=== PATIENT | male | born 1940 | race Hispanic/Latino ===

== ENCOUNTER 2016-07-16 12:44 | Inpatient (IN) | payer MEDICARE, OTHER ==
[2016-07-16] MEDS ORDERED: HYDROmorphone 1 mg/ml ISec IVP STA ×3 (13:11→15:21)
[2016-07-16] MEDS ORDERED: Levalbuterol 1.25 MG/3 ML Inhal Soln UD IH STA (13:13)
[2016-07-16] MEDS ORDERED: Ipratropium 0.02% Inhal Soln (0.5 mg/2.5 ml) UD IH STA (13:14)
--- NOTE | 2016-07-16 13:42 | ED PDOC ---
Arrival/HPI - General Chief Complaint: Trauma Time Seen by Provider: 07/16/16 13:03 Historian: Patient - History of Present Illness Narrative History of Present Illness (Text): 07/16/16 13:46 A 75 year old male presents to the emergency department complaining of left leg and knee pain after a fall a couple hours ago. Patient notes he got up after and was able to walk. Patient denies loss of consciousness and reports he did not hit head. He notes chronic shortness of breath because of his smoking. Patient denies any drug or alcohol use. Patient denies nausea, vomiting or any other complaints at this time. Time/Duration: 4-6 hours Symptom Onset: Sudden Symptom Course: Unchanged Activities at Onset: Rest Context: Walking Past Medical History - Provider Review Nursing Documentation Reviewed: Yes - Past History Past History: No Previous - Infectious Disease Hx of Infectious Diseases: None - Tetanus Immunization Tetanus Immunization: Up to Date - Cardiac Hx Angina: Yes Hx Hypertension: Yes - Pulmonary Hx Emphysema: Yes - Hematological/Oncological Hx Blood Disorders: No - Musculoskeletal/Rheumatological Hx Falls: Yes - Psychiatric Hx Substance Use: Yes - Past Surgical History Past Surgical History: No Previous - Anesthesia Hx Anesthesia: No Hx Anesthesia Reactions: No Hx Malignant Hyperthermia: No - Suicidal Assessment Feels Threatened In Home Enviroment: No Family/Social History - Physician Review Nursing Documentation Reviewed: Yes Family/Social History: No Known Family HX Smoking Status: Current Some Days Smoker Hx Alcohol Use: Yes Hx Substance Use: Yes Hx Substance Use Treatment: Yes Allergies/Home Meds Allergies/Adverse Reactions: Allergies No Known Allergies Allergy (Verified 04/09/15 13:48) Home Medications: Home Meds Medication Instructions Recorded Confirmed Oxycodone Hydrochloride [Oxycontin] 30 mg PO PRN PRN 01/29/15 04/16/15 Review of Systems - Physician Review All systems were reviewed & negative as marked: Yes - Review of Systems Constitutional: absent: Fevers Eyes: absent: Vision Changes Respiratory: SOB Cardiovascular: absent: Chest Pain Gastrointestinal: absent: Abdominal Pain, Nausea, Vomiting Genitourinary Male: absent: Dysuria Musculoskeletal: Other (left knee pain) Neurological: absent: Headache, Dizziness Physical Exam Vital Signs Reviewed: Yes Vital Signs Temp Pulse Resp BP Pulse Ox 07/16/16 13:13 97.9 F 76 22 121/73 96 Temperature: Afebrile Blood Pressure: Normal Pulse: Regular Respiratory Rate: Normal Appearance: Positive for: Non-Toxic, Uncomfortable Pain Distress: Moderate Mental Status: Positive for: Alert and Oriented X 3 - Systems Exam Head: Present: Atraumatic, Normocephalic Pupils: Present: PERRL Conjunctiva: Present: Normal Mouth: Present: Moist Mucous Membranes Pharnyx: Present: Normal. No: ERYTHEMA, EXUDATE Neck: Present: Normal Range of Motion Respiratory/Chest: Present: Wheezes (mild scattered bilateral) Cardiovascular: Present: Regular Rate and Rhythm, Normal S1, S2. No: Murmurs Abdomen: Present: Normal Bowel Sounds. No: Tenderness, Distention, Peritoneal Signs Back: Present: Normal Inspection Upper Extremity: Present: Normal Inspection. No: Cyanosis, Edema Lower Extremity: Present: Tenderness (L leg), Swelling (L leg severe, and ecchymosis), Deformity (proximal deformity of L knee, patient unable to move it at all) Neurological: Present: GCS=15, CN II-XII Intact, Speech Normal Skin: Present: Warm, Dry, Normal Color. No: Rashes Psychiatric: Present: Alert, Oriented x 3, Normal Insight, Normal Concentration Medical Decision Making ED Course and Treatment: 07/16/16 13:42 Impression: A 75 year old male with L leg pain after a fall. Differential Diagnosis included but are not limited to: fx vs hemarthrosis Plan: -- EKG -- CT brain -- chest xray -- Radiology Femur Left, L knee with patella, Pelvis, Tibia Fibula -- labs -- Urinalysis -- Atrovent, Dilaudid, Xopenex -- Reassess and disposition Prior Visits: Notes and results from previous visits were reviewed. Patient last reported to the emergency department on 04/16/15 for evaluation of head and neck pain after a fall. Progress Notes: Knee Xray: Creator : Frankie Lara MD 07/16/2016 14:00 IMPRESSION: Patellar fracture. 07/16/16 14:[address] Tobin. 07/16/16 15:23 Patient with noted history with L knee injury with patella fx on xray. Patient uncooperative and cursing out staff multiple times. Has a history of drug use, requiring multiple doses of iv dilaudid and ativan. Patient will be admitted to Dr. Vargas's service and Dr. Tobin is here in the ED for consult. 07/16/16 15:27 Dr. Badillo thinks the patient is a poor surgical candidate and may cast him. However the patient is unable to ambulate and will need hospitalization. - Lab Interpretations Lab Results: 07/16/16 13:20 07/16/16 13:20 Lab Results 07/16/16 13:20: Alcohol, Quantitative < 10 07/16/16 13:20: Sodium 138, Potassium 3.8, Chloride 102, Carbon Dioxide 28, Anion Gap 12, BUN 16, Creatinine 0.8, Est GFR ( Amer) > 60, Est GFR (Non- Af Amer) > 60, Random Glucose 121 H, Calcium 8.3 L, Total Bilirubin 1.4 H, AST 48, ALT 43, Alkaline Phosphatase 104, Lactate Dehydrogenase 585, Total Creatine Kinase 68, Troponin I < 0.01, NT-Pro-B Natriuret Pep 935 H, Total Protein 7.7, Albumin 3.3, Globulin 4.4, Albumin/Globulin Ratio 0.8 L, Lipase 23 07/16/16 13:20: PT 11.6, INR 1.07, APTT 29.6 07/16/16 13:20: WBC 9.6, RBC 3.89, Hgb 12.1 L, Hct 36.0 L, MCV 92.5, MCH 31.1, MCHC 33.6, RDW 14.2, Plt Count 188, MPV 9.6, Gran % 89.3 H, Lymph % (Auto) 7.0 L , [place] % (Auto) 3.6, Eos % (Auto) 0.0 L, Baso % (Auto) 0.1, Gran # 8.53 H, Lymph # 0.7 L, [place] # 0.3, Eos # 0.0, Baso # 0.01 I have reviewed the lab results: Yes - RAD Interpretation Radiology Orders: 07/16/16 13:09 PELVIS ONE VIEW [RAD] Stat 07/16/16 13:10 Femur Left [FEMUR MIN 2 VIEWS LT] [RAD] Stat 07/16/16 13:12 KNEE LEFT 2 VIEWS (AP & LAT) [RAD] Stat 07/16/16 13:13 Brain [HEAD W/O CONTRAST] [CT] Stat CHEST TWO VIEWS (PA/LAT) [RAD] Stat TIBIA FIBULA LEFT [RAD] Stat - EKG Interpretation Interpreted by ED Physician: Yes Type: 12 lead EKG - Medication Orders Current Medication Orders: Hydromorphone HCl (Dilaudid) 1 mg IVP STAT STA Stop: 07/16/16 15:22 Lorazepam (Ativan) 2 mg IVP ONCE ONE PRN Reason: Protocol Stop: 07/16/16 15:23 Discontinued Medications Hydromorphone HCl (Dilaudid) 1 mg IVP STAT STA Stop: 07/16/16 13:12 Last Admin: 07/16/16 13:25 Dose: 1 mg Hydromorphone HCl (Dilaudid) 1 mg IVP STAT STA Stop: 07/16/16 13:54 Last Admin: 07/16/16 14:15 Dose: 1 mg Ipratropium [place] (Atrovent) 0.5 mg IH STAT STA Stop: 07/16/16 13:15 Last Admin: 07/16/16 14:34 Dose: Not Given Non-Admin Reason: Patient Refused Levalbuterol HCl (Xopenex) 1.25 mg IH STAT STA Stop: 07/16/16 13:14 Last Admin: 07/16/16 14:34 Dose: Not Given Non-Admin Reason: Patient Refused Lorazepam (Ativan) 1 mg IVP ONCE STA PRN Reason: Protocol Stop: 07/16/16 13:53 Last Admin: 07/16/16 14:15 Dose: 1 mg - Scribe Statement The provider has reviewed the documentation as recorded by the Erika Sosa Provider Scribe Attestation: All medical record entries made by the Erika were at my direction and personally dictated by me. I have reviewed the chart and agree that the record accurately reflects my personal performance of the history, physical exam, medical decision making, and the department course for this patient. I have also personally directed, reviewed, and agree with the discharge instructions and disposition. Disposition/Present on Arrival - Present on Arrival Any Indicators Present on Arrival: No History of DVT/PE: No History of Uncontrolled Diabetes: No Urinary Catheter: No History of Decub. Ulcer: No History Surgical Site Infection Following: None - Disposition Have Diagnosis and Disposition been Completed?: Yes Diagnosis: Left patella fracture Disposition: HOSPITALIZED Disposition Time: 14:50 Patient Plan: Admission Condition: FAIR
[2016-07-16 13:47] LABS: ADD MANUAL DIFF? NO
[2016-07-16 13:58] LABS: BASO # 0.01 K/mm3 (0.0-2.0); BASO % 0.1 % (0.0-3.0); GRAN # 8.53 (1.4-6.5); GRAN % 89.3 % (50.0-68.0); LYMPH # 0.7 (1.2-3.4); MEAN CELL VOLUME 92.5 fL (80.0-105.0); MEAN CORPUSCULAR HEMOGLOBIN 31.1 pg (25.0-35.0); MEAN CORPUSCULAR HGB CONC 33.6 g/dl (31.0-37.0); MEAN PLATELET VOLUME 9.6 fl (7.0-11.0); MONO # 0.3 (0.1-0.6); MONO % 3.6 % (1.0-6.0); PLATELET COUNT 188 10^3/uL (120.0-450.0); RED CELL DISTRIBUTION WIDTH 14.2 % (11.5-14.5); WHITE BLOOD COUNT 9.6 10^3/ul (4.5-11.0)
--- NOTE | 2016-07-16 14:01 | RAD ---
PROCEDURE: Left Knee Radiographs. HISTORY: Pain. COMPARISON: None. FINDINGS: BONES: Without fracture. JOINTS: Tricompartment osteoarthritis. JOINT EFFUSION: Joint effusion. OTHER FINDINGS: Anterior soft tissue swelling. Vascular calcifications. IMPRESSION: Patellar fracture.
[2016-07-16 14:05] LABS: INR 1.07 (0.93-1.08); PARTIAL THROMBOPLASTIN TIME 29.6 Seconds (23.7-30.8)
[2016-07-16 14:11] LABS: ALB/GLOB RATIO 0.8 (1.1-1.8); ALKALINE PHOSPHATASE 104 U/L (38-133); ALT/SGPT 43 U/L (7-56); AST/SGOT 48 U/L (15-59); BILIRUBIN,TOTAL 1.4 mg/dL (0.2-1.3); BLOOD UREA NITROGEN 16 mg/dL (7-21); CALCIUM 8.3 mg/dL (8.4-10.5); CARBON DIOXIDE 28 mmol/L (21-33); CHLORIDE 102 mmol/L (98-107); GFR AFRICAN-AMERICAN > 60; GLUCOSE,RANDOM 121 mg/dL (70-110); LIPASE 23 U/L (23-300); POTASSIUM 3.8 mmol/L (3.6-5.0); SODIUM 138 mmol/L (132-148); TOTAL PROTEIN 7.7 g/dL (5.8-8.3)
[2016-07-16 14:22] LABS: TROPONIN I < 0.01 ng/mL
[2016-07-16] MEDS ORDERED: MethylPREDNISolone Depo 40 mg/ml Inj IM ONE (16:23)
[2016-07-16] MEDS ORDERED: Bupivacaine 0.5% Inj(30mL) IJ ONE (16:23)
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
--- NOTE | 2016-07-16 18:36 | CT ---
PROCEDURE: CT HEAD WITHOUT CONTRAST. HISTORY: fall COMPARISON: Head CT from 04/09/2015 TECHNIQUE: Axial computed tomography images were obtained through the head/brain without intravenous contrast. Radiation dose: Total exam DLP = 822.62 mGy-cm. This CT exam was performed using one or more of the following dose reduction techniques: Automated exposure control, adjustment of the mA and/or kV according to patient size, and/or use of iterative reconstruction technique. Somewhat limited study due to artifact from patient motion. FINDINGS: HEMORRHAGE: No intracranial hemorrhage. BRAIN: No mass effect or edema. No CT evidence of acute territorial infarct. Patchy and confluent hypodensities throughout the bilateral cerebral hemispheric white matter are most likely from chronic small vessel ischemic changes. VENTRICLES: Unremarkable. No hydrocephalus. CALVARIUM: Unremarkable. PARANASAL SINUSES: Unremarkable as visualized. No significant inflammatory changes. MASTOID AIR CELLS: Unremarkable as visualized. No inflammatory changes. OTHER FINDINGS: Deviated nasal septum. Anterior scalp soft tissue nodule previously identified in the CT from 04/09/2015 has grown significantly larger in size and now measures 2 x 1.1 centimeter. It previously measured approximately 0.9 x 0.7 centimeter. IMPRESSION: No CT evidence of acute intracranial hemorrhage or acute territorial infarct. Acute infarction may be CT occult within first 24 hours. If a focal deficit persists, consider followup CT or MRI for further evaluation. Interval growth of the anterior scalp soft tissue nodule now measuring 2 x 1.[address] Olivia at approximately 6:40 p.m. on 07/16/2016.
[2016-07-16 19:48] VITALS: BMI 25.6
[2016-07-16] MEDS: HYDROmorphone 1 mg/ml ISec IVP PRN (21:37)
[2016-07-16] MEDS ORDERED: HYDROmorphone 0.5 mg/0.5 ml ISec IVP STA (23:51)
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
[2016-07-17] MEDS: HYDROmorphone 1 mg/ml ISec IVP PRN ×2 (05:45→12:37)
--- NOTE | 2016-07-17 08:51 | PN ---
DATE: 07/17/2016 A 75-year-old belligerent male in room 563, bed 1, was treated last night in the ER for mildly displa stacia fracture patella with what appears to be an intact retinaculum, medially and laterally. The frac ture has some bony contact on the joint surface and is anteriorly by about a 1/2 an inch or 3/8 of an inch, but what stopped him from going to surgery was 2 things. He had a tremendous swelli ng and ecchymosis of that left knee. I helped decrease some of the swelling by taking approximately 50 mL of blood out to decrease the pressure on the knee and put him in a long leg cast as he is not a surgical candidate, not only because he is uncooperative, he would not comply with the strict regime of therapy and postop care and he is very belligerent as I said, but now what I should do is keep hi m in a cast. With this, he could go to a subacute rehab and I would follow him at that facility and check in on him every week and get periodic x-rays as this fracture has a good chance of healing with out surgical intervention as like I said, he does not or will not comply with the protocol of postop care and the risk of surgery outweighs its benefits right now. We will try to get him to a subacute rehab, then I could follow him periodically. Marin Tobin DO cc: [id number] TT: 07/17/2016 08:51:28 Confirmation # [id number] Dictation # [id number]
--- NOTE | 2016-07-17 09:36 | RAD ---
PROCEDURE: Radiographs of the left tibia and fibula. HISTORY: L knee injury COMPARISON: None available. TECHNIQUE: Frontal and lateral views obtained. FINDINGS: BONES: No fracture or destructive lesion. JOINT SPACES: Unremarkable. OTHER FINDINGS: Plaster cast in place IMPRESSION: Unremarkable radiographs of the left tibia and fibula.
--- NOTE | 2016-07-17 10:06 | RAD ---
PROCEDURE: CHEST RADIOGRAPH, 1 VIEW HISTORY: L knee injury; sob COMPARISON: 07/30/2014 FINDINGS: LUNGS: Interstitial infiltrates are seen bilaterally. Findings could represent CHF or pneumonia PLEURA: No pneumothorax or pleural fluid seen. CARDIOVASCULAR: Normal. OSSEOUS STRUCTURES: No significant abnormalities. VISUALIZED UPPER ABDOMEN: Normal. OTHER FINDINGS: None. IMPRESSION: Interstitial infiltrates bilaterally. CHF versus pneumonia
--- NOTE | 2016-07-17 10:15 | RAD ---
PROCEDURE: Radiographs of the pelvis. HISTORY: fall; L leg injury COMPARISON: None. FINDINGS: BONES: Pelvic Bones: Unremarkable. Hips: Grossly unremarkable. JOINTS: Sacroiliac Joints: Unremarkable. Pubic Symphysis: Unremarkable. OTHER FINDINGS: None. IMPRESSION: Unremarkable radiographs of the pelvis.
--- NOTE | 2016-07-17 10:15 | RAD ---
PROCEDURE: Left Femur Radiographs. HISTORY: left leg/knee injury COMPARISON: None. TECHNIQUE: AP and Lateral Radiographs of the left femur. FINDINGS: FEMUR: There is a transverse minimally displaced fracture through patella. The femur is intact SOFT TISSUES: Normal. OTHER FINDINGS: None. IMPRESSION: There is a transverse minimally displaced fracture through patella. The femur is intact
--- NOTE | 2016-07-17 10:59 | RAD ---
PROCEDURE: Left Knee Radiographs. HISTORY: Pain. COMPARISON: None. FINDINGS: BONES: There is a displaced transverse fracture through the patella. JOINTS: Normal. No osteoarthritis. JOINT EFFUSION: None. OTHER FINDINGS: Plaster cast in place IMPRESSION: There is a displaced transverse fracture through the patella.
[2016-07-17] MEDS: Enoxaparin 30 mg Syringe SC SCH (12:36)
--- NOTE | 2016-07-18 02:06 | CON ---
DATE: 07/17/2016 IDENTIFYING INFORMATION: The patient is a 75-year-old white male who initially presented to the [facility] Room complaining of left leg and knee pain after he fell. The patient reportedly stated that he had gotten up and was able to walk. He denied loss of consciou sness and reported that he did not hit his head. He was noted to be short of breath. He denied any drug or alcohol use. No neurologic signs were reported in the Emergency Room and all systems were reported as having been negative. He was reported to be alert and oriented to 3 spheres. Subsequently, in the Emergency Room, he became uncooperative and started cursing at staff. There, it was discerned that he did have a history of drug use and required multiple doses of Dilaudi d and Ativan. LABORATORY DATA: A tibia/fibula x-ray was unremarkable. A CT scan of his head without contrast showed no intracranial hemorrhage. An x-ray of the femur showed a transverse, minimally displaced fracture through the patella with the femur being intact. A pelvic x-ray was unremarkable. A knee x-ray showed a displaced transverse fracture through the patella. I have discussed the patient's situation with nursing. The patient has been yelling out and has been restless. The patient has been put on Ativan 1 mg IV push q. 6 hours p.r.n., as well as Dilaudid 1 mg IV q. 4 hours p.r.n. A CBC and differential shows lowered hemoglobin 12.1, hematocrit 36.0. A toxicology screen is negati ve for alcohol. Biochemical profile shows slightly elevated random glucose 121, lowered calcium 8.3, total bilirubin elevated at 1.4. ASSESSMENT: I had previously interacted with this patient in 08/2014. At that time, he was the focus of concern because of intermittent agitation and attempts to climb out of his bed. He had tested positive for cocaine and opiates at that time. He had denied any prior psychiatric history at that time, but admitted that he had a lifelong history of substance abuse, "everything." His attempts at financially supporting his drug habit had led him to be incarcerated on a number of occasions, but he could not tell me for how long nor where he was so housed. At that time, he complained of intractable neuropathic pain in his left lower extremity and was noted to have an unsteady gait. At that time, he informed me that [place] was [place] and that he was living in [facility]. He stated that his parents are , as are his 3 younger siblings (2 sisters and 1 brother). He denied a familial psychiatric or substance abuse history and denied such in himself while, at the same time, talking about his substance usage. He indicated that he had dropped out of school in sixth grade and had trouble learning and did not li ke school. He denied he was in special education or ever retained. 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 DIAGNOSIS: At that time, the diagnosis was rule out dementia, not otherwise specified and polysubsta nce abuse. I do not see any other psychiatric contacts in his chart. PLAN: I have reviewed his case with nursing. The patient reportedly lives at the [facility] has no identi fiable family. He is presently disoriented, noncommunicative and intermittently agitated. It is unclear to me if this is the patient's baseline state; something I doubt given the level of int eraction he demonstrated in the Emergency Room earlier at time of his admission. I will start the pa mary alice on low dose Risperdal while, at the same time, maintaining him on the Ativan p.r.n. that he is getting. Thank you, as always, for this consultation. Juan Brady MD, PhD cc: [id number] TT: 07/18/2016 02:06:07 Confirmation # [id number] Dictation # [id number]
--- NOTE | 2016-07-18 08:23 | PN ---
DATE: 07/18/2016 ROOM: 568, bed 1. The patient is ready to go to subacute rehabilitation. No surgery is planned. I will treat him cons ervatively. He has too much risk of doing surgery because of many comorbidities such as a smoker, al coholic, not compliant, which is probably the main reason, but he will do well with 6 weeks of a cast and we will reevaluate him after the cast is off, so he can go to subacute rehab any time. I would like to know which one he is going to go to so I could follow him and hopefully licensed clinical social worker could c all me. Marin Tobin DO cc: [id number] TT: 07/18/2016 08:23:10 Confirmation # [id number] Dictation # [id number] en
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
[2016-07-18] MEDS: Enoxaparin 30 mg Syringe SC SCH (09:59)
--- NOTE | 2016-07-19 02:04 | PN ---
DATE: 07/18/2016 IDENTIFYING INFORMATION: The patient is a 75-year-old white male, who has been agitated. The patient appears to be more engageable than yesterday, but is quite agitated and belligerent accor ding to nursing. He has a fracture of the left patella. Orthopedics has determined that the patient is not a good candidate for surgical repair of the fractu red patellar; therefore, the leg was casted. He also has a history of chronic obstructive pulmonary disease, hypertension, and opioid dependence i n the past. I will increase the patient's Risperdal dosage. Juan Brady MD, PhD cc: [phone] TT: 07/19/2016 01:19:57 Confirmation # [id number] Dictation # [id number] vn
[2016-07-19] MEDS: Enoxaparin 30 mg Syringe SC SCH (10:32)
[2016-07-19] MEDS: HYDROmorphone 1 mg/ml ISec IVP PRN (16:19)
[2016-07-19 16:40] VITALS: RESP 20
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
--- NOTE | 2016-07-19 17:47 | CP.PCM.PN ---
Subjective - Date & Time of Evaluation Date of Evaluation: 07/19/16 Time of Evaluation: 04:15 - Subjective Subjective: Patient seen after Tanya Hernandes was called . According to patient's RN Tanya Hernandes was called when patient was noted to be combative, was spitting at his caretakers and was trying to climb out of bed. He is also c/o pain in his L leg.On a scale of 1 to 10 it is a 10. Patient is being treated for a fractured L Patella. PMH:HTN,COPD,ETOH and Heroin abuse Objective - Vital Signs/Intake and Output Vital Signs (last 24 hours): Temp Pulse Resp BP Pulse Ox 97.1 F L 88 22 145/86 97 07/19/16 08:00 07/19/16 08:00 07/19/16 08:00 07/19/16 08:00 07/19/16 08:00 Intake and Output: 07/19/16 07/19/16 06:59 18:59 Intake Total 660 300 Balance 660 300 - Medications Medications: Current Medications Enoxaparin Sodium (Lovenox) 30 mg SC DAILY SANDRA PRN Reason: Protocol Last Admin: 07/19/16 10:32 Dose: 30 mg Hydromorphone HCl (Dilaudid) 1 mg IVP Q4H PRN PRN Reason: Pain, moderate (4-7) Last Admin: 07/19/16 16:19 Dose: 1 mg Lorazepam (Ativan) 1 mg IVP Q6H PRN; Protocol PRN Reason: Agitation Last Admin: 07/19/16 15:09 Dose: 1 mg Risperidone (Risperdal Tab) 0.5 mg PO DAILY COUNTS INCLUDE 234 BEDS AT THE [facility] Last Admin: 07/19/16 11:39 Dose: 0.5 mg - Labs Labs: PT 11.6 Seconds (9.9-11.8) 07/16/16 13:20 INR 1.07 (0.93-1.08) 07/16/16 13:20 APTT 29.6 Seconds (23.7-30.8) 07/16/16 13:20 - Constitutional Appears: No Acute Distress, Combative, Agitated, Confused (at times.) - Head Exam Head Exam: ATRAUMATIC, NORMAL INSPECTION, NORMOCEPHALIC - Eye Exam Eye Exam: PERRL - ENT Exam ENT Exam: Mucous Membranes Moist - Neck Exam Neck Exam: Normal Inspection - Respiratory Exam Respiratory Exam: Clear to Ausculation Bilateral - Cardiovascular Exam Cardiovascular Exam: REGULAR RHYTHM - GI/Abdominal Exam GI & Abdominal Exam: Soft, Normal Bowel Sounds - Extremities Exam Additional comments: L leg is in a cast.Moves toes well. Good capillary refill noted. - Neurological Exam Neurological Exam: Alert, Awake Additional comments: Confused at times. - Psychiatric Exam Psychiatric exam: Agitated - Skin Skin Exam: Dry, Warm Assessment and Plan - Assessment and Plan (Free Text) Assessment: Agitation Pain L leg Plan: Patient given his dose of Dilaudid stat. Bilateral soft wrist restraints ordered.
--- NOTE | 2016-07-19 23:09 | PCM.PYCHPN ---
Psychiatric Progress Note - Psychiatric Progress Note Patient seen today, length of contact: 25 Patient Chief Complaint: agitation and confusion Problems Identified/Issues Discussed: fx patella Medical Problems: as above DSM 5 Symptoms Update: remains combative. has 1:1 sitter. confused Medication Change: Yes (increased risperdal) Medical Record Reviewed: Yes Consults ordered or reviewed: reviewed Mental Status Examination - Cognitive Function Memory: Other Attention: Poor Concentration: Poor Fund of Knowledge: Poor Decription of patient's judgement and insights: impaired - Mood Mood: Other - Affect Affect: Blunted - Speech Speech: Slurred, Loud - Formal Thought Process Formal Thought Process: Flight of ideas, Other - Suicidal Ideation Suicidal Ideation: No - Homicidal Ideation Homicidal Ideation: No Goal/Treatment Plan - Goal/Treatment Plan Progress Toward Problem(s) and Goals/Treatment Plan: remains confused and combative
[2016-07-20] MEDS: Oxycodone/Acetaminophen 5/325 mg Tab PO PRN (20:33)
--- NOTE | 2016-07-20 21:41 | PCM.PYCHPN ---
Psychiatric Progress Note - Psychiatric Progress Note Patient seen today, length of contact: 25 Patient Chief Complaint: agitation and confusion Problems Identified/Issues Discussed: fx patella Medical Problems: as above DSM 5 Symptoms Update: Remains rambunctious On one hand had been somewhat more focused and coherent but subsequently upon my reaching the nursing station again became combative I have increased his respiratory now to 0.5 a.m. and at bedtime and 0.2 5 in the PM Medication Change: Yes (increased risperdal) Medical Record Reviewed: Yes Consults ordered or reviewed: reviewed Mental Status Examination - Cognitive Function Memory: Impaired, Other Attention: Poor Concentration: Poor Fund of Knowledge: Poor Decription of patient's judgement and insights: impaired - Mood Mood: Other - Affect Affect: Other - Speech Speech: Slurred, Loud, Stammering - Formal Thought Process Formal Thought Process: Flight of ideas, Other - Suicidal Ideation Suicidal Ideation: No - Homicidal Ideation Homicidal Ideation: No Goal/Treatment Plan - Goal/Treatment Plan Progress Toward Problem(s) and Goals/Treatment Plan: remains confused and combative
--- NOTE | 2016-07-20 22:00 | CP.PCM.PN ---
Subjective - Date & Time of Evaluation Date of Evaluation: 07/20/16 Time of Evaluation: 21:58 - Subjective Subjective: Patient was seen at bedside because he was agitated. He wants to go home. He received po ativan earlier. Has no iv access. Geodon 10 mg IM orderd. Objective - Vital Signs/Intake and Output Vital Signs (last 24 hours): Temp Pulse Resp BP Pulse Ox 98.4 F 91 H 20 148/81 99 07/19/16 16:00 07/19/16 16:00 07/19/16 16:00 07/19/16 16:00 07/19/16 16:00 - Medications Medications: Current Medications Enoxaparin Sodium (Lovenox) 30 mg SC DAILY SANDRA PRN Reason: Protocol Last Admin: 07/19/16 10:32 Dose: 30 mg Lorazepam (Ativan) 1 mg PO Q6 PRN; Protocol PRN Reason: Agitation Last Admin: 07/20/16 20:33 Dose: 1 mg Nicotine (Nicoderm Cq) 1 patch TD DAILY SANDRA Oxycodone HCl (Oxycontin Extended Release Tab) 10 mg PO Q12 SANDRA Stop: 07/23/16 22:01 Oxycodone/Acetaminophen (Percocet 5/325 Mg Tab) 1 tab PO Q6H PRN PRN Reason: Pain, severe (8-10) Stop: 07/23/16 20:18 Last Admin: 07/20/16 20:33 Dose: 1 tab Risperidone (Risperdal Tab) 0.5 mg PO DAILY SANDRA PRN Reason: Protocol Risperidone (Risperdal Tab) 0.5 mg PO HS SANDRA PRN Reason: Protocol Last Admin: 07/19/16 22:03 Dose: 0.5 mg Risperidone (Risperdal Tab) 0.25 mg PO 1400 SANDRA PRN Reason: Protocol - Labs Labs: PT 11.6 Seconds (9.9-11.8) 07/16/16 13:20 INR 1.07 (0.93-1.08) 07/16/16 13:20 APTT 29.6 Seconds (23.7-30.8) 07/16/16 13:20 - Constitutional Appears: Well, No Acute Distress - Head Exam Head Exam: ATRAUMATIC, NORMAL INSPECTION, NORMOCEPHALIC - Eye Exam Eye Exam: Normal appearance - ENT Exam ENT Exam: Normal External Ear Exam - Neck Exam Neck Exam: Normal Inspection - Respiratory Exam Respiratory Exam: NORMAL BREATHING PATTERN - Cardiovascular Exam Cardiovascular Exam: absent: JVD - GI/Abdominal Exam GI & Abdominal Exam: absent: Distended - Rectal Exam Rectal Exam: Deferred - Extremities Exam Additional comments: Left leg long splint + - Back Exam Back Exam: NORMAL INSPECTION - Neurological Exam Neurological Exam: Alert, Oriented x3 - Psychiatric Exam Psychiatric exam: Normal Affect, Normal Mood - Skin Skin Exam: Normal Color Assessment and Plan - Assessment and Plan (Free Text) Assessment: Agitation. Left leg pain. Left patella fracture. COPD. HTN. Chronic back pain. Smoker. Alcohol user. Heroine user. Plan: Geodon 10 mg IM ordered. Continue present management.
--- NOTE | 2016-07-21 08:17 | PN ---
DATE: 07/20/2016 The patient is in room 563, bed 1 this morning as the computer system at the hospital is down. He is improving clinically. Mental status has improved. He is more awake, alert and cooperative, craving his nicotine for his chronic tobacco use. We will add a Nicoderm patch. Psychiatry followup by Dr. Brady is appreciated. Case management and social worker psychiatric are working on discharge placement for a fractured patella with no further surgery indicated as of this point as best I know. The patient will be seen by Dr. Jaskaran Vargas for the next few days as I will be away. Bryan Vargas MD cc: [id number] TT: 07/21/2016 07:59:39 Confirmation # [id number] Dictation # [id number] en MTDD
[2016-07-21] MEDS: Enoxaparin 30 mg Syringe SC SCH (09:15)
[2016-07-21] MEDS: oxyCODONE 10 mg ER Tab (oxyCONTIN) PO SCH ×2 (09:16→21:11)
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
--- NOTE | 2016-07-21 13:58 | PCM.PYCHPN ---
Psychiatric Progress Note - Psychiatric Progress Note Patient seen today, length of contact: 25 Patient Chief Complaint: agitation and confusion Problems Identified/Issues Discussed: fx patella Medical Problems: as above DSM 5 Symptoms Update: He is intermittently combative Did respond well to Geodon IM when necessary last night. As such we will DC standing order of respiratory withdrawal and put on a standing order of Geodon ( 60 mg twice a day with meals ( Ativan as a when necessary we'll still be available. Medication Change: Yes (Have DC'd respiratory: Replaced with Geodon because patient seems more resp) Medical Record Reviewed: Yes Consults ordered or reviewed: reviewed Mental Status Examination - Cognitive Function Memory: Impaired, Other Attention: Poor Concentration: Poor Fund of Knowledge: Poor Decription of patient's judgement and insights: impaired - Mood Mood: Other - Affect Affect: Other - Speech Speech: Slurred, Loud, Stammering - Formal Thought Process Formal Thought Process: Flight of ideas, Other - Suicidal Ideation Suicidal Ideation: No - Homicidal Ideation Homicidal Ideation: No Goal/Treatment Plan - Goal/Treatment Plan Progress Toward Problem(s) and Goals/Treatment Plan: remains confused and combative
[2016-07-21] MEDS: Oxycodone/Acetaminophen 5/325 mg Tab PO PRN (14:52)
[2016-07-21] MEDS ORDERED: Oxycodone/Acetaminophen 5/325 mg Tab PO STA (16:28)
[2016-07-21] MEDS ORDERED: Oxycodone/Acetaminophen 10/325 mg Tab PO PRN (16:29)
[2016-07-21] MEDS: Oxycodone/Acetaminophen 10/325 mg Tab PO PRN (23:04)
[2016-07-22] MEDS: Enoxaparin 30 mg Syringe SC SCH (09:50)
[2016-07-22] MEDS: oxyCODONE 10 mg ER Tab (oxyCONTIN) PO SCH ×2 (09:54→21:28)
--- NOTE | 2016-07-22 11:33 | PN ---
DATE: 07/22/2016 The patient is a 75-year-old male who was admitted to the [facility] 6 days ago after falling and fracturing his left patella. He is known to have a past medical history positive for chronic back pain, hypertension, COPD, positive for hepatitis C, chronic opioid use for his pain. He smokes cigarettes, drinks alcohol, is known to use illicit drugs at times. Through his hospital stay, the patient had been belligerent, rowdy, throwing things in his room. However, over the past few days, he has slowly come around to being more lucid, more conversational. When I saw the patient today, he was extremely polite and well mannered. He was happy to see me. The patient was evaluate d by Dr. Marin Tobin, the orthopedist, and placed in a long cast from the thigh to the ankle for his fracture. Because of the patient's age and comorbidities, it was felt he was not a good cand idate for surgical repair of the patella. I spoke with Dr. Tobin earlier today. He said, fro m his orthopedic point of view, he is about ready for transfer to a subacute rehab facility versus di scharge to home. I spoke with the patient. He would like to go home; however, realized how difficul t it would be for him to manage in his apartment at the local [facility] and will think about possible suba cute rehab overnight and we will discuss this further again in the morning. I told the patient he wo uld need to be compliant and polite to the nursing staff in order to be admitted to the subacute reha b facility and the patient understands, so we will reevaluate in the morning and discussed discharge planning. Marin Vargas MD cc: [phone] TT: 07/22/2016 11:32:22 Confirmation # [id number] Dictation # [id number] tn
[2016-07-22] MEDS: Oxycodone/Acetaminophen 10/325 mg Tab PO PRN (13:33)
[2016-07-23] MEDS: Oxycodone/Acetaminophen 10/325 mg Tab PO PRN ×4 (00:12→21:24)
[2016-07-23] MEDS: Enoxaparin 30 mg Syringe SC SCH (09:08)
[2016-07-23] MEDS: oxyCODONE 10 mg ER Tab (oxyCONTIN) PO SCH ×3 (09:09→21:15)
[2016-07-23 10:21] VITALS: O2SAT 94
[2016-07-23 16:19] VITALS: BP 110/70; PULSE 80; TEMP 98.3
--- NOTE | 2016-07-23 18:39 | DS ---
The patient is 7 days post fracture of his left patella that is compatible with conservative care and a long leg cast. He can go home today. We are going to get him a walker. He is still ambulating with therapy, weightbearing to tolerance. He lives in the [facility] in [place] and he is a , so he is going to have access to a walker and I will visit him at the [facility] and plan to take the cast off in 2-3 weeks and give him a brace at that time. The instructions will be ambulate with full weight bearing with a walker and then progress to a cane, but no strenuous bending or stairs for at least 6-8 weeks. FINAL DIAGNOSIS: Left patella fracture with hemarthrosis that was evacuated on admission and the fracture is compatible with conservative therapy as the extensor retinaculum is still intact peripherally. Marin Tobin DO cc: [id number] TT: 07/23/2016 18:38:00 bradly [id number]
[2016-07-24] MEDS: Oxycodone/Acetaminophen 10/325 mg Tab PO PRN (04:25)
[2016-07-24] MEDS: oxyCODONE 10 mg ER Tab (oxyCONTIN) PO SCH ×2 (08:34→13:45)
--- NOTE | 2016-07-24 13:46 | PCM.PYCHPN ---
Psychiatric Progress Note - Psychiatric Progress Note Patient seen today, length of contact: 25 Patient Chief Complaint: agitation and confusion Problems Identified/Issues Discussed: fx patella Medical Problems: as above DSM 5 Symptoms Update: Patient presently sedate. The case reviewed with nursing who informs patient has been more communicative and less agitated since having been switched from Risperdal to Geodon. Medication Change: No Medical Record Reviewed: Yes Consults ordered or reviewed: reviewed Mental Status Examination - Cognitive Function Memory: Impaired, Other Attention: Poor Concentration: Poor Fund of Knowledge: Poor Decription of patient's judgement and insights: impaired Social work notes reviewed. The patient was at a higher cognitive status when interviewed with social work then presently - Mood Mood: Other - Affect Affect: Other - Speech Speech: Slurred, Stammering - Formal Thought Process Formal Thought Process: Other - Suicidal Ideation Suicidal Ideation: No - Homicidal Ideation Homicidal Ideation: No Goal/Treatment Plan - Goal/Treatment Plan Progress Toward Problem(s) and Goals/Treatment Plan: remains confused and combative On July 23 patient noted to be significantly improved. Social work recommendations reviewed and will defer to this placement. Patient is not homicidal suicidal or psychotic
== END 2016-07-24 18:00 | DRG 563 ==
LOC: ED 12:44 → ERH 14:47 → 5RNO 17:41
PROVIDERS: ADMIT Internal Medicine; ATTEND Internal Medicine
DX: S82.002A Unspecified fracture of left patella, initial encounter for closed fracture (principal); F11.20 Opioid dependence, uncomplicated; J44.9 Chronic obstructive pulmonary disease, unspecified; S83.8X2A Sprain of other specified parts of left knee, initial encounter; I10 Essential (primary) hypertension; F17.210 Nicotine dependence, cigarettes, uncomplicated; R41.0 Disorientation, unspecified; R45.1 Restlessness and agitation; M54.9 Dorsalgia, unspecified; G89.29 Other chronic pain; B19.20 Unspecified viral hepatitis C without hepatic coma; W01.0XXA Fall on same level from slipping, tripping and stumbling without subsequent striking against object, initial encounter; V78.4XXA Person boarding or alighting from bus injured in noncollision transport accident, initial encounter; Y92.414 Local residential or business street as the place of occurrence of the external cause; Z78.1 Physical restraint status

== ENCOUNTER 2016-07-25 20:37 | Inpatient (IN) | payer MEDICARE, MEDICAID ==
[2016-07-25 20:57] VITALS: BMI 20.7
--- NOTE | 2016-07-25 21:24 | ED PDOC ---
Arrival/HPI - General Chief Complaint: Psychiatric Evaluation Time Seen by Provider: 07/25/16 20:51 Historian: Patient - History of Present Illness Narrative History of Present Illness (Text): 07/25/16 21:21 Michael Jackson is a 75 year old male, whose past medical history includes hypertension, angia, emphysema, and substance abuse, presents to emergency department from assisted for evaluation of increased agitative behavior. At the emergency department, patient denies any somatic or psychological complaints. Symptom Onset: Gradual Severity Level: Mild Activities at Onset: Light Past Medical History - Provider Review Nursing Documentation Reviewed: Yes - Past History Past History: No Previous - Infectious Disease Hx of Infectious Diseases: None - Tetanus Immunization Tetanus Immunization: Up to Date - Cardiac Hx Angina: Yes Hx Hypertension: Yes - Pulmonary Hx Emphysema: Yes - Hematological/Oncological Hx Blood Disorders: No - Musculoskeletal/Rheumatological Hx Falls: Yes - Psychiatric Hx Substance Use: Yes (substance abuse treatment) - Past Surgical History Past Surgical History: No Previous - Anesthesia Hx Anesthesia: No Hx Anesthesia Reactions: No Hx Malignant Hyperthermia: No - Suicidal Assessment Feels Threatened In Home Enviroment: No Family/Social History - Physician Review Nursing Documentation Reviewed: Yes Family/Social History: No Known Family HX Smoking Status: Current Some Days Smoker Hx Alcohol Use: Yes Hx Substance Use: Yes (substance abuse treatment) Hx Substance Use Treatment: Yes Allergies/Home Meds Allergies/Adverse Reactions: Allergies No Known Allergies Allergy (Verified 04/09/15 13:48) Home Medications: Home Meds Medication Instructions Recorded Confirmed ALPRAZolam [Xanax] 1 mg PO TID 07/26/16 07/26/16 Nicotine 14 mg/24 hr [Nicotine 14 mg TD DAILY 07/26/16 07/26/16 Transdermal System] Oxycodone HCl [Oxycodone HCl] 10 mg PO Q8H 07/26/16 07/26/16 Ziprasidone [Geodon] 60 mg PO BID 07/26/16 07/26/16 Review of Systems - Physician Review All systems were reviewed & negative as marked: Yes - Review of Systems Constitutional: Normal. absent: Fatigue, Fevers Respiratory: Normal. absent: SOB, Cough, Sputum Cardiovascular: Normal. absent: Chest Pain, Palpitations Gastrointestinal: Normal. absent: Abdominal Pain, Diarrhea, Nausea, Vomiting Genitourinary Male: Normal. absent: Dysuria, Frequency Musculoskeletal: Normal Neurological: Normal. absent: Headache, Dizziness Psychiatric: Other (agitative behavior. ) Physical Exam Vital Signs Reviewed: Yes Vital Signs Temp Pulse Resp BP Pulse Ox 07/26/16 08:13 98.4 F 84 18 132/84 96 07/26/16 01:04 96 H 18 143/75 97 07/25/16 20:56 98.2 F 88 18 184/95 H 99 Temperature: Afebrile Blood Pressure: Hypertensive Pulse: Regular Respiratory Rate: Normal Appearance: Positive for: Well-Appearing, Non-Toxic, Comfortable Pain Distress: None Mental Status: Positive for: Alert and Oriented X 3 - Systems Exam Head: Present: Atraumatic, Normocephalic Pupils: Present: PERRL Conjunctiva: Present: Normal Respiratory/Chest: Present: Clear to Auscultation, Good Air Exchange. No: Respiratory Distress, Accessory Muscle Use Cardiovascular: Present: Regular Rate and Rhythm, Normal S1, S2. No: Murmurs Abdomen: Present: Normal Bowel Sounds. No: Tenderness, Distention, Peritoneal Signs, Rebound, Guarding Upper Extremity: Present: Normal Inspection. No: Cyanosis, Edema Lower Extremity: Present: Other (left leg cast for patella fracture ). No: Edema Neurological: Present: GCS=15, CN II-XII Intact, Speech Normal, Motor Func Grossly Intact, Normal Sensory Function Skin: Present: Warm, Dry, Normal Color. No: Rashes Psychiatric: Present: Alert, Oriented x 3, Agitated Medical Decision Making ED Course and Treatment: 07/25/16 21:23 Impression: A 75 year old male who was sent to emergency department from assisted for evaluation of agitative behavior. Plan: -- EKG --- Labs -- drug screen -- Alcohol level -- Chest X-ray -- Urinalysis -- Reassess and disposition Progress Notes: 07/25/16 21:24 Patient was verbally abusive in the emergency department. 1mg Ativan given. 07/26/16 00:24 Patient still agitated. Will placed patient on restraints. 07/26/16 00:24 EKG interpreted by me: NSR @ 89 bpm. Normal [place]. Normal interval. - Lab Interpretations Lab Results: 07/25/16 22:00 07/25/16 22:00 Lab Results 07/26/16 08:20: Urine Opiates Screen Negative, Urine Methadone Screen Negative, Ur Barbiturates Screen Negative, Ur Phencyclidine Scrn Negative, Ur Amphetamines Screen Negative, U Benzodiazepines Scrn Positive H, U Oth Cocaine Metabols Negative, U Cannabinoids Screen Negative 07/26/16 05:20: Urine Color Yellow, Urine Appearance Clear, Urine pH 8.0, Ur Specific [place] 1.015, Urine Protein Trace H, Urine Glucose (UA) Negative, Urine Ketones Negative, Urine Blood Trace-intact H, Urine Nitrate Negative, Urine Bilirubin Negative, Urine Urobilinogen 1.0 H, Ur Leukocyte Esterase Negative, Urine RBC 0 - 2, Urine WBC Negative, Ur Epithelial Cells 0 - 2, Amorphous Sediment Small, Urine Bacteria Small 07/25/16 22:00: Alcohol, Quantitative < 10 07/25/16 22:00: Salicylates < 1 L, Acetaminophen < 10.0 L 07/25/16 22:00: Sodium 135, Potassium 4.1, Chloride 101, Carbon Dioxide 27, Anion Gap 11, BUN 24 H, Creatinine 0.7, Est GFR ( Amer) > 60, Est GFR ( Non-Af Amer) > 60, Random Glucose 108, Calcium 8.4, Total Bilirubin 0.8, AST 45 , ALT 38, Alkaline Phosphatase 115, Total Protein 7.3, Albumin 3.3, Globulin 4.0 , Albumin/Globulin Ratio 0.8 L 07/25/16 22:00: WBC 10.8, RBC 3.74, Hgb 11.7 L, Hct 33.9 L, MCV 90.6, MCH 31.3, MCHC 34.5, RDW 13.5, Plt Count 291, MPV 9.3, Gran % 81.3 H, Lymph % (Auto) 11.7 L, [place] % (Auto) 6.7 H, Eos % (Auto) 0.1 L, Baso % (Auto) 0.2, Gran # 8.75 H, Lymph # 1.3, [place] # 0.7 H, Eos # 0.0, Baso # 0.02 - RAD Interpretation Radiology Orders: 07/26/16 08:37 CHEST PORTABLE [RAD] Stat - Medication Orders Current Medication Orders: Alprazolam (Xanax) 0.5 mg PO TID SANDRA PRN Reason: Protocol Citalopram Hydrobromide (Celexa) 10 mg PO DAILY SANDRA Lorazepam (Ativan) 1 mg IM Q6H PRN; Protocol PRN Reason: Anxiety Last Admin: 07/26/16 14:29 Dose: 1 mg Nicotine (Nicoderm Cq) 1 patch TD DAILY SANDRA Last Admin: 07/26/16 13:27 Dose: Not Given Non-Admin Reason: Patient Refused Oxycodone HCl (Oxycodone Immediate Release Tab) 10 mg PO Q8H PRN PRN Reason: Pain, moderate (4-7) Last Admin: 07/26/16 13:27 Dose: 10 mg Risperidone (Risperdal Tab) 1 mg PO AMHS SANDRA PRN Reason: Protocol Trazodone HCl (Desyrel) 50 mg PO HS PRN PRN Reason: Insomnia Valproate Sodium (Depakene) 250 mg PO AMHS SANDRA Ziprasidone (Geodon Inj) 20 mg IM Q6H PRN; Protocol PRN Reason: Agitation Last Admin: 07/26/16 18:09 Dose: 20 mg Discontinued Medications Alprazolam (Xanax) 1 mg PO TID SANDRA PRN Reason: Protocol Last Admin: 07/26/16 18:00 Dose: 1 mg Lorazepam (Ativan) 1 mg IM ONCE ONE PRN Reason: Protocol Stop: 07/25/16 21:11 Last Admin: 07/25/16 21:16 Dose: 1 mg Lorazepam (Ativan) Confirm Administered Dose 2 mg .ROUTE .STK-MED ONE Stop: 07/25/16 21:14 Last Admin: 07/25/16 21:16 Dose: Ziprasidone (Geodon Inj) Confirm Administered Dose 20 mg IM .STK-MED ONE Stop: 07/26/16 12:59 Last Admin: 07/26/16 13:04 Dose: 20 mg - Transfer of Care Patient signed out to Dr:: estela ernst - Sayraibe Statement The provider has reviewed the documentation as recorded by the Erika Li Provider Attestation: All medical record entries made by the Sayraibrubens were at my direction and personally dictated by me. I have reviewed the chart and agree that the record accurately reflects my personal performance of the history, physical exam, medical decision making, and the department course for this patient. I have also personally directed, reviewed, and agree with the discharge instructions and disposition. Disposition/Present on Arrival - Present on Arrival Any Indicators Present on Arrival: No History of DVT/PE: No History of Uncontrolled Diabetes: No Urinary Catheter: No History of Decub. Ulcer: No History Surgical Site Infection Following: None - Disposition Have Diagnosis and Disposition been Completed?: Yes Diagnosis: Dementia, Anxiety Disposition: HOSPITALIZED Disposition Time: 07:00 Patient Problems: Current Active Problems Problem Status Onset Anxiety Acute Dementia Acute Condition: STABLE
[2016-07-25 22:24] LABS: ADD MANUAL DIFF? NO
[2016-07-25 22:32] LABS: BASO # 0.02 K/mm3 (0.0-2.0); BASO % 0.2 % (0.0-3.0); EOS % 0.1 % (1.5-5.0); GRAN # 8.75 (1.4-6.5); GRAN % 81.3 % (50.0-68.0); HEMATOCRIT 33.9 % (42.0-52.0); LYMPH # 1.3 (1.2-3.4); LYMPH % 11.7 % (22.0-35.0); MEAN CELL VOLUME 90.6 fL (80.0-105.0); MEAN CORPUSCULAR HEMOGLOBIN 31.3 pg (25.0-35.0); MEAN CORPUSCULAR HGB CONC 34.5 g/dl (31.0-37.0); MEAN PLATELET VOLUME 9.3 fl (7.0-11.0); MONO # 0.7 (0.1-0.6); MONO % 6.7 % (1.0-6.0); PLATELET COUNT 291 10^3/uL (120.0-450.0); RED CELL DISTRIBUTION WIDTH 13.5 % (11.5-14.5); WHITE BLOOD COUNT 10.8 10^3/ul (4.5-11.0)
[2016-07-25 22:45] LABS: ALB/GLOB RATIO 0.8 (1.1-1.8); ALKALINE PHOSPHATASE 115 U/L (38-133); ALT/SGPT 38 U/L (7-56); AST/SGOT 45 U/L (15-59); BILIRUBIN,TOTAL 0.8 mg/dL (0.2-1.3); BLOOD UREA NITROGEN 24 mg/dL (7-21); CALCIUM 8.4 mg/dL (8.4-10.5); CARBON DIOXIDE 27 mmol/L (21-33); CHLORIDE 101 mmol/L (98-107); GFR AFRICAN-AMERICAN > 60; GLUCOSE,RANDOM 108 mg/dL (70-110); POTASSIUM 4.1 mmol/L (3.6-5.0); SODIUM 135 mmol/L (132-148); TOTAL PROTEIN 7.3 g/dL (5.8-8.3)
--- NOTE | 2016-07-26 08:52 | ED PDOC ---
Physical Exam Vital Signs Temp Pulse Resp BP Pulse Ox 07/26/16 08:13 98.4 F 84 18 132/84 96 07/26/16 01:04 96 H 18 143/75 97 07/25/16 20:56 98.2 F 88 18 184/95 H 99 Medical Decision Making ED Course and Treatment: 07/26/16 07:00 Patient signed out to me by Dr. Prater pending [facility] evaluation, reevaluation, and disposition. - Lab Interpretations Lab Results: 07/25/16 22:00 07/25/16 22:00 Lab Results 07/25/16 22:00: Alcohol, Quantitative < 10 07/25/16 22:00: Salicylates < 1 L, Acetaminophen < 10.0 L 07/25/16 22:00: Sodium 135, Potassium 4.1, Chloride 101, Carbon Dioxide 27, Anion Gap 11, BUN 24 H, Creatinine 0.7, Est GFR ( Amer) > 60, Est GFR ( Non-Af Amer) > 60, Random Glucose 108, Calcium 8.4, Total Bilirubin 0.8, AST 45 , ALT 38, Alkaline Phosphatase 115, Total Protein 7.3, Albumin 3.3, Globulin 4.0 , Albumin/Globulin Ratio 0.8 L 07/25/16 22:00: WBC 10.8, RBC 3.74, Hgb 11.7 L, Hct 33.9 L, MCV 90.6, MCH 31.3, MCHC 34.5, RDW 13.5, Plt Count 291, MPV 9.3, Gran % 81.3 H, Lymph % (Auto) 11.7 L, [place] % (Auto) 6.7 H, Eos % (Auto) 0.1 L, Baso % (Auto) 0.2, Gran # 8.75 H, Lymph # 1.3, [place] # 0.7 H, Eos # 0.0, Baso # 0.02 - RAD Interpretation Radiology Orders: 07/25/16 21:09 CHEST PORTABLE [RAD] Stat 07/26/16 08:37 CHEST PORTABLE [RAD] Stat - Medication Orders Current Medication Orders: Discontinued Medications Lorazepam (Ativan) 1 mg IM ONCE ONE PRN Reason: Protocol Stop: 07/25/16 21:11 Last Admin: 07/25/16 21:16 Dose: 1 mg Lorazepam (Ativan) Confirm Administered Dose 2 mg .ROUTE .STK-MED ONE Stop: 07/25/16 21:14 Last Admin: 07/25/16 21:16 Dose: Disposition/Present on Arrival - Present on Arrival Any Indicators Present on Arrival: No History of DVT/PE: No History of Uncontrolled Diabetes: No Urinary Catheter: No History of Decub. Ulcer: No History Surgical Site Infection Following: None - Disposition Have Diagnosis and Disposition been Completed?: Yes Diagnosis: Dementia, Anxiety Disposition: HOSPITALIZED Disposition Time: 12:00 Condition: STABLE
[2016-07-26 08:58] LABS: URINE BILIRUBIN NEGATIVE (NEGATIVE); URINE BLOOD TRACE-INTACT (NEGATIVE); URINE GLUCOSE (UA) NEGATIVE (NEGATIVE); URINE KETONE NEGATIVE (NEGATIVE); URINE LEUKOCYTE ESTERASE NEGATIVE Leu/uL (NEGATIVE); URINE PROTEIN TRACE mg/dL (<30 mg/dL)
[2016-07-26 09:02] LABS: URINE APPEARANCE CLEAR (CLEAR); URINE COLOR YELLOW (YELLOW)
--- NOTE | 2016-07-26 09:05 | RAD ---
HISTORY: PSYCH COMPARISON: 07/16/2016 FINDINGS: LUNGS: Bilateral interstitial infiltrates. Minimal patchy infiltrate in the left upper lobe PLEURA: No significant pleural effusion identified, no pneumothorax apparent. CARDIOVASCULAR: Normal. OSSEOUS STRUCTURES: No significant abnormalities. VISUALIZED UPPER ABDOMEN: Normal. OTHER FINDINGS: None. IMPRESSION: Bilateral chronic interstitial infiltrates. Patchy infiltrate in the left upper lobe
[2016-07-26 09:14] LABS: URINE AMORPHOUS SEDIMENT SMALL; URINE BACTERIA SMALL (NEG); URINE EPITHELIAL CELLS 0 - 2 /hpf (0-5); URINE RBC 0 - 2 /hpf (0-2); URINE WBC NEGATIVE /hpf (0-6)
--- NOTE | 2016-07-26 10:03 | CARD ---
APPROVED REPORT EKG Measurement Heart [id number] <Conclusion> Normal sinus rhythm Normal ECG
--- NOTE | 2016-07-26 12:06 | CON ---
DATE: 07/26/2016 HISTORY OF PRESENT ILLNESS: Shortly, the patient is a 75-year-old male with not known prev ious psychiatric history, patient denied. [facility]. The patient was sent over this time for evaluation of agitated and restless behavior. The patient was seen in the Emergency Room. The patient presented to be irritable and ang ry. The patient said that staff was ignoring him in the [facility], and he acknowledged that he wa s spitting on them, he acknowledged that he was throwing things towards them. The patient also repor galindo that he was feeling very depressed and hopeless because of the situation. The patient denied hea ring voices, denied seeing things, but impulses obviously unpredictable. The patient had recent disc harge from the medical side on 07/16/2016 status post fall and the patient had fracture of his left p atella, and he wears a cast at present moment. The patient lives in [facility]. The patient is a . The patient has history of substance abuse and history of incarcerations in the past. VITAL SIGNS: This proposal manager writer reviewed vital signs. Vital signs seem to be stable. Temperature 98.4, pu lse is 84, blood pressure 132/84, respirations 18, oxygen saturation is 96. MEDICATIONS: Reviewed. The patient got Ativan 1 mg IM which was given on 07/25/2016 at 9:16 p.m. LABORATORY DATA: Reviewed. Hemoglobin and hematocrit are 11.7 and 33.9. Coagulation reviewed. Shell taurus reviewed. AST and ALT within normal limits. Urinalysis within normal limits as well as benzo diazepines positive. MEDICATIONS: From the [facility] reviewed. The patient was on Xanax 1 mg 3 times a day. The emilee ent also was on oxycodone. The patient also was on Geodon 60 mg twice a day. This proposal manager writer had meliza costello conversation with the nursing staff in the [facility] yesterday. The patient was spitting out on the staff, was refusing to take medications, was agitated, was verbalizing thoughts of killing him self and others. snf feels uncomfortable to accept him back there at present moment under t hese circumstances. IMPRESSION: Rule out mood disorder due to general medical condition with psychomotor agitation, rule out dementia with behavioral disturbances, rule out bipolar disorder, rule out antisocial personalit y disorder. The patient has multiple medical issues. The patient is status post left patellar fract ure and wearing the left lower extremity cast. The patient was seen by Dr. Tobin on the medic al side at the beginning of the month. Please see medical team notes for more detailed information. PLAN: The patient was under the service of Dr. aVrgas. We were called for consultation. The pat rulant also would benefit from orthopedic consultation and followup. The patient will benefit from phy sical therapy evaluation. This proposal manager writer will discontinue Geodon because the patient was not taking rober t, and we will give him Risperdal 1 mg twice a day. The patient also will get p.r.n. orders. The pa mary alice made promises to this proposal manager writer that he will participate in treatment plan. The patient is willin g to be admitted to the psychiatric inpatient unit and participate in unit activities. For now, emilee ent is willing to sign in. Initially this proposal manager writer initiated [facility] evaluation pro cess but we will cancel that because patient is willing to stay in the hospital and get treatment. T he patient will be transferred to psychiatric inpatient unit for further evaluation and stabilization , and medication initiation and titration. Thank you very much for letting me participate in the care of your patient. Alta Cedeno MD cc: [id number] TT: 07/26/2016 12:05:44 Confirmation # [id number] Dictation # [id number] bradly
[2016-07-26] MEDS: oxyCODONE 10 mg Immediate Release Tab PO PRN (13:27)
[2016-07-27] MEDS: oxyCODONE 10 mg Immediate Release Tab PO PRN ×3 (03:00→20:04)
[2016-07-27 08:07] LABS: CHOLESTEROL 83 mg/dL (130-200); GLUCOSE,FASTING 111 mg/dL (65-110)
[2016-07-27 08:24] LABS: FREE T4 1.4 ng/dL (0.78-2.19)
[2016-07-27 08:38] LABS: THYROID STIMULATING HORMONE 6.18 mIU/mL (0.46-4.68)
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
--- NOTE | 2016-07-27 14:56 | PCM.PSYCH ---
Initial Psychiatric Evaluation - Initial Psychiatric Evaluation Type of Admission: Voluntary Legal Status: Capacity (patient has capacity to sign consent for treatment) Chief Complaint (in patient's own words): "what is f...k is going on..." Patient's Reaction to Hospitalization: was transferred from the [place] rehab for evaluation of agitated, psychotic behavior , spitting on staff. History of Present Illness and Precipitating Events: pt is 75yo with ?h/o mental illness, denied admissions, was transferred from the rehab facility for evaluation of agitated, restless and psychotic behavior, pt was threatening staff to harm them. Pt was seen in ED initially, pt signed consent and was transferred to the psych unit. pt was seen today next to the NH, poor hygiene, angry, pt was cursing this clinical writer, tried to grab her. pt has poor ADLs. pt was recently on the medical side, s/p fall, pt broke his knee and currently has a cast, from the medical record pt was on geodone. meds resumed, this clinical writer started risperdal, depakote yesterday, tolerated well , no side effects observed or reported. pt is poor and unreliable historian. pt denied v/a/t hallucinations, denied paranoid ideations, but obviously psychotic "everybody hates me, everybody ignoring me". pt was started on 1:1 observation for safety. 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 pt denied using drugs, but fixated on the pain killers and benzos. smokes a pack a day, counseling provided. family h/o unknown ? h/o abuse. medical h/o: pt broke his knee, wears cast now 07/25/16 22:00 07/25/16 22:00 Lab Results 07/27/16 06:00: Free T4 1.40, TSH 3rd Generation 6.18 H 07/27/16 06:00: Fasting Glucose 111 H, Triglycerides 59, Cholesterol 83 L, LDL Cholesterol Direct 36, HDL Cholesterol 33 07/26/16 08:20: Urine Opiates Screen Negative, Urine Methadone Screen Negative, Ur Barbiturates Screen Negative, Ur Phencyclidine Scrn Negative, Ur Amphetamines Screen Negative, U Benzodiazepines Scrn Positive H, U Oth Cocaine Metabols Negative, U Cannabinoids Screen Negative 07/26/16 05:20: Urine Color Yellow, Urine Appearance Clear, Urine pH 8.0, Ur Specific [place] 1.015, Urine Protein Trace H, Urine Glucose (UA) Negative, Urine Ketones Negative, Urine Blood Trace-intact H, Urine Nitrate Negative, Urine Bilirubin Negative, Urine Urobilinogen 1.0 H, Ur Leukocyte Esterase Negative, Urine RBC 0 - 2, Urine WBC Negative, Ur Epithelial Cells 0 - 2, Amorphous Sediment Small, Urine Bacteria Small 07/25/16 22:00: Alcohol, Quantitative < 10 07/25/16 22:00: Salicylates < 1 L, Acetaminophen < 10.0 L 07/25/16 22:00: Sodium 135, Potassium 4.1, Chloride 101, Carbon Dioxide 27, Anion Gap 11, BUN 24 H, Creatinine 0.7, Est GFR ( Amer) > 60, Est GFR ( Non-Af Amer) > 60, Random Glucose 108, Calcium 8.4, Total Bilirubin 0.8, AST 45 , ALT 38, Alkaline Phosphatase 115, Total Protein 7.3, Albumin 3.3, Globulin 4.0 , Albumin/Globulin Ratio 0.8 L 07/25/16 22:00: WBC 10.8, RBC 3.74, Hgb 11.7 L, Hct 33.9 L, MCV 90.6, MCH 31.3, MCHC 34.5, RDW 13.5, Plt Count 291, MPV 9.3, Gran % 81.3 H, Lymph % (Auto) 11.7 L, [place] % (Auto) 6.7 H, Eos % (Auto) 0.1 L, Baso % (Auto) 0.2, Gran # 8.75 H, Lymph # 1.3, [place] # 0.7 H, Eos # 0.0, Baso # 0.02 Vital Signs Temp Pulse Resp BP Pulse Ox 07/27/16 07:39 98.1 F 67 20 121/70 07/27/16 07:37 98.1 F 67 20 07/26/16 08:13 98.4 F 84 18 132/84 96 07/26/16 01:04 96 H 18 143/75 97 07/25/16 20:56 98.2 F 88 18 184/95 H 99 Current Medications: Active Medications Generic Name Dose Route Start Last Admin Trade Name Freq PRN Reason Stop Dose Admin Alprazolam 0.5 mg 07/27/16 08:12 07/27/16 14:11 Xanax PO Not Given TID SANDRA Protocol Citalopram Hydrobromide 10 mg 07/27/16 10:00 Celexa PO DAILY SANDRA Lorazepam 1 mg 07/26/16 14:16 07/27/16 02:47 Ativan IM 1 mg Q6H PRN Administration Anxiety Protocol Nicotine 1 patch 07/26/16 13:15 07/27/16 08:19 Nicoderm Cq TD 1 patch DAILY SANDRA Administration Oxycodone HCl 10 mg 07/26/16 13:06 07/27/16 10:59 Oxycodone Immediate Release Tab PO 10 mg Q8H PRN Administration Pain, moderate (4-7) Risperidone 1 mg 07/26/16 22:00 07/27/16 10:59 Risperdal Tab PO 1 mg AMHS SANDRA Administration Protocol Trazodone HCl 50 mg 07/26/16 13:20 07/26/16 21:05 Desyrel PO 50 mg HS PRN Administration Insomnia Valproate Sodium 250 mg 07/27/16 10:15 07/27/16 10:58 Depakene PO 250 mg DAILY SANDRA Administration Valproate Sodium 500 mg 07/27/16 22:00 Depakene PO HS SANDRA Ziprasidone 20 mg 07/26/16 13:14 07/26/16 18:09 Geodon Inj IM 20 mg Q6H PRN Administration Agitation Protocol Past Psychiatric History - Past Psychiatric History Previous Treatment History: None Prior Professional Help: see HPI Prior Psychiatric Treatment: see HPI At what hospital: see HPI Duration: see HPI Nature of Treatment: see HPI Explanation of prior treatment: see HPI History of Abuse: see HPI History of ETOH/Drug Use: see HPI History of Family Illness: see HPI Pertinent Medical Hx (Current Medical&Sleep Prob, Allergies): Allergies Allergy/AdvReac Type Severity Reaction Status Date / Time No Known Allergies Allergy Verified 07/27/16 06:36 ALPRAZolam [Xanax] 1 mg PO TID 07/26/16 Nicotine 14 mg/24 hr [Nicotine Transdermal System] 14 mg TD DAILY 07/26/16 Oxycodone HCl [Oxycodone HCl] 10 mg PO Q8H 07/26/16 Ziprasidone [Geodon] 60 mg PO BID 07/26/16 Review of Systems - Review of Systems Systems not reviewed;Unavailable: Acuity of Condition - EENT Eyes: As Per HPI Ears: As Per HPI Nose/Mouth/Throat: As Per HPI - Cardiovascular Cardiovascular: As Per HPI - Respiratory Respiratory: As Per HPI - Gastrointestinal Gastrointestinal: As Per HPI - Genitourinary Genitourinary: As Per HPI - Reproductive: Male Reproductive:Male: As Per HPI - Musculoskeletal Musculoskeletal: As Par HPI - Integumentary Integumentary: As Per HPI - Neurological Neurological: As Per HPI - Psychiatric Psychiatric: As Per HPI - Endocrine Endocrine: As Per HPI - Hematologic/Lymphatic Hematologic: As Per HPI Mental Status Examination - Personal Presentation Personal Presentation: Looks older than stated age - Affect Affect: Flat (angry) - Motor Activity Motor Activity: Violent, Psychomotor Agitation - Reliability in Providing Information Reliability in Providing Information: Poor, due to alteration in thoughts, Poor , due to altered mood, Poor, due to cognitve impairment - Speech Speech: Disorganized - Formal Thought Process Formal Thought Process: Hallucinations, Delusions, Paranoia, Loosening of associations - Hallucinations/Delusions Delusions: Persecution - Obsessions/Compulsions Obsessions: None Compulsions: None - Cognitive Functions Orientation: Person, Place Sensorium: Alert Attention/Concentration: Easily distracted Abstract Thinking: [place] Estimate of Intelligence: Below average Judgement: Intact, as evidence by: Insight regarding need for hospitalization - Risk Risk: Suicidal, Self-mutilation, Diminished functioning - Limitations Limitations: Other (multiple medical issues, agitation, psychosis) DSM 5 DX - DSM 5 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 - Recommended/Plan of Treatment Treatment Recommendations and Plan of Treatment: milieu/structure/supportive therapy ALPRAZolam as needed Nicotine 14 mg/24 hr [Nicotine Transdermal System] 14 mg TD DAILY 07/26/16 Oxycodone HCl [Oxycodone HCl] 10 mg PO Q8H 07/26/16 Ziprasidone [Geodon] only PRN risperdal 1mg bid for psychosis and mood stabilization will give depakote for mood stabilization trazodone for insomnia medical consult ortho consult will monitor closely Projected ELOS: 5days Prognosis: guarded Discharge Plan and Discharge Criteria: Pt will be not depressed or manic, will be more hopeful, will be not psychotic or anxious, will be not having thoughts of harming self or others, will be tolerating medications well, will not have major side effects, will be able to function, will not pose threat to self or others. - Smoking Cessation Smoking Cessation Initiated: Yes
[2016-07-27] MEDS ORDERED: Oxycodone/Acetaminophen 5/325 mg Tab PO STA (15:46)
[2016-07-28] MEDS: oxyCODONE 10 mg Immediate Release Tab PO PRN ×2 (02:55→15:19)
--- NOTE | 2016-07-28 14:27 | PCM.PYCHPN ---
Psychiatric Progress Note - Psychiatric Progress Note Patient seen today, length of contact: 30 minutes Patient Chief Complaint: "I'm fine" Problems Identified/Issues Discussed: Suicide/ homicide prevention, past psychiatric h/o, current psychiatric symptoms , medical problems, risk/benefits and alternatives of medications, medications compliance, coping strategies, substance abuse h/o, relapse prevention, importance of follow up with psychiatrist and therapist, discharge plan. Medical Problems: fracture of the patella, patient is not as surgical candidate that at this time as per orthopedic team. Therefore patient wears long black cast for the fractured patella. Diagnostic Results: 07/25/16 22:00 07/25/16 22:00 Lab Results 07/27/16 06:00: Free T4 1.40, TSH 3rd Generation 6.18 H 07/27/16 06:00: Fasting Glucose 111 H, Triglycerides 59, Cholesterol 83 L, LDL Cholesterol Direct 36, HDL Cholesterol 33 07/26/16 08:20: Urine Opiates Screen Negative, Urine Methadone Screen Negative, Ur Barbiturates Screen Negative, Ur Phencyclidine Scrn Negative, Ur Amphetamines Screen Negative, U Benzodiazepines Scrn Positive H, U Oth Cocaine Metabols Negative, U Cannabinoids Screen Negative 07/26/16 05:20: Urine Color Yellow, Urine Appearance Clear, Urine pH 8.0, Ur Specific [place] 1.015, Urine Protein Trace H, Urine Glucose (UA) Negative, Urine Ketones Negative, Urine Blood Trace-intact H, Urine Nitrate Negative, Urine Bilirubin Negative, Urine Urobilinogen 1.0 H, Ur Leukocyte Esterase Negative, Urine RBC 0 - 2, Urine WBC Negative, Ur Epithelial Cells 0 - 2, Amorphous Sediment Small, Urine Bacteria Small 07/25/16 22:00: Alcohol, Quantitative < 10 07/25/16 22:00: Salicylates < 1 L, Acetaminophen < 10.0 L 07/25/16 22:00: Sodium 135, Potassium 4.1, Chloride 101, Carbon Dioxide 27, Anion Gap 11, BUN 24 H, Creatinine 0.7, Est GFR ( Amer) > 60, Est GFR ( Non-Af Amer) > 60, Random Glucose 108, Calcium 8.4, Total Bilirubin 0.8, AST 45 , ALT 38, Alkaline Phosphatase 115, Total Protein 7.3, Albumin 3.3, Globulin 4.0 , Albumin/Globulin Ratio 0.8 L 07/25/16 22:00: WBC 10.8, RBC 3.74, Hgb 11.7 L, Hct 33.9 L, MCV 90.6, MCH 31.3, MCHC 34.5, RDW 13.5, Plt Count 291, MPV 9.3, Gran % 81.3 H, Lymph % (Auto) 11.7 L, [place] % (Auto) 6.7 H, Eos % (Auto) 0.1 L, Baso % (Auto) 0.2, Gran # 8.75 H, Lymph # 1.3, [place] # 0.7 H, Eos # 0.0, Baso # 0.02 Vital Signs Temp Pulse Resp BP Pulse Ox 07/27/16 07:39 98.1 F 67 20 121/70 07/27/16 07:37 98.1 F 67 20 07/26/16 08:13 98.4 F 84 18 132/84 96 07/26/16 01:04 96 H 18 143/75 97 07/25/16 20:56 98.2 F 88 18 184/95 H 99 DSM 5 Symptoms Update: pt is 75yo with ?h/o mental illness most likely antisocial personality disorder , denied psychiatric admissions, was transferred from the rehab facility for evaluation of agitated, restless and psychotic behavior, pt was threatening staff to harm them. Pt was seen in ED initially, pt signed consent and was transferred to the psych unit. for the past few days patient exceeded agitated, disrespectful, psychotic behavior, patient had tendency of throwing things, and threatening staff. Patient was seen today at the treatment team, presented to be sleepy, but was arousable. Patient was alert and oriented in self place and circumstances of his admission. Patient remembers this health science writer and she said "your psychiatrist". Patient reported his mood to be "okay" patient asked when he will be discharged back home. Patient is aware of unit rules and regulations, willing to participate in treatment plan, patient is compliant with the medications, verbally aggressive but no physical aggression. patient is on 1-1 for safety. this health science writer had phone conversation with orthopedic team, at present moment patient has not "commented that for surgery for his broken patella, conservative treatment. 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 pt denied v/a/t hallucinations, denied paranoid ideations, ut was guarded. patient has history of opioid addiction, patient reported that he was snorting, last time was about 2 months ago. Patient reported tolerated medications well, no side effects observed or reported, aims 0, no EPS. Impression: Rule out bipolar disorder Rule out antisocial personality disorder Rule out mood disorder due to general medical condition Opioids abuse Nicotine addiction Medication Change: Yes (Depakote and Risperdal increased) Medical Record Reviewed: Yes Consults ordered or reviewed: medical consultation appreciated Orthopedic consultation appreciated Mental Status Examination - Cognitive Function Orientation: Person, Place Memory: Intact Attention: Poor Concentration: Poor Association: Loose Fund of Knowledge: WNL - Mood Mood: Depressed (aand angry irritable) - Affect Affect: Flat (angry) - Speech Speech: Appropriate - Formal Thought Process Formal Thought Process: Hallucinations (ddenied today), Delusions (denied), Paranoia (denied), Loosening of associations - Suicidal Ideation Suicidal Ideation: No - Homicidal Ideation Homicidal Ideation: No Goal/Treatment Plan - Goal/Treatment Plan Need for Continued Stay: Remain at risks for inpatient hospitalization, Severe depression anxiety, Discharge may exacerbated symptoms, Severe functional impairment Progress Toward Problem(s) and Goals/Treatment Plan: milieu/structure/supportive therapy ALPRAZolam as needed Nicotine 14 mg/24 hr [Nicotine Transdermal System] 14 mg TD DAILY 07/26/16 Oxycodone HCl [Oxycodone HCl] 10 mg PO Q8H 07/26/16 Ziprasidone [Geodon] only PRN risperdal 1mg bid for psychosis and mood stabilization Depakote 500 mg twice a day for mood stabilization trazodone for insomnia medical consult ortho consult will monitor closely Estimated Date of D/C: 08/01/16 (we'll monitor closely)
--- NOTE | 2016-07-29 08:45 | PCM.PYCHPN ---
Psychiatric Progress Note - Psychiatric Progress Note Patient seen today, length of contact: 25 minutes Problems Identified/Issues Discussed: I reviewed assessment and recent notes. . Patient has been labile, disrespectful and unpredictable on the unit. Required prns for agitation very early (2 am) this morning. I met with patient at bedside and he appears calmer. Reports that he feels "alright". He is disoriented, stated he was in [place] and believed it was 2019. Doesn't know current month. Appearance is disheveled and affect is labile. Doesn't appear to be in any physical distress and he denies any new discomfort or pain. Complains of chronic foot pain. Thus far there haven't been any behavioral issues this morning. Diagnostic Results: Rule out bipolar disorder Rule out antisocial personality disorder Rule out mood disorder due to general medical condition Opioids abuse Nicotine addiction Medication Change: No (Depakote and Risperdal increased) Medical Record Reviewed: Yes Mental Status Examination - Cognitive Function Orientation: Person, Place Memory: Intact Attention: Poor Concentration: Poor Association: Loose Fund of Knowledge: WNL - Mood Mood: Depressed (aand angry irritable) - Affect Affect: Flat (angry) - Speech Speech: Appropriate - Formal Thought Process Formal Thought Process: Hallucinations (ddenied today), Delusions (denied), Paranoia (denied), Loosening of associations - Suicidal Ideation Suicidal Ideation: No - Homicidal Ideation Homicidal Ideation: No Goal/Treatment Plan - Goal/Treatment Plan Need for Continued Stay: Remain at risks for inpatient hospitalization, Severe depression anxiety, Discharge may exacerbated symptoms, Severe functional impairment Progress Toward Problem(s) and Goals/Treatment Plan: * c/w current tx and plan * No new weekend labs * Vitals reviewed and noted below: Selected Entries 07/27/16 07/27/16 07:37 07:39 Temperature 98.1 F 98.1 F Pulse Rate 67 67 Respiratory 20 20 Rate Blood Pressure 121/70 Estimated Date of D/C: 08/01/16 (we'll monitor closely)
[2016-07-29] MEDS: Levothyroxine 50 MCG TAB PO SCH (12:51)
[2016-07-29] MEDS: oxyCODONE 10 mg Immediate Release Tab PO PRN (13:09)
--- NOTE | 2016-07-29 18:32 | CON ---
DATE: 07/29/2016 HISTORY OF PRESENT ILLNESS: The patient is a 75-year-old man who fractured his left patellar, had tr ip and fall a few weeks ago. He was hospitalized, eventually transferred to a subacute rehab facilit y with a cast on his left lower extremity from his hip down to his ankle. The orthopedist at that ti me, Dr. Tobin, who felt the patient was not a surgical candidate and a long cast was the best treatment for him. In less than 24 hours, [facility] The patient was spitting, verbally abusive to the staff, throwing drin ks, food and urinals. He was therefore evaluated and admitted to the psychiatric Department of the [facility] on 07/26. Here, the patient is being treated and followed by Dr. Alta Cedeno. When seen today, he is in bed. He is on 1:1 observation. The patient is awake, alert , and oriented. He denies pain in his leg. He claims that he had been ambulating with assistance on the floor. The patient also became upset and agitated when asking me to loan him $20 so he could go out buy cigarettes and I refused. PHYSICAL EXAMINATION: Essentially unchanged. LUNGS: Clear. HEART: Regular. ABDOMEN: Soft. EXTREMITIES: His left lower extremity remains in a cast. LABORATORY STUDIES: Showed that his thyroid stimulating hormone was elevated slightly at 6.18. Ther efore, Levoxyl 50 mcg daily is ordered. This morning his vital signs are stable at 137/76, heart rate is 85 and he is afebrile. We will cont inue to follow the patient closely. Marin Vargas MD cc: [phone] TT: 07/29/2016 18:31:32 Confirmation # [id number] Dictation # [id number] siena
--- NOTE | 2016-07-30 08:31 | PCM.PYCHPN ---
Psychiatric Progress Note - Psychiatric Progress Note Patient seen today, length of contact: 25 minutes Problems Identified/Issues Discussed: I reviewed recent notes. Patient remains labile and irritable on the unit. Focused on smoking and his pain medications. He has periods of lucidity and compliance but remains unpredictable. I met with patient at bedside and he is calm. Again, he reports that he feels "alright". Denies hopelessness or SI. He remains disoriented, stated he was in a hotel and believed it was 2020 again. Doesn't know current month. Appearance is disheveled and as noted above, affect is labile. He doesn't appear to be in any physical distress and he denies any new discomfort or pain. Thus far there haven't been any behavioral issues overnight or this morning. Diagnostic Results: Rule out bipolar disorder Rule out antisocial personality disorder Rule out mood disorder due to general medical condition Opioids abuse Nicotine addiction Medication Change: Yes (Risperdal increased) Medical Record Reviewed: Yes (notes, reports, labs, vitals) Mental Status Examination - Cognitive Function Orientation: Person, Place Memory: Intact Attention: Poor Concentration: Poor Association: Loose Fund of Knowledge: WNL - Mood Mood: Depressed (aand angry irritable) - Affect Affect: Flat (angry) - Speech Speech: Appropriate - Formal Thought Process Formal Thought Process: Hallucinations (denied today), Delusions (denied), Paranoia (denied), Loosening of associations - Suicidal Ideation Suicidal Ideation: No - Homicidal Ideation Homicidal Ideation: No Goal/Treatment Plan - Goal/Treatment Plan Need for Continued Stay: Remain at risks for inpatient hospitalization, Severe depression anxiety, Discharge may exacerbated symptoms, Severe functional impairment Progress Toward Problem(s) and Goals/Treatment Plan: * c/w current tx and plan * Appreciate f/u by Dr. Vargas on 07/29/16~ordered Levoxyl 50 mcg daily * Increased Risperdal to 1 mg AM and 1.5 mg HS for disorganization and to help with impulse control * c/w depakote 500 mg po bid, check VPA level in AM * No new weekend labs * Vitals reviewed and noted below: Selected Entries 07/29/16 07/29/16 08:00 16:19 Temperature 97.3 F L Pulse Rate 85 85 Respiratory 20 Rate Blood Pressure 137/76 126/82 Estimated Date of D/C: 08/01/16 (we'll monitor closely)
[2016-07-30] MEDS: Levothyroxine 50 MCG TAB PO SCH (09:53)
[2016-07-30] MEDS: oxyCODONE 10 mg Immediate Release Tab PO PRN ×2 (09:53→18:12)
--- NOTE | 2016-07-31 08:58 | PCM.PYCHPN ---
Psychiatric Progress Note - Psychiatric Progress Note Patient seen today, length of contact: 25 minutes Patient Chief Complaint: "all right" Problems Identified/Issues Discussed: reviewed recent notes. Patient remains labile and demanding on the unit. He has more periods of lucidity and compliance but generally remains entitled and unpredictable. I met with patient at bedside and he is calm. Again, he reports that he feels "alright". Denies hopelessness or SI. He remains disoriented, aware he is in hospital and again believed it was 2020 again. I reminded him that I provided the correct year to him during my visit yesterday and patient is able to correct his response to 2017. He still doesn't know current month. This also has been reviewed with him multiple times. Today he complains that nursing will not provide snacks or tea in the middle of the night, he exclaims "I pay their salary!". Doesn't respond when this provider tries to reason and remind him about nurse priorities in a medically ill unit. Patient's appearance remains disheveled and as noted above, affect is labile. He doesn't appear to be in any physical distress and he denies any new discomfort or pain. Thus far there haven't been any behavioral issues overnight or this morning. Diagnostic Results: Rule out bipolar disorder Rule out antisocial personality disorder Rule out mood disorder due to general medical condition Opioids abuse Nicotine addiction Medication Change: Yes (Risperdal increased) Medical Record Reviewed: Yes (notes, reports, labs, vitals) Mental Status Examination - Cognitive Function Orientation: Person, Place Memory: Intact Attention: Poor Concentration: Poor Association: Loose Fund of Knowledge: WNL - Mood Mood: Depressed ( "all right") - Affect Affect: Flat (angry), Other (labile) - Speech Speech: Appropriate - Formal Thought Process Formal Thought Process: Hallucinations (denied all weekend), Delusions (denied) , Paranoia (denied), Loosening of associations - Suicidal Ideation Suicidal Ideation: No - Homicidal Ideation Homicidal Ideation: No Goal/Treatment Plan - Goal/Treatment Plan Need for Continued Stay: Remain at risks for inpatient hospitalization, Severe depression anxiety, Discharge may exacerbated symptoms, Severe functional impairment Progress Toward Problem(s) and Goals/Treatment Plan: * c/w current tx and plan * Appreciate f/u by Dr. Vargas on 07/29/16~ordered Levoxyl 50 mcg daily * Increased Risperdal to 1 mg AM and 1.5 mg HS for disorganization and to help with impulse control on 07/30/16 * c/w depakote 500 mg po bid, checking VPA level in AM * No new weekend labs * Vitals reviewed and noted below: Selected Entries 07/29/16 07/30/16 07/30/16 16:19 08:13 16:00 Temperature 97.9 F Pulse Rate 85 66 76 Respiratory 20 Rate Blood Pressure 126/82 140/77 137/85 Estimated Date of D/C: 08/01/16 (we'll monitor closely)
[2016-07-31] MEDS: Levothyroxine 50 MCG TAB PO SCH (09:36)
[2016-07-31 10:05] VITALS: O2SAT 97
[2016-07-31] MEDS: oxyCODONE 10 mg Immediate Release Tab PO PRN (17:50)
[2016-07-31] MEDS ORDERED: Magnesium Hydroxide Susp 30 ml UD PO PRN (23:55)
[2016-08-01] MEDS: Alum-Mag Hydrox-Simethicone Susp (30 mL) PO PRN (00:19)
[2016-08-01] MEDS: Levothyroxine 50 MCG TAB PO SCH (08:19)
[2016-08-01] MEDS: oxyCODONE 10 mg Immediate Release Tab PO PRN ×2 (08:46→17:58)
--- NOTE | 2016-08-01 15:21 | PCM.PYCHPN ---
Psychiatric Progress Note - Psychiatric Progress Note Patient seen today, length of contact: 30 minute Patient Chief Complaint: "can you increase dose of pain medications?" Problems Identified/Issues Discussed: Suicide/ homicide prevention, past psychiatric h/o, current psychiatric symptoms , medical problems, risk/benefits and alternatives of medications, medications compliance, coping strategies, substance abuse h/o, relapse prevention, importance of follow up with psychiatrist and therapist, discharge plan. Medical Problems: fracture of the patella, patient is not as surgical candidate that at this time as per orthopedic team. Therefore patient wears long black cast for the fractured patella. Diagnostic Results: 07/25/16 22:00 07/25/16 22:00 Lab Results 07/27/16 06:00: Free T4 1.40, TSH 3rd Generation 6.18 H 07/27/16 06:00: Fasting Glucose 111 H, Triglycerides 59, Cholesterol 83 L, LDL Cholesterol Direct 36, HDL Cholesterol 33 07/26/16 08:20: Urine Opiates Screen Negative, Urine Methadone Screen Negative, Ur Barbiturates Screen Negative, Ur Phencyclidine Scrn Negative, Ur Amphetamines Screen Negative, U Benzodiazepines Scrn Positive H, U Oth Cocaine Metabols Negative, U Cannabinoids Screen Negative 07/26/16 05:20: Urine Color Yellow, Urine Appearance Clear, Urine pH 8.0, Ur Specific [place] 1.015, Urine Protein Trace H, Urine Glucose (UA) Negative, Urine Ketones Negative, Urine Blood Trace-intact H, Urine Nitrate Negative, Urine Bilirubin Negative, Urine Urobilinogen 1.0 H, Ur Leukocyte Esterase Negative, Urine RBC 0 - 2, Urine WBC Negative, Ur Epithelial Cells 0 - 2, Amorphous Sediment Small, Urine Bacteria Small 07/25/16 22:00: Alcohol, Quantitative < 10 07/25/16 22:00: Salicylates < 1 L, Acetaminophen < 10.0 L 07/25/16 22:00: Sodium 135, Potassium 4.1, Chloride 101, Carbon Dioxide 27, Anion Gap 11, BUN 24 H, Creatinine 0.7, Est GFR ( Amer) > 60, Est GFR ( Non-Af Amer) > 60, Random Glucose 108, Calcium 8.4, Total Bilirubin 0.8, AST 45 , ALT 38, Alkaline Phosphatase 115, Total Protein 7.3, Albumin 3.3, Globulin 4.0 , Albumin/Globulin Ratio 0.8 L 07/25/16 22:00: WBC 10.8, RBC 3.74, Hgb 11.7 L, Hct 33.9 L, MCV 90.6, MCH 31.3, MCHC 34.5, RDW 13.5, Plt Count 291, MPV 9.3, Gran % 81.3 H, Lymph % (Auto) 11.7 L, [place] % (Auto) 6.7 H, Eos % (Auto) 0.1 L, Baso % (Auto) 0.2, Gran # 8.75 H, Lymph # 1.3, [place] # 0.7 H, Eos # 0.0, Baso # 0.02 Vital Signs Temp Pulse Resp BP Pulse Ox 07/27/16 07:39 98.1 F 67 20 121/70 07/27/16 07:37 98.1 F 67 20 07/26/16 08:13 98.4 F 84 18 132/84 96 07/26/16 01:04 96 H 18 143/75 97 07/25/16 20:56 98.2 F 88 18 184/95 H 99 Temp Pulse Resp BP Pulse Ox 98.1 F 66 18 101/67 97 08/01/16 08:09 08/01/16 08:09 08/01/16 08:09 08/01/16 08:09 07/31/16 10:04 DSM 5 Symptoms Update: pt is 75yo with ?h/o mental illness most likely antisocial personality disorder , denied psychiatric admissions, was transferred from the rehab facility for evaluation of agitated, restless and psychotic behavior, pt was threatening staff to harm them. Pt was seen in ED initially, pt signed consent and was transferred to the psych unit. for the past few days patient had some improvement with his presentation, pt is more polite, at times could curse at people, but overeall improving. pt reported that his mood is "better", pt reported to have fair appetite and sleep. pt denied v/a/t hallucinations, denied paranoid ideations, pt does not appear to be psychotic. patient has history of opioid addiction, patient reported that he was snorting, last time was about 2 months ago. Patient reported tolerated medications well, no side effects observed or reported, aims 0, no EPS. Impression: Rule out bipolar disorder Rule out antisocial personality disorder Rule out mood disorder due to general medical condition Opioids abuse Nicotine addiction Medication Change: Yes (Depakote increased) Medical Record Reviewed: Yes (notes, reports, labs, vitals) Consults ordered or reviewed: medical consultation appreciated Orthopedic consultation appreciated Mental Status Examination - Cognitive Function Orientation: Person, Place Memory: Intact Attention: Poor (ome improvement) Concentration: Poor (some improvement) Association: Loose (some improvement) Fund of Knowledge: WNL - Mood Mood: Depressed ( "all right") - Affect Affect: Flat (angry), Other (labile) - Speech Speech: Appropriate - Formal Thought Process Formal Thought Process: Hallucinations (denied all weekend), Delusions (denied) , Paranoia (denied), Loosening of associations - Suicidal Ideation Suicidal Ideation: No - Homicidal Ideation Homicidal Ideation: No Goal/Treatment Plan - Goal/Treatment Plan Need for Continued Stay: Remain at risks for inpatient hospitalization, Severe depression anxiety, Discharge may exacerbated symptoms, Severe functional impairment Progress Toward Problem(s) and Goals/Treatment Plan: milieu/structure/supportive therapy ALPRAZolam as needed Nicotine 14 mg/24 hr [Nicotine Transdermal System] 14 mg TD DAILY 07/26/16 Oxycodone HCl [Oxycodone HCl] 10 mg PO Q8H 07/26/16 Ziprasidone [Geodon] only PRN risperdal 1mg at the morning time in 1.5 mg at the nighttime for psychosis and mood stabilization Depakote 500 mg at the morning time and 750 mg at the nighttime for mood stabilization trazodone for insomnia medical consult ortho consult will monitor closely discharge planning, social media intern evaluation Estimated Date of D/C: 08/04/16 (we'll monitor closely)
[2016-08-02] MEDS: oxyCODONE 10 mg Immediate Release Tab PO PRN ×3 (04:09→21:30)
[2016-08-02] MEDS: Levothyroxine 50 MCG TAB PO SCH (09:47)
[2016-08-02] MEDS: Alum-Mag Hydrox-Simethicone Susp (30 mL) PO PRN (10:54)
--- NOTE | 2016-08-02 12:41 | PN ---
DATE: 08/02/2016 The patient is a 75-year-old man who fractured his patella in a trip and fall a few weeks ago. He wa s evaluated by orthopedic surgeon who felt the patient was not a candidate for surgical repair. Ther efore, he was placed in a long cast of the left lower extremity. The patient was discharged to a sub acute care facility but there the patient was abusive to the staff, spitting, hitting, throwing thing s. He was therefore brought back to the [facility] and on 07/26 was admitted to the psych iatric department 5B. He has been followed and treated by the psychiatrist Dr. Alta bah e then. When seen today in followup, the patient is resting comfortably. He offers no new complaint s. PHYSICAL EXAMINATION: HEART: Regular. LUNGS: Clear anteriorly. CURRENT MEDICATIONS: Include Ativan 1 mg q.6 hours as needed, Celexa 30 mg daily, Depakene 500 mg da bladimir plus 750 mg of Depakene at bedtime, Desyrel 50 mg at bedtime, Geodon 20 mg intramuscularly p.r.n. He is on a Nicoderm patch daily, receives oxycodone 10 mg every 8 hours as needed for pain, Risperd al 1 mg daily and 1.5 mg at bedtime, Synthroid 50 mcg daily and Xanax 0.5 mg 3 times a day. The patient seems to be doing well on this regimen. He will probably be ready for discharge in a day or two. I suggest discharge back to the subacute care facility for further rehabilitation as the pa mary alice will be requiring assistance with ambulation with a walker. He lives at the local [facility] and has many steps to climb to get to and from his apartment and as per patient, there is no access to an el evator. Marin Vargas MD cc: [id number] TT: 08/02/2016 12:39:57 Confirmation # [id number] Dictation # [id number]
--- NOTE | 2016-08-02 13:32 | RAD ---
PROCEDURE: Left knee dated 08/02/2016. AP and cross-table lateral views of the left knee performed through a fiberglass cast. HISTORY: Fracture patella. COMPARISON: New comparison made with prior study 07/17/2016. FINDINGS: BONES: The current study re- demonstrates a transverse fracture through the mid patella with mild superior and inferior distraction of the fracture fragments. Questionable chip fracture versus osteophyte and or heterotopic bone changes arising from the medial proximal margin of the medial tibial plateau. JOINTS: Spaces are poorly delineated due to overlying fiberglass cast and patient positioning. JOINT EFFUSION: None. OTHER FINDINGS: None. IMPRESSION: Surrounding fiberglass cast obscures fine soft tissue and bone detail. Re- demonstrated is a transverse fracture through the mid patella with mild superior and inferior distraction of the fracture fragments. Questionable chip fracture versus osteophyte and or heterotopic bone changes arising from the medial proximal margin of the medial tibial plateau.
--- NOTE | 2016-08-02 13:34 | RAD ---
PROCEDURE: Left tibia and fibula dated 08/02/2016 HISTORY: Patella fracture. . COMPARISON: Correlation made with concurrent radiographs of the left knee. TECHNIQUE: AP and lateral projections of the left tibia fibula performed through a fiberglass cast which obscures fine soft tissue and bone detail. FINDINGS: BONES: Previously noted transverse fracture through the mid patella and questionable chip fracture and/or osteophyte arising from the proximal medial tibial plateau appreciated on this study. The remaining visualized osseous structures of the tibia and fibular intact. JOINT SPACES: Unremarkable. OTHER FINDINGS: None. IMPRESSION: Previously noted transverse fracture through the mid patella and questionable chip fracture and/or osteophyte arising from the proximal medial tibial plateau appreciated on this study. The remaining visualized osseous structures of the tibia and fibular intact.
--- NOTE | 2016-08-02 14:34 | PCM.PYCHPN ---
Psychiatric Progress Note - Psychiatric Progress Note Patient seen today, length of contact: 30 minute Patient Chief Complaint: "I am doing better, there is some pain in my knee, but I feel better overall.." Problems Identified/Issues Discussed: Suicide/ homicide prevention, past psychiatric h/o, current psychiatric symptoms , medical problems, risk/benefits and alternatives of medications, medications compliance, coping strategies, substance abuse h/o, relapse prevention, importance of follow up with psychiatrist and therapist, discharge plan. Medical Problems: fracture of the patella, patient is not as surgical candidate that at this time as per orthopedic team. Therefore patient wears long black cast for the fractured patella. Diagnostic Results: 07/25/16 22:00 07/25/16 22:00 Lab Results 07/27/16 06:00: Free T4 1.40, TSH 3rd Generation 6.18 H 07/27/16 06:00: Fasting Glucose 111 H, Triglycerides 59, Cholesterol 83 L, LDL Cholesterol Direct 36, HDL Cholesterol 33 07/26/16 08:20: Urine Opiates Screen Negative, Urine Methadone Screen Negative, Ur Barbiturates Screen Negative, Ur Phencyclidine Scrn Negative, Ur Amphetamines Screen Negative, U Benzodiazepines Scrn Positive H, U Oth Cocaine Metabols Negative, U Cannabinoids Screen Negative 07/26/16 05:20: Urine Color Yellow, Urine Appearance Clear, Urine pH 8.0, Ur Specific [place] 1.015, Urine Protein Trace H, Urine Glucose (UA) Negative, Urine Ketones Negative, Urine Blood Trace-intact H, Urine Nitrate Negative, Urine Bilirubin Negative, Urine Urobilinogen 1.0 H, Ur Leukocyte Esterase Negative, Urine RBC 0 - 2, Urine WBC Negative, Ur Epithelial Cells 0 - 2, Amorphous Sediment Small, Urine Bacteria Small 07/25/16 22:00: Alcohol, Quantitative < 10 07/25/16 22:00: Salicylates < 1 L, Acetaminophen < 10.0 L 07/25/16 22:00: Sodium 135, Potassium 4.1, Chloride 101, Carbon Dioxide 27, Anion Gap 11, BUN 24 H, Creatinine 0.7, Est GFR ( Amer) > 60, Est GFR ( Non-Af Amer) > 60, Random Glucose 108, Calcium 8.4, Total Bilirubin 0.8, AST 45 , ALT 38, Alkaline Phosphatase 115, Total Protein 7.3, Albumin 3.3, Globulin 4.0 , Albumin/Globulin Ratio 0.8 L 07/25/16 22:00: WBC 10.8, RBC 3.74, Hgb 11.7 L, Hct 33.9 L, MCV 90.6, MCH 31.3, MCHC 34.5, RDW 13.5, Plt Count 291, MPV 9.3, Gran % 81.3 H, Lymph % (Auto) 11.7 L, [place] % (Auto) 6.7 H, Eos % (Auto) 0.1 L, Baso % (Auto) 0.2, Gran # 8.75 H, Lymph # 1.3, [place] # 0.7 H, Eos # 0.0, Baso # 0.02 Vital Signs Temp Pulse Resp BP Pulse Ox 07/27/16 07:39 98.1 F 67 20 121/70 07/27/16 07:37 98.1 F 67 20 07/26/16 08:13 98.4 F 84 18 132/84 96 07/26/16 01:04 96 H 18 143/75 97 07/25/16 20:56 98.2 F 88 18 184/95 H 99 Temp Pulse Resp BP Pulse Ox 98.1 F 66 18 101/67 97 08/01/16 08:09 08/01/16 08:09 08/01/16 08:09 08/01/16 08:09 07/31/16 10:04 Temp Pulse Resp BP Pulse Ox 97.7 F 78 18 127/78 97 08/02/16 08:00 08/02/16 08:00 08/02/16 08:00 08/02/16 08:00 07/31/16 10:04 XR of the knee08/02/16: transcerse fracture through the mid patellla with mild superior and inferior distraction of the fracture fragments. DSM 5 Symptoms Update: pt is 75yo with ?h/o mental illness most likely antisocial personality disorder , denied psychiatric admissions, was transferred from the rehab facility for evaluation of agitated, restless and psychotic behavior, pt was threatening staff to harm them. Pt was seen in ED initially, pt signed consent and was transferred to the psych unit. for the past few days patient has stable improvement with his presentation, pt is more polite, affect is brighter, less irritable, but at times pt could be disrespectful when his needs are not met immediately, for example pt threatened to urinate on the floor, but did not do so and apologized later on. pt reported that his mood is "better", pt reported to have fair appetite and sleep. pt denied v/a/t hallucinations, denied paranoid ideations, pt does not appear to be psychotic. Patient reported tolerated medications well, no side effects observed or reported, aims 0, no EPS. as per staff pt started to go to groups, participate. Impression: Rule out bipolar disorder Rule out antisocial personality disorder Rule out mood disorder due to general medical condition Opioids abuse Nicotine addiction Medication Change: No Medical Record Reviewed: Yes (notes, reports, labs, vitals) Consults ordered or reviewed: medical consultation appreciated Orthopedic consultation appreciated Mental Status Examination - Cognitive Function Orientation: Person, Place Memory: Intact Attention: Poor (ome improvement) Concentration: Poor (some improvement) Association: Loose (some improvement) Fund of Knowledge: WNL - Mood Mood: Depressed ( "all right") - Affect Affect: Flat (angry), Other (labile) - Speech Speech: Appropriate - Formal Thought Process Formal Thought Process: No Impairment - Suicidal Ideation Suicidal Ideation: No - Homicidal Ideation Homicidal Ideation: No Goal/Treatment Plan - Goal/Treatment Plan Need for Continued Stay: Remain at risks for inpatient hospitalization, Severe depression anxiety, Discharge may exacerbated symptoms, Severe functional impairment Progress Toward Problem(s) and Goals/Treatment Plan: milieu/structure/supportive therapy ALPRAZolam as needed Nicotine 14 mg/24 hr [Nicotine Transdermal System] 14 mg TD DAILY 07/26/16 Oxycodone HCl [Oxycodone HCl] 10 mg PO Q8H 07/26/16 Ziprasidone [Geodon] only PRN risperdal 1mg at the morning time in 1.5 mg at the nighttime for psychosis and mood stabilization Depakote 500 mg at the morning time and 750 mg at the nighttime for mood stabilization we'll check Depakote level tomorrow August 03 trazodone for insomnia medical consult ortho consult will monitor closely discharge planning, geriatric social worker evaluation Estimated Date of D/C: 08/04/16 (we'll monitor closely)
--- NOTE | 2016-08-02 17:45 | CON ---
DATE: 08/02/2016 HISTORY OF PRESENT ILLNESS: The patient is known to me as orthopedic consult. When he initially cam e into the hospital at [place] on 07/18/2016 with a fracture of the patella of his left knee with trem endous swelling because it happened the day before and is ecchymotic. He is not a surgical candidate because the extensive mechanism still in good position, where he could almost do a straight leg rais ing. The fracture may be an 1/8 inch . So we put him in a long leg cast for protection. We will get him up ambulating and I will change the cast in a week and probably put him in a knee immobilizer, by then it will be 3 weeks. He is very disobedient and does not follow instructions. He is hard to get along, he is not complian t to doing the right thing. He does have a tendency to become hostile and aggressive to the nursing and other medical staff. I will follow him and hopefully get him out of that cast in a week and then put him in a knee immobil izer for that left patellar fracture. Marin Tobin DO cc: [id number] TT: 08/02/2016 17:45:00 Confirmation # [id number] Dictation # [id number] jn
[2016-08-03] MEDS: Alum-Mag Hydrox-Simethicone Susp (30 mL) PO PRN ×2 (02:50→14:09)
[2016-08-03] MEDS: Levothyroxine 50 MCG TAB PO SCH (08:29)
[2016-08-03] MEDS: oxyCODONE 10 mg Immediate Release Tab PO PRN ×2 (08:30→16:26)
--- NOTE | 2016-08-03 09:21 | PN ---
DATE: 08/03/2016 In room 508, bed 1. Update report for an injury that occurred to his left patella where he fractured it on 07/16/16 when pura art was getting on a bus and landed right on his left knee. The recent x-ray that was done on 08/02/16 showed the fracture to be in good position. No change from the previous exam on his left knee when pura art injured it. He is currently in a long leg cast. He can do a weak straight leg raising. Since the injury is only 2 weeks old, we will have to keep him in a cast longer because he is unreliable and d oes not listen to therapy instructions and not compliant and he has no concern for his left knee to d o the right thing. So, he is much better since he is on this floor. The proper medications are cont rolling his obnoxious behavior and after the cast comes off in a week, we will provide him with a kne e immobilizer. That is up to him to keep it on. He will be able to walk better, but that will have to stay on for another 3-4 weeks. We will follow him closely. Hopefully, next week, we could take t he cast off without any concern for him hurting himself. Marin Tobin DO cc: [id number] TT: 08/03/2016 09:21:26 Confirmation # [id number] Dictation # [id number] nicolette
--- NOTE | 2016-08-03 15:26 | PCM.PYCHPN ---
Psychiatric Progress Note - Psychiatric Progress Note Patient seen today, length of contact: 30 minute Patient Chief Complaint: "I prayed to God, God give me a good day..." Problems Identified/Issues Discussed: Suicide/ homicide prevention, past psychiatric h/o, current psychiatric symptoms , medical problems, risk/benefits and alternatives of medications, medications compliance, coping strategies, substance abuse h/o, relapse prevention, importance of follow up with psychiatrist and therapist, discharge plan. Medical Problems: fracture of the patella, patient is not as surgical candidate that at this time as per orthopedic team. Therefore patient wears long black cast for the fractured patella. Diagnostic Results: 07/25/16 22:00 07/25/16 22:00 Lab Results 07/27/16 06:00: Free T4 1.40, TSH 3rd Generation 6.18 H 07/27/16 06:00: Fasting Glucose 111 H, Triglycerides 59, Cholesterol 83 L, LDL Cholesterol Direct 36, HDL Cholesterol 33 07/26/16 08:20: Urine Opiates Screen Negative, Urine Methadone Screen Negative, Ur Barbiturates Screen Negative, Ur Phencyclidine Scrn Negative, Ur Amphetamines Screen Negative, U Benzodiazepines Scrn Positive H, U Oth Cocaine Metabols Negative, U Cannabinoids Screen Negative 07/26/16 05:20: Urine Color Yellow, Urine Appearance Clear, Urine pH 8.0, Ur Specific [place] 1.015, Urine Protein Trace H, Urine Glucose (UA) Negative, Urine Ketones Negative, Urine Blood Trace-intact H, Urine Nitrate Negative, Urine Bilirubin Negative, Urine Urobilinogen 1.0 H, Ur Leukocyte Esterase Negative, Urine RBC 0 - 2, Urine WBC Negative, Ur Epithelial Cells 0 - 2, Amorphous Sediment Small, Urine Bacteria Small 07/25/16 22:00: Alcohol, Quantitative < 10 07/25/16 22:00: Salicylates < 1 L, Acetaminophen < 10.0 L 07/25/16 22:00: Sodium 135, Potassium 4.1, Chloride 101, Carbon Dioxide 27, Anion Gap 11, BUN 24 H, Creatinine 0.7, Est GFR ( Amer) > 60, Est GFR ( Non-Af Amer) > 60, Random Glucose 108, Calcium 8.4, Total Bilirubin 0.8, AST 45 , ALT 38, Alkaline Phosphatase 115, Total Protein 7.3, Albumin 3.3, Globulin 4.0 , Albumin/Globulin Ratio 0.8 L 07/25/16 22:00: WBC 10.8, RBC 3.74, Hgb 11.7 L, Hct 33.9 L, MCV 90.6, MCH 31.3, MCHC 34.5, RDW 13.5, Plt Count 291, MPV 9.3, Gran % 81.3 H, Lymph % (Auto) 11.7 L, [place] % (Auto) 6.7 H, Eos % (Auto) 0.1 L, Baso % (Auto) 0.2, Gran # 8.75 H, Lymph # 1.3, [place] # 0.7 H, Eos # 0.0, Baso # 0.02 Vital Signs Temp Pulse Resp BP Pulse Ox 07/27/16 07:39 98.1 F 67 20 121/70 07/27/16 07:37 98.1 F 67 20 07/26/16 08:13 98.4 F 84 18 132/84 96 07/26/16 01:04 96 H 18 143/75 97 07/25/16 20:56 98.2 F 88 18 184/95 H 99 Temp Pulse Resp BP Pulse Ox 98.1 F 66 18 101/67 97 08/01/16 08:09 08/01/16 08:09 08/01/16 08:09 08/01/16 08:09 07/31/16 10:04 Temp Pulse Resp BP Pulse Ox 97.7 F 78 18 127/78 97 08/02/16 08:00 08/02/16 08:00 08/02/16 08:00 08/02/16 08:00 07/31/16 10:04 XR of the knee08/02/16: transcerse fracture through the mid patellla with mild superior and inferior distraction of the fracture fragments. Temp Pulse Resp BP Pulse Ox 98.2 F 76 20 137/87 97 08/03/16 07:21 08/03/16 07:21 08/03/16 07:21 08/03/16 07:21 07/31/16 10:04 Laboratory Results - last 24 hr 08/03/16 07:20 Valproic Acid 66 DSM 5 Symptoms Update: pt is 75yo with ?h/o mental illness most likely antisocial personality disorder , denied psychiatric admissions, was transferred from the rehab facility for evaluation of agitated, restless and psychotic behavior, pt was threatening staff to harm them. Pt was seen in ED initially, pt signed consent and was transferred to the psych unit. for the past few days patient has stable improvement with his presentation, pt is more polite, affect is brighter, less irritable, pt obviously is improving, sleep and appetite are good, no disrespectful or aggressive behavior, affect is brighter. pt denied v/a/t hallucinations, denied paranoid ideations, pt does not appear to be psychotic. Patient reported tolerated medications well, no side effects observed or reported, aims 0, no EPS. as per staff pt started to go to groups, participate. Impression: Rule out bipolar disorder Rule out antisocial personality disorder Rule out mood disorder due to general medical condition Opioids abuse Nicotine addiction Medication Change: No Medical Record Reviewed: Yes (notes, reports, labs, vitals) Consults ordered or reviewed: medical consultation appreciated Orthopedic consultation appreciated Ortho notes reviewed, next week they will try to take off the cast, pt needs to have a knee immobilizer then. Mental Status Examination - Cognitive Function Orientation: Person, Place Memory: Intact Attention: Poor (ome improvement) Concentration: Poor (some improvement) Association: Loose (some improvement) Fund of Knowledge: WNL - Mood Mood: Depressed ( "all right") - Affect Affect: Flat (angry), Other (labile) - Speech Speech: Appropriate - Formal Thought Process Formal Thought Process: No Impairment - Suicidal Ideation Suicidal Ideation: No - Homicidal Ideation Homicidal Ideation: No Goal/Treatment Plan - Goal/Treatment Plan Need for Continued Stay: Remain at risks for inpatient hospitalization, Severe depression anxiety, Discharge may exacerbated symptoms, Severe functional impairment Progress Toward Problem(s) and Goals/Treatment Plan: milieu/structure/supportive therapy ALPRAZolam as needed Nicotine 14 mg/24 hr [Nicotine Transdermal System] 14 mg TD DAILY 07/26/16 Oxycodone HCl [Oxycodone HCl] 10 mg PO Q8H 07/26/16 Ziprasidone [Geodon] only PRN risperdal 1mg at the morning time in 1.5 mg at the nighttime for psychosis and mood stabilization Depakote 500 mg at the morning time and 750 mg at the nighttime for mood stabilization Depakote level August 03 was 66 trazodone for insomnia medical consult ortho consult and f/u appreciated will monitor closely discharge planning, bilingual social worker evaluation Estimated Date of D/C: 08/04/16 (we'll monitor closely)
[2016-08-03] MEDS: Hyoscyamine 0.125 mg SL Tab PO PRN (16:27)
[2016-08-04] MEDS: Alum-Mag Hydrox-Simethicone Susp (30 mL) PO PRN (03:27)
[2016-08-04] MEDS: Levothyroxine 50 MCG TAB PO SCH (09:18)
--- NOTE | 2016-08-04 13:56 | PCM.PYCHPN ---
Psychiatric Progress Note - Psychiatric Progress Note Patient seen today, length of contact: 30 minute Patient Chief Complaint: "I am sorry for my behavior in the NH" Problems Identified/Issues Discussed: Suicide/ homicide prevention, past psychiatric h/o, current psychiatric symptoms , medical problems, risk/benefits and alternatives of medications, medications compliance, coping strategies, substance abuse h/o, relapse prevention, importance of follow up with psychiatrist and therapist, discharge plan. Medical Problems: fracture of the patella, patient is not as surgical candidate that at this time as per orthopedic team. Therefore patient wears long black cast for the fractured patella. Diagnostic Results: 07/25/16 22:00 07/25/16 22:00 Lab Results 07/27/16 06:00: Free T4 1.40, TSH 3rd Generation 6.18 H 07/27/16 06:00: Fasting Glucose 111 H, Triglycerides 59, Cholesterol 83 L, LDL Cholesterol Direct 36, HDL Cholesterol 33 07/26/16 08:20: Urine Opiates Screen Negative, Urine Methadone Screen Negative, Ur Barbiturates Screen Negative, Ur Phencyclidine Scrn Negative, Ur Amphetamines Screen Negative, U Benzodiazepines Scrn Positive H, U Oth Cocaine Metabols Negative, U Cannabinoids Screen Negative 07/26/16 05:20: Urine Color Yellow, Urine Appearance Clear, Urine pH 8.0, Ur Specific [place] 1.015, Urine Protein Trace H, Urine Glucose (UA) Negative, Urine Ketones Negative, Urine Blood Trace-intact H, Urine Nitrate Negative, Urine Bilirubin Negative, Urine Urobilinogen 1.0 H, Ur Leukocyte Esterase Negative, Urine RBC 0 - 2, Urine WBC Negative, Ur Epithelial Cells 0 - 2, Amorphous Sediment Small, Urine Bacteria Small 07/25/16 22:00: Alcohol, Quantitative < 10 07/25/16 22:00: Salicylates < 1 L, Acetaminophen < 10.0 L 07/25/16 22:00: Sodium 135, Potassium 4.1, Chloride 101, Carbon Dioxide 27, Anion Gap 11, BUN 24 H, Creatinine 0.7, Est GFR ( Amer) > 60, Est GFR ( Non-Af Amer) > 60, Random Glucose 108, Calcium 8.4, Total Bilirubin 0.8, AST 45 , ALT 38, Alkaline Phosphatase 115, Total Protein 7.3, Albumin 3.3, Globulin 4.0 , Albumin/Globulin Ratio 0.8 L 07/25/16 22:00: WBC 10.8, RBC 3.74, Hgb 11.7 L, Hct 33.9 L, MCV 90.6, MCH 31.3, MCHC 34.5, RDW 13.5, Plt Count 291, MPV 9.3, Gran % 81.3 H, Lymph % (Auto) 11.7 L, [place] % (Auto) 6.7 H, Eos % (Auto) 0.1 L, Baso % (Auto) 0.2, Gran # 8.75 H, Lymph # 1.3, [place] # 0.7 H, Eos # 0.0, Baso # 0.02 Vital Signs Temp Pulse Resp BP Pulse Ox 07/27/16 07:39 98.1 F 67 20 121/70 07/27/16 07:37 98.1 F 67 20 07/26/16 08:13 98.4 F 84 18 132/84 96 07/26/16 01:04 96 H 18 143/75 97 07/25/16 20:56 98.2 F 88 18 184/95 H 99 Temp Pulse Resp BP Pulse Ox 98.1 F 66 18 101/67 97 08/01/16 08:09 08/01/16 08:09 08/01/16 08:09 08/01/16 08:09 07/31/16 10:04 Temp Pulse Resp BP Pulse Ox 97.7 F 78 18 127/78 97 08/02/16 08:00 08/02/16 08:00 08/02/16 08:00 08/02/16 08:00 07/31/16 10:04 XR of the knee08/02/16: transcerse fracture through the mid patellla with mild superior and inferior distraction of the fracture fragments. Temp Pulse Resp BP Pulse Ox 98.2 F 76 20 137/87 97 08/03/16 07:21 08/03/16 07:21 08/03/16 07:21 08/03/16 07:21 07/31/16 10:04 Laboratory Results - last 24 hr 08/03/16 07:20 Valproic Acid 66 Temp Pulse Resp BP Pulse Ox 97.6 F 80 20 110/68 97 08/04/16 08:58 08/04/16 08:58 08/04/16 08:58 08/04/16 08:58 07/31/16 10:04 DSM 5 Symptoms Update: pt is 75yo with ?h/o mental illness most likely antisocial personality disorder , denied psychiatric admissions, was transferred from the rehab facility for evaluation of agitated, restless and psychotic behavior, pt was threatening staff to harm them. Pt was seen in ED initially, pt signed consent and was transferred to the psych unit. for the past few days patient has stable improvement with his presentation, pt is more polite, affect is brighter, less irritable, pt obviously is improving, sleep and appetite are good, no disrespectful or aggressive behavior, affect is brighter, pt said today that is sorry for his behavior in the NH "I did stupid things for attention". pt denied v/a/t hallucinations, denied paranoid ideations, pt does not appear to be psychotic. Patient reported tolerated medications well, no side effects observed or reported, aims 0, no EPS. as per staff pt started to go to groups, participate. Impression: Rule out bipolar disorder Rule out antisocial personality disorder Rule out mood disorder due to general medical condition Opioids abuse Nicotine addiction Medication Change: No Medical Record Reviewed: Yes (notes, reports, labs, vitals) Consults ordered or reviewed: medical consultation appreciated Orthopedic consultation appreciated Ortho notes reviewed, next week they will try to take off the cast, pt needs to have a knee immobilizer then. Mental Status Examination - Cognitive Function Orientation: Person, Place Memory: Intact Attention: Poor (ome improvement) Concentration: Poor (some improvement) Association: Loose (some improvement) Fund of Knowledge: WNL - Mood Mood: Depressed ( "all right") - Affect Affect: Flat (angry), Other (labile) - Speech Speech: Appropriate - Formal Thought Process Formal Thought Process: No Impairment - Suicidal Ideation Suicidal Ideation: No - Homicidal Ideation Homicidal Ideation: No Goal/Treatment Plan - Goal/Treatment Plan Need for Continued Stay: Remain at risks for inpatient hospitalization, Severe depression anxiety, Discharge may exacerbated symptoms, Severe functional impairment Progress Toward Problem(s) and Goals/Treatment Plan: milieu/structure/supportive therapy ALPRAZolam as needed Nicotine 14 mg/24 hr [Nicotine Transdermal System] 14 mg TD DAILY 07/26/16 Oxycodone HCl [Oxycodone HCl] 10 mg PO Q8H 07/26/16 Ziprasidone [Geodon] only PRN risperdal 1mg at the morning time in 1.5 mg at the nighttime for psychosis and mood stabilization Depakote 500 mg at the morning time and 750 mg at the nighttime for mood stabilization Depakote level August 03 was 66 trazodone for insomnia medical consult ortho consult and f/u appreciated will monitor closely discharge planning, manager social responsibility evaluation Estimated Date of D/C: 08/11/16 (pt was not accepted to the [facility])
[2016-08-04] MEDS: oxyCODONE 10 mg Immediate Release Tab PO PRN ×2 (14:13→23:16)
[2016-08-05] MEDS: Levothyroxine 50 MCG TAB PO SCH (08:15)
[2016-08-05] MEDS: oxyCODONE 10 mg Immediate Release Tab PO PRN (08:16)
--- NOTE | 2016-08-05 09:20 | PCM.PYCHPN ---
Psychiatric Progress Note - Psychiatric Progress Note Patient seen today, length of contact: 25 minutes Patient Chief Complaint: "okay" Problems Identified/Issues Discussed: I reviewed recent notes and met with patient at bedside. He is calm but disoriented. Believes it is April 2009. Grooming is adequate. Patient reports that his mood is "okay" and he denies any depression hopelessness or suicidal thoughts. Patient's self control appears to be improved since last weekend. He is much less labile and irritable. Jokes around at times during our interview. He continues to deny any perceptual disturbance, specifically denies hallucinations or paranoia. Responses are coherent and relevant to questioning. Patient is compliant with medications and denies any side effects. He denies any new discomfort or pain. Nursing notes indicate that he remains labeled by his self control is improving. Patient also apologize for his behavior as last week. Thus far there have not been any behavioral issues on the unit overnight or this morning Diagnostic Results: Rule out bipolar disorder Rule out antisocial personality disorder Rule out mood disorder due to general medical condition Opioids abuse Nicotine addiction Medication Change: No Medical Record Reviewed: Yes (notes, reports, labs, vitals) Mental Status Examination - Cognitive Function Orientation: Person, Place Memory: Intact Attention: Poor (ome improvement) Concentration: Poor (some improvement) Association: Loose (some improvement) Fund of Knowledge: WNL - Mood Mood: Depressed ("okay") - Affect Affect: Flat (angry), Other (labile-improving) - Speech Speech: Appropriate - Formal Thought Process Formal Thought Process: No Impairment - Suicidal Ideation Suicidal Ideation: No - Homicidal Ideation Homicidal Ideation: No Goal/Treatment Plan - Goal/Treatment Plan Need for Continued Stay: Remain at risks for inpatient hospitalization, Severe depression anxiety, Discharge may exacerbated symptoms, Severe functional impairment Progress Toward Problem(s) and Goals/Treatment Plan: * c/w current tx and plan * No new weekend labs * Vitals reviewed and noted below: Selected Entries 08/04/16 08/04/16 08:58 16:34 Temperature 97.6 F Pulse Rate 80 78 Respiratory 20 Rate Blood Pressure 110/68 110/68 Estimated Date of D/C: 08/11/16 (pt was not accepted to the [facility])
[2016-08-05] MEDS ORDERED: oxyCODONE 5 mg Immediate Release Tab PO PRN (11:51)
[2016-08-05] MEDS: Alum-Mag Hydrox-Simethicone Susp (30 mL) PO PRN (16:26)
[2016-08-05] MEDS: Hyoscyamine 0.125 mg SL Tab PO PRN (16:27)
--- NOTE | 2016-08-05 19:26 | PN ---
DATE: 08/05/2016 The patient was seen this Sunday morning on the psychiatry floor resting comfortably in bed in room 508, bed 1. He is awake and knows me. Although I do not see him regularly in the office, he is actually a patient of my brother, Dr. Marin Vargas. I had a long talk with the patient, bringing him up to date on his condition and counseling him regarding his chronic opiate use. I told him I was concerned his mentation and his mental status as well as his state of consciousness, alertness and ability to care for himself at home. His opiate dose has been tapered dramatically. He is now down to only 10 mg on a q. 8 basis. Initially, the MAR looked as if he had barely taken the dose, but in fact it turns out he has been taking it approximately 3 times a day. Psychiatry notes were appreciated as he seems to be doing better on his current medication regimen. PHYSICAL EXAMINATION: GENERAL: The patient was awake, but slow mentation and perhaps a bit lethargic from receiving some recent sedation/analgesics. HEENT: Conjunctivae are pink. Mucous membranes are moist. NECK: Supple without masses. LUNGS: Clear. HEART: Regular, not tachycardic. ABDOMEN: Soft and nontender. EXTREMITIES: Show no edema. Left leg is casted. IMPRESSION: 1. Chronic pain. 2. Chronic opiate use. 3. Dementia. 4. Anxiety as above, see psychiatrist note. 5. Fracture left leg/patella PLAN: We will continue to slowly taper opiates. I will reduce his oxycodone from 10 mg to 5 mg q. 8 hours and change it to a p.r.n. dosing schedule rather than regularly scheduled. We will watch for signs of withdrawal and hopefully continue to taper his medications over the course of his stay in the transitional care unit so that he can be opiate free at the time of discharge. Bryan Vargas MD cc: [id number] TT: 08/05/2016 19:25:08 Confirmation # [id number] Dictation # [id number] isidra HERRERA
[2016-08-06 08:27] LABS: ADD MANUAL DIFF? NO
--- NOTE | 2016-08-06 08:35 | PCM.PYCHPN ---
Psychiatric Progress Note - Psychiatric Progress Note Patient seen today, length of contact: 25 minutes Patient Chief Complaint: "okay" Problems Identified/Issues Discussed: I reviewed recent notes and met with patient in the dayroom. He is calm but remains forgetful and disoriented. Believes it is July 2006, aware he is at [facility]. Grooming is adequate. Patient reports that his mood is "okay" and he denies any depression, hopelessness or suicidal thoughts. Patient later reports that he feels a little anxious and hasn't been sleeping well. Patient's self control appears to be improved since last weekend. He is much less labile and irritable. Jokes around again during our interview this morning. He continues to deny any perceptual disturbance, specifically denies hallucinations or paranoia. Responses are coherent and relevant to questioning. Patient is compliant with medications and denies any side effects. He denies any new discomfort or pain. Nursing notes indicate that he remains labile but self control is improving. Thus far, there have been no behavioral issues such as outbursts or swearing on the unit over the weekend. Patient is responding well to nursing reinforcement and limit setting in this regard. Diagnostic Results: Rule out bipolar disorder Rule out antisocial personality disorder Rule out mood disorder due to general medical condition Opioids abuse Nicotine addiction Medication Change: No Medical Record Reviewed: Yes (notes, reports, labs, vitals) Mental Status Examination - Cognitive Function Orientation: Person, Place Memory: Intact Attention: Poor (ome improvement) Concentration: Poor (some improvement) Association: Loose (some improvement) Fund of Knowledge: WNL - Mood Mood: Depressed ("okay") - Affect Affect: Flat, Other (labile-improving) - Speech Speech: Appropriate - Formal Thought Process Formal Thought Process: No Impairment, Other (forgetful, disoriented) - Suicidal Ideation Suicidal Ideation: No - Homicidal Ideation Homicidal Ideation: No Goal/Treatment Plan - Goal/Treatment Plan Need for Continued Stay: Remain at risks for inpatient hospitalization, Severe depression anxiety, Discharge may exacerbated symptoms, Severe functional impairment Progress Toward Problem(s) and Goals/Treatment Plan: * c/w current tx and plan * Appreciate f/u by Dr. Vargas on 08/05/16~tapering opiates * No new weekend labs * Vitals reviewed and noted below: Selected Entries 08/06/16 07:29 Temperature 98.0 F Pulse Rate 74 Respiratory 20 Rate Blood Pressure 137/97 H Estimated Date of D/C: 08/11/16 (pt was not accepted to the [facility])
[2016-08-06] MEDS: Levothyroxine 50 MCG TAB PO SCH (08:41)
[2016-08-06 08:42] LABS: BASO # 0.01 K/mm3 (0.0-2.0); BASO % 0.2 % (0.0-3.0); EOS % 0.4 % (1.5-5.0); GRAN # 3.75 (1.4-6.5); GRAN % 69.5 % (50.0-68.0); HEMATOCRIT 35.3 % (42.0-52.0); LYMPH # 1.2 (1.2-3.4); MEAN CELL VOLUME 92.9 fL (80.0-105.0); MEAN CORPUSCULAR HEMOGLOBIN 30.8 pg (25.0-35.0); MEAN CORPUSCULAR HGB CONC 33.1 g/dl (31.0-37.0); MEAN PLATELET VOLUME 9.9 fl (7.0-11.0); MONO # 0.4 (0.1-0.6); MONO % 6.9 % (1.0-6.0); RED CELL DISTRIBUTION WIDTH 13.8 % (11.5-14.5); WHITE BLOOD COUNT 5.4 10^3/ul (4.5-11.0)
[2016-08-06 08:44] LABS: PLATELET COUNT 145 10^3/uL (120.0-450.0)
[2016-08-06 08:49] LABS: ALB/GLOB RATIO 0.8 (1.1-1.8); ALKALINE PHOSPHATASE 86 U/L (38-133); ALT/SGPT 28 U/L (7-56); AST/SGOT 39 U/L (15-59); BILIRUBIN,TOTAL 0.5 mg/dL (0.2-1.3); BLOOD UREA NITROGEN 27 mg/dL (7-21); CALCIUM 8.4 mg/dL (8.4-10.5); CARBON DIOXIDE 32 mmol/L (21-33); CHLORIDE 100 mmol/L (98-107); GFR AFRICAN-AMERICAN > 60; GLUCOSE,RANDOM 89 mg/dL (70-110); POTASSIUM 4.2 mmol/L (3.6-5.0); SODIUM 138 mmol/L (132-148); TOTAL PROTEIN 7.2 g/dL (5.8-8.3)
[2016-08-06 09:51] LABS: ERYTHROCYTE SEDIMENTATION RATE 35 mm/hr (0.00-15.0)
--- NOTE | 2016-08-06 18:19 | PN ---
DATE: 08/06/2016 The patient was seen this Sunday morning in the psychiatry unit in 508, bed 1. He is sitting out of bed in chair in the day room and quite comfortable. He is much more awake and alert and able to talk to me. Yesterday I noticed he was still on narcotic analgesics for his fractured leg, is now approx imately 3 weeks post-fracture. The dose was decreased. Today he is doing rather well. I spoke to h im at length regarding medications and about his discharge plans. He lives at the [facility], but is now e ssentially homeless. He has been at a skilled nursing rehab facility and will likely stay there indefin itely. After discharge from [facility] will return there. I understand that discharge date is scheduled in few days. I will discontinue the oxycodone, use Tylenol and ibuprofen for pain. Ziggy gomez of his history of opiate use, I would not use tramadol and will follow with him. I will also spea k with Dr. Jaskaran Vargas who knows the patient better, regarding the cyst-like swelling on his forehea d, if this is a new finding or something that his chronic having been there for years. Bryan Vargas MD cc: [id number] TT: 08/06/2016 18:18:15 Confirmation # [id number] Dictation # [id number] jn
[2016-08-06] MEDS: Alum-Mag Hydrox-Simethicone Susp (30 mL) PO PRN (23:19)
[2016-08-07] MEDS: Levothyroxine 50 MCG TAB PO SCH (09:34)
--- NOTE | 2016-08-07 15:54 | PCM.PYCHPN ---
Psychiatric Progress Note - Psychiatric Progress Note Patient seen today, length of contact: 30 minutes Patient Chief Complaint: "I feel okay" Problems Identified/Issues Discussed: Suicide/ homicide prevention, past psychiatric h/o, current psychiatric symptoms , medical problems, risk/benefits and alternatives of medications, medications compliance, coping strategies, substance abuse h/o, relapse prevention, importance of follow up with psychiatrist and therapist, discharge plan. Medical Problems: fracture of the patella, patient is not as surgical candidate that at this time as per orthopedic team. Therefore patient wears long black cast for the fractured patella. Diagnostic Results: 07/25/16 22:00 07/25/16 22:00 Lab Results 07/27/16 06:00: Free T4 1.40, TSH 3rd Generation 6.18 H 07/27/16 06:00: Fasting Glucose 111 H, Triglycerides 59, Cholesterol 83 L, LDL Cholesterol Direct 36, HDL Cholesterol 33 07/26/16 08:20: Urine Opiates Screen Negative, Urine Methadone Screen Negative, Ur Barbiturates Screen Negative, Ur Phencyclidine Scrn Negative, Ur Amphetamines Screen Negative, U Benzodiazepines Scrn Positive H, U Oth Cocaine Metabols Negative, U Cannabinoids Screen Negative 07/26/16 05:20: Urine Color Yellow, Urine Appearance Clear, Urine pH 8.0, Ur Specific [place] 1.015, Urine Protein Trace H, Urine Glucose (UA) Negative, Urine Ketones Negative, Urine Blood Trace-intact H, Urine Nitrate Negative, Urine Bilirubin Negative, Urine Urobilinogen 1.0 H, Ur Leukocyte Esterase Negative, Urine RBC 0 - 2, Urine WBC Negative, Ur Epithelial Cells 0 - 2, Amorphous Sediment Small, Urine Bacteria Small 07/25/16 22:00: Alcohol, Quantitative < 10 07/25/16 22:00: Salicylates < 1 L, Acetaminophen < 10.0 L 07/25/16 22:00: Sodium 135, Potassium 4.1, Chloride 101, Carbon Dioxide 27, Anion Gap 11, BUN 24 H, Creatinine 0.7, Est GFR ( Amer) > 60, Est GFR ( Non-Af Amer) > 60, Random Glucose 108, Calcium 8.4, Total Bilirubin 0.8, AST 45 , ALT 38, Alkaline Phosphatase 115, Total Protein 7.3, Albumin 3.3, Globulin 4.0 , Albumin/Globulin Ratio 0.8 L 07/25/16 22:00: WBC 10.8, RBC 3.74, Hgb 11.7 L, Hct 33.9 L, MCV 90.6, MCH 31.3, MCHC 34.5, RDW 13.5, Plt Count 291, MPV 9.3, Gran % 81.3 H, Lymph % (Auto) 11.7 L, [place] % (Auto) 6.7 H, Eos % (Auto) 0.1 L, Baso % (Auto) 0.2, Gran # 8.75 H, Lymph # 1.3, [place] # 0.7 H, Eos # 0.0, Baso # 0.02 Vital Signs Temp Pulse Resp BP Pulse Ox 07/27/16 07:39 98.1 F 67 20 121/70 07/27/16 07:37 98.1 F 67 20 07/26/16 08:13 98.4 F 84 18 132/84 96 07/26/16 01:04 96 H 18 143/75 97 07/25/16 20:56 98.2 F 88 18 184/95 H 99 Temp Pulse Resp BP Pulse Ox 98.1 F 66 18 101/67 97 08/01/16 08:09 08/01/16 08:09 08/01/16 08:09 08/01/16 08:09 07/31/16 10:04 Temp Pulse Resp BP Pulse Ox 97.7 F 78 18 127/78 97 08/02/16 08:00 08/02/16 08:00 08/02/16 08:00 08/02/16 08:00 07/31/16 10:04 XR of the knee08/02/16: transcerse fracture through the mid patellla with mild superior and inferior distraction of the fracture fragments. Temp Pulse Resp BP Pulse Ox 98.2 F 76 20 137/87 97 08/03/16 07:21 08/03/16 07:21 08/03/16 07:21 08/03/16 07:21 07/31/16 10:04 Laboratory Results - last 24 hr 08/03/16 07:20 Valproic Acid 66 Temp Pulse Resp BP Pulse Ox 97.6 F 80 20 110/68 97 08/04/16 08:58 08/04/16 08:58 08/04/16 08:58 08/04/16 08:58 07/31/16 10:04 Temp Pulse Resp BP Pulse Ox 98.0 F 76 20 157/92 H 97 08/07/16 07:38 08/07/16 07:38 08/07/16 07:38 08/07/16 07:38 07/31/16 10:04 DSM 5 Symptoms Update: pt is 75yo with ?h/o mental illness most likely antisocial personality disorder , denied psychiatric admissions, was transferred from the rehab facility for evaluation of agitated, restless and psychotic behavior, pt was threatening staff to harm them. Pt was seen in ED initially, pt signed consent and was transferred to the psych unit. for the past few days patient has stable improvement with his presentation, pt is more polite, affect is brighter, less irritable, pt obviously is improving, sleep and appetite are good, no disrespectful or aggressive behavior, affect is brighter, there is no threats of urinating or spitting on the floor. pt denied v/a/t hallucinations, denied paranoid ideations, pt does not appear to be psychotic. Patient reported tolerated medications well, no side effects observed or reported, aims 0, no EPS. as per staff pt started to go to groups, participate. patient was seen by physical therapist today recommendation subacute rehabilitation. Impression: Rule out bipolar disorder Rule out antisocial personality disorder Rule out mood disorder due to general medical condition Opioids abuse Nicotine addiction Medication Change: No Medical Record Reviewed: Yes (notes, reports, labs, vitals) Consults ordered or reviewed: medical consultation appreciated Orthopedic consultation appreciated Ortho notes reviewed, next week they will try to take off the cast, pt needs to have a knee immobilizer then. Mental Status Examination - Cognitive Function Orientation: Person, Place Memory: Intact Attention: Poor (ome improvement) Concentration: Poor (some improvement) Association: Loose (some improvement) Fund of Knowledge: WNL - Mood Mood: Depressed ("okay") - Affect Affect: Flat, Other (labile-improving) - Speech Speech: Appropriate - Formal Thought Process Formal Thought Process: No Impairment, Other (forgetful, disoriented) - Suicidal Ideation Suicidal Ideation: No - Homicidal Ideation Homicidal Ideation: No Goal/Treatment Plan - Goal/Treatment Plan Need for Continued Stay: Remain at risks for inpatient hospitalization, Severe depression anxiety, Discharge may exacerbated symptoms, Severe functional impairment Progress Toward Problem(s) and Goals/Treatment Plan: milieu/structure/supportive therapy ALPRAZolam as needed Nicotine 14 mg/24 hr [Nicotine Transdermal System] 14 mg TD DAILY 07/26/16 Oxycodone HCl [Oxycodone HCl] 10 mg PO Q8H 07/26/16 Ziprasidone [Geodon] only PRN risperdal 1mg at the morning time in 1.5 mg at the nighttime for psychosis and mood stabilization Depakote 500 mg at the morning time and 750 mg at the nighttime for mood stabilization Depakote level August 03 was 66 trazodone for insomnia medical consult ortho consult and f/u appreciated will monitor closely discharge planning, social media strategist evaluation, as per PT [facility] upon d/c Estimated Date of D/C: 08/11/16 (pt was not accepted to the [facility])
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
[2016-08-08] MEDS: Alum-Mag Hydrox-Simethicone Susp (30 mL) PO PRN (05:17)
[2016-08-08] MEDS: Levothyroxine 50 MCG TAB PO SCH (08:59)
--- NOTE | 2016-08-08 15:21 | PCM.PYCHPN ---
Psychiatric Progress Note - Psychiatric Progress Note Patient seen today, length of contact: 30 minutes Patient Chief Complaint: "I am in pain, I cannot sleep.." Problems Identified/Issues Discussed: Suicide/ homicide prevention, past psychiatric h/o, current psychiatric symptoms , medical problems, risk/benefits and alternatives of medications, medications compliance, coping strategies, substance abuse h/o, relapse prevention, importance of follow up with psychiatrist and therapist, discharge plan. Medical Problems: fracture of the patella, patient is not as surgical candidate that at this time as per orthopedic team. Therefore patient wears long black cast for the fractured patella. ortho f/u appreciated, pt is off cast, [facility] recommended, [facility] awaiting for the call back Diagnostic Results: 07/25/16 22:00 07/25/16 22:00 Lab Results 07/27/16 06:00: Free T4 1.40, TSH 3rd Generation 6.18 H 07/27/16 06:00: Fasting Glucose 111 H, Triglycerides 59, Cholesterol 83 L, LDL Cholesterol Direct 36, HDL Cholesterol 33 07/26/16 08:20: Urine Opiates Screen Negative, Urine Methadone Screen Negative, Ur Barbiturates Screen Negative, Ur Phencyclidine Scrn Negative, Ur Amphetamines Screen Negative, U Benzodiazepines Scrn Positive H, U Oth Cocaine Metabols Negative, U Cannabinoids Screen Negative 07/26/16 05:20: Urine Color Yellow, Urine Appearance Clear, Urine pH 8.0, Ur Specific [place] 1.015, Urine Protein Trace H, Urine Glucose (UA) Negative, Urine Ketones Negative, Urine Blood Trace-intact H, Urine Nitrate Negative, Urine Bilirubin Negative, Urine Urobilinogen 1.0 H, Ur Leukocyte Esterase Negative, Urine RBC 0 - 2, Urine WBC Negative, Ur Epithelial Cells 0 - 2, Amorphous Sediment Small, Urine Bacteria Small 07/25/16 22:00: Alcohol, Quantitative < 10 07/25/16 22:00: Salicylates < 1 L, Acetaminophen < 10.0 L 07/25/16 22:00: Sodium 135, Potassium 4.1, Chloride 101, Carbon Dioxide 27, Anion Gap 11, BUN 24 H, Creatinine 0.7, Est GFR ( Amer) > 60, Est GFR ( Non-Af Amer) > 60, Random Glucose 108, Calcium 8.4, Total Bilirubin 0.8, AST 45 , ALT 38, Alkaline Phosphatase 115, Total Protein 7.3, Albumin 3.3, Globulin 4.0 , Albumin/Globulin Ratio 0.8 L 07/25/16 22:00: WBC 10.8, RBC 3.74, Hgb 11.7 L, Hct 33.9 L, MCV 90.6, MCH 31.3, MCHC 34.5, RDW 13.5, Plt Count 291, MPV 9.3, Gran % 81.3 H, Lymph % (Auto) 11.7 L, [place] % (Auto) 6.7 H, Eos % (Auto) 0.1 L, Baso % (Auto) 0.2, Gran # 8.75 H, Lymph # 1.3, [place] # 0.7 H, Eos # 0.0, Baso # 0.02 Vital Signs Temp Pulse Resp BP Pulse Ox 07/27/16 07:39 98.1 F 67 20 121/70 07/27/16 07:37 98.1 F 67 20 07/26/16 08:13 98.4 F 84 18 132/84 96 07/26/16 01:04 96 H 18 143/75 97 07/25/16 20:56 98.2 F 88 18 184/95 H 99 Temp Pulse Resp BP Pulse Ox 98.1 F 66 18 101/67 97 08/01/16 08:09 08/01/16 08:09 08/01/16 08:09 08/01/16 08:09 07/31/16 10:04 Temp Pulse Resp BP Pulse Ox 97.7 F 78 18 127/78 97 08/02/16 08:00 08/02/16 08:00 08/02/16 08:00 08/02/16 08:00 07/31/16 10:04 XR of the knee08/02/16: transcerse fracture through the mid patellla with mild superior and inferior distraction of the fracture fragments. Temp Pulse Resp BP Pulse Ox 98.2 F 76 20 137/87 97 08/03/16 07:21 08/03/16 07:21 08/03/16 07:21 08/03/16 07:21 07/31/16 10:04 Laboratory Results - last 24 hr 08/03/16 07:20 Valproic Acid 66 Temp Pulse Resp BP Pulse Ox 97.6 F 80 20 110/68 97 06/02/17 08:58 08/04/16 08:58 08/04/16 08:58 08/04/16 08:58 07/31/16 10:04 Temp Pulse Resp BP Pulse Ox 98.0 F 76 20 157/92 H 97 08/07/16 07:38 08/07/16 07:38 08/07/16 07:38 08/07/16 07:38 07/31/16 10:04 DSM 5 Symptoms Update: pt is 75yo with ?h/o mental illness most likely antisocial personality disorder , denied psychiatric admissions, was transferred from the rehab facility for evaluation of agitated, restless and psychotic behavior, pt was threatening staff to harm them. Pt was seen in ED initially, pt signed consent and was transferred to the psych unit. for the past few days patient has stable improvement with his presentation, pt is more polite, affect is brighter, less irritable, pt obviously is improving, appetite are good, no disrespectful or aggressive behavior, affect is brighter, there is no threats of urinating or spitting on the floor. pt was crying today, c/o pain in his knee, asked if any meds could be given at hs for his pain, will give tramadol. pt denied v/a/t hallucinations, denied paranoid ideations, pt does not appear to be psychotic. Patient reported tolerated medications well, no side effects observed or reported, aims 0, no EPS. as per staff pt started to go to groups, participate. patient was seen by physical therapist today recommendation subacute rehabilitation. Impression: Rule out bipolar disorder Rule out antisocial personality disorder Rule out mood disorder due to general medical condition Opioids abuse Nicotine addiction Medication Change: Yes (tramadol hs [facility]) Medical Record Reviewed: Yes (notes, reports, labs, vitals) Consults ordered or reviewed: medical consultation appreciated Orthopedic consultation appreciated Ortho notes reviewed, next week they will try to take off the cast, pt needs to have a knee immobilizer then. Mental Status Examination - Cognitive Function Orientation: Person, Place Memory: Intact Attention: Poor (ome improvement) Concentration: Poor (some improvement) Association: Loose (some improvement) Fund of Knowledge: WNL - Mood Mood: Depressed ("okay") - Affect Affect: Flat, Other (labile-improving) - Speech Speech: Appropriate - Formal Thought Process Formal Thought Process: No Impairment, Other (forgetful, disoriented) - Suicidal Ideation Suicidal Ideation: No - Homicidal Ideation Homicidal Ideation: No Goal/Treatment Plan - Goal/Treatment Plan Need for Continued Stay: Remain at risks for inpatient hospitalization, Severe depression anxiety, Discharge may exacerbated symptoms, Severe functional impairment Progress Toward Problem(s) and Goals/Treatment Plan: milieu/structure/supportive therapy ALPRAZolam as needed tramadol 50mg hs for pain Nicotine 14 mg/24 hr [Nicotine Transdermal System] 14 mg TD DAILY 07/26/16 Oxycodone HCl [Oxycodone HCl] 10 mg PO Q8H 07/26/16 Ziprasidone [Geodon] only PRN risperdal 1mg at the morning time in 1.5 mg at the nighttime for psychosis and mood stabilization Depakote 500 mg at the morning time and 750 mg at the nighttime for mood stabilization Depakote level August 03 was 66 trazodone for insomnia medical consult ortho consult and f/u appreciated will monitor closely discharge planning, school social worker evaluation, as per PT [facility] upon d/c Estimated Date of D/C: 08/11/16 (pt was not accepted to the [facility])
[2016-08-09 07:14] VITALS: BP 115/78; PULSE 66; RESP 20; TEMP 97.3
[2016-08-09] MEDS: Levothyroxine 50 MCG TAB PO SCH (08:22)
--- NOTE | 2016-08-09 16:28 | PCM.PYCHDC ---
Mental Status Examination - Mental Status Examination Orientation: Person, Place, Situation, Time Memory: Intact Mood: Neutral Affect: Constricted (But reactive mood congruent) Speech: Soft Attention: WNL Concentration: WNL Association: WNL Fund of Knowledge: WNL Formal Thought Process: No Impairment Description of patient's judgement and insight: Pt has improved insight into mental and medical illness, pt was compliant with medications and unit rules and regulations, pt was going to groups, was calm, cooperative, socially appropriate, no behavioral incidents, no agitation, no aggression. Psychotic Thoughts and Behaviors: Pt denied v/a/t hallucinations, denied paranoid ideations, pt does not appear to be psychotic, and thought process is goal directed. Suicidal Ideation: No Current Homicidal Ideation?: No Plan: pt adamantly denied thoughts of harming self or others denied intent or plan. Discharge Summary - Discharge Note Reason for Hospitalization: was transferred from the [place] rehab for evaluation of agitated, psychotic behavior , spitting on staff. Psychiatric History (includes Medical, Family, Personal Hx): see HPI Laboratory Data: 08/06/16 08:20 08/06/16 08:20 Lab Results 08/06/16 08:20: Sodium 138, Potassium 4.2, Chloride 100, Carbon Dioxide 32, Anion Gap 10, BUN 27 H, Creatinine 0.9, Est GFR ( Amer) > 60, Est GFR ( Non-Af Amer) > 60, Random Glucose 89, Calcium 8.4, Total Bilirubin 0.5, AST 39, ALT 28, Alkaline Phosphatase 86, Total Protein 7.2, Albumin 3.1, Globulin 4.1, Albumin/Globulin Ratio 0.8 L 08/06/16 08:20: WBC 5.4 D, RBC 3.80, Hgb 11.7 L, Hct 35.3 L, MCV 92.9, MCH 30.8 , MCHC 33.1, RDW 13.8, Plt Count 145, MPV 9.9, Gran % 69.5 H, Lymph % (Auto) 23.0, [place] % (Auto) 6.9 H, Eos % (Auto) 0.4 L, Baso % (Auto) 0.2, Gran # 3.75, Lymph # 1.2, [place] # 0.4, Eos # 0.0, Baso # 0.01, ESR 35 H 08/03/16 07:20: Valproic Acid 66 07/27/16 06:00: Free T4 1.40, TSH 3rd Generation 6.18 H 07/27/16 06:00: Fasting Glucose 111 H, Triglycerides 59, Cholesterol 83 L, LDL Cholesterol Direct 36, HDL Cholesterol 33 07/26/16 08:20: Urine Opiates Screen Negative, Urine Methadone Screen Negative, Ur Barbiturates Screen Negative, Ur Phencyclidine Scrn Negative, Ur Amphetamines Screen Negative, U Benzodiazepines Scrn Positive H, U Oth Cocaine Metabols Negative, U Cannabinoids Screen Negative 07/26/16 05:20: Urine Color Yellow, Urine Appearance Clear, Urine pH 8.0, Ur Specific [place] 1.015, Urine Protein Trace H, Urine Glucose (UA) Negative, Urine Ketones Negative, Urine Blood Trace-intact H, Urine Nitrate Negative, Urine Bilirubin Negative, Urine Urobilinogen 1.0 H, Ur Leukocyte Esterase Negative, Urine RBC 0 - 2, Urine WBC Negative, Ur Epithelial Cells 0 - 2, Amorphous Sediment Small, Urine Bacteria Small 07/25/16 22:00: Alcohol, Quantitative < 10 07/25/16 22:00: Salicylates < 1 L, Acetaminophen < 10.0 L 07/25/16 22:00: Sodium 135, Potassium 4.1, Chloride 101, Carbon Dioxide 27, Anion Gap 11, BUN 24 H, Creatinine 0.7, Est GFR ( Amer) > 60, Est GFR ( Non-Af Amer) > 60, Random Glucose 108, Calcium 8.4, Total Bilirubin 0.8, AST 45 , ALT 38, Alkaline Phosphatase 115, Total Protein 7.3, Albumin 3.3, Globulin 4.0 , Albumin/Globulin Ratio 0.8 L 07/25/16 22:00: WBC 10.8, RBC 3.74, Hgb 11.7 L, Hct 33.9 L, MCV 90.6, MCH 31.3, MCHC 34.5, RDW 13.5, Plt Count 291, MPV 9.3, Gran % 81.3 H, Lymph % (Auto) 11.7 L, [place] % (Auto) 6.7 H, Eos % (Auto) 0.1 L, Baso % (Auto) 0.2, Gran # 8.75 H, Lymph # 1.3, [place] # 0.7 H, Eos # 0.0, Baso # 0.02 Vital Signs Temp Pulse Resp BP Pulse Ox 08/09/16 07:13 97.3 F L 66 20 115/78 08/08/16 16:00 80 138/84 08/08/16 06:41 98.3 F 64 17 111/58 L 08/07/16 16:00 91 H 92/70 L 08/07/16 07:38 98.0 F 76 20 157/92 H 08/06/16 17:08 72 132/81 08/06/16 07:29 98.0 F 74 20 137/97 H 08/05/16 21:43 137/87 08/05/16 06:49 74 16 117/60 08/04/16 16:34 78 110/68 08/04/16 08:58 97.6 F 80 20 110/68 08/03/16 16:19 86 103/67 08/03/16 07:21 98.2 F 76 20 137/87 08/02/16 18:27 81 104/75 08/02/16 08:00 97.7 F 78 18 127/78 08/01/16 16:47 84 105/71 08/01/16 08:09 98.1 F 66 18 101/67 07/31/16 16:37 72 121/72 07/31/16 10:04 97.6 F 83 20 142/92 H 97 07/30/16 16:00 76 137/85 07/30/16 08:13 97.9 F 66 20 140/77 07/29/16 16:19 85 126/82 07/29/16 08:00 97.3 F L 85 20 137/76 07/27/16 07:39 98.1 F 67 20 121/70 07/27/16 07:37 98.1 F 67 20 07/26/16 08:13 98.4 F 84 18 132/84 96 07/26/16 01:04 96 H 18 143/75 97 07/25/16 20:56 98.2 F 88 18 184/95 H 99 Consultations:: List each consultation separately and include: 1. Reason for request. 2. Findings. 3. Follow-up Consultations: medical consultation appreciated Orthopedic consultation appreciated Ortho, patient is off the cast pt has a knee immobilizer Summary of Hospital Course include:: 1. Description of specific treatment plan utilized for patients during their course of treatmen. 2. Summarize the time- course for resolution of acute symptoms and/or regressed behaviors. 3. Describe issues identified and worked on during hospitalization. 4. Describe medication utilized. 5. Describe medical problems identified and treated. 6. Reassessment of suicide risk Summary of Hospital Course: pt is 75yo with ?h/o mental illness, denied admissions, was transferred from the rehab facility for evaluation of agitated, restless and psychotic behavior, pt was threatening staff to harm them. Pt was seen in ED initially, pt signed consent and was transferred to the psych unit. at the time of initial evaluation patient presented with poor hygiene, angry, pt was cursing this report writer, tried to grab her. pt has poor ADLs. patient is s/p fall, pt broke his knee and currently has a cast, from the medical record pt was on geodone, then he was transferred to the subacute rehabilitation and from subacute rehabilitation patient was transferred to the psychiatric inpatient unit. meds resumed, this report writer started risperdal, depakote yesterday, tolerated well , no side effects observed or reported. pt is poor and unreliable historian. pt denied v/a/t hallucinations, denied paranoid ideations, but obviously psychotic "everybody hates me, everybody ignoring me". pt was started on 1:1 observation for safety. 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 pt denied using drugs, but fixated on the pain killers and benzos. smokes a pack a day, counseling provided. family h/o unknown ? h/o abuse. medical h/o: pt broke his knee, wears cast now 07/25/16 22:00 07/25/16 22:00 Lab Results 07/27/16 06:00: Free T4 1.40, TSH 3rd Generation 6.18 H 07/27/16 06:00: Fasting Glucose 111 H, Triglycerides 59, Cholesterol 83 L, LDL Cholesterol Direct 36, HDL Cholesterol 33 07/26/16 08:20: Urine Opiates Screen Negative, Urine Methadone Screen Negative, Ur Barbiturates Screen Negative, Ur Phencyclidine Scrn Negative, Ur Amphetamines Screen Negative, U Benzodiazepines Scrn Positive H, U Oth Cocaine Metabols Negative, U Cannabinoids Screen Negative 07/26/16 05:20: Urine Color Yellow, Urine Appearance Clear, Urine pH 8.0, Ur Specific [place] 1.015, Urine Protein Trace H, Urine Glucose (UA) Negative, Urine Ketones Negative, Urine Blood Trace-intact H, Urine Nitrate Negative, Urine Bilirubin Negative, Urine Urobilinogen 1.0 H, Ur Leukocyte Esterase Negative, Urine RBC 0 - 2, Urine WBC Negative, Ur Epithelial Cells 0 - 2, Amorphous Sediment Small, Urine Bacteria Small 07/25/16 22:00: Alcohol, Quantitative < 10 07/25/16 22:00: Salicylates < 1 L, Acetaminophen < 10.0 L 07/25/16 22:00: Sodium 135, Potassium 4.1, Chloride 101, Carbon Dioxide 27, Anion Gap 11, BUN 24 H, Creatinine 0.7, Est GFR ( Amer) > 60, Est GFR ( Non-Af Amer) > 60, Random Glucose 108, Calcium 8.4, Total Bilirubin 0.8, AST 45 , ALT 38, Alkaline Phosphatase 115, Total Protein 7.3, Albumin 3.3, Globulin 4.0 , Albumin/Globulin Ratio 0.8 L 07/25/16 22:00: WBC 10.8, RBC 3.74, Hgb 11.7 L, Hct 33.9 L, MCV 90.6, MCH 31.3, MCHC 34.5, RDW 13.5, Plt Count 291, MPV 9.3, Gran % 81.3 H, Lymph % (Auto) 11.7 L, [place] % (Auto) 6.7 H, Eos % (Auto) 0.1 L, Baso % (Auto) 0.2, Gran # 8.75 H, Lymph # 1.3, [place] # 0.7 H, Eos # 0.0, Baso # 0.02 Vital Signs Temp Pulse Resp BP Pulse Ox 07/27/16 07:39 98.1 F 67 20 121/70 07/27/16 07:37 98.1 F 67 20 07/26/16 08:13 98.4 F 84 18 132/84 96 07/26/16 01:04 96 H 18 143/75 97 07/25/16 20:56 98.2 F 88 18 184/95 H 99 during this hospitalization patient was stabilized on the following medications: ALPRAZolam as needed tramadol 50mg hs for pain Nicotine 14 mg/24 hr [Nicotine Transdermal System] 14 mg TD DAILY risperdal 1mg at the morning time in 1.5 mg at the nighttime for psychosis and mood stabilization Depakote 500 mg at the morning time and 750 mg at the nighttime for mood stabilization Depakote level August 03 was 66 trazodone for insomnia patient tolerated medications well, no side effects observed or reported, but had positive result, patient became calm, corporative, no inappropriate behavior , patient is polite, had severe appetite and sleep . Patient was seen by medical team, as well as orthopedic team, patient was recommended to have subacute rehabilitation. Patient was accepted by [facility] subacute rehabilitation deemed to be ready for discharge. Over the course of this hospitalization pt was attending groups, pt also had medication management, had therapeutic milieu. Overall pt improved significantly, pt's affect became brighter, pt was less depressed, has realistic future oriented plans, pt also does not appear to be psychotic, or anxious, pt was socially appropriate, no behavioral issues, pts insight improved as well and soon pt deemed to be ready for discharge. At the time of the discharge pt denied been depressed, denied thoughts of harming self or others, denied psychotic symptoms, and pt does not appeared to be psychotic, denied been anxious, was considered to pose no threat to self or others, will be following up we psychiatrist at subacute rehabilitation within one week, pt needs to follow up with outpatient clinic, PMD as well as specialists (see SW note for more detailed information). In case pt will need to obtain results of studies pending at discharge pt was provided with contact information of Psychiatric Inpatient unit [phone] as well as Medical Record Department [phone]. Nicotine patch was offered Counseling about smoking and alcohol cessation provided pt was advised to be continue on meds no prescription provided Pt was educated about safety plan in case of worsening of symptoms or in case of suicidal or homicidal ideation call 911 or go to the nearest ER, also was educated to take meds as prescribed and stay away from drugs, pt verbalized understanding. 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 In case pt will need to obtain results of studies pending at discharge pt was provided with contact information of Psychiatric Inpatient unit [phone] as well as Medical Record Department [phone]. Nicotine patch was offered Counseling about smoking and alcohol cessation provided pt was advised to be continue on meds no prescription provided Pt was educated about safety plan in case of worsening of symptoms or in case of suicidal or homicidal ideation call 911 or go to the nearest ER, also was educated to take meds as prescribed and stay away from drugs, pt verbalized understanding. - Smoking Cessation Smoking Cessation Medication prescribed: Yes - Antipsychotic Medications Pt discharged on 2 or more routine antipsychotic medications: No
== END 2016-08-09 14:46 | DRG 884 ==
LOC: ED 20:37 → ERH 07-26 09:15 → PSYC 07-26 12:44
PROVIDERS: ADMIT Psychiatry & Neurology Psychiatry; ATTEND Psychiatry & Neurology Psychiatry
DX: F06.30 Mood disorder due to known physiological condition, unspecified (principal); F11.20 Opioid dependence, uncomplicated; F03.90 Unspecified dementia, unspecified severity, without behavioral disturbance, psychotic disturbance, mood disturbance, and anxiety; B19.20 Unspecified viral hepatitis C without hepatic coma; F41.8 Other specified anxiety disorders; F17.210 Nicotine dependence, cigarettes, uncomplicated; F60.2 Antisocial personality disorder; G89.29 Other chronic pain; G47.00 Insomnia, unspecified; S82.002D Unspecified fracture of left patella, subsequent encounter for closed fracture with routine healing; V00-Y99 External causes of morbidity; W17.89XD Other fall from one level to another, subsequent encounter; Z91.19 Patient's noncompliance with other medical treatment and regimen

== ENCOUNTER 2016-08-21 16:19 | Observation (INO) | payer MEDICARE, OTHER ==
--- NOTE | 2016-08-21 17:29 | ED PDOC ---
Arrival/HPI - General Chief Complaint: Substance Abuse Time Seen by Provider: 08/21/16 17:09 Historian: Patient, EMS - History of Present Illness Narrative History of Present Illness (Text): 08/21/16 17:11 A 75 year old male is brought into the emergency department via EMS after being found unresponsive. EMS states they found the patient in front of the [facility] unresponsive with pinpoint pupils. Patient was give 2mg narcan, after which he became responsive/ Patient states he was outside and pass out due to the heat. Currently he complains of chronic left knee pain but denies any other complaints at this time. PMD: Dr. Prater Past Medical History - Provider Review Nursing Documentation Reviewed: Yes - Past History Past History: No Previous - Infectious Disease Hx of Infectious Diseases: None - Tetanus Immunization Tetanus Immunization: Up to Date - Cardiac Hx Hypertension: Yes - Pulmonary Hx Emphysema: Yes - Neurological Hx Paralysis: No - Hematological/Oncological Hx Blood Transfusions: No - Musculoskeletal/Rheumatological Hx Musculoskeletal Disorders: Yes (FX L PATELLA) - Genitourinary/Gynecological Hx Sexually Transmitted Diseases: No - Psychiatric Hx Depression: Yes Hx Substance Use: Yes (substance abuse treatment(PAST IVDA)) - Past Surgical History Past Surgical History: No Previous - Surgical History Hx Orthopedic Surgery: Yes (lt leg fx) - Anesthesia Hx Anesthesia Reactions: No Hx Malignant Hyperthermia: No - Suicidal Assessment Feels Threatened In Home Enviroment: No Family/Social History - Physician Review Nursing Documentation Reviewed: Yes Family/Social History: Unknown Family HX Smoking Status: Current Some Days Smoker Hx Alcohol Use: Yes Hx Substance Use: Yes (substance abuse treatment(PAST IVDA)) Hx Substance Use Treatment: Yes Allergies/Home Meds Allergies/Adverse Reactions: Allergies No Known Allergies Allergy (Verified 07/27/16 06:36) Home Medications: Home Meds Medication Instructions Recorded Confirmed Magnesium Hydroxide [Milk Of 30 ml PO PRN PRN 08/21/16 08/21/16 Magnesia] Pantoprazole Sodium [Protonix] 40 mg PO DAILY 08/21/16 08/21/16 Review of Systems - Physician Review All systems were reviewed & negative as marked: Yes - Review of Systems Constitutional: absent: Fevers Respiratory: absent: SOB Cardiovascular: Syncope. absent: Chest Pain Gastrointestinal: absent: Abdominal Pain Musculoskeletal: Other (left knee pain) Neurological: absent: Headache, Dizziness Physical Exam Vital Signs Reviewed: Yes Vital Signs Temp Pulse Resp BP Pulse Ox 08/21/16 17:03 16 97 08/21/16 16:46 98.2 F 74 16 96/67 L 92 L Temperature: Afebrile Blood Pressure: Hypotensive Pulse: Regular Respiratory Rate: Normal Appearance: Positive for: Well-Appearing, Non-Toxic, Comfortable Pain Distress: None Mental Status: Positive for: Alert and Oriented X 3 Finger Stick Blood Glucose: 95 - Systems Exam Head: Present: Atraumatic, Normocephalic Pupils: Present: PERRL Extroacular Muscles: Present: EOMI Conjunctiva: Present: Normal Mouth: Present: Moist Mucous Membranes Neck: Present: Normal Range of Motion Respiratory/Chest: Present: Clear to Auscultation, Good Air Exchange. No: Respiratory Distress, Accessory Muscle Use Cardiovascular: Present: Regular Rate and Rhythm, Normal S1, S2. No: Murmurs Abdomen: Present: Normal Bowel Sounds. No: Tenderness, Distention, Peritoneal Signs Back: Present: Normal Inspection Upper Extremity: Present: Normal Inspection, Normal ROM (to the bilateral shoulders and elbows). No: Cyanosis, Edema Lower Extremity: Present: Normal ROM, Other (knee immobilizer to the left leg). No: Edema Neurological: Present: GCS=15, CN II-XII Intact, Speech Normal Skin: Present: Warm, Dry, Normal Color, Abrasion (superfical abrasion to the right lateral elbow; superfical abrasion to the right dorsal aspect of the forarm). No: Rashes Psychiatric: Present: Alert, Oriented x 3, Normal Insight, Normal Concentration Medical Decision Making ED Course and Treatment: EKG: Ordered, reviewed, and independently interpreted the EKG. Rate : 76 BPM Rhythm : NSR Interpretation : Normal intervals, normal axis, no acute ischemia 08/21/16 18:48 Chest X-ray: As read by me, round appearing opacity at the left lower lung field. Patient was made aware of Chest X-ray finding and the importance for the need of close follow up was discussed with the patient. 08/21/16 20:[address]: Dictated and Authenticated by: Kianna Mendez MD COMPARISON: Prior head CT of 07/16/2016 FINDINGS: BRAIN: Areas of low density in the periventricular white matter bilaterally, most likely representing mild chronic small vessel ischemic changes. Diffuse, age-related cortical atrophy and ventriculomegaly. No significant acute abnormality identified. No acute hemorrhage seen within the brain. No acute extra-axial fluid collections visualized. No evidence of significant mass effect within the brain. VENTRICLES: See above. BONES/JOINTS: No acute fractures or other acute bony abnormality noted. SOFT TISSUES: 2 x 1 cm focal subacute hematoma in the right anterior scalp. SINUSES: Visualized paranasal sinuses appear clear. MASTOID AIR CELLS: Mastoid air cells appear clear. IMPRESSION: - No evidence of acute intracranial injury or fractures. - See above for remaining findings. - Lab Interpretations Lab Results: 08/21/16 18:00 08/21/16 18:00 Lab Results 08/21/16 18:00: Salicylates < 1 L, Acetaminophen < 10.0 L 08/21/16 18:00: Alcohol, Quantitative < 10 08/21/16 18:00: Sodium 138, Potassium 4.7, Chloride 103, Carbon Dioxide 30, Anion Gap 10, BUN 38 H, Creatinine 1.0, Est GFR ( Amer) > 60, Est GFR ( Non-Af Amer) > 60, Random Glucose 85, Calcium 8.2 L, Total Bilirubin 0.3, AST 38 , ALT 36, Alkaline Phosphatase 82, Troponin I < 0.01, Total Protein 6.5, Albumin 2.7 L, Globulin 3.8, Albumin/Globulin Ratio 0.7 L 08/21/16 18:00: WBC 4.7, RBC 3.17 L, Hgb 9.6 L, Hct 30.5 L, MCV 96.2, MCH 30.3, MCHC 31.5, RDW 14.3, Plt Count 118 L, MPV 9.9, Gran % 60.2, Lymph % (Auto) 26.3 , Larue % (Auto) 9.9 H, Eos % (Auto) 3.2, Baso % (Auto) 0.4, Gran # 2.81, Lymph # 1.2, Larue # 0.5, Eos # 0.2, Baso # 0.02 I have reviewed the lab results: Yes - RAD Interpretation Radiology Orders: 08/21/16 17:23 CHEST ONE VIEW [RAD] Stat 08/21/16 17:24 HEAD W/O CONTRAST [CT] Stat - Scribe Statement The provider has reviewed the documentation as recorded by the Scribe Lorraine Browne Provider Scribe Attestation: All medical record entries made by the Scribe were at my direction and personally dictated by me. I have reviewed the chart and agree that the record accurately reflects my personal performance of the history, physical exam, medical decision making, and the department course for this patient. I have also personally directed, reviewed, and agree with the discharge instructions and disposition. Disposition/Present on Arrival - Present on Arrival History of DVT/PE: No History of Uncontrolled Diabetes: No Urinary Catheter: No History of Decub. Ulcer: No History Surgical Site Infection Following: None - Disposition Referrals: Maicol Prater MD [Primary Care Provider] - Follow up with primary
[2016-08-21 18:26] LABS: ADD MANUAL DIFF? NO
[2016-08-21 18:41] LABS: ALB/GLOB RATIO 0.7 (1.1-1.8); ALKALINE PHOSPHATASE 82 U/L (38-133); ALT/SGPT 36 U/L (7-56); AST/SGOT 38 U/L (15-59); BILIRUBIN,TOTAL 0.3 mg/dL (0.2-1.3); BLOOD UREA NITROGEN 38 mg/dL (7-21); CALCIUM 8.2 mg/dL (8.4-10.5); CARBON DIOXIDE 30 mmol/L (21-33); CHLORIDE 103 mmol/L (98-107); GFR AFRICAN-AMERICAN > 60; GLUCOSE,RANDOM 85 mg/dL (70-110); POTASSIUM 4.7 mmol/L (3.6-5.0); SODIUM 138 mmol/L (132-148); TOTAL PROTEIN 6.5 g/dL (5.8-8.3)
[2016-08-21 18:46] LABS: BASO # 0.02 K/mm3 (0.0-2.0); BASO % 0.4 % (0.0-3.0); EOS # 0.2 (0.0-0.7); EOS % 3.2 % (1.5-5.0); GRAN # 2.81 (1.4-6.5); GRAN % 60.2 % (50.0-68.0); HEMATOCRIT 30.5 % (42.0-52.0); LYMPH # 1.2 (1.2-3.4); LYMPH % 26.3 % (22.0-35.0); MEAN CELL VOLUME 96.2 fL (80.0-105.0); MEAN CORPUSCULAR HEMOGLOBIN 30.3 pg (25.0-35.0); MEAN CORPUSCULAR HGB CONC 31.5 g/dl (31.0-37.0); MEAN PLATELET VOLUME 9.9 fl (7.0-11.0); MONO # 0.5 (0.1-0.6); MONO % 9.9 % (1.0-6.0); PLATELET COUNT 118 10^3/uL (120.0-450.0); RED CELL DISTRIBUTION WIDTH 14.3 % (11.5-14.5); WHITE BLOOD COUNT 4.7 10^3/ul (4.5-11.0)
[2016-08-21 18:54] LABS: TROPONIN I < 0.01 ng/mL
--- NOTE | 2016-08-21 20:34 | CT ---
EXAM: CT Head Without Intravenous Contrast CLINICAL HISTORY: 75 years old, male; Pain; Headache; Additional info: Fall hit head TECHNIQUE: Axial computed tomography images of the head/brain without intravenous contrast. This CT exam was performed using one or more of the following dose reduction techniques: automated exposure control, adjustment of the mA and/or kV according to patient size, and/or use of iterative reconstruction technique. EXAM DATE/TIME: 08/21/2016 5:24 PM COMPARISON: Prior head CT of 07/16/2016 FINDINGS: BRAIN: Areas of low density in the periventricular white matter bilaterally, most likely representing mild chronic small vessel ischemic changes. Diffuse, age-related cortical atrophy and ventriculomegaly. No significant acute abnormality identified. No acute hemorrhage seen within the brain. No acute extra-axial fluid collections visualized. No evidence of significant mass effect within the brain. VENTRICLES: See above. BONES/JOINTS: No acute fractures or other acute bony abnormality noted. SOFT TISSUES: 2 x 1 cm focal subacute hematoma in the right anterior scalp. SINUSES: Visualized paranasal sinuses appear clear. MASTOID AIR CELLS: Mastoid air cells appear clear. IMPRESSION: - No evidence of acute intracranial injury or fractures. - See above for remaining findings.
[2016-08-21] MEDS ORDERED: Naloxone 0.4 mg/ml Inj (Adult) IVP STA (23:02)
[2016-08-21] MEDS ORDERED: Naloxone 0.4 mg/ml Inj (Adult) ONE (23:06)
[2016-08-22 00:01] LABS: URINE BILIRUBIN NEGATIVE (NEGATIVE); URINE BLOOD NEGATIVE (NEGATIVE); URINE GLUCOSE (UA) NEGATIVE (NEGATIVE); URINE KETONE NEGATIVE (NEGATIVE); URINE LEUKOCYTE ESTERASE NEGATIVE Leu/uL (NEGATIVE); URINE PROTEIN NEGATIVE mg/dL (<30 mg/dL); URINE UROBILINOGEN 0.2 E.U./dL (<1 E.U./dL)
[2016-08-22 00:08] LABS: URINE APPEARANCE CLEAR (CLEAR); URINE COLOR YELLOW (YELLOW)
--- NOTE | 2016-08-22 01:08 | CP.PCM.CON ---
History of Present Illness - History of Present Illness History of Present Illness: Reason for ICU consult: Altered mental status HPI: 75 y/o male with a PMhx polysubstance abuse, left patellar fracture last month presents to the ED via EMS for being [facility]. Patient was given Intranasal narcan en route to the ED with some response. He was given narcan again in the ED and showed more improvement in his neurological status. At the current time of my history and physical exam, the patient is awake, alert and answering all questions appropriately. He denies remembering what happened that caused him to come to the ED and is denying any complaints aside from left lower extremity knee pain. He specifically denies when asked about chest pain, shortness of breath, abdominal pain, nausea, vomiting, headache, fever, chills, diarrhea or dizziness. PMHx: Left patellar fracture 07/2016 resulting in a long cast heroin use tobacco use ?seizures hypothyroid Allergies: NKDA Fam Hx: reviewed and noncontributory Soc Hx: 1 ppd >50yrs; denies eoth use; admits to snorting and smoking heroin (states his last use was yesterday) Home meds: see med rec list Review of Systems - Review of Systems Review of Systems: As per HPI otherwise negative for a 12 point ROS Past Patient History - Infectious Disease Hx of Infectious Diseases: None - Tetanus Immunizations Tetanus Immunization: Up to Date - Past Social History Smoking Status: Current Some Days Smoker Alcohol: None Drugs: Opiates - CARDIAC Hx Hypertension: Yes - PULMONARY Hx Emphysema: Yes - NEUROLOGICAL Hx Paralysis: No - HEMATOLOGICAL/ONCOLOGICAL Hx Blood Transfusions: No - MUSCULOSKELETAL/RHEUMATOLOGICAL Hx Musculoskeletal Disorders: Yes (FX L PATELLA) - GENITOURINARY/GYNECOLOGICAL Hx Sexually Transmitted Disorders: No - PSYCHIATRIC Hx Depression: Yes Hx Substance Use: Yes (substance abuse treatment(PAST IVDA)) - SURGICAL HISTORY Hx Orthopedic Surgery: Yes (lt leg fx) - ANESTHESIA Hx Anesthesia Reactions: No Hx Malignant Hyperthermia: No Meds Allergies/Adverse Reactions: Allergies Allergy/AdvReac Type Severity Reaction Status Date / Time No Known Allergies Allergy Verified 07/27/16 06:36 Physical Exam - Constitutional Appears: Non-toxic, No Acute Distress, Unkempt - Head Exam Additional comments: right sided swelling on the forehead, ? walled off hematoma; nontender. Patient states it's been present since around the time of his fall resulting in a knee fracture - Eye Exam Pupil Exam: Miosis - ENT Exam ENT Exam: Mucous Membranes Dry - Neck Exam Neck exam: Positive for: Full Rom. Negative for: Tenderness - Respiratory Exam Respiratory Exam: Rhonchi, NORMAL BREATHING PATTERN. absent: Decreased Breath Sounds, Rales, Wheezes - Cardiovascular Exam Cardiovascular Exam: REGULAR RHYTHM, +S1, +S2 - GI/Abdominal Exam GI & Abdominal Exam: Soft. absent: Guarding, Rebound, Tenderness - Rectal Exam Rectal Exam: Deferred - Extremities Exam Extremities exam: Negative for: calf tenderness Additional comments: Left lower extremity with a long cast - Neurological Exam Neurological exam: Alert, Oriented x3 - Psychiatric Exam Psychiatric exam: Normal Affect, Normal Mood - Skin Skin Exam: Dry, Intact, Normal Color, Warm Results - Vital Signs Recent Vital Signs: Last Vital Signs Temp 98.2 F 08/21/16 16:46 Pulse 59 L 08/21/16 20:58 Resp 18 08/21/16 20:58 BP 107/60 08/21/16 20:58 Pulse Ox 99 08/21/16 20:58 - Labs Result Diagrams: 08/21/16 18:00 08/21/16 18:00 Labs: Laboratory Results - last 24 hr 08/21/16 08/21/16 23:48 23:48 Urine Color Yellow Urine Appearance Clear Urine pH 6.0 Ur Specific [place] 1.010 Urine Protein Negative Urine Glucose (UA) Negative Urine Ketones Negative Urine Blood Negative Urine Nitrate Negative Urine Bilirubin Negative Urine Urobilinogen 0.2 Ur Leukocyte Esterase Negative Urine Opiates Screen Positive H Urine Methadone Screen Negative Ur Barbiturates Screen Negative Ur Phencyclidine Scrn Negative Ur Amphetamines Screen Negative U Benzodiazepines Scrn Positive H U Oth Cocaine Metabols Negative U Cannabinoids Screen Negative - Imaging and Cardiology CT scan - head Status: Report reviewed by me (no acute hemorrhage/infarct) Assessment & Plan - Assessment and Plan (Free Text) Assessment: 75 y/o male with a PMhx as listed above was brought in for altered mental status [facility] jail. Patient appears to have polysubstance use which has likely resulted in him being altered earlier. He has received narcan and is now AAOX3, breathing well and saturating well on room air indicating he is sufficiently protecting his airway. Patient at this time does not require aggressive ICU level monitoring; furthermore his urine drug screen returned positive for opiates as well as benzo's. Patient can be admitted to a monitored bed for further monitoring. In the event that the patient's condition worsens or deteriorates, I will be available in house for re-evaluation as needed until 7am.
[2016-08-22 05:46] VITALS: BMI 18.8
[2016-08-22 05:57] VITALS: O2SAT 94
[2016-08-22] MEDS ORDERED: Levothyroxine 50 MCG TAB PO SCH (07:30)
--- NOTE | 2016-08-22 09:01 | RAD ---
PROCEDURE: CHEST RADIOGRAPH, 1 VIEW HISTORY: syncope COMPARISON: 07/26/2016 FINDINGS: LUNGS: Bilateral coarse interstitial infiltrates, unchanged. 2.1 cm nodular density overlying posterior aspect of left 8th rib. This is not clearly evident on prior examinations. Possible rounded infiltrate. Consider further evaluation with computed tomography of the chest. PLEURA: Bilateral apical pleural thickening, right greater than left. Nonspecific. CARDIOVASCULAR: Normal. OSSEOUS STRUCTURES: No significant abnormalities. VISUALIZED UPPER ABDOMEN: Normal. OTHER FINDINGS: None. IMPRESSION: 2.1 cm nodular opacity mid to lower left lung. The diffuse coarse interstitial infiltrates. Bilateral apical pleural thickening, nonspecific. Consider further evaluation with computed tomography of the chest.
[2016-08-22] MEDS ORDERED: Pantoprazole 40 mg EC Tab PO SCH (10:00)
[2016-08-22 12:07] VITALS: BP 92/47; RESP 18; TEMP 97
[2016-08-22 15:25] VITALS: PULSE 69
--- NOTE | 2016-08-22 17:06 | RAD ---
PROCEDURE: Left Knee Radiographs. HISTORY: Pain. COMPARISON: 08/02/2016 FINDINGS: BONES: Status post removal of fiberglass cast. Once again, note is made of a transverse mid patellar fracture. There is mild distraction of the fracture fragments. There is no other fracture identified. JOINTS: There is mild medial and lateral osteoarthritis there are no articular erosions. JOINT EFFUSION: None. OTHER FINDINGS: None. IMPRESSION: Mildly displaced transverse mid patellar fracture.
--- NOTE | 2016-08-22 17:42 | CARD ---
APPROVED REPORT EKG Measurement Heart [id number] <Conclusion> Sinus rhythm with premature atrial complexes Otherwise normal ECG
--- NOTE | 2016-08-23 10:53 | HP ---
CHIEF COMPLAINT: Found unresponsive. HISTORY OF PRESENT ILLNESS: This is a 75-year-old unfortunate lost soul who lives in [facility] for years, was a polysubstance abuser, lifetime heavy smoker. He was recently expelled from the [facility], was home less and fell and fractured his left patella, and I was under the impression he was a long-term care patient at a local facility. When he had been hospitalized on the psychiatry floor at [facility], was returned to his care facility which may have actually rather been a rehab facility. Ap parently on the day of admission, he was out on a day pass, encountered some old unsavory characters. According to the patient, he ____ and a cigarette and felt ill effects afterwards and collapsed. T he ambulance was called for an unresponsive man in the street. He was found have pinpoint pupils. N arcan was given and he became awake and alert. He was taken to the Emergency Room. A few hours late r after the Narcan effect wore off, he became groggy, lethargic with shallow respirations. Additiona l doses of Narcan were given and the decision was made that he needed to be admitted. PAST MEDICAL HISTORY: Positive for chronic back pain. He is also known to have a history of hyperte nsion and COPD. He is a lifetime smoker, drinks alcohol, and has been known to use intravenous drugs including heroin and oral prescription medications in the distant past. CURRENT MEDICATIONS: Include Depakote, Xanax, Synthroid, Risperdal, Celexa, Protonix and nonsteroida l anti-inflammatory meds. ALLERGIES: He has no known allergies. SOCIAL HISTORY: Continues to smoke and use illicit drugs and is evident by this admission. PHYSICAL EXAMINATION: GENERAL: The patient was seen this Sunday at noontime in room 262, bed 2. He is resting comfortabl y in bed, awake, alert, clear, appropriate. His left knee is wrapped. He recognizes me and talks an d answers appropriately, although somewhat of a gruff and grumbled speech. HEAD AND NECK: There is a longstanding chronic cyst on the right forehead. Conjunctivae are pink. Pupils are reactive. Dental hygiene is poor. NECK: Supple without masses. Thyroid is not palpable. LUNGS: Show prolonged expiratory phase and decreased breath sounds and COPD but with good air exchan ge. No rales, rhonchi or wheezing. HEART: Regular, nontachycardic. ABDOMEN: Soft. EXTREMITIES: Thin, no edema. Left knee is wrapped as noted above. IMPRESSION: 1. Opioid overdose. 2. History of illicit drug use. 3. Chronic obstructive pulmonary disease. 4. History of hypertension in the past. PLAN: The patient is awake and alert now for several hours after receiving Narcan. He is medically cleared and ready for discharge to home. I spoke to caseworkers and discharge planners about his dis charge. He may return to either his chronic care facility if that is in fact where he was, or to his rehab facility if that is in fact where he was. Continue the same medications as before, and future followup care will be at that facility. Bryan Vargas MD cc: [phone] TT: 08/23/2016 09:17:02 bradly
== END 2016-08-22 18:32 ==
LOC: ED 16:19 → ERH 23:24 → 2RNO 08-22 04:40
PROVIDERS: ADMIT Internal Medicine; ATTEND Internal Medicine
DX: T40.2X1A Poisoning by other opioids, accidental (unintentional), initial encounter (principal); J44.9 Chronic obstructive pulmonary disease, unspecified; I10 Essential (primary) hypertension; F11.10 Opioid abuse, uncomplicated; F17.200 Nicotine dependence, unspecified, uncomplicated; G89.29 Other chronic pain; M54.9 Dorsalgia, unspecified; Z59.0 Homelessness
CPT/HCPCS: 70450; 71010; 73560; 80053; 81003; 84484; 85025; 93005; 96374; 99285; G0378; G0480; J2310

== ENCOUNTER 2016-11-29 11:13 | Inpatient (IN) | payer MEDICARE, MEDICAID ==
[2016-11-29 11:13] VITALS: BMI 18.8
[2016-11-29 11:57] LABS: BASO # 0.01 K/mm3 (0.0-2.0); BASO % 0.2 % (0.0-3.0); EOS # 0.1 (0.0-0.7); EOS % 1.7 % (1.5-5.0); GRAN # 3.69 (1.4-6.5); GRAN % 61.5 % (50.0-68.0); LYMPH # 1.8 (1.2-3.4); LYMPH % 29.4 % (22.0-35.0); MEAN CORPUSCULAR HEMOGLOBIN 32.8 pg (25.0-35.0); MEAN CORPUSCULAR HGB CONC 34.2 g/dl (31.0-37.0); MONO # 0.4 (0.1-0.6); MONO % 7.2 % (1.0-6.0); RED CELL DISTRIBUTION WIDTH 13.5 % (11.5-14.5)
[2016-11-29 12:03] LABS: INR 1.08 (0.93-1.08); PARTIAL THROMBOPLASTIN TIME 30.1 Seconds (23.7-30.8)
[2016-11-29 12:04] LABS: GFR AFRICAN-AMERICAN > 60
[2016-11-29 12:09] LABS: ALB/GLOB RATIO 0.8 (1.1-1.8); ALCOHOL SERUM < 10 mg/dL (0-10); ALKALINE PHOSPHATASE 81 U/L (38-126); ALT/SGPT 36 U/L (7-56); AST/SGOT 54 U/L (17-59); BILIRUBIN,TOTAL 0.8 mg/dL (0.2-1.3); BLOOD UREA NITROGEN 29 mg/dL (7-21); CALCIUM 8.8 mg/dL (8.4-10.5); CARBON DIOXIDE 33 mmol/L (21-33); CHLORIDE 101 mmol/L (95-110); GLUCOSE,RANDOM 139 mg/dL (70-110); POTASSIUM 4.3 mmol/L (3.6-5.0); SODIUM 143 mmol/L (132-148); TOTAL PROTEIN 7.8 g/dL (5.8-8.3)
--- NOTE | 2016-11-29 13:20 | RAD ---
HISTORY: med. clearance COMPARISON: 08/21/2016 FINDINGS: LUNGS: Bilateral hyperaeration, bilateral diffuse prominent interstitial lung markings and biapical pleural thickening -all similar findings. No interval consolidation. Prior left lateral nodular opacity no longer seen PLEURA: No significant pleural effusion identified, no pneumothorax apparent. Biapical pleural thickening similar as above CARDIOVASCULAR: Normal. OSSEOUS STRUCTURES: Generalized osteopenia VISUALIZED UPPER ABDOMEN: Possible central to left upper quadrant calcifications -not dissimilar OTHER FINDINGS: None. IMPRESSION: Prior cm nodular opacity left lateral lung -no longer seen. Assumed interval clearance of prior rounded infiltrate. COPD, interstitial lung disease biapical pleural thickening all similar No interval pathology appreciated
--- NOTE | 2016-11-29 14:11 | ED PDOC ---
Arrival/HPI - General Chief Complaint: Psychiatric Evaluation Time Seen by Provider: 11/29/16 11:45 Historian: Patient, EMS - History of Present Illness Narrative History of Present Illness (Text): 11/29/16 14:04 A 76 year old male, whose past medical history includes hypertension, emphysema , and substance abuse, is brought in by EMS from [facility] due to agressive behavior. Patient was throwing items and verbally abusing staff [facility]. He was brought here for further evaluation. Patient has been cursing at staff here in the ER as well and has been trying to get out of bed. Patient denies of any SI/HI or any physical complaints. PMD: Dr. Morton Time/Duration: Prior to Arrival Symptom Onset: Sudden Symptom Course: Unchanged Past Medical History - Provider Review Nursing Documentation Reviewed: Yes - Past History Past History: No Previous - Infectious Disease Hx of Infectious Diseases: None - Tetanus Immunization Tetanus Immunization: Up to Date - Cardiac Hx Hypertension: Yes - Pulmonary Hx Chronic Obstructive Pulmonary Disease (COPD): Yes Hx Emphysema: Yes - Neurological Hx Dementia: Yes - HEENT Hx HEENT Disorder: No - Renal Hx Renal Disorder: No - Endocrine/Metabolic Hx Endocrine Disorders: No - Hematological/Oncological Hx Hepatitis C: Yes - Integumentary Hx Dermatological Disorder: No - Musculoskeletal/Rheumatological Hx Musculoskeletal Disorders: Yes (FX L PATELLA) Hx Back Pain: Yes (lower) Other/Comment: Comminuted Fx of Patella - Gastrointestinal Hx Gastrointestinal Disorders: No - Genitourinary/Gynecological Hx Sexually Transmitted Diseases: No - Psychiatric Hx Anxiety: Yes Hx Depression: Yes Hx Substance Use: Yes (substance abuse treatment(PAST IVDA)) Other/Comment: Hx of alcohol abuse and stimulant abuse - Past Surgical History Past Surgical History: No Previous - Surgical History Hx Orthopedic Surgery: Yes (lt leg fx) - Anesthesia Hx Anesthesia Reactions: No Hx Malignant Hyperthermia: No - Suicidal Assessment Feels Threatened In Home Enviroment: No Family/Social History - Physician Review Nursing Documentation Reviewed: Yes Family/Social History: No Known Family HX Smoking Status: Current Some Days Smoker Hx Alcohol Use: Yes Hx Substance Use: Yes (substance abuse treatment(PAST IVDA)) Hx Substance Use Treatment: Yes Allergies/Home Meds Allergies/Adverse Reactions: Allergies No Known Allergies Allergy (Verified 11/29/16 11:30) Home Medications: Home Meds Medication Instructions Recorded Confirmed Magnesium Hydroxide [Milk Of 30 ml PO PRN PRN 08/21/16 11/29/16 Magnesia] Pantoprazole Sodium [Protonix] 40 mg PO DAILY 08/21/16 11/29/16 ALPRAZolam [Xanax] 0.25 mg PO BID 11/29/16 11/29/16 Citalopram [celEXA] 20 mg PO DAILY 11/29/16 11/29/16 Donepezil [Aricept] 5 mg PO HS 11/29/16 11/29/16 Levothyroxine [Synthroid] 50 mcg PO DAILY 11/29/16 11/29/16 risperiDONE [RisperDAL Tab] 1 mg PO BID 11/29/16 11/29/16 Review of Systems - Physician Review All systems were reviewed & negative as marked: Yes - Review of Systems Respiratory: absent: SOB Cardiovascular: absent: Chest Pain Gastrointestinal: absent: Abdominal Pain, Diarrhea, Nausea, Vomiting Psychiatric: Other (no HI but aggressive behavior as described). absent: Suicidal Ideation Physical Exam Vital Signs Reviewed: Yes Vital Signs Temp Pulse Resp BP Pulse Ox 11/29/16 14:52 97.9 F 73 18 128/79 98 11/29/16 11:13 98 F 78 18 131/74 95 Temperature: Afebrile Blood Pressure: Normal Pulse: Regular Respiratory Rate: Normal Appearance: Positive for: Well-Appearing Pain Distress: None Mental Status: Positive for: Agitated (elderly agitated white male) - Systems Exam Head: Present: Other Pupils: Present: PERRL Conjunctiva: Present: Normal Mouth: Present: Moist Mucous Membranes Pharnyx: Present: Normal. No: ERYTHEMA, EXUDATE Neck: Present: Normal Range of Motion Respiratory/Chest: Present: Clear to Auscultation, Good Air Exchange. No: Respiratory Distress, Accessory Muscle Use Cardiovascular: Present: Regular Rate and Rhythm, Normal S1, S2. No: Murmurs Abdomen: Present: Normal Bowel Sounds. No: Tenderness, Distention, Peritoneal Signs Back: Present: Normal Inspection Upper Extremity: Present: Normal Inspection. No: Cyanosis, Edema Lower Extremity: Present: Other (venous stasis of lower extremity) Neurological: Present: GCS=15, CN II-XII Intact, Speech Normal Skin: Present: Warm, Dry, Normal Color. No: Rashes Psychiatric: Present: Alert, Oriented x 3, Other (agitated and aggressive toward staff) Medical Decision Making ED Course and Treatment: 11/29/16 14:08 Impression: 76 year old male brought in by EMS for agressive behavior. Physical exam shows lipoma to forehead; venous stasis of lower extremity. Plan: -- EKG -- Chest X-ray -- Labs -- Reassess and disposition Prior Visits: Notes and results from previous visits were reviewed. Patient was last seen in the emergency department on 08/21/2016 for AMS. Patient was admitted. Progress Notes: 11/29/2016 13:18 EKG: NSR @ 78; no ST/T changes; normal intervals; normal axis. Chest X-ray IMPRESSION: Prior cm nodular opacity left lateral lung-no longer seen. Assumed interval clearance of prior rounded infiltrate. COPD, interstitial lung disease biapical pleural thickening all similar. No interval pathology appreciated. Dictator: Vivien Rajan MD 11/29/16 15:24 Patient with noted history has been medically cleared; seen by PES and will be admitted to Dr. Cedeno for Dementia with Aggressive Behavior - Lab Interpretations Lab Results: 11/29/16 11:45 11/29/16 11:45 Lab Results 11/29/16 11:45: Sodium 143, Potassium 4.3, Chloride 101, Carbon Dioxide 33, Anion Gap 13, BUN 29 H, Creatinine 0.8, Est GFR ( Amer) > 60, Est GFR ( Non-Af Amer) > 60, Random Glucose 139 H, Calcium 8.8, Total Bilirubin 0.8, AST 54, ALT 36, Alkaline Phosphatase 81, Total Protein 7.8, Albumin 3.5, Globulin 4.3, Albumin/Globulin Ratio 0.8 L, Alcohol, Quantitative < 10 11/29/16 11:45: PT 11.7, INR 1.08, APTT 30.1 11/29/16 11:45: WBC 6.0 D, RBC 3.96, Hgb 13.0 L, Hct 38.0 L, MCV 96.0, MCH 32.8 , MCHC 34.2, RDW 13.5, Plt Count 121, MPV 10.0, Gran % 61.5, Lymph % (Auto) 29.4 , [place] % (Auto) 7.2 H, Eos % (Auto) 1.7, Baso % (Auto) 0.2, Gran # 3.69, Lymph # 1.8, [place] # 0.4, Eos # 0.1, Baso # 0.01 I have reviewed the lab results: Yes - RAD Interpretation Radiology Orders: 11/29/16 11:45 CHEST PORTABLE [RAD] Stat - Scribe Statement The provider has reviewed the documentation as recorded by the Erika Espino Provider Scribe Attestation: All medical record entries made by the Sayraibrubens were at my direction and personally dictated by me. I have reviewed the chart and agree that the record accurately reflects my personal performance of the history, physical exam, medical decision making, and the department course for this patient. I have also personally directed, reviewed, and agree with the discharge instructions and disposition. Disposition/Present on Arrival - Present on Arrival Any Indicators Present on Arrival: No History of DVT/PE: No History of Uncontrolled Diabetes: No Urinary Catheter: No History of Decub. Ulcer: No History Surgical Site Infection Following: None - Disposition Have Diagnosis and Disposition been Completed?: Yes Diagnosis: Dementia with aggressive behavior Disposition: HOSPITALIZED Disposition Time: 14:20 Patient Plan: Admission Condition: FAIR
[2016-11-29 15:02] LABS: PH,URINE 6.5 (4.7-8.0); URINE BILIRUBIN NEGATIVE (NEGATIVE); URINE BLOOD NEGATIVE (NEGATIVE); URINE GLUCOSE (UA) NEGATIVE (NEGATIVE); URINE KETONE NEGATIVE (NEGATIVE); URINE LEUKOCYTE ESTERASE NEGATIVE Leu/uL (NEGATIVE); URINE PROTEIN NEGATIVE mg/dL (<30 mg/dL)
[2016-11-29 15:03] LABS: URINE APPEARANCE CLEAR (CLEAR); URINE COLOR YELLOW (YELLOW)
[2016-11-29] MEDS ORDERED: Magnesium Hydroxide Susp 30 ml UD PO PRN (16:41)
--- NOTE | 2016-11-29 17:52 | PCM.BM ---
<Alta Cedeno - Last Filed: 11/30/16 12:20> - Diagnosis (1) MDD (major depressive disorder), recurrent episode, severe Status: Acute Interventions: 11/30/16 12:21 Psychoeducation Psychopharmacology/adjustment of medications as needed/ monitoring possible side effects Evaluate pt on daily basis Compliance with medications and follow up appointments Suicide and homicide risk assessment and prevention Relapse prevention Reduction of symptoms Improve functional status Family involvement As outpatient: cognitive behavioral therapy (2) Dementia with aggressive behavior Status: Acute Interventions: 11/30/16 12:21 Pt will be seen by medical team/neurology team as needed Medications will be confirmed and resumed Additional consultation by specialists as needed Lab work as needed (CBC, CMP, TSH, free T4, UA, Urine test for females as needed) CXR as needed EKG Physical therapy valuation as needed (3) Mood disorder due to a general medical condition Status: Acute Interventions: 11/30/16 12:22 Pt will be seen by medical team as needed Medications will be confirmed and resumed Additional consultation by specialists as needed Lab work as needed (CBC, CMP, TSH, free T4, UA, Urine test for females as needed) CXR as needed EKG Physical therapy valuation as needed <Darius Baeza - Last Filed: 12/01/16 10:08> Treatment Plan Problems - Problems identified on initial assessmt AGITATED, AGGRESSIVE BEHAVIOR Date Initiated: 11/29/16 Time Initiated: 17:49 Assessment reference: HP, NA Status: Active INEFFECTIVE IMPULSE CONTROL Date Initiated: 11/29/16 Time Initiated: 17:50 Assessment reference: HP, NA Status: Active HIGH RISK FOR VIOLENCE Date Initiated: 11/29/16 Time Initiated: 17:50 Assessment reference: HP, NA Status: Active Treatment assets and liabiliti Patient Assests: cooperative, ADL independent, negotiates basic needs, good past tx response, other Patient Liabilities: physical pain, poor support system, relationship conflicts , substance abuse, medical problems, other - Milieu Protocol Maintain good personal hygiene: daily Encourage regular showers, daily Remind patient to perform daily oral care, daily Assist patient to perform ADL's Maintain personal safety: daily Educate patient to report safety concerns to staff, daily Monitor environment for contraband/sharps Medication safety: Monitor for expected outcome, potential side effects: daily, Assess barriers to learning: daily, Assess readiness for medication education: daily Family Contact - Outside Agency [facility] Care involvment: Information-sharing Discharge/Continuing Care - Education Needs Education Needs: Patient Medication, Patient Diagnosis/Disease Process, Patient Coping Skills, Patient Anger Management skills, Patient Placement options, Patient Community resources, Patient Activities of Daily Living, Patient Pain, Patient Health Practices/Safety, Patient Personal Hygiene/Grooming, Patient Aftercare Safety Plan, Patient Other - Discharge Discharge Criteria: Free of Suicidal thoughts, Free of Homicidal thoughts, Free of agitation, Normal sleep pattern, Ability to care for self, Reduction of target symptoms Discharge to:: Assisted - Treatment Team Participation Patient/Family/SO Statement: 12/01/16 10:09 let me go, stiop the bullshit Discussed with Family/SO: Yes <Niki Vega - Last Filed: 12/01/16 12:50>
--- NOTE | 2016-11-30 08:17 | CARD ---
APPROVED REPORT EKG Measurement Heart [id number] <Conclusion> Normal sinus rhythm Leftward axis No change
--- NOTE | 2016-11-30 10:56 | CON ---
DATE: CHIEF COMPLAINT: Behavioral problems. HISTORY OF PRESENT ILLNESS: Mr. Michael Jackson, 76 years old, resident of [facility] with hypertension, emphysema, substance abuse, brought to the EMS from [facility] due to aggressive behavior. The patient was throwing items and verbally abusing staff in the longterm. He was brought here for further evaluation. The patient has been cursing the staff here in the ER as well as he has been trying to get out of the bed. The patient denies any shortness of breath, nausea, vomiting, or diarrhea. No hematochezia. No swelling of the leg. PAST MEDICAL HISTORY: Hypertension, emphysema, substance abuse, COPD, dementia, hepatitis C, comminuted fracture of the patella, back pain, anxiety and depression, past IVDA, history of alcohol abuse, and stimulant abuse. FAMILY HISTORY: Father and mother noncontributory. HABITS: Still active smoker. Alcohol, yes. Substance abuse, yes. Past IVDA. ALLERGIES: THE PATIENT IS NOT ALLERGIC TO ANY MEDICATIONS. HOME MEDICATIONS: Reviewed by me. REVIEW OF SYSTEMS: The patient was seen and examined on bedside. Looking comfortable. Now is relaxed. No nausea, vomiting, or diarrhea. No headache. No dizziness. No chest pain. No palpitations. No shortness of breath. No fever. PHYSICAL EXAMINATION: VITAL SIGNS: Temperature 97.5, pulse 69, blood pressure 136/88, respiratory rate 18, and oxygenation 93%. HEENT: Head is normocephalic and atraumatic. Eyes, PERRLA. Extraocular muscles intact. Conjunctivae clear. Nose patent. Mucous membranes moist. NECK: Supple. No carotid bruits, JVD, or thyromegaly. CHEST: Bilateral symmetrical. HEART: S1 and S2 positive. LUNGS: Clear to auscultation. ABDOMEN: Soft. Bowel sounds present. No organomegaly. EXTREMITIES: No edema. No cyanosis. NEUROLOGIC: The patient is awake and alert. Moving all 4 extremities. No focal deficits. LABORATORY DATA: White blood cell is 6.0, hemoglobin 13.3, hematocrit 38.0, and platelets 121. Sodium 143, potassium 4.3, BUN 29, creatinine 0.8, and glucose 139. ASSESSMENT AND PLAN: Mr. Michael Jackson is a 76-year-old male with anemia, increased BUN, hyperglycemia, microalbuminuria. Toxicology is positive for benzodiazepine. The patient has history of hypertension, hypercholesterolemia, heavy smoking, drinking, now is under the care of psychiatrist in [facility]. The patient is under psychiatrist treatment . The patient will follow up. Lora Morton MD MTDD
[2016-11-30] MEDS: Levothyroxine 50 MCG TAB PO SCH (12:05)
[2016-11-30] MEDS: Pantoprazole 40 mg EC Tab PO SCH (12:05)
--- NOTE | 2016-11-30 12:20 | PCM.PSYCH ---
Initial Psychiatric Evaluation - Initial Psychiatric Evaluation Type of Admission: Voluntary Legal Status: Capacity (pt has capacity to sign consent for treatment) Chief Complaint (in patient's own words): "I don't care, I am not taking any medications, I have no life in anyway, I don' t care where to , either in this unit, or send me back to the penitentiary or other hospital, I DO NOT CARE...." Patient's Reaction to Hospitalization: pt was transferred from the [place] for evaluation of agitated, aggressive behavior as well as depression. History of Present Illness and Precipitating Events: Shortly pt is 76yo Male with h/o dementia with behavioral disturbances , h/o polysubstance abuse and dependence, most likely antisocial personality disorder, h/o one psychiatric admission in July 2016, h/o agitated and aggressive behavior, pt also has multiple medical issues including HTN, emphysema, pt was brought in by EMS from [facility] due to aggressive/ agitated behavior, pt destroyed property in the [place], was cursing/was making racial remarks. Due to the severity of patients symptoms and aggressive/ disorganized behavior, pt could not be maintained as outpatient setting, needs further evaluation and stabilization in acute psychiatric unit. Stress: pt has multiple medical issues, [place] placement, pt lost his independence about 5months ago. Personal hygiene/ ADLS: poor personal hygiene, wears winter jacket, poor ADLs. Psychosis:pt mildly suspicious, guarded, paranoid. pt also was sarcastic, said "yeah, I hear devil, he is saying not to take medications and be bad", then pt giggled and smirked, then pt said "I am just joking..." Depression: pt deems to be depressed, pt was making statements that he does not care if he still alive or , pt said he will not take any medications, pt said he "hope to drop ", pt denied intent or plan to kill himself, but pt seems to be hopeless and helpless. Ada:pt obviously irritable, loud, difficulties to stay focused. Anxiety: pt denied feeling anxious. PTSD: pt denied being abused, but has h/o fighting with people. Panic attacks: denied panic attacks. Substance abuse: h/o polysubstance abuse "everything", due to his habits pt had h/o multiple incarcerations. pt denied using any drugs recently, but as per ED report pt was brought in over summer for possible opioid overdose from the pain meds. Smoking: about 7-10 cigarettes a day, counseling provided, nicotine patch offered Smoking Cessation Counseling: The patient was counseled as to the multiple risks to his/her health from continued use of tobacco products. It was explained that continuing to smoke may lead to multiple short and halfway negative health consequences, including but not limited to mouth/esophageal /lung cancer, COPD, and heart disease. He/she states he/she understands these risks, and also understands the options and resources available to him/her to help him/her stop smoking. Nicotine replacement therapy, local hotlines, and local resources were discussed as viable options for helping him/her stop his/her tobacco use. The total time spent counseling the patient regarding tobacco cessation was 3 minutes Access to the weapons: pt lives in [place], no access to the guns. Past psychiatric h/o: pt has one psychiatric admission in July 2016, h/o antisocial personality, h/o polysubstance abuse, h/o incarcerations. Suicidal attempts: threatened, but never tried to kill himself. Medical h/o: left patella fracture in June 2016, HTN, emphysema Family h/o: unknown Social h/o: see above Treatment goals: "I don't care, I want to drop ..." Labs: 11/29/16 11:45 11/29/16 11:45 Lab Results 11/29/16 14:50: Urine Color Yellow, Urine Appearance Clear, Urine pH 6.5, Ur Specific [place] 1.015, Urine Protein Negative, Urine Glucose (UA) Negative, Urine Ketones Negative, Urine Blood Negative, Urine Nitrate Negative, Urine Bilirubin Negative, Urine Urobilinogen 4.0 H, Ur Leukocyte Esterase Negative 11/29/16 14:50: Urine Opiates Screen Negative, Urine Methadone Screen Negative, Ur Barbiturates Screen Negative, Ur Phencyclidine Scrn Negative, Ur Amphetamines Screen Negative, U Benzodiazepines Scrn Positive H, U Oth Cocaine Metabols Negative, U Cannabinoids Screen Negative 11/29/16 11:45: Sodium 143, Potassium 4.3, Chloride 101, Carbon Dioxide 33, Anion Gap 13, BUN 29 H, Creatinine 0.8, Est GFR ( Amer) > 60, Est GFR ( Non-Af Amer) > 60, Random Glucose 139 H, Calcium 8.8, Total Bilirubin 0.8, AST 54, ALT 36, Alkaline Phosphatase 81, Total Protein 7.8, Albumin 3.5, Globulin 4.3, Albumin/Globulin Ratio 0.8 L, Alcohol, Quantitative < 10 11/29/16 11:45: PT 11.7, INR 1.08, APTT 30.1 11/29/16 11:45: WBC 6.0 D, RBC 3.96, Hgb 13.0 L, Hct 38.0 L, MCV 96.0, MCH 32.8 , MCHC 34.2, RDW 13.5, Plt Count 121, MPV 10.0, Gran % 61.5, Lymph % (Auto) 29.4 , [place] % (Auto) 7.2 H, Eos % (Auto) 1.7, Baso % (Auto) 0.2, Gran # 3.69, Lymph # 1.8, [place] # 0.4, Eos # 0.1, Baso # 0.01 Vital Signs Temp Pulse Pulse Pulse Resp BP Pulse Ox 11/29/16 16:00 97.5 F L 69 18 136/88 93 L 11/29/16 15:53 69 69 18 11/29/16 14:52 97.9 F 73 18 128/79 98 11/29/16 11:13 98 F 78 18 131/74 95 Review of Systems: medical consult was called. MSE: Pt deemed to be unreliable historian, sarcastic, angry man, pt looks stated age, very thin build, wears winter jacket in his room, poor personal hygiene, poor ADLs, there is some psychomotor agitation, speech was: loud, but not overproductive, eye contact:intense, mood described: "I don't care..", affect: flat/angry, mood congruent, thought process: concrete, thought content: pt seems to be hopeless, passive wish to be , denied HI, pt denied v/a/t hallucinations, denied paranoid ideation, but appears to be sarcastic, poor insight/judgment: , impulse control: is unpredictable. Impression: r/o mdd r/o alzheimer's dementia with behavioral disturbances h/o antisocial personality disorder h/o polysubstance abuse and dependence Treatment plan: Milieu/structure/supportive therapy medications from the [place] reviewed and resumed pt is on 1:1 for falls precaution and aggression ALPRAZolam [Xanax] 0.25 mg PO BID Citalopram [celEXA] 20 mg PO DAILY Donepezil [Aricept] 5 mg PO HS Levothyroxine [Synthroid] 50 mcg PO DAILY risperiDONE [RisperDAL Tab] 1 mg PO BID Valproic Acid [Depakene] 500 mg PO DAILY Valproic Acid [Depakene] 750 mg PO HS depakote level will be checked Acetaminophen [Tylenol 325mg tab] 650 mg PO Q6H PRN Ibuprofen [Motrin Tab] 200 mg PO BID Meloxicam [Mobic] 15 mg PO DAILY traMADol [Ultram] 50 mg PO HS Magnesium Hydroxide [Milk Of Magnesia] 30 ml PO PRN Pantoprazole Sodium [Protonix] 40 mg PO DAILY Medical consult was called consultation for discharge plan and social issues Med management Family involvement (there is no family involved) Follow up on labs Will monitor closely evaluation for d/c planning Pt was educated about risk/benefits and alternatives of medications, coping strategies (safety plan, suicide prevention), relapse prevention, importance of follow up with psychiatrist and therapist, stay away from drugs/alcohol/smoking Current Medications: Active Medications Generic Name Dose Route Start Last Admin Trade Name Freq PRN Reason Stop Dose Admin Acetaminophen 650 mg 11/29/16 16:42 Tylenol 325mg Tab PO Q4H PRN Pain, Mild (1-3) Alprazolam 0.25 mg 11/29/16 16:39 Xanax PO 12/07/16 08:01 BID PRN Anxiety Protocol Citalopram Hydrobromide 20 mg 11/30/16 08:00 Celexa PO DAILY SANDRA Donepezil HCl 5 mg 11/29/16 22:00 11/29/16 21:50 Aricept PO 5 mg HS SANDRA Administration Ibuprofen 200 mg 11/29/16 16:37 Motrin Tab PO BID PRN Pain, moderate (4-7) Levothyroxine Sodium 50 mcg 11/30/16 07:00 Synthroid PO 0700 SANDRA Lorazepam 0.5 mg 11/29/16 16:43 Ativan IM Q6H PRN Agitation Protocol Magnesium Hydroxide 30 ml 11/29/16 16:41 Milk Of Magnesia PO DAILY PRN Constipation Meloxicam 15 mg 11/30/16 08:00 Mobic PO DAILY [facility] Pantoprazole Sodium 40 mg 11/30/16 07:00 Protonix Ec Tab PO 0700 [facility] Risperidone 1 mg 11/30/16 08:00 Risperdal Tab PO BID [facility] Protocol Tramadol HCl 50 mg 11/29/16 16:31 Ultram PO HS PRN Pain, moderate (4-7) Valproate Sodium 500 mg 11/30/16 08:00 Depakene PO DAILY [facility] Valproate Sodium 750 mg 11/29/16 22:00 11/29/16 21:50 Depakene PO 750 mg HS SANDRA Administration Past Psychiatric History - Past Psychiatric History Pertinent Medical Hx (Current Medical&Sleep Prob, Allergies): Allergies Allergy/AdvReac Type Severity Reaction Status Date / Time No Known Allergies Allergy Verified 11/29/16 11:30 Acetaminophen [Tylenol 325mg tab] 650 mg PO Q6H PRN tab 08/09/16 Ibuprofen [Motrin Tab] 200 mg PO BID tab 08/09/16 Meloxicam [Mobic] 15 mg PO DAILY tab 08/09/16 Valproic Acid [Depakene] 500 mg PO DAILY sgl 08/09/16 Valproic Acid [Depakene] 750 mg PO HS sgl 08/09/16 traMADol [Ultram] 50 mg PO HS tab 08/09/16 Magnesium Hydroxide [Milk Of Magnesia] 30 ml PO PRN PRN 08/21/16 Pantoprazole Sodium [Protonix] 40 mg PO DAILY 08/21/16 ALPRAZolam [Xanax] 0.25 mg PO BID 11/29/16 Citalopram [celEXA] 20 mg PO DAILY 11/29/16 Donepezil [Aricept] 5 mg PO HS 11/29/16 Levothyroxine [Synthroid] 50 mcg PO DAILY 11/29/16 risperiDONE [RisperDAL Tab] 1 mg PO BID 11/29/16 DSM 5 DX - Recommended/Plan of Treatment Projected ELOS: 7days Prognosis: guarded Discharge Plan and Discharge Criteria: Pt will be less depressed or manic, will be more hopeful, will be not psychotic or anxious, will be not having thoughts of harming self or others, will be tolerating medications well, will not have major side effects, will be able to function, will not pose threat to self or others. - Smoking Cessation Smoking Cessation Initiated: Yes
--- NOTE | 2016-12-01 00:16 | PN ---
DATE: SUBJECTIVE: The patient is a 76 years old male. The patient is examined at the bedside. Looking comfortable. He is on one-to-one. He is anxious. No hemoptysis or hematochezia. No chest pain. No palpitations. No fever. No chills. PHYSICAL EXAMINATION: VITAL SIGNS: Temperature 97.5, pulse 78, blood pressure 137/88, and respiratory rate 18. HEENT: Head, normocephalic and atraumatic. Eyes, PERRLA. Extraocular muscles intact. Conjunctivae clear. Nose patent. Mucous membranes moist. NECK: Supple. No carotid bruits. No JVD or thyromegaly. CHEST: Bilaterally symmetrical. HEART: S1 and S2 positive. LUNGS: Clear to auscultation. ABDOMEN: Soft. Bowel sounds positive. No organomegaly. EXTREMITIES: No edema. No cyanosis. NEUROLOGICAL: The patient is awake and alert. Moving all 4 extremities. No focal deficits. MEDICATIONS: Aricept, Ativan, Celexa, Depakote, milk of magnesia, Mobic, Nicoderm patch, Protonix, Risperdal, Synthroid, Tylenol, tramadol, and Xanax. LABORATORY DATA: We do not have his lab today, but reviewed old labs. ASSESSMENT AND PLAN: Mr. Michael Jackson is a 76 years old male with anemia, increased BUN, and hyperglycemia. Drug screen is positive for benzodiazepine. History of hypothyroidism, has a bump wound to forehead and will need surgical evaluation, history of agitation, aggressive behavior, depression, dementia with behavioral disturbances, antisocial personality disorder, history of polysubstance abuse and dependency, history of smoking, emphysema, has hepatitis C, comminuted fracture of the patella, back pain, past intravenous drug abuse, and history of stimulant abuse. He is the under the care of Dr. Alta Cedeno. Gastrointestinal and deep venous thrombosis prophylaxis. Repeat labs. Lora Morton MD
[2016-12-01] MEDS: Pantoprazole 40 mg EC Tab PO SCH (09:25)
[2016-12-01] MEDS: Levothyroxine 50 MCG TAB PO SCH (09:27)
--- NOTE | 2016-12-01 10:59 | CP.PCM.CON ---
History of Present Illness - History of Present Illness History of Present Illness: PGY1 Note for Dr. De La Cruz HPI: Patient is in the hospital for agitation at the snf and swearing at the nurses. We are being consulted for a Cyst on the Forehead. The patient has had the cyst for 8 months and has increased in size. Nothing makes it better and touching it makes the pain worse. He describes the pain as " something in there scratching". He states the severity is a 7-8/10. Patient denies fever chills, Nausea, vomiting. Denies radiation. No associated factors. PMH: Hypothyroid. Left patellar fracture 07/2016 PSH: None SH: heroine abuse, denies alcohol use/ Smokes 1ppd x 50 years Meds: See MAR Allergies: None Review of Systems - Constitutional Constitutional: As Per HPI - EENT Eyes: As Per HPI Ears: As Per HPI Nose/Mouth/Throat: As Per HPI - Cardiovascular Cardiovascular: As Per HPI - Respiratory Respiratory: As Per HPI - Gastrointestinal Gastrointestinal: As Per HPI - Genitourinary Genitourinary: As Per HPI - Reproductive: Male Reproductive:Male: As Per HPI - Musculoskeletal Musculoskeletal: As Per HPI - Integumentary Integumentary: As Per HPI - Neurological Neurological: As Per HPI - Psychiatric Psychiatric: As Per HPI - Endocrine Endocrine: As Per HPI - Hematologic/Lymphatic Hematologic: As Per HPI Past Patient History - Infectious Disease Hx of Infectious Diseases: None - Tetanus Immunizations Tetanus Immunization: Up to Date - Past Social History Smoking Status: Current Some Days Smoker - CARDIAC Hx Cardiac Disorders: Yes Hx Angina: No Hx Atrial Fibrillation: No Hx Cardia Arrhythmia: No Hx Circulatory Problems: No Hx Congestive Heart Failure: No Hx Heart Attack: No Hx Heart Murmur: No Hx Heart Transplant: No Hx Hypercholesterolemia: No Hx Hypertension: Yes Hx Hypotension: No Hx Internal Defibrillator: No Hx Mitral Valve Prolapse: No Hx Pacemaker: No Hx Peripheral Edema: No Hx Peripheral Vascular Disease: No - PULMONARY Hx Respiratory Disorders: Yes Hx Chronic Obstructive Pulmonary Disease (COPD): Yes Hx Emphysema: Yes Hx Lung Cancer: No Hx Pneumonia: No Hx Pulmonary Edema: No Hx Pulmonary Embolism: No Hx Respiratory Aspiration: No Hx Respiratory Tract Infection: No Hx Tuberculosis: No - NEUROLOGICAL Hx Neurological Disorder: Yes HX Cerebrovascular Accident: No Hx Dementia: Yes Hx Dizziness: No Hx Meningitis: No Hx Migraine: No Hx Multiple Sclerosis: No Hx Paralysis: No Hx Parkinson's Disease: No Hx Seizures: No Hx Syncope: No Hx Transient Ischemic Attacks (TIA): No Hx Vertigo: No - HEENT Hx HEENT Problems: No Hx Cataracts: No Hx Deafness: No Hx Difficulty Chewing: No Hx Epistaxis: No Hx Glaucoma: No Hx Macular Degeneration: No Hx Sinusitis: No - RENAL Hx Chronic Kidney Disease: No Hx Dialysis: No Hx Kidney Stones: No Hx Neurogenic Bladder: No Hx Pyelonephritis: No Hx Renal (Kidney) Cancer: No Hx Renal Failure: No - ENDOCRINE/METABOLIC Hx Endocrine Disorders: No Hx Adrenal Cancer: No Hx Diabetes Insipidus: No Hx Diabetes Mellitus Type 1: No Hx Diabetes Mellitus Type 2: No Hx Hyperthyroidism: No Hx Hypothyroidism: No Hx Systemic Lupus Erythematosus: No - HEMATOLOGICAL/ONCOLOGICAL Hx Blood Disorders: Yes Hx AIDS: No Hx Anemia: No Hx Blood Transfusions: No Hx Blood Transfusion Reaction: No Hx Bruising: No Hx Cancer: No Hx Chemotherapy: No Hx Cirrhosis: No Hx Gum Bleeding: No Hx Hemophilia: No Hx Hepatitis A: No Hx Hepatitis B: No Hx Hepatitis C: Yes Hx Human Immunodeficiency Virus (HIV): No Hx Leukemia: No Hx Metastesis: No Hx Shingles: No Hx Sickle Cell Disease: No Hx Unexplained Bleeding: No Hx von Willebrand's Disease: No - INTEGUMENTARY Hx Dermatological Problems: No Hx Basil Cell: No Hx Cervantes: No Hx Cellulitis: No Hx Eczema: No Hx Melanoma: No Hx Psoriasis: No Hx Squamous Cell: No - MUSCULOSKELETAL/RHEUMATOLOGICAL Hx Musculoskeletal Disorders: Yes (FX L PATELLA) Hx Back Pain: Yes (lower) Hx Gout: No Hx Herniated Disk: No Hx Myasthenia Gravis: No Hx Osteoarthritis: No Hx Osteomyelitis: No Hx Osteoporosis: No Hx Rhabdomyolysis: No Hx Rheumatoid Arthritis: Yes Hx Spinal Stenosis: No Hx Unsteady Gait: Yes Other/Comment: Comminuted Fx of Patella - GASTROINTESTINAL Hx Gastrointestinal Disorders: Yes Hx Bowel Surgery: No Hx Clostridium Difficile: No Hx Colitis: No Hx Colostomy: No Hx Constipation: No Hx Crohn's Disease: No Hx Diarrhea: No Hx Diverticulitis: No Hx Esophageal Varices: No Hx Gastroesophageal Reflux: Yes (GERD) Hx Hemorrhoids: No Hx Ileostomy: No Hx Irritable Bowel: No Hx Liver Failure: No Hx Nausea: No Hx Pancreatitis: No HX Swallowing Problems: No Hx Ulcer: No Hx Vomiting: No - GENITOURINARY/GYNECOLOGICAL Hx Genitourinary Disorders: No Hx Bladder Cancer: No Hx Bladder Stone: No Hx Hematuria: No Hx Incontinence: No Hx Prostate Cancer: No Hx Prostate Problems: No Hx Reproductive Disorders: No Hx Sexually Transmitted Disorders: No Hx Urinary Tract Infection: No - PSYCHIATRIC Hx Anxiety: Yes Hx Depression: Yes Hx Substance Use: Yes - SURGICAL HISTORY Hx Surgeries: Yes Hx Abdominal Aortic Aneurysm Repair: No Hx Amputation: No Hx Angiogram: No Hx Angioplasty: No Hx Appendectomy: No Hx Arteriovenous Shunt: No Hx Bile Duct Stent: No Hx Breast Biopsy: No Hx Cataract Extraction: No Hx Cardiac Catheterization: No Hx Carotid Endarterectomy: No Hx Section: No Hx Cholecystectomy: No Hx Coronary Artery Bypass Graft: No Hx Coronary Stent: No Hx Dilation and Curettage: No Hx Eye Surgery: No Hx Femoral-Popliteal Bypass Graft: No Hx Gastric Bypass Surgery: No Hx Herniorrhaphy: No Hx Hysterectomy: No Hx Kidney Transplant: No Hx Liver Transplant: No Hx Mastectomy: No Hx Open Heart Surgery: No Hx Open Reduction Internal Fixation: No Hx Orthopedic Surgery: Yes (lt leg fx) Hx Parathyroidectomy: No Hx Penile Implant: No Hx Pulmonary Surgery: No Hx Splenectomy: No Hx Thyroidectomy: No Hx Tonsillectomy: No Hx Tubal Ligation: No Hx Valve Replacement: No Hx Vascular Surgery: No Hx Vascular Access Device: No - ANESTHESIA Hx Anesthesia Reactions: No Hx Malignant Hyperthermia: No Meds Allergies/Adverse Reactions: Allergies Allergy/AdvReac Type Severity Reaction Status Date / Time No Known Allergies Allergy Verified 11/29/16 11:30 - Medications Medications: Current Medications Acetaminophen (Tylenol 325mg Tab) 650 mg PO Q4H PRN PRN Reason: Pain, Mild (1-3) Alprazolam (Xanax) 0.25 mg PO BID PRN; Protocol PRN Reason: Anxiety Stop: 12/07/16 08:01 Last Admin: 12/01/16 09:27 Dose: 0.25 mg Citalopram Hydrobromide (Celexa) 20 mg PO DAILY [facility] Last Admin: 12/01/16 09:24 Dose: 20 mg Donepezil HCl (Aricept) 5 mg PO HS [facility] Last Admin: 11/30/16 21:41 Dose: 5 mg Ibuprofen (Motrin Tab) 200 mg PO BID PRN PRN Reason: Pain, moderate (4-7) Levothyroxine Sodium (Synthroid) 50 mcg PO 0700 [facility] Last Admin: 12/01/16 09:27 Dose: 50 mcg Lorazepam (Ativan) 0.5 mg IM Q6H PRN; Protocol PRN Reason: Agitation Magnesium Hydroxide (Milk Of Magnesia) 30 ml PO DAILY PRN PRN Reason: Constipation Meloxicam (Mobic) 15 mg PO DAILY [facility] Last Admin: 12/01/16 09:27 Dose: 15 mg Nicotine (Nicoderm Cq) 1 patch TD DAILY [facility] Last Admin: 12/01/16 09:26 Dose: Not Given Pantoprazole Sodium (Protonix Ec Tab) 40 mg PO 0700 [facility] Last Admin: 12/01/16 09:25 Dose: 40 mg Risperidone (Risperdal Tab) 1 mg PO BID [facility] PRN Reason: Protocol Last Admin: 12/01/16 09:27 Dose: 1 mg Tramadol HCl (Ultram) 50 mg PO HS PRN PRN Reason: Pain, moderate (4-7) Last Admin: 11/30/16 21:40 Dose: 50 mg Valproate Sodium (Depakene) 500 mg PO DAILY [facility] Last Admin: 12/01/16 09:27 Dose: 500 mg Valproate Sodium (Depakene) 750 mg PO HS [facility] Last Admin: 11/30/16 21:39 Dose: 750 mg Physical Exam - Constitutional Appears: Unkempt - Head Exam Additional comments: 6cm x 3cm cystic lesion. mobile, well-circumscribed. No increased warmth. - Eye Exam Eye Exam: EOMI - ENT Exam ENT Exam: Mucous Membranes Moist - Respiratory Exam Respiratory Exam: Clear to Auscultation Bilateral, NORMAL BREATHING PATTERN - Cardiovascular Exam Cardiovascular Exam: REGULAR RHYTHM - GI/Abdominal Exam GI & Abdominal Exam: Normal Bowel Sounds. absent: Distended, Soft, Tenderness - Extremities Exam Extremities exam: Negative for: joint swelling, tenderness - Back Exam Back exam: absent: CVA tenderness (L), CVA tenderness (R) - Neurological Exam Neurological exam: Alert, Oriented x3 - Psychiatric Exam Psychiatric exam: Agitated - Skin Skin Exam: Dry, Intact, Normal Color, Warm Results - Vital Signs Recent Vital Signs: Last Vital Signs Temp 97.5 F L 11/29/16 16:00 Pulse 78 11/30/16 16:00 Resp 18 11/29/16 16:00 BP 137/88 11/30/16 16:00 Pulse Ox 93 L 11/29/16 16:00 - Labs Result Diagrams: 11/29/16 11:45 11/29/16 11:45 Assessment & Plan - Assessment and Plan (Free Text) Assessment: 76 y/o Male with a Cystic lesion of the Forehead Plan: * reevaluate scalp with attending * Will change treatment plan accordingly Aaron Haider DO PGY - Date & Time Date: 12/01/16 Time: 11:21
--- NOTE | 2016-12-01 15:05 | PCM.PYCHPN ---
Psychiatric Progress Note - Psychiatric Progress Note Patient seen today, length of contact: 30min Patient Chief Complaint: "stop the bullshit and wheel me back to my room, I am not signing this sh...t" Medical Problems: see HPI medical team saw pt Hypothyroid. Left patellar fracture 07/2016, cyst in pt's forehead DSM 5 Symptoms Update: Shortly pt is 76yo Male with h/o dementia with behavioral disturbances , h/o polysubstance abuse and dependence, most likely antisocial personality disorder, h/o one psychiatric admission in July 2016, h/o agitated and aggressive behavior, pt also has multiple medical issues including HTN, emphysema, pt was brought in by EMS from [facility] [place] due to aggressive/ agitated behavior, pt destroyed property in the NH, was cursing/was making racial remarks. Due to the severity of patients symptoms and aggressive/ disorganized behavior, pt could not be maintained as outpatient setting, needs further evaluation and stabilization in acute psychiatric unit. Stress: pt has multiple medical issues, NH placement, pt lost his independence about 5months ago. medical team evaluated pt for his forehead cyst, no further recommendations. as per staff pt at times curses at them, pt also refused to take medications yesterday, but compliant with them today, refused to have lab work for depakote level. pt refused to participate in tx team meeting today, said "I am not signing this s...t" referred to the treatment plan. pt is aware the circumstances of his admission "I was aggressive", pt has no remorse, pt is disoriented in place. MSE: Pt deemed to be unreliable historian, sarcastic, angry man, pt looks stated age, very thin build, wears winter jacket, poor personal hygiene, poor ADLs, there is some psychomotor agitation, speech was: loud, but not overproductive, eye contact:intense, mood described: "I don't care..", affect: flat/angry, mood congruent, thought process: concrete, thought content: pt seems to be hopeless, passive wish to be , denied HI, pt denied v/a/t hallucinations, denied paranoid ideation, but appears to be sarcastic, poor insight/judgment: , impulse control: is unpredictable. Impression: r/o mdd r/o alzheimer's dementia with behavioral disturbances h/o antisocial personality disorder h/o polysubstance abuse and dependence Treatment plan: Milieu/structure/supportive therapy medications from the [facility] reviewed and resumed pt is on 1:1 for falls precaution and aggression ALPRAZolam [Xanax] 0.25 mg PO BID Citalopram [celEXA] 20 mg PO DAILY Donepezil [Aricept] 5 mg PO HS Levothyroxine [Synthroid] 50 mcg PO DAILY risperiDONE [RisperDAL Tab] 1 mg PO BID Valproic Acid [Depakene] 500 mg PO DAILY Valproic Acid [Depakene] 750 mg PO HS depakote level will be checked (pt refused to have lab work" Acetaminophen [Tylenol 325mg tab] 650 mg PO Q6H PRN Ibuprofen [Motrin Tab] 200 mg PO BID Meloxicam [Mobic] 15 mg PO DAILY traMADol [Ultram] 50 mg PO HS Magnesium Hydroxide [Milk Of Magnesia] 30 ml PO PRN Pantoprazole Sodium [Protonix] 40 mg PO DAILY Medical consult was called consultation for discharge plan and social issues Med management Family involvement (there is no family involved) Follow up on labs Will monitor closely evaluation for d/c planning Pt was educated about risk/benefits and alternatives of medications, coping strategies (safety plan, suicide prevention), relapse prevention, importance of follow up with psychiatrist and therapist, stay away from drugs/alcohol/smoking Medication Change: Yes (risperdal increased) Medical Record Reviewed: Yes Consults ordered or reviewed: medical consult appreciated Mental Status Examination - Homicidal Ideation Homicidal Ideation: No Goal/Treatment Plan - Goal/Treatment Plan Need for Continued Stay: Remain at risks for inpatient hospitalization, Severe depression anxiety, Discharge may exacerbated symptoms, Severe functional impairment Estimated Date of D/C: 12/08/16 (will monitor closely)
--- NOTE | 2016-12-02 01:48 | PN ---
DATE: SUBJECTIVE: The patient is a 76-year-old male. The patient was seen and examined on the bedside, looking comfortable, still complaining about pain on the cyst of the forehead. Otherwise, he is restless. He is on one-to-one. No nausea, vomiting, or diarrhea. No hematuria. No hematochezia. No swelling of the leg. No chest pain. No palpitation. No fever and no chills. PHYSICAL EXAMINATION: VITAL SIGNS: Temperature is 97.5, pulse is 75, blood pressure is 153/92, and respiratory rate is 18. HEENT: Head is normocephalic and atraumatic. On the forehead, there is a cyst, tender to touch. Eyes; PERRLA. Extraocular muscles intact. Conjunctivae clear. Nose is patent. Mucous membranes are moist. NECK: Supple. No carotid bruit. No JVD. No thyromegaly. CHEST: Bilaterally symmetrical. HEART: S1 and S2 positive. LUNGS: Clear to auscultation. ABDOMEN: Soft. Bowel sounds present. No organomegaly. EXTREMITIES: No edema. No cyanosis. NEUROLOGIC: The patient is awake and alert. Moving all four extremities. No focal deficits. MEDICATIONS: Aricept , Ativan, Celexa, Depakote, milk of magnesia, Mobic, ibuprofen, Protonix, Risperdal, Synthroid, Tylenol, tramadol, and Xanax. LABORATORY DATA: We do not have recent lab today, but I reviewed old labs. ASSESSMENT AND PLAN: Mr. Renetta Rodriguez is a 76 years old male with anemia, hyperglycemia, has a cystic lesion on the forehead, seen by the surgeon, and seen by actually PGY1, waiting for Dr. De La Cruz's input. According to the patient that lesion is tender and wanted to be removed. The patient admitted to the psych floor due to anxiety and getting treatment from Dr. Pao Holm. The patient has hypothyroidism, dementia, antisocial personality, history of polysubstance abuse, smoking, hepatitis C, comminuted fracture of the patella, and back pain. Appreciated surgical input, but we want to know the plan. Gastrointestinal and deep venous thrombosis prophylaxis. Lora Morton MD
[2016-12-02] MEDS: Pantoprazole 40 mg EC Tab PO SCH (08:59)
[2016-12-02] MEDS: Levothyroxine 50 MCG TAB PO SCH (09:00)
--- NOTE | 2016-12-02 09:02 | PCM.PYCHPN ---
Psychiatric Progress Note - Psychiatric Progress Note Patient seen today, length of contact: 25 min Patient Chief Complaint: "Don't ask me nothing, you got a loud voice!" Problems Identified/Issues Discussed: I reviewed assessment and recent notes. He is known to me from his prior admission to the unit. Patient has been labile, disrespectful and unpredictable , similar to his prior presentation on the unit. I met with patient at bedside. He is disheveled and refuses to engage in any interview with me stating "Don't ask me nothing, you got a loud voice!" Patient doesn't appear to be in any physical distress. Thus far patient remains unpredictable with poor insight and judgment. Diagnostic Results: r/o mdd r/o alzheimer's dementia with behavioral disturbances h/o antisocial personality disorder h/o polysubstance abuse and dependence Medication Change: No ( ) Medical Record Reviewed: Yes Mental Status Examination - Cognitive Function Attention: Poor Concentration: Poor Association: Loose Fund of Knowledge: Poor - Mood Mood: Other ( "Don't ask me nothing, you got a loud voice!" ) - Affect Affect: Broad, Other (labile) - Speech Speech: Loud - Formal Thought Process Formal Thought Process: Paranoia - Suicidal Ideation Suicidal Ideation: No - Homicidal Ideation Homicidal Ideation: No Goal/Treatment Plan - Goal/Treatment Plan Need for Continued Stay: Remain at risks for inpatient hospitalization, Severe depression anxiety, Discharge may exacerbated symptoms, Severe functional impairment Progress Toward Problem(s) and Goals/Treatment Plan: * c/w current tx and plan * No new weekend labs * Vitals reviewed and noted below: Selected Entries 11/29/16 11/30/16 12/01/16 16:00 16:00 15:00 Temperature 97.5 F L Pulse Rate 69 78 75 Respiratory 18 Rate Blood Pressure 136/88 137/88 133/92 H O2 Sat by Pulse 93 L Oximetry Estimated Date of D/C: 12/08/16 (will monitor closely)
--- NOTE | 2016-12-02 09:18 | CP.PCM.PN ---
Subjective - Date & Time of Evaluation Date of Evaluation: 12/02/16 Time of Evaluation: 09:14 - Subjective Subjective: PGY1 Note for Dr. De La Cruz HPI: Patient seen and examined at bedside. Still complaining of pain around lesion that is worse with manipulation. No other complaints at this time. Denies F,Chills, CP, SOB, N/V/D. Objective - Vital Signs/Intake and Output Vital Signs (last 24 hours): Temp Pulse Resp BP Pulse Ox 97.5 F L 75 18 133/92 H 93 L 11/29/16 16:00 12/01/16 15:00 11/29/16 16:00 12/01/16 15:00 11/29/16 16:00 - Medications Medications: Current Medications Acetaminophen (Tylenol 325mg Tab) 650 mg PO Q4H PRN PRN Reason: Pain, Mild (1-3) Alprazolam (Xanax) 0.25 mg PO BID [facility] PRN Reason: Protocol Stop: 12/08/16 16:01 Last Admin: 12/02/16 08:59 Dose: 0.25 mg Citalopram Hydrobromide (Celexa) 20 mg PO DAILY [facility] Last Admin: 12/02/16 08:59 Dose: 20 mg Donepezil HCl (Aricept) 5 mg PO HS [facility] Last Admin: 12/01/16 22:10 Dose: 5 mg Ibuprofen (Motrin Tab) 200 mg PO BID PRN PRN Reason: Pain, moderate (4-7) Levothyroxine Sodium (Synthroid) 50 mcg PO 0700 [facility] Last Admin: 12/02/16 09:00 Dose: 50 mcg Lorazepam (Ativan) 0.5 mg IM Q6H PRN; Protocol PRN Reason: Agitation Magnesium Hydroxide (Milk Of Magnesia) 30 ml PO DAILY PRN PRN Reason: Constipation Meloxicam (Mobic) 15 mg PO DAILY [facility] Last Admin: 12/02/16 08:59 Dose: 15 mg Nicotine (Nicoderm Cq) 1 patch TD DAILY [facility] Last Admin: 12/02/16 09:00 Dose: Not Given Pantoprazole Sodium (Protonix Ec Tab) 40 mg PO 0700 [facility] Last Admin: 12/02/16 08:59 Dose: 40 mg Risperidone (Risperdal Tab) 1 mg PO BID [facility] PRN Reason: Protocol Last Admin: 12/02/16 08:59 Dose: 1 mg Risperidone (Risperdal Tab) 1 mg PO HS [facility] PRN Reason: Protocol Last Admin: 12/01/16 22:10 Dose: 1 mg Tramadol HCl (Ultram) 50 mg PO HS PRN PRN Reason: Pain, moderate (4-7) Last Admin: 11/30/16 21:40 Dose: 50 mg Valproate Sodium (Depakene) 500 mg PO DAILY [facility] Last Admin: 12/02/16 09:00 Dose: 500 mg Valproate Sodium (Depakene) 750 mg PO HS [facility] Last Admin: 12/01/16 22:10 Dose: 750 mg - Labs Labs: PT 11.7 Seconds (9.9-11.8) 11/29/16 11:45 INR 1.08 (0.93-1.08) 11/29/16 11:45 APTT 30.1 Seconds (23.7-30.8) 11/29/16 11:45 - Constitutional Appears: Well, Non-toxic, No Acute Distress - Head Exam Additional comments: Lesion on forehead approx 6cm with increased warmth/erythema, tender to palpation. Feels cystic in nature. - Eye Exam Eye Exam: EOMI Pupil Exam: NORMAL ACCOMODATION - ENT Exam ENT Exam: Mucous Membranes Moist - Respiratory Exam Respiratory Exam: Clear to Ausculation Bilateral, NORMAL BREATHING PATTERN - Cardiovascular Exam Cardiovascular Exam: REGULAR RHYTHM - GI/Abdominal Exam GI & Abdominal Exam: Soft, Normal Bowel Sounds. absent: Distended, Tenderness - Extremities Exam Extremities Exam: absent: Joint Swelling, Tenderness - Back Exam Back Exam: absent: CVA tenderness (L), CVA tenderness (R) - Neurological Exam Neurological Exam: Alert, Awake, Oriented x3 - Psychiatric Exam Psychiatric exam: Normal Affect, Normal Mood - Skin Skin Exam: Dry, Intact, Normal Color, Warm Assessment and Plan - Assessment and Plan (Free Text) Assessment: 76yo WM with infected sebaceous cyst Plan: * reevaluate scalp with attending * Will change treatment plan accordingly Aaron Haider DO PGY1
[2016-12-03] MEDS: Pantoprazole 40 mg EC Tab PO SCH (07:13)
[2016-12-03] MEDS: Levothyroxine 50 MCG TAB PO SCH (08:38)
--- NOTE | 2016-12-03 09:10 | PCM.PYCHPN ---
Psychiatric Progress Note - Psychiatric Progress Note Patient seen today, length of contact: 25 min Patient Chief Complaint: "Don't ask me nothing, you got a loud voice!" Problems Identified/Issues Discussed: I reviewed recent notes, patient remains labile, disrespectful and unpredictable , similar to his prior presentations on the unit. He defecated all over the floor of his room yesterday. I met with patient at bedside. He is disheveled and superficially engages in my interview. Affect is coarse. Aware of location, year and month. Reports dismissively that he feels "good" and denies depression. Indicates that he slept well. Denies perceptual disturbance. Patient doesn't appear to be in any physical distress. Thus far patient remains unpredictable with poor insight and judgment. Diagnostic Results: r/o mdd r/o alzheimer's dementia with behavioral disturbances h/o antisocial personality disorder h/o polysubstance abuse and dependence Medication Change: No ( ) Medical Record Reviewed: Yes Mental Status Examination - Cognitive Function Attention: Poor Concentration: Poor Association: Loose Fund of Knowledge: Poor - Mood Mood: Other ( feels "good" and denies depression) - Affect Affect: Broad, Other (labile, irritable) - Speech Speech: Loud - Formal Thought Process Formal Thought Process: Paranoia - Suicidal Ideation Suicidal Ideation: No - Homicidal Ideation Homicidal Ideation: No Goal/Treatment Plan - Goal/Treatment Plan Need for Continued Stay: Remain at risks for inpatient hospitalization, Severe depression anxiety, Discharge may exacerbated symptoms, Severe functional impairment Progress Toward Problem(s) and Goals/Treatment Plan: * c/w current tx and plan * Appreciate f/u by Dr. De La Cruz on 12/02/16~no new recommendations thus far * No new weekend labs * Vitals reviewed and noted below: Selected Entries 11/29/16 11/30/16 12/01/16 16:00 16:00 15:00 Temperature 97.5 F L Pulse Rate 69 78 75 Respiratory 18 Rate Blood Pressure 136/88 137/88 133/92 H O2 Sat by Pulse 93 L Oximetry Estimated Date of D/C: 12/08/16 (will monitor closely)
--- NOTE | 2016-12-03 11:28 | CP.PCM.PN ---
Subjective - Date & Time of Evaluation Date of Evaluation: 12/03/16 Time of Evaluation: 11:25 - Subjective Subjective: Surgery Pt s&e. HILARIO. Reports having head lump for several years and wants to get it taken out. Objective - Vital Signs/Intake and Output Vital Signs (last 24 hours): Temp Pulse Resp BP Pulse Ox 97.5 F L 75 18 133/92 H 93 L 11/29/16 16:00 12/01/16 15:00 11/29/16 16:00 12/01/16 15:00 11/29/16 16:00 - Medications Medications: Current Medications Acetaminophen (Tylenol 325mg Tab) 650 mg PO Q4H PRN PRN Reason: Pain, Mild (1-3) Alprazolam (Xanax) 0.25 mg PO BID [facility] PRN Reason: Protocol Stop: 12/08/16 16:01 Last Admin: 12/03/16 08:38 Dose: 0.25 mg Citalopram Hydrobromide (Celexa) 20 mg PO DAILY [facility] Last Admin: 12/03/16 08:38 Dose: 20 mg Donepezil HCl (Aricept) 5 mg PO HS [facility] Last Admin: 12/02/16 21:54 Dose: 5 mg Ibuprofen (Motrin Tab) 200 mg PO BID PRN PRN Reason: Pain, moderate (4-7) Levothyroxine Sodium (Synthroid) 50 mcg PO 0700 [facility] Last Admin: 12/03/16 08:38 Dose: 50 mcg Lorazepam (Ativan) 0.5 mg IM Q6H PRN; Protocol PRN Reason: Agitation Magnesium Hydroxide (Milk Of Magnesia) 30 ml PO DAILY PRN PRN Reason: Constipation Nicotine (Nicoderm Cq) 1 patch TD DAILY [facility] Last Admin: 12/02/16 09:00 Dose: Not Given Pantoprazole Sodium (Protonix Ec Tab) 40 mg PO 0700 [facility] Last Admin: 12/02/16 08:59 Dose: 40 mg Risperidone (Risperdal Tab) 1 mg PO BID [facility] PRN Reason: Protocol Last Admin: 12/03/16 08:38 Dose: 1 mg Risperidone (Risperdal Tab) 1 mg PO HS [facility] PRN Reason: Protocol Last Admin: 12/02/16 21:54 Dose: 1 mg Tramadol HCl (Ultram) 50 mg PO HS PRN PRN Reason: Pain, moderate (4-7) Last Admin: 11/30/16 21:40 Dose: 50 mg Valproate Sodium (Depakene) 500 mg PO DAILY [facility] Last Admin: 12/03/16 08:38 Dose: 500 mg Valproate Sodium (Depakene) 750 mg PO HS [facility] Last Admin: 12/02/16 21:54 Dose: 750 mg - Labs Labs: PT 11.7 Seconds (9.9-11.8) 11/29/16 11:45 INR 1.08 (0.93-1.08) 11/29/16 11:45 APTT 30.1 Seconds (23.7-30.8) 11/29/16 11:45 - Constitutional Appears: No Acute Distress - Head Exam Head Exam: absent: NORMAL INSPECTION Additional comments: Forehead: [id number] sebaceous cyst. Mild erythema. TTP. No signs of infection. Non draining. - Eye Exam Eye Exam: EOMI, Normal appearance, PERRL Pupil Exam: NORMAL ACCOMODATION, PERRL - ENT Exam ENT Exam: Mucous Membranes Moist, Normal Exam - Neck Exam Neck Exam: Full ROM, Normal Inspection. absent: Lymphadenopathy - Respiratory Exam Respiratory Exam: Clear to Ausculation Bilateral, NORMAL BREATHING PATTERN - Cardiovascular Exam Cardiovascular Exam: REGULAR RHYTHM, +S1, +S2. absent: Murmur - GI/Abdominal Exam GI & Abdominal Exam: Soft, Normal Bowel Sounds. absent: Distended, Tenderness - Extremities Exam Extremities Exam: Full ROM, Normal Inspection - Back Exam Back Exam: NORMAL INSPECTION - Neurological Exam Neurological Exam: Alert, Awake, CN II-XII Intact, Normal Gait, Oriented x3 - Psychiatric Exam Psychiatric exam: Normal Affect, Normal Mood - Skin Skin Exam: Dry, Intact, Warm Assessment and Plan - Assessment and Plan (Free Text) Assessment: forehead sebaceous cyst -Recommend elective outpatient surgery -Follow up at Dr. De La Cruz's office upon discharge to schedule outpatient surgery DW Dr. De La Cruz
--- NOTE | 2016-12-03 22:36 | PN ---
DATE: SUBJECTIVE: The patient is 76 years old male. The patient was seen and examined on the bedside, lying on the bed, still under one to one. No nausea, vomiting, or diarrhea. No hematuria or hematochezia. No swelling of the leg. No chest pain, no palpitations. No headache or dizziness. PHYSICAL EXAMINATION VITAL SIGNS: Temperature 97.5 degrees, pulse 75, blood pressure 132/92, respiratory rate 18. HEENT: Head is normocephalic, atraumatic. On the forehead there is what looks like infected cyst. Eyes; PERRLA. Extraocular muscles intact. Conjunctivae clear. Nose is patent. Mucous membranes are moist. NECK: Supple. No carotid bruit. No JVD. No thyromegaly. CHEST: Bilaterally symmetrical. HEART: S1 and S2 positive. LUNGS: Clear to auscultation. ABDOMEN: Soft. Bowel sounds present. No organomegaly. EXTREMITIES: No edema. No cyanosis. NEUROLOGIC: The patient is awake and alert. Moving all four extremities. No focal deficits. MEDICATIONS: Aricept , Ativan, Celexa, Depakote, milk of magnesia, Nicotine, Protonix, Risperdal, Synthroid, Tylenol, tramadol, and Xanax. LABORATORY DATA: We do not have recent lab today, but I reviewed old labs. ASSESSMENT AND PLAN: Mr. Michael Jackson is a 76 years old male had lump on the forehead from several years and now is tender and getting bigger in the size, warrant surgery. Surgical team is on the case. Looks like sebaceous cyst. Recommending outpatient surgery with Dr. De La Cruz. History of anemia, hyperglycemia, anxiety, is on one-to-one, history of hypothyroidism, dementia, antisocial personality, hepatitis C, history of fracture of the patella, and back pain. Gastrointestinal and deep venous thrombosis prophylaxis. Repeat labs. We will follow. Lora Morton MD
[2016-12-04] MEDS: Pantoprazole 40 mg EC Tab PO SCH (08:40)
[2016-12-04] MEDS: Levothyroxine 50 MCG TAB PO SCH (08:40)
--- NOTE | 2016-12-04 10:46 | PN ---
DATE: 12/02/2016 SUBJECTIVE: The patient is 76 years old male. The patient is seen and examined at the bedside, looking comfortable. Still anxious, he is on one-to-one. No nausea, vomiting, or diarrhea. No hematuria or hematochezia. No swelling of the legs. No chest pain. No palpitations. No headache. No dizziness. No fevers. No chills. PHYSICAL EXAMINATION: VITAL SIGNS: Temperature 97.5, pulse 75, blood pressure 133/92, and respiratory rate 18. HEENT: Head is normocephalic and atraumatic. Eyes, PERRLA. Extraocular muscles are intact. Conjunctivae are clear. Nose is patent. Mucous membranes are moist. NECK: Supple. No carotid bruits. No JVD or thyromegaly. CHEST: Bilaterally symmetrical. HEART: S1 and S2 positive. LUNGS: Clear to auscultation. ABDOMEN: Soft. Bowel sounds positive. No organomegaly. EXTREMITIES: No edema. No cyanosis. NEUROLOGIC: The patient is awake and alert. Moving all four extremities. No focal deficit. MEDICATIONS: Aricept, Ativan, Celexa, Depakote, Milk of Magnesia, Mobic, ibuprofen, Nicoderm, Protonix, Risperdal, Synthroid, Tylenol, Xanax, and tramad ASSESSMENT AND PLAN: Mr. Michael Jackson is 76 years old male with history of hypothyroidism and hypertension. The patient is complaining of pain around the cyst on the forehead, tender. Surgery is on the case. It looks like infected sebaceous cyst. Depression and anxiety, hyperglycemia, dementia, antisocial personality, history of substance abuse, history of smoking, hepatitis C positive, comminuted fracture of the patella, and complaining of back pain. Getting treatment from psychiatrist. Gastrointestinal and deep venous thrombosis prophylaxes. Continue present treatment. Repeat labs. We will follow. Lora Morton MD MTDD
--- NOTE | 2016-12-04 16:37 | PCM.PYCHPN ---
Psychiatric Progress Note - Psychiatric Progress Note Patient seen today, length of contact: 30min Patient Chief Complaint: "I want to be discharged on streets, I don't want to go to the care home..." Medical Problems: see HPI medical team saw pt Hypothyroid. Left patellar fracture 07/2016, cyst in pt's forehead DSM 5 Symptoms Update: Shortly pt is 76yo Male with h/o dementia with behavioral disturbances , h/o polysubstance abuse and dependence, most likely antisocial personality disorder, h/o one psychiatric admission in July 2016, h/o agitated and aggressive behavior, pt also has multiple medical issues including HTN, emphysema, pt was brought in by EMS from [facility] due to aggressive/ agitated behavior, pt destroyed property in the [place], was cursing/was making racial remarks. Due to the severity of patients symptoms and aggressive/ disorganized behavior, pt could not be maintained as outpatient setting, needs further evaluation and stabilization in acute psychiatric unit. Stress: pt has multiple medical issues, NH placement, pt lost his independence about 5months ago. medical team evaluated pt for his forehead cyst, no further recommendations. as per staff pt is calmer, at times sarcastic, but compliant with medications. MSE: Pt deemed to be unreliable historian, sarcastic, angry man, pt looks stated age, very thin build, wears winter jacket, poor personal hygiene (pt took a shower today), poor ADLs, there is some psychomotor agitation, speech was : loud, but not overproductive, eye contact:intense, mood described: "I don't care.., I want to stay here forever...", affect: flat/angry, mood congruent, thought process: concrete, thought content: pt seems to be hopeless, passive wish to be , denied HI, pt denied v/a/t hallucinations, denied paranoid ideation, but appears to be sarcastic, poor insight/judgment: , impulse control : is unpredictable. Impression: r/o mdd r/o alzheimer's dementia with behavioral disturbances h/o antisocial personality disorder h/o polysubstance abuse and dependence Treatment plan: Milieu/structure/supportive therapy medications from the [place] reviewed and resumed pt is on 1:1 for falls precaution and aggression ALPRAZolam [Xanax] 0.25 mg PO BID Citalopram [celEXA] 20 mg PO DAILY Donepezil [Aricept] 5 mg PO HS Levothyroxine [Synthroid] 50 mcg PO DAILY risperiDONE [RisperDAL Tab] 1 mg PO BID Valproic Acid [Depakene] 500 mg PO DAILY Valproic Acid [Depakene] 750 mg PO HS depakote level will be checked (pt refused to have lab work" Acetaminophen [Tylenol 325mg tab] 650 mg PO Q6H PRN Ibuprofen [Motrin Tab] 200 mg PO BID Meloxicam [Mobic] 15 mg PO DAILY traMADol [Ultram] 50 mg PO HS Magnesium Hydroxide [Milk Of Magnesia] 30 ml PO PRN Pantoprazole Sodium [Protonix] 40 mg PO DAILY Medical consult was called consultation for discharge plan and social issues Med management Family involvement (there is no family involved) Follow up on labs Will monitor closely evaluation for d/c planning Pt was educated about risk/benefits and alternatives of medications, coping strategies (safety plan, suicide prevention), relapse prevention, importance of follow up with psychiatrist and therapist, stay away from drugs/alcohol/smoking Medication Change: No ( ) Medical Record Reviewed: Yes Consults ordered or reviewed: medical consult appreciated Mental Status Examination - Mood Mood: Other - Speech Speech: Loud - Suicidal Ideation Suicidal Ideation: No - Homicidal Ideation Homicidal Ideation: No Goal/Treatment Plan - Goal/Treatment Plan Need for Continued Stay: Remain at risks for inpatient hospitalization, Severe depression anxiety, Discharge may exacerbated symptoms, Severe functional impairment Estimated Date of D/C: 12/08/16 (will monitor closely)
--- NOTE | 2016-12-05 01:34 | PN ---
DATE: SUBJECTIVE: The patient is 76-year-old male. The patient was seen and examined on the bedside, sleepy, arousable. Moving all four extremities, still having one-to-one. Snoring at night. No headache. No dizziness. No chest pain or palpitation. No fever and no chills. The patient is a poor historian. PHYSICAL EXAMINATION: VITAL SIGNS: Temperature 97.5, pulse 75, heart rate 59, blood pressure 133/92. HEENT: Head is normocephalic, atraumatic. Eyes, PERRLA. Extraocular muscles intact. Conjunctivae clear. Nose patent. Mucous membranes moist. NECK: Supple. No carotid bruit. No JVD or thyromegaly. CHEST: Bilaterally symmetrical. HEART: S1 and S2 positive. LUNGS: Clear to auscultation. ABDOMEN: Soft. Bowel sounds present. No organomegaly. EXTREMITIES: No edema. No cyanosis. NEUROLOGIC: The patient is awake and alert. Moving all four extremities. No focal deficits. MEDICATIONS: Aricept, Ativan, Celexa, Depakote, milk of magnesium, Motrin, Nicoderm patch, Protonix, Risperdal, Synthroid, Tylenol, Tramadol, and Xanax. LABORATORY DATA: We do not have recent lab today, but I reviewed old labs. ASSESSMENT AND PLAN: Mr. Michael Jackson is 76 years old with multiple medical problems, has sebaceous cyst on the forehead, surgical consult called by Dr. De La Cruz. Surgery can be done electively later on. The patient has a history of anemia, hyperglycemia, anxiety, still getting one-to-one, hypothyroidism, dementia, antisocial personality, hepatitis C, history of fracture of the patella, and back pain. Gastrointestinal and deep venous thrombosis prophylaxis. The patient is getting treatment from the psych. Still on one-to-one. We will continue present treatment. Repeat labs. We will follow up. Lora Morton MD
[2016-12-05 06:56] VITALS: BP 172/98; PULSE 73; RESP 19; TEMP 97.7; O2SAT 98
[2016-12-05] MEDS: Levothyroxine 50 MCG TAB PO SCH (10:00)
[2016-12-05] MEDS: Pantoprazole 40 mg EC Tab PO SCH (10:00)
--- NOTE | 2016-12-05 14:11 | PCM.PYCHPN ---
Psychiatric Progress Note - Psychiatric Progress Note Patient seen today, length of contact: 30min Patient Chief Complaint: "I want to be discharged on streets, I want to smoke" Medical Problems: see HPI medical team saw pt Hypothyroid. Left patellar fracture 07/2016, cyst in pt's forehead DSM 5 Symptoms Update: Shortly pt is 76yo Male with h/o dementia with behavioral disturbances , h/o polysubstance abuse and dependence, most likely antisocial personality disorder, h/o one psychiatric admission in July 2016, h/o agitated and aggressive behavior, pt also has multiple medical issues including HTN, emphysema, pt was brought in by EMS from [facility] due to aggressive/ agitated behavior, pt destroyed property in the [place], was cursing/was making racial remarks. Due to the severity of patients symptoms and aggressive/ disorganized behavior, pt could not be maintained as outpatient setting, needs further evaluation and stabilization in acute psychiatric unit. Stress: pt has multiple medical issues, NH placement, pt lost his independence about 5months ago. medical team evaluated pt for his forehead cyst, no further recommendations. as per staff pt is calmer, at times sarcastic, using profanity, at times refused meds. MSE: Pt deemed to be unreliable historian, pt looks stated age, very thin build , wears winter jacket, personal hygiene is improving, poor ADLs, there is no psychomotor agitation or retardation, speech was: normal rate, but loud, eye contact:intense, mood described: "I want to be discharged on streets", affect: flat/angry, mood congruent, thought process: concrete, thought content: pt seems to be hopeless, passive wish to be , denied HI, pt denied v/a/t hallucinations, denied paranoid ideation, but appears to be sarcastic, poor insight/judgment: , impulses are better controlled. Impression: r/o mdd r/o alzheimer's dementia with behavioral disturbances h/o antisocial personality disorder h/o polysubstance abuse and dependence Treatment plan: Milieu/structure/supportive therapy medications from the [place] reviewed and resumed pt is on 1:1 for falls precaution and aggression ALPRAZolam [Xanax] 0.25 mg PO BID Citalopram [celEXA] 20 mg PO DAILY Donepezil [Aricept] 5 mg PO HS Levothyroxine [Synthroid] 50 mcg PO DAILY risperiDONE [RisperDAL Tab] 1 mg PO BID Valproic Acid [Depakene] 500 mg PO DAILY Valproic Acid [Depakene] 750 mg PO HS depakote level 12/05/16 44 will not increase depakote pt refused dose at HS 12/04/16 Acetaminophen [Tylenol 325mg tab] 650 mg PO Q6H PRN Ibuprofen [Motrin Tab] 200 mg PO BID Meloxicam [Mobic] 15 mg PO DAILY traMADol [Ultram] 50 mg PO HS Magnesium Hydroxide [Milk Of Magnesia] 30 ml PO PRN Pantoprazole Sodium [Protonix] 40 mg PO DAILY Medical consult was called consultation for discharge plan and social issues Med management Family involvement (there is no family involved) Follow up on labs Will monitor closely evaluation for d/c planning Pt was educated about risk/benefits and alternatives of medications, coping strategies (safety plan, suicide prevention), relapse prevention, importance of follow up with psychiatrist and therapist, stay away from drugs/alcohol/smoking Medication Change: No ( ) Medical Record Reviewed: Yes Consults ordered or reviewed: medical consult appreciated Mental Status Examination - Cognitive Function Attention: Poor Concentration: Poor Association: Loose Fund of Knowledge: Poor - Mood Mood: Other - Affect Affect: Broad, Other (labile, irritable) - Speech Speech: Loud - Formal Thought Process Formal Thought Process: Paranoia - Suicidal Ideation Suicidal Ideation: No - Homicidal Ideation Homicidal Ideation: No Goal/Treatment Plan - Goal/Treatment Plan Need for Continued Stay: Remain at risks for inpatient hospitalization, Severe depression anxiety, Discharge may exacerbated symptoms, Severe functional impairment Estimated Date of D/C: 12/08/16 (will monitor closely)
--- NOTE | 2016-12-05 22:43 | PN ---
DATE: SUBJECTIVE: The patient is 76 years old male. The patient is seen and examined at the bedside. Sitting in the dinning room, having dinner. No nausea, vomiting, or diarrhea. No hemoptysis or hematochezia. No headache or dizziness. No chest pain. No palpitations. PHYSICAL EXAMINATION: VITAL SIGNS: Temperature 97.7, pulse 76, blood pressure 117/98, and respiratory rate 19. HEENT: Head, normocephalic and atraumatic. Eyes, PERRLA. Extraocular muscles intact. Conjunctivae clear. Nose patent. Mucous membranes moist. NECK: Supple. No carotid bruits. No JVD or thyromegaly. CHEST: Bilaterally symmetrical. HEART: S1 and S2 positive. LUNGS: Clear to auscultation. ABDOMEN: Soft. Bowel sounds positive. No organomegaly. EXTREMITIES: No edema. No cyanosis. NEUROLOGICAL: The patient is awake and alert. Moving all 4 extremities. No focal deficits. MEDICATIONS: Aricept, Ativan, Celexa, Depakote, milk of magnesia, Motrin, Nicoderm, Protonix, Risperdal, Synthroid, Tylenol, tramadol, and Xanax. LABORATORY DATA: We do not have recent labs today, but I reviewed old labs. ASSESSMENT AND PLAN: Mr. Michael Jackson is a 76 years old male with multiple medical problems, has sebaceous cyst on the forehead, and new surgical intervention, but as per Dr. De La Cruz this procedure should be done as outpatient. He has anemia, hyperglycemia, and anxiety that is why he is getting one-to-one, hypothyroidism, dementia, antisocial personality, hepatitis C, history of fracture of the patella, and back pain. Gastrointestinal and deep venous thrombosis prophylaxis. Repeat labs. We will follow. Lora Morton MD
[2016-12-06] MEDS: Levothyroxine 50 MCG TAB PO SCH (08:58)
[2016-12-06] MEDS: Pantoprazole 40 mg EC Tab PO SCH (08:58)
--- NOTE | 2016-12-06 14:40 | PCM.PYCHPN ---
Psychiatric Progress Note - Psychiatric Progress Note Patient seen today, length of contact: 30min Patient Chief Complaint: "I am okay" Medical Problems: see HPI medical team saw pt Hypothyroid. Left patellar fracture 07/2016, cyst in pt's forehead DSM 5 Symptoms Update: Shortly pt is 76yo Male with h/o dementia with behavioral disturbances , h/o polysubstance abuse and dependence, most likely antisocial personality disorder, h/o one psychiatric admission in July 2016, h/o agitated and aggressive behavior, pt also has multiple medical issues including HTN, emphysema, pt was brought in by EMS from [facility] due to aggressive/ agitated behavior, pt destroyed property in the [place], was cursing/was making racial remarks. Due to the severity of patients symptoms and aggressive/ disorganized behavior, pt could not be maintained as outpatient setting, needs further evaluation and stabilization in acute psychiatric unit. Stress: pt has multiple medical issues, NH placement, pt lost his independence about 5months ago. medical team evaluated pt for his forehead cyst, no further recommendations. as per staff pt is calmer, no behavioral issues, pt enjoys watching TV, no physical aggression, at times sarcastic, using profanity, meds compliance is good. MSE: Pt deemed to be unreliable historian, pt looks stated age, very thin build , wears winter jacket, personal hygiene is improving, poor ADLs, there is no psychomotor agitation or retardation, speech was: normal rate, but loud, eye contact:intense, mood described: "I am okay", affect: flat/angry, mood congruent , thought process: concrete, thought content: pt seems to be hopeless, passive wish to be , denied HI, pt denied v/a/t hallucinations, denied paranoid ideation, but appears to be sarcastic, poor insight/judgment: , impulses are better controlled. Impression: r/o mdd r/o alzheimer's dementia with behavioral disturbances h/o antisocial personality disorder h/o polysubstance abuse and dependence Treatment plan: Milieu/structure/supportive therapy medications from the [place] reviewed and resumed pt is on 1:1 for falls precaution and aggression ALPRAZolam [Xanax] 0.25 mg PO BID Citalopram [celEXA] 20 mg PO DAILY Donepezil [Aricept] 5 mg PO HS Levothyroxine [Synthroid] 50 mcg PO DAILY risperiDONE [RisperDAL Tab] 1 mg PO BID Valproic Acid [Depakene] 500 mg PO DAILY Valproic Acid [Depakene] 750 mg PO HS depakote level 12/05/16 44 will not increase depakote pt refused dose at HS 12/04/16 Acetaminophen [Tylenol 325mg tab] 650 mg PO Q6H PRN Ibuprofen [Motrin Tab] 200 mg PO BID Meloxicam [Mobic] 15 mg PO DAILY traMADol [Ultram] 50 mg PO HS Magnesium Hydroxide [Milk Of Magnesia] 30 ml PO PRN Pantoprazole Sodium [Protonix] 40 mg PO DAILY Medical consult was called consultation for discharge plan and social issues Med management Family involvement (there is no family involved) Follow up on labs Will monitor closely evaluation for d/c planning Pt was educated about risk/benefits and alternatives of medications, coping strategies (safety plan, suicide prevention), relapse prevention, importance of follow up with psychiatrist and therapist, stay away from drugs/alcohol/smoking possible d/c tomorrow Medication Change: No ( ) Medical Record Reviewed: Yes Mental Status Examination - Cognitive Function Attention: Poor Concentration: Poor Association: Loose Fund of Knowledge: Poor - Mood Mood: Other - Affect Affect: Broad, Other (labile, irritable) - Speech Speech: Loud - Formal Thought Process Formal Thought Process: Paranoia - Suicidal Ideation Suicidal Ideation: No - Homicidal Ideation Homicidal Ideation: No Goal/Treatment Plan - Goal/Treatment Plan Need for Continued Stay: Remain at risks for inpatient hospitalization, Severe depression anxiety, Discharge may exacerbated symptoms, Severe functional impairment Estimated Date of D/C: 12/08/16 (will monitor closely)
[2016-12-07] MEDS: Levothyroxine 50 MCG TAB PO SCH (07:53)
--- NOTE | 2016-12-07 08:37 | PN ---
DATE: 12/06/2016 SUBJECTIVE: The patient is a 76-year-old male. The patient is seen and examined on the bedside, looking comfortable, sleepy, arousable, moving all four extremities, still getting one to one. No nausea, vomiting, or diarrhea. No hematuria, hematochezia. No swelling of the leg. No chest pain or palpitations. No headache, no dizziness. PHYSICAL EXAMINATION VITAL SIGNS: Temperature 97.7, pulse 73, blood pressure 172/98, 133/98, 137/88, 136/88, respiratory rate 19. HEENT: Head is normocephalic and atraumatic. Eyes; PERRLA. Extraocular muscles intact. Conjunctivae clear. Nose patent. Mucous membranes moist. NECK: Supple. No carotid bruits, JVD or thyromegaly. CHEST: Bilaterally symmetrical. HEART: S1 and S2 positive. LUNGS: Clear to auscultation. ABDOMEN: Soft. Bowel sounds positive. No organomegaly. EXTREMITIES: No edema, no cyanosis. NEUROLOGICAL: The patient is sleepy, arousable, moving all four extremities. No focal deficits. MEDICATIONS: Aricept, Ativan, Celexa, Depakote, milk of magnesia, ibuprofen, NicoDerm, Protonix, Risperdal, Synthroid, Tylenol, tramadol, Xanax. LABORATORY DATA: We do not have any recent labs today, but we reviewed old labs. ASSESSMENT AND PLAN: Mr. Michael Jackson is a 76-year-old male with anemia, increased BUN, hyperglycemia, history of hypothyroidism, left patellar fracture, cysts in the patient's forehead, doing better, has history of dementia, behavior disturbance, polysubstance abuse and dependency, antisocial personality, history of psychiatric admission, agitated aggressive behavior, history of hypertension, emphysema, getting treatment from psychiatrist team. We will keep present treatment, gastrointestinal and deep venous thrombosis prophylaxis, repeat labs. We will follow. Lora Morton MD
[2016-12-07] MEDS: Pantoprazole 40 mg EC Tab PO SCH (08:58)
--- NOTE | 2016-12-07 13:43 | PCM.PYCHDC ---
Mental Status Examination - Mental Status Examination Orientation: Person, Place, Situation Memory: Impaired (chronic) Mood: Neutral Affect: Constricted (but more reactive) Speech: Appropriate (at times loud) Attention: Poor (but with some improvement) Concentration: Poor (but with improvement) Association: WNL Fund of Knowledge: WNL Formal Thought Process: No Impairment, Other (pt at times disrespectful but pt has antiscial personality) Description of patient's judgement and insight: somewhat better, pt was compliant with meds, no behavioral incidents, no physical aggression Psychotic Thoughts and Behaviors: Pt denied v/a/t hallucinations, denied paranoid ideation, pt does not appear to be psychotic, and thought process is goal directed. Suicidal Ideation: No Current Homicidal Ideation?: No Plan: pt adamantly denied thoughts of harming self or others denied intent or plan. Discharge Summary - Discharge Note Reason for Hospitalization: pt was transferred from the [place] for evaluation of agitated, aggressive behavior as well as depression. Psychiatric History (includes Medical, Family, Personal Hx): pt has antisocial personality disorder, 2 previous psychiatric admissions Laboratory Data: 11/29/16 11:45 11/29/16 11:45 Lab Results 12/05/16 07:30: Valproic Acid 44 L 11/29/16 14:50: Urine Color Yellow, Urine Appearance Clear, Urine pH 6.5, Ur Specific [place] 1.015, Urine Protein Negative, Urine Glucose (UA) Negative, Urine Ketones Negative, Urine Blood Negative, Urine Nitrate Negative, Urine Bilirubin Negative, Urine Urobilinogen 4.0 H, Ur Leukocyte Esterase Negative 11/29/16 14:50: Urine Opiates Screen Negative, Urine Methadone Screen Negative, Ur Barbiturates Screen Negative, Ur Phencyclidine Scrn Negative, Ur Amphetamines Screen Negative, U Benzodiazepines Scrn Positive H, U Oth Cocaine Metabols Negative, U Cannabinoids Screen Negative 11/29/16 11:45: Sodium 143, Potassium 4.3, Chloride 101, Carbon Dioxide 33, Anion Gap 13, BUN 29 H, Creatinine 0.8, Est GFR ( Amer) > 60, Est GFR ( Non-Af Amer) > 60, Random Glucose 139 H, Calcium 8.8, Total Bilirubin 0.8, AST 54, ALT 36, Alkaline Phosphatase 81, Total Protein 7.8, Albumin 3.5, Globulin 4.3, Albumin/Globulin Ratio 0.8 L, Alcohol, Quantitative < 10 11/29/16 11:45: PT 11.7, INR 1.08, APTT 30.1 11/29/16 11:45: WBC 6.0 D, RBC 3.96, Hgb 13.0 L, Hct 38.0 L, MCV 96.0, MCH 32.8 , MCHC 34.2, RDW 13.5, Plt Count 121, MPV 10.0, Gran % 61.5, Lymph % (Auto) 29.4 , [place] % (Auto) 7.2 H, Eos % (Auto) 1.7, Baso % (Auto) 0.2, Gran # 3.69, Lymph # 1.8, [place] # 0.4, Eos # 0.1, Baso # 0.01 Vital Signs Temp Pulse Pulse Pulse Resp BP Pulse Ox 12/05/16 06:53 97.7 F 73 19 172/98 H 98 12/01/16 15:00 75 133/92 H 11/30/16 16:00 78 137/88 11/29/16 16:00 97.5 F L 69 18 136/88 93 L 11/29/16 15:53 69 69 18 11/29/16 14:52 97.9 F 73 18 128/79 98 11/29/16 11:13 98 F 78 18 131/74 95 Consultations:: List each consultation separately and include: 1. Reason for request. 2. Findings. 3. Follow-up Consultations: medical consult appreciated please see notes for more detailed information Summary of Hospital Course include:: 1. Description of specific treatment plan utilized for patients during their course of treatmen. 2. Summarize the time- course for resolution of acute symptoms and/or regressed behaviors. 3. Describe issues identified and worked on during hospitalization. 4. Describe medication utilized. 5. Describe medical problems identified and treated. 6. Reassessment of suicide risk Summary of Hospital Course: Shortly pt is 76yo Male with h/o dementia with behavioral disturbances , h/o polysubstance abuse and dependence, most likely antisocial personality disorder, h/o one psychiatric admission in July 2016, h/o agitated and aggressive behavior, pt also has multiple medical issues including HTN, emphysema, pt was brought in by EMS from [facility] due to aggressive/ agitated behavior, [place] property [place], was cursing/was making racial remarks. Due to the severity of patients symptoms and aggressive/ disorganized behavior, pt could not be maintained as outpatient setting, needs further evaluation and stabilization in acute psychiatric unit. Stress: pt has multiple medical issues, NH placement, pt lost his independence about 5months ago. At the time of initial evaluation patient presented with poor personal hygiene, wears winter jacket, poor ADLs. Psychosis:pt mildly suspicious, guarded, paranoid. pt also was sarcastic, said "yeah, I hear devil, he is saying not to take medications and be bad", then pt giggled and smirked, then pt said "I am just joking..." Depression: pt deems to be depressed, pt was making statements that he does not care if he still alive or , pt said he will not take any medications, pt said he "hope to drop ", pt denied intent or plan to kill himself, but pt seems to be hopeless and helpless. Ada:pt obviously irritable, loud, difficulties to stay focused. Anxiety: pt denied feeling anxious. PTSD: pt denied being abused, but has h/o fighting with people. Panic attacks: denied panic attacks. Substance abuse: h/o polysubstance abuse "everything", due to his habits pt had h/o multiple incarcerations. pt denied using any drugs recently, but as per ED report pt was brought in over summer for possible opioid overdose from the pain meds. Smoking: about 7-10 cigarettes a day, counseling provided, nicotine patch offered Smoking Cessation Counseling: The patient was counseled as to the multiple risks to his/her health from continued use of tobacco products. It was explained that continuing to smoke may lead to multiple short and residential negative health consequences, including but not limited to mouth/esophageal /lung cancer, COPD, and heart disease. He/she states he/she understands these risks, and also understands the options and resources available to him/her to help him/her stop smoking. Nicotine replacement therapy, local hotlines, and local resources were discussed as viable options for helping him/her stop his/her tobacco use. The total time spent counseling the patient regarding tobacco cessation was 3 minutes Access to the weapons: pt lives in [place], no access to the guns. Past psychiatric h/o: pt has one psychiatric admission in July 2016, h/o antisocial personality, h/o polysubstance abuse, h/o incarcerations. Suicidal attempts: threatened, but never tried to kill himself. Medical h/o: left patella fracture in June 2016, HTN, emphysema Family h/o: unknown Social h/o: see above Treatment goals: "I don't care, I want to drop ..." Labs: 11/29/16 11:45 11/29/16 11:45 Lab Results 11/29/16 14:50: Urine Color Yellow, Urine Appearance Clear, Urine pH 6.5, Ur Specific [place] 1.015, Urine Protein Negative, Urine Glucose (UA) Negative, Urine Ketones Negative, Urine Blood Negative, Urine Nitrate Negative, Urine Bilirubin Negative, Urine Urobilinogen 4.0 H, Ur Leukocyte Esterase Negative 11/29/16 14:50: Urine Opiates Screen Negative, Urine Methadone Screen Negative, Ur Barbiturates Screen Negative, Ur Phencyclidine Scrn Negative, Ur Amphetamines Screen Negative, U Benzodiazepines Scrn Positive H, U Oth Cocaine Metabols Negative, U Cannabinoids Screen Negative 11/29/16 11:45: Sodium 143, Potassium 4.3, Chloride 101, Carbon Dioxide 33, Anion Gap 13, BUN 29 H, Creatinine 0.8, Est GFR ( Amer) > 60, Est GFR ( Non-Af Amer) > 60, Random Glucose 139 H, Calcium 8.8, Total Bilirubin 0.8, AST 54, ALT 36, Alkaline Phosphatase 81, Total Protein 7.8, Albumin 3.5, Globulin 4.3, Albumin/Globulin Ratio 0.8 L, Alcohol, Quantitative < 10 11/29/16 11:45: PT 11.7, INR 1.08, APTT 30.1 11/29/16 11:45: WBC 6.0 D, RBC 3.96, Hgb 13.0 L, Hct 38.0 L, MCV 96.0, MCH 32.8 , MCHC 34.2, RDW 13.5, Plt Count 121, MPV 10.0, Gran % 61.5, Lymph % (Auto) 29.4 , [place] % (Auto) 7.2 H, Eos % (Auto) 1.7, Baso % (Auto) 0.2, Gran # 3.69, Lymph # 1.8, [place] # 0.4, Eos # 0.1, Baso # 0.01 Vital Signs Temp Pulse Pulse Pulse Resp BP Pulse Ox 11/29/16 16:00 97.5 F L 69 18 136/88 93 L 11/29/16 15:53 69 69 18 11/29/16 14:52 97.9 F 73 18 128/79 98 11/29/16 11:13 98 F 78 18 131/74 95 Review of Systems: medical consult was called. MSE: Pt deemed to be unreliable historian, sarcastic, angry man, pt looks stated age, very thin build, wears winter jacket in his room, poor personal hygiene, poor ADLs, there is some psychomotor agitation, speech was: loud, but not overproductive, eye contact:intense, mood described: "I don't care..", affect: flat/angry, mood congruent, thought process: concrete, thought content: pt seems to be hopeless, passive wish to be , denied HI, pt denied v/a/t hallucinations, denied paranoid ideation, but appears to be sarcastic, poor insight/judgment: , impulse control: is unpredictable. patient was continued on the following medications: ALPRAZolam [Xanax] 0.25 mg PO BID Citalopram [celEXA] 20 mg PO DAILY Donepezil [Aricept] 5 mg PO HS Levothyroxine [Synthroid] 50 mcg PO DAILY Valproic Acid [Depakene] 500 mg PO DAILY Valproic Acid [Depakene] 750 mg PO HS depakote level was within normal limits Acetaminophen [Tylenol 325mg tab] 650 mg PO Q6H PRN Ibuprofen [Motrin Tab] 200 mg PO BID Meloxicam [Mobic] 15 mg PO DAILY traMADol [Ultram] 50 mg PO HS Magnesium Hydroxide [Milk Of Magnesia] 30 ml PO PRN Pantoprazole Sodium [Protonix] 40 mg PO DAILY risperiDONE was increased to 1 mg 3 times a day Medical consult was called physical therapy was called as well initially patient was refusing to take medications, refused to participate in physical therapy, with a lot of encouragement from them psychiatric team patient became compliant with the medications, as well as with the physical therapy, was socializing with others, appetite and sleep fair. Patient initially was on one to one for agitation as well as risk of falls but for the past 24 hour patient is off one-to-one. Overall pt improved significantly, pt's affect became brighter, pt was less depressed, has realistic future oriented plans, pt also does not appear to be psychotic, or anxious, pt was socially appropriate, no behavioral issues, patient reached maximum effect from acute psychiatric hospitalization deemed ready to discharge. At the time of the discharge pt denied been depressed, denied thoughts of harming self or others, denied psychotic symptoms, and pt does not appeared to be psychotic, denied been anxious, pt is not in imminent danger to self or others, will be following up with psychiatrist in [place], it is [place] responsibility to provide pt with appropriate follow up with psychiatrist ( within one week), PMD as well as specialists (see SW note for more detailed information). In case pt will need to obtain results of studies pending at discharge pt was provided with contact information of Psychiatric Inpatient unit [phone] as well as Medical Record Department [phone]. Nicotine patch was offered Counseling about smoking cessation provided pt was provided with prescriptions for all of medications (please see medication reconciliation form) Pt was educated about safety plan in case of worsening of symptoms or in case of suicidal or homicidal ideation as [place] staff to call 911 or to send pt to the nearest ER. - Diagnosis (1) MDD (major depressive disorder), recurrent episode, severe Current Visit: Yes Status: Chronic Priority: Medium (2) Dementia with aggressive behavior Current Visit: Yes Status: Acute Priority: High (3) Mood disorder due to a general medical condition Current Visit: No Status: Acute Priority: Medium (4) Antisocial personality disorder Current Visit: Yes Status: Chronic Priority: High - Final Diagnosis (DSM 5) Condition upon Discharge: FAIR Disposition: OTHER INSTITUTION Prescriptions/Medication Reconciliation: Nicotine [Nicotine Patch] 14 mg TD DAILY #1 [email or web address] - Smoking Cessation Smoking Cessation Medication prescribed: Yes - Antipsychotic Medications Pt discharged on 2 or more routine antipsychotic medications: No
== END 2016-12-07 15:26 | DRG 885 ==
LOC: ED 11:13 → ERH 14:22 → PSYC 15:40
PROVIDERS: ADMIT Psychiatry & Neurology Psychiatry; ATTEND Psychiatry & Neurology Psychiatry
DX: F33.2 Major depressive disorder, recurrent severe without psychotic features (principal); F03.91 Unspecified dementia, unspecified severity, with behavioral disturbance; F06.30 Mood disorder due to known physiological condition, unspecified; F60.2 Antisocial personality disorder; J43.9 Emphysema, unspecified; D64.9 Anemia, unspecified; I10 Essential (primary) hypertension; B19.20 Unspecified viral hepatitis C without hepatic coma; L72.3 Sebaceous cyst; F17.200 Nicotine dependence, unspecified, uncomplicated; E78.00 Pure hypercholesterolemia, unspecified; E03.9 Hypothyroidism, unspecified; R73.9 Hyperglycemia, unspecified

== ENCOUNTER 2017-01-11 10:15 | Day surgery (SDC) | payer MEDICARE, OTHER ==
[2017-01-11 10:10] VITALS: BMI 22.1
[2017-01-11 10:31] VITALS: RESP 18; TEMP 97.7
[2017-01-11] MEDS ORDERED: Lidocaine 1% Inj (20ml) ONE (10:40)
[2017-01-11] MEDS ORDERED: Bupivacaine 0.5% Inj(30mL) ONE (10:40)
[2017-01-11 10:57] VITALS: O2SAT 97
[2017-01-11 11:44] VITALS: BP 126/80; PULSE 79
--- NOTE | 2017-01-18 08:47 | OP ---
PROCEDURE DATE: 01/11/2017 PREOPERATIVE DIAGNOSES: Mass on the scalp, presumptively to be a sebaceous cyst. POSTOPERATIVE DIAGNOSIS: Tumor of the scalp. SURGEON: Bryan De La Cruz MD. MERCHANDISE DELIVERER: Dr. Sirisha Gregorio. ESTIMATED BLOOD LOSS: Minimal. COMPLICATIONS: None. DESCRIPTION OF PROCEDURE: In the operating room, the patient was identified by name, name of the procedure, laterality, my norm. This palpable cystic lesion was infiltrated with 1% Xylocaine approximately 15 mL and an incision was made on the top. Because of the size of the lesion, it was opened and immediately a massive amount of adenomatous material was removed and sent to the lab. It was moved flat. No other dissection was done. The plan to be to do a wide and deep excision electively once the pathology comes back. The wound was closed with nylon. A light pressure dressing was applied. The patient was taken to the recovery room in good condition after the sponge and needle counts were declared correct. Bryan De La Cruz MD
== END 2017-01-11 12:34 | disposition home or self-care (01) ==
LOC: OPSURG 10:15
PROVIDERS: ATTEND Surgery
DX: C44.42 Squamous cell carcinoma of skin of scalp and neck (principal)

== ENCOUNTER 2017-02-15 18:10 | Inpatient (IN) | payer MEDICARE, OTHER ==
[2017-02-15] MEDS ORDERED: Piperacillin/Tazobact 3.375 gm 100 ML IVPB STA (18:35)
[2017-02-15] MEDS ORDERED: Vancomycin 1gm in NS 250ml 1 GM/250 ML BAG IVPB STA (18:35)
--- NOTE | 2017-02-15 18:41 | ED PDOC ---
Arrival/HPI - General Chief Complaint: Psychiatric Evaluation Time Seen by Provider: 02/15/17 18:13 Historian: Patient - History of Present Illness Narrative History of Present Illness (Text): 02/15/17 18:37 A 76 year old male, whose past medical history includes dementia, presents to the emergency department from [facility] for aggressive behavior. Patient has been seen prior for similar complaints and evaluated by psych. Upon arrival patient is calm and cooperative. He complains of a mild headache and cough for the past 2 days. Patient is afebrile in emergency room. Patient denies any other complaints or discomfort at this time. HPI and ROS limited. Time/Duration: Prior to Arrival Context: Home ([facility]) Past Medical History - Provider Review Nursing Documentation Reviewed: Yes - Past History Past History: No Previous - Infectious Disease Hx of Infectious Diseases: None - Tetanus Immunization Tetanus Immunization: Up to Date - Cardiac Hx Cardiac Disorders: Yes Hx Hypertension: Yes - Pulmonary Hx Respiratory Disorders: Yes Hx Chronic Obstructive Pulmonary Disease (COPD): Yes Hx Emphysema: Yes - Neurological Hx Neurological Disorder: Yes Hx Dementia: Yes - HEENT Hx HEENT Disorder: No - Renal Hx Renal Disorder: No - Endocrine/Metabolic Hx Endocrine Disorders: No - Hematological/Oncological Hx Hepatitis C: Yes - Integumentary Hx Dermatological Disorder: No - Musculoskeletal/Rheumatological Hx Musculoskeletal Disorders: Yes (FX L PATELLA) Hx Back Pain: Yes (lower) Hx Rheumatoid Arthritis: Yes Hx Unsteady Gait: Yes Other/Comment: Comminuted Fx of Patella - Gastrointestinal Hx Gastrointestinal Disorders: Yes Hx Gastroesophageal Reflux: Yes (GERD) - Genitourinary/Gynecological Hx Genitourinary Disorders: No - Psychiatric Hx Anxiety: Yes Hx Depression: Yes Hx Substance Use: Yes - Past Surgical History Past Surgical History: No Previous - Surgical History Hx Abdominal Aortic Aneurysm Repair: No Hx Amputation: No Hx Angiogram: No Hx Angioplasty: No Hx Appendectomy: No Hx Arteriovenous Shunt: No Hx Bile Duct Stent: No Hx Breast Biopsy: No Hx Cataract Extraction: No Hx Cardiac Catheterization: No Hx Carotid Endarterectomy: No Hx Section: No Hx Cholecystectomy: No Hx Coronary Artery Bypass Graft: No Hx Coronary Stent: No Hx Dilation and Curettage: No Hx Eye Surgery: No Hx Femoral-Popliteal Bypass Graft: No Hx Gastric Bypass Surgery: No Hx Hysterectomy: No Hx Kidney Transplant: No Hx Liver Transplant: No Hx Mastectomy: No Hx Open Heart Surgery: No Hx Open Reduction Internal Fixation: No Hx Orthopedic Surgery: Yes (lt leg fx) Hx Parathyroidectomy: No Hx Penile Implant: No Hx Pulmonary Surgery: No Hx Splenectomy: No Hx Thyroidectomy: No Hx Tonsillectomy: No Hx Tubal Ligation: No Hx Valve Replacement: No Hx Vascular Surgery: No Hx Vascular Access Device: No - Anesthesia Hx Anesthesia Reactions: No Hx Malignant Hyperthermia: No - Suicidal Assessment Feels Threatened In Home Enviroment: No Family/Social History - Physician Review Nursing Documentation Reviewed: Yes Family/Social History: No Known Family HX Smoking Status: Current Some Days Smoker Hx Alcohol Use: Yes Hx Substance Use: Yes Substance used: opoids Hx Substance Use Treatment: Yes Allergies/Home Meds Allergies/Adverse Reactions: Allergies No Known Allergies Allergy (Verified 02/15/17 18:29) Review of Systems - Review of Systems Systems not reviewed;Unavailable: Dementia Physical Exam Vital Signs Reviewed: Yes Vital Signs Temp Pulse Resp BP Pulse Ox 02/15/17 20:35 71 18 120/96 H 95 02/15/17 18:34 101.5 F H 02/15/17 18:20 100.1 F H 92 H 18 112/77 100 Temperature: Febrile Blood Pressure: Normal Pulse: Tachycardic Respiratory Rate: Normal Appearance: Positive for: Well-Appearing, Non-Toxic, Comfortable Pain Distress: None Mental Status: Positive for: other (Alert and awake, Calm, Cooperative) - Systems Exam Head: Present: Atraumatic, Normocephalic Pupils: Present: PERRL Extroacular Muscles: Present: EOMI Conjunctiva: Present: Normal Mouth: Present: Moist Mucous Membranes Neck: Present: Normal Range of Motion Respiratory/Chest: Present: Decreased Breath Sounds (to left lung base). No: Respiratory Distress, Accessory Muscle Use Cardiovascular: Present: Regular Rate and Rhythm, Normal S1, S2. No: Murmurs Abdomen: Present: Normal Bowel Sounds. No: Tenderness, Distention, Peritoneal Signs Upper Extremity: Present: Normal Inspection. No: Cyanosis, Edema Lower Extremity: Present: Normal Inspection. No: Edema Skin: Present: Warm, Dry, Normal Color. No: Rashes Psychiatric: Present: Alert, Other (Calm, Cooperative) Medical Decision Making ED Course and Treatment: 02/15/17 18:37 Impression: A 76 year old male sent in for aggressive behavior. Patient is calm and cooperative upon arrival. He notes headache and cough. Afebrile in emergency room. Plan: -- Head CT -- Chest xray -- EKG -- Labs -- Influenza A B Stat -- Blood and Urine culture -- Urinalysis -- Tylenol, IV fluids, Vancomycin and Zosyn -- Reassess and disposition Progress Notes: EKG shows NSR at 82 BPM with PACs. Interpreted by me. 02/15/17 18:45 Chest xray read and interpreted by me, which shows no active disease. 02/15/17 20:32 Patient not medically cleared for pysch due to fever and possible pneumonia. Will require medical admission. Case discussed with Dr. Morton, who accepts patient to her service. Report Date : 02/15/2017 20:29:00 EXAM: CT Head Without Intravenous Contrast Dictator : Kodi Pryor MD IMPRESSION: 1. Nonspecific white matter changes. Acute infarction may be CT occult within first 24 hours. If a focal deficit persists, consider followup CT or MRI for further evaluation. 2. RIGHT frontal soft tissue swelling/irregularity. Clinical correlation is needed. 3. Incidental/non-acute findings are described above. - Lab Interpretations Lab Results: 02/15/17 18:43 02/15/17 18:43 Lab Results 02/15/17 18:43: pO2 51, VBG pH 7.38, VBG pCO2 48.0, VBG HCO3 28.4 H, VBG Total CO2 29.9 H, VBG O2 Sat (Calc) 91.1 H, VBG Base Excess 2.5 H, VBG Potassium 4.0, Sodium 136.0, Chloride 102.0, Glucose 155 H, Lactate 1.5, FiO2 21.0, Venous Blood Potassium 4.0 02/15/17 18:43: Alcohol, Quantitative < 10 02/15/17 18:43: Salicylates < 1 L, Acetaminophen < 10.0 L 02/15/17 18:43: Sodium 137, Chloride 101, Potassium 4.0, Carbon Dioxide 28, Anion Gap 12, BUN 22 H, Creatinine 0.8, Est GFR ( Amer) > 60, Est GFR ( Non-Af Amer) > 60, Random Glucose 151 H, Calcium 9.2, Magnesium 1.5 L, Total Bilirubin 0.7, AST 55, ALT 57 H, Alkaline Phosphatase 104, Lactate Dehydrogenase 393, Total Creatine Kinase < 20 L, Troponin I < 0.01, Total Protein 7.7, Albumin 3.6, Globulin 4.1, Albumin/Globulin Ratio 0.9 L 02/15/17 18:43: PT 12.6 H, INR 1.15 H, APTT 37.1 H 02/15/17 18:43: WBC 11.3 H D, RBC 3.80, Hgb 12.5 L, Hct 36.6 L, MCV 96.3, MCH 32.9, MCHC 34.2, RDW 13.8, Plt Count 191, MPV 10.0, Gran % 80.7 H, Lymph % (Auto ) 12.4 L, [place] % (Auto) 6.3 H, Eos % (Auto) 0.4 L, Baso % (Auto) 0.2, Gran # 9.16 H, Lymph # 1.4, [place] # 0.7 H, Eos # 0.0, Baso # 0.02 02/15/17 18:43: Valproic Acid < 10 L I have reviewed the lab results: Yes - RAD Interpretation Radiology Orders: 02/15/17 18:33 CHEST PORTABLE [RAD] Stat 02/15/17 18:34 HEAD W/O CONTRAST [CT] Stat - Medication Orders Current Medication Orders: Acetaminophen (Tylenol 325mg Tab) 650 mg PO Q6H PRN PRN Reason: Fever >100.4 F Alprazolam (Xanax) 0.25 mg PO BID SANDRA PRN Reason: Protocol Stop: 02/23/17 10:01 Last Admin: 02/16/17 10:08 Dose: 0.25 mg Behavioural Document 02/16/17 10:08 (Rec: 02/16/17 10:08 [id number]) Maintenance Maintenance Dose Yes Nonmedicinal Nonmedicinal Interventions Therapeutic Communication Citalopram Hydrobromide (Celexa) 20 mg PO DAILY [facility] Last Admin: 02/16/17 10:07 Dose: 20 mg Donepezil HCl (Aricept) 5 mg PO HS [facility] Levothyroxine Sodium (Synthroid) 50 mcg PO 0600 [facility] Last Admin: 02/16/17 05:50 Dose: 50 mcg Magnesium Hydroxide (Milk Of Magnesia) 30 ml PO DAILY PRN PRN Reason: Constipation Pantoprazole Sodium (Protonix Ec Tab) 40 mg PO 0600 [facility] Last Admin: 02/16/17 05:50 Dose: 40 mg Risperidone (Risperdal Tab) 1 mg PO BID SANDRA PRN Reason: Protocol Last Admin: 02/16/17 10:07 Dose: 1 mg Behavioural Document 02/16/17 10:07 (Rec: 02/16/17 10:07 [id number]) Maintenance Maintenance Dose Yes Nonmedicinal Nonmedicinal Interventions Therapeutic Communication Discontinued Medications Acetaminophen (Tylenol 325mg Tab) 650 mg PO STAT STA Stop: 02/15/17 18:44 Last Admin: 02/15/17 19:14 Dose: 650 mg Re-Assess: MAR Pain/Vitals Document 02/15/17 20:14 GC (Rec: 02/15/17 22:19 GC [id number]) Pain Reassessment Is This A Pain ReAssessment? Yes Sleep Is patient sleeping during reassessment? No Presence of Pain Presence of Pain No Vancomycin HCl (Vancomycin 1gm) 1 gm in 250 mls @ 167 mls/hr IVPB STAT STA PRN Reason: Protocol Stop: 02/15/17 20:04 Last Admin: 02/15/17 20:58 Dose: 167 mls/hr eMAR Start Stop Document 02/15/17 20:58 SS (Rec: 02/15/17 20:58 SS [id number]) Intravenous Solution Start Date 02/15/17 Start Time 20:43 End Date 02/15/17 Piperacillin Sod/Tazobactam Sod (Zosyn 3.375 In Ns 100ml) 100 mls @ 200 mls/hr IVPB STAT STA PRN Reason: Protocol Stop: 02/15/17 19:04 Last Admin: 02/15/17 20:11 Dose: 200 mls/hr eMAR Start Stop Document 02/15/17 20:11 SS (Rec: 02/15/17 20:11 SS [id number]) Intravenous Solution Start Date 02/15/17 Start Time 20:11 End Date 02/15/17 End time 20:41 Total Infusion Time 30 Sodium Chloride (Sodium Chloride 0.9%) 500 mls @ 999 mls/hr IV .Q31M STA Stop: 02/15/17 19:14 Last Admin: 02/15/17 20:16 Dose: 999 mls/hr eMAR Start Stop Document 02/15/17 20:16 SS (Rec: 02/15/17 20:17 SS [id number]) Intravenous Solution Start Date 02/15/17 Start Time 19:30 End Date 02/15/17 End time 20:30 Total Infusion Time 60 Pneumococcal Polyvalent Vaccine (Pneumovax 23 Vaccine) 0.5 ml IM .ONCE ONE Stop: 02/15/17 22:58 - Scribe Statement The provider has reviewed the documentation as recorded by the Erika Solomon Provider Scribe Attestation: All medical record entries made by the Scribe were at my direction and personally dictated by me. I have reviewed the chart and agree that the record accurately reflects my personal performance of the history, physical exam, medical decision making, and the department course for this patient. I have also personally directed, reviewed, and agree with the discharge instructions and disposition. Disposition/Present on Arrival - Present on Arrival Any Indicators Present on Arrival: No History of DVT/PE: No History of Uncontrolled Diabetes: No Urinary Catheter: No History of Decub. Ulcer: No History Surgical Site Infection Following: None - Disposition Have Diagnosis and Disposition been Completed?: Yes Diagnosis: Sepsis, Delirium Disposition: HOSPITALIZED Disposition Time: 20:32 Condition: FAIR
[2017-02-15] MEDS ORDERED: Sodium Chloride 0.9% 500 ML IV STA (18:44)
[2017-02-15 18:57] LABS: VENOUS BLOOD GAS BASE EXCESS 2.5 mmol/L (0.0-2.0); VENOUS BLOOD PH 7.38 (7.32-7.43)
[2017-02-15 19:06] LABS: BASO # 0.02 K/mm3 (0.0-2.0); BASO % 0.2 % (0.0-3.0); EOS % 0.4 % (1.5-5.0); GRAN # 9.16 (1.4-6.5); GRAN % 80.7 % (50.0-68.0); HEMATOCRIT 36.6 % (42.0-52.0); LYMPH # 1.4 (1.2-3.4); LYMPH % 12.4 % (22.0-35.0); MEAN CELL VOLUME 96.3 fl (80.0-105.0); MEAN CORPUSCULAR HEMOGLOBIN 32.9 pg (25.0-35.0); MEAN CORPUSCULAR HGB CONC 34.2 g/dl (31.0-37.0); MONO # 0.7 (0.1-0.6); MONO % 6.3 % (1.0-6.0); RED CELL DISTRIBUTION WIDTH 13.8 % (11.5-14.5); WHITE BLOOD COUNT 11.3 10^3/ul (4.5-11.0)
[2017-02-15 19:07] LABS: ALB/GLOB RATIO 0.9 (1.1-1.8); ALKALINE PHOSPHATASE 104 U/L (38-126); ALT/SGPT 57 U/L (7-56); AST/SGOT 55 U/L (17-59); BILIRUBIN,TOTAL 0.7 mg/dL (0.2-1.3); BLOOD UREA NITROGEN 22 mg/dL (7-21); CALCIUM 9.2 mg/dL (8.4-10.5); CARBON DIOXIDE 28 mmol/L (21-33); CHLORIDE 101 mmol/L (98-107); GFR AFRICAN-AMERICAN > 60; GLUCOSE,RANDOM 151 mg/dL (70-110); MAGNESIUM 1.5 mg/dL (1.7-2.2); SODIUM 137 mmol/L (132-148); TOTAL PROTEIN 7.7 g/dL (5.8-8.3)
[2017-02-15 19:19] LABS: TROPONIN I < 0.01 ng/mL
[2017-02-15 19:24] LABS: INR 1.15 (0.93-1.08); PARTIAL THROMBOPLASTIN TIME 37.1 Seconds (25.1-36.5)
--- NOTE | 2017-02-15 20:29 | CT ---
EXAM: CT Head Without Intravenous Contrast CLINICAL HISTORY: 76 years old, male; Pain; Headache; Headache not specified; Patient HX: Pt has small laceration on right side of forehead with stitches; Additional info: COE TECHNIQUE: Axial computed tomography images of the head/brain without intravenous contrast. All CT scans at this facility use one or more dose reduction techniques, viz.: automated exposure control; ma/kV adjustment per patient size (including targeted exams where dose is matched to indication; i.e. head); or iterative reconstruction technique. COMPARISON: CT - HEAD W/O CONTRAST 2016-08-21 19:30 FINDINGS: Brain: Moderate atrophy. No intracranial hemorrhage. No mass. Few scattered foci of decreased attenuation within periventricular/subcortical white matter. No definite edema. Ventricles: No hydrocephalus. Bones/joints: No acute fracture. Soft tissues: RIGHT frontal soft tissue swelling/irregularity. Vasculature: Mild atherosclerotic disease of intracranial arteries. Sinuses: No acute sinusitis. Mastoid air cells: No mastoid effusion. Orbits: Unremarkable as visualized. IMPRESSION: 1. Nonspecific white matter changes. Acute infarction may be CT occult within first 24 hours. If a focal deficit persists, consider followup CT or MRI for further evaluation. 2. RIGHT frontal soft tissue swelling/irregularity. Clinical correlation is needed. 3. Incidental/non-acute findings are described above.
[2017-02-15 21:33] LABS: URINE BILIRUBIN NEGATIVE (NEGATIVE); URINE BLOOD TRACE-LYSED (NEGATIVE); URINE GLUCOSE (UA) NEGATIVE (NEGATIVE); URINE KETONE NEGATIVE (NEGATIVE); URINE LEUKOCYTE ESTERASE NEGATIVE Leu/uL (NEGATIVE); URINE PROTEIN TRACE mg/dL (<30 mg/dL); URINE UROBILINOGEN 0.2 E.U./dL (<1 E.U./dL)
[2017-02-15 21:37] LABS: URINE APPEARANCE CLEAR (CLEAR); URINE COLOR YELLOW (YELLOW)
[2017-02-15 21:45] LABS: URINE EPITHELIAL CELLS 0 - 2 /hpf (0-5); URINE RBC 0 - 2 /hpf (0-2); URINE WBC 0 - 2 /hpf (0-6)
[2017-02-15 22:57] VITALS: BMI 21.5
[2017-02-15] MEDS ORDERED: Pneumococcal 23-Valent Vaccine IM ONE (22:57)
[2017-02-15] MEDS ORDERED: Influenza Vaccine 60 mcg/0.5 mL SYR (4YR UP) IM ONE (22:57)
[2017-02-16] MEDS ORDERED: Magnesium Hydroxide Susp 30 ml UD PO PRN (00:03)
[2017-02-16] MEDS: Levothyroxine 50 MCG TAB PO SCH (05:50)
[2017-02-16] MEDS: Pantoprazole 40 mg EC Tab PO SCH (05:50)
[2017-02-16 07:06] LABS: IRON 32 ug/dL (45-180)
[2017-02-16 07:13] LABS: CHOLESTEROL 66 mg/dL (130-200)
--- NOTE | 2017-02-16 09:00 | RAD ---
HISTORY: cough COMPARISON: 11/29/2016 FINDINGS: LUNGS: Chronic interstitial lung disease is unchanged. There is apical pleural thickening. No acute findings PLEURA: No significant pleural effusion identified, no pneumothorax apparent. CARDIOVASCULAR: Normal. OSSEOUS STRUCTURES: No significant abnormalities. VISUALIZED UPPER ABDOMEN: Normal. OTHER FINDINGS: None. IMPRESSION: Chronic interstitial lung disease is unchanged. There is apical pleural thickening. No acute findings
--- NOTE | 2017-02-16 17:42 | CP.PCM.CON ---
History of Present Illness - History of Present Illness History of Present Illness: Infectious Disease Consultation: February 16, 2017 76 yo male with initial presentation of aggressive behavior from [facility]. He apparently used his wheelchair to run over the feet of another resident and began cursing and insulting the other resident and the staff of the floor. Sent from [facility] for Sepsis evaluation and psych evaluation. Fevers up to 101.5 F during this hospitalization. No reported fevers at [facility]. Patient appears calm here at [facility]. PMHx: COPD, Dementia, Low Back Pain, HTN, Depression, EtOH Abuse, Chronic Hepatitis C , Substance abuse history PSHx: Left leg fracture repair Allergies: NKDA Social Hx: History of EtOH and substance abuse (opioids) Active Medications Acetaminophen (Tylenol 325mg Tab) 650 mg PO Q6H PRN PRN Reason: Fever >100.4 F Alprazolam (Xanax) 0.25 mg PO BID SANDRA PRN Reason: Protocol Stop: 02/23/17 10:01 Last Admin: 02/16/17 17:23 Dose: 0.25 mg Citalopram Hydrobromide (Celexa) 20 mg PO DAILY [facility] Last Admin: 02/16/17 10:07 Dose: 20 mg Donepezil HCl (Aricept) 5 mg PO [facility] Levothyroxine Sodium (Synthroid) 50 mcg PO 0600 [facility] Last Admin: 02/16/17 05:50 Dose: 50 mcg Magnesium Hydroxide (Milk Of Magnesia) 30 ml PO DAILY PRN PRN Reason: Constipation Pantoprazole Sodium (Protonix Ec Tab) 40 mg PO 0600 [facility] Last Admin: 02/16/17 05:50 Dose: 40 mg Risperidone (Risperdal Tab) 1 mg PO BID [facility] PRN Reason: Protocol Last Admin: 02/16/17 17:24 Dose: 1 mg Family Hx: None given ROS: Unable to obtain from patient. Past Patient History - Infectious Disease Hx of Infectious Diseases: None - Tetanus Immunizations Tetanus Immunization: Up to Date - Past Social History Smoking Status: Current Some Days Smoker - CARDIAC Hx Cardiac Disorders: Yes Hx Hypertension: Yes - PULMONARY Hx Respiratory Disorders: Yes Hx Chronic Obstructive Pulmonary Disease (COPD): Yes Hx Emphysema: Yes - NEUROLOGICAL Hx Neurological Disorder: Yes Hx Dementia: Yes - HEENT Hx HEENT Problems: No - RENAL Hx Chronic Kidney Disease: No - ENDOCRINE/METABOLIC Hx Endocrine Disorders: No - HEMATOLOGICAL/ONCOLOGICAL Hx Hepatitis C: Yes - INTEGUMENTARY Hx Dermatological Problems: No - MUSCULOSKELETAL/RHEUMATOLOGICAL Hx Musculoskeletal Disorders: Yes (FX L PATELLA) Hx Back Pain: Yes (lower) Hx Rheumatoid Arthritis: Yes Hx Unsteady Gait: Yes Other/Comment: Comminuted Fx of Patella - GASTROINTESTINAL Hx Gastrointestinal Disorders: Yes Hx Gastroesophageal Reflux: Yes (GERD) - GENITOURINARY/GYNECOLOGICAL Hx Genitourinary Disorders: No - PSYCHIATRIC Hx Anxiety: Yes Hx Depression: Yes Hx Substance Use: Yes - SURGICAL HISTORY Hx Abdominal Aortic Aneurysm Repair: No Hx Amputation: No Hx Angiogram: No Hx Angioplasty: No Hx Appendectomy: No Hx Arteriovenous Shunt: No Hx Bile Duct Stent: No Hx Breast Biopsy: No Hx Cataract Extraction: No Hx Cardiac Catheterization: No Hx Carotid Endarterectomy: No Hx Section: No Hx Cholecystectomy: No Hx Coronary Artery Bypass Graft: No Hx Coronary Stent: No Hx Dilation and Curettage: No Hx Eye Surgery: No Hx Femoral-Popliteal Bypass Graft: No Hx Gastric Bypass Surgery: No Hx Hysterectomy: No Hx Kidney Transplant: No Hx Liver Transplant: No Hx Mastectomy: No Hx Open Heart Surgery: No Hx Open Reduction Internal Fixation: No Hx Orthopedic Surgery: Yes (lt leg fx) Hx Parathyroidectomy: No Hx Penile Implant: No Hx Pulmonary Surgery: No Hx Splenectomy: No Hx Thyroidectomy: No Hx Tonsillectomy: No Hx Tubal Ligation: No Hx Valve Replacement: No Hx Vascular Surgery: No Hx Vascular Access Device: No - ANESTHESIA Hx Anesthesia Reactions: No Hx Malignant Hyperthermia: No Meds Allergies/Adverse Reactions: Allergies Allergy/AdvReac Type Severity Reaction Status Date / Time No Known Allergies Allergy Verified 02/15/17 18:29 - Medications Medications: Current Medications Acetaminophen (Tylenol 325mg Tab) 650 mg PO Q6H PRN PRN Reason: Fever >100.4 F Alprazolam (Xanax) 0.25 mg PO BID SANDRA PRN Reason: Protocol Stop: 02/23/17 10:01 Last Admin: 02/16/17 10:08 Dose: 0.25 mg Citalopram Hydrobromide (Celexa) 20 mg PO DAILY [facility] Last Admin: 02/16/17 10:07 Dose: 20 mg Donepezil HCl (Aricept) 5 mg PO HS [facility] Levothyroxine Sodium (Synthroid) 50 mcg PO 0600 [facility] Last Admin: 02/16/17 05:50 Dose: 50 mcg Magnesium Hydroxide (Milk Of Magnesia) 30 ml PO DAILY PRN PRN Reason: Constipation Pantoprazole Sodium (Protonix Ec Tab) 40 mg PO 0600 [facility] Last Admin: 02/16/17 05:50 Dose: 40 mg Risperidone (Risperdal Tab) 1 mg PO BID [facility] PRN Reason: Protocol Last Admin: 02/16/17 10:07 Dose: 1 mg Physical Exam - Constitutional Appears: Non-toxic, No Acute Distress, Chronically Ill - Head Exam Head Exam: ATRAUMATIC, NORMOCEPHALIC - Eye Exam Eye Exam: EOMI, PERRL Pupil Exam: NORMAL ACCOMODATION, PERRL - ENT Exam ENT Exam: Mucous Membranes Moist, Normal External Ear Exam, TM's Normal Bilaterally - Neck Exam Neck exam: Positive for: Full Rom, Normal Inspection - Respiratory Exam Respiratory Exam: Clear to Auscultation Bilateral, NORMAL BREATHING PATTERN. absent: Rales, Rhonchi, Wheezes - Cardiovascular Exam Cardiovascular Exam: REGULAR RHYTHM, RRR, +S1, +S2 - GI/Abdominal Exam GI & Abdominal Exam: Normal Bowel Sounds, Soft. absent: Distended, Tenderness - Extremities Exam Extremities exam: Positive for: full ROM, normal inspection - Neurological Exam Neurological exam: Alert, CN II-XII Intact, Oriented x3 - Psychiatric Exam Psychiatric exam: Normal Affect, Normal Mood - Skin Skin Exam: Intact, Normal Color Results - Vital Signs Recent Vital Signs: Last Vital Signs Temp 98.7 F 02/16/17 13:40 Pulse 68 02/16/17 13:40 Resp 18 02/16/17 13:40 BP 122/77 02/16/17 13:40 Pulse Ox 91 L 02/16/17 13:40 - Labs Result Diagrams: 02/15/17 18:43 02/15/17 18:43 Labs: Laboratory Results - last 24 hr 02/15/17 02/15/17 02/16/17 21:26 21:26 06:25 Hemoglobin A1c 5.3 Magnesium Iron TIBC % Saturation Triglycerides Cholesterol LDL Cholesterol Direct HDL Cholesterol TSH 3rd Generation Urine Color Yellow Urine Appearance Clear Urine pH 6.0 Ur Specific Greer 1.025 Urine Protein Trace H Urine Glucose (UA) Negative Urine Ketones Negative Urine Blood Trace-lysed H Urine Nitrate Negative Urine Bilirubin Negative Urine Urobilinogen 0.2 Ur Leukocyte Esterase Negative Urine RBC 0 - 2 Urine WBC 0 - 2 Ur Epithelial Cells 0 - 2 Influenza Typ A,B (EIA) Negative for flu a/b 02/16/17 02/16/17 02/16/17 06:25 06:25 06:25 Hemoglobin A1c Magnesium 1.7 Iron 32 L TIBC 283 % Saturation 11 L Triglycerides 59 Cholesterol 66 L LDL Cholesterol Direct < 30 HDL Cholesterol 27 L TSH 3rd Generation Urine Color Urine Appearance Urine pH Ur Specific Greer Urine Protein Urine Glucose (UA) Urine Ketones Urine Blood Urine Nitrate Urine Bilirubin Urine Urobilinogen Ur Leukocyte Esterase Urine RBC Urine WBC Ur Epithelial Cells Influenza Typ A,B (EIA) 02/16/17 06:25 Hemoglobin A1c Magnesium Iron TIBC % Saturation Triglycerides Cholesterol LDL Cholesterol Direct HDL Cholesterol TSH 3rd Generation 6.21 H Urine Color Urine Appearance Urine pH Ur Specific Greer Urine Protein Urine Glucose (UA) Urine Ketones Urine Blood Urine Nitrate Urine Bilirubin Urine Urobilinogen Ur Leukocyte Esterase Urine RBC Urine WBC Ur Epithelial Cells Influenza Typ A,B (EIA) Assessment & Plan - Assessment and Plan (Free Text) Assessment: 76 yo male with low grade fevers up to 101.5 F. Sent to [facility] for aggressive behavior at [facility]. The patient has chronic interstitial disease on lung examination. Urinalysis not indicative of UTI. Given a dose of Zosyn in ER. Will continue on Rocephin IV for now. Delgado cultures sent. Supportive care for now. Multiple chronic medical issues that includes COPD, HTN, and substance abuse. Noted that the patient had a serum drug screen at nursing facility. Maintain Rocephin IV. Thank you for allowing me to participate in the care of the patient, we will follow with you.
--- NOTE | 2017-02-16 18:27 | CARD ---
APPROVED REPORT EKG Measurement Heart [id number] <Conclusion> Sinus rhythm with premature atrial complexes Otherwise normal ECG
[2017-02-16] MEDS: guaiFENesin 100 mg/5 ml Syrup UD PO PRN (19:05)
--- NOTE | 2017-02-16 21:56 | CON ---
DATE: 02/16/2017 LOCATION: The patient in room 377, bed 1. REASON FOR CONSULTATION: Sinus pauses. HISTORY OF PRESENT ILLNESS: A 76-year-old male, known to have hypertension, dementia, back pain, COPD, unsteady gait, anxiety, depression, GERD, chronic hepatitis C, hypothyroidism, brought to [facility] with a history that the patient, who is a resident of [facility], apparently started to have aggressive behavior and started arguing with the staff and other patients and he threw the chair away and tried to walk. He has unsteady gait, so he fell down. The patient denies any chest pain, palpitation, shortness of breath, nausea or vomiting associated with that episode. PAST MEDICAL HISTORY: Past history positive for hypertension, dementia, COPD, anxiety, depression, GERD, unsteady gait, arthritis, back pain, chronic hepatitis C, hypothyroidism. The patient also had left leg fracture. PERSONAL HISTORY: The patient smokes very heavy. Denies drinking. MEDICATIONS: List of medications prior to admission, Tylenol q. 6 hours p.r.n., Xanax 0.25 b.i.d., Celexa 20 mg p.o. daily, Aricept 5 mg p.o. at bedtime, Synthroid 50 mcg p.o. daily, Protonix 40 mg daily, Risperdal 1 mg p.o. b.i.d. ALLERGIES: No known allergies. REVIEW OF SYSTEMS: All the systems are reviewed. Positives mentioned in the history, others were negative. PHYSICAL EXAMINATION: VITAL SIGNS: Blood pressure 135/68, respirations 20, pulse 69, temperature 98. HEENT: Head is normocephalic. The patient has a hematoma on the front of head related to his fall. Eyes: Pupils normal. Conjunctivae normal. Nose and throat normal. NECK: JVP low. Carotids equal. THORAX: AP diameter normal. LUNGS: Clear. CARDIOVASCULAR: S1 and S2. ABDOMEN: Soft. No tenderness. No organomegaly. EXTREMITIES: No clubbing. No cyanosis. LABORATORY DATA: WBC 11.3, hemoglobin 12.5, hematocrit 36.6, platelets 191. Sodium 137, potassium 4.0, BUN 22, creatinine 0.8, random sugar 151. Hemoglobin A1c 5.3. Magnesium 1.5 yesterday, today's magnesium is 1.7. AST 55, ALT 57. Troponin less than 0.01. Triglycerides 59, cholesterol 56, HDL 27. Chest x-ray: Chronic interstitial lung disease with apical pleural thickening. EKG shows sinus rhythm with PAC, otherwise normal EKG. 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 The patient is asymptomatic, lying in the bed. DIAGNOSES: Sinus pauses, asymptomatic; dementia; hypertension; arthritis; back pain; chronic obstructive pulmonary disease; unsteady gait; anxiety; depression; gastroesophageal reflux disease; chronic hepatitis C; hypothyroidism. PLAN: The patient is on Aricept 5 mg at bedtime, Risperdal 1 mg b.i.d., Protonix 40 daily, Celexa 20 mg daily, Synthroid 50 mcg p.o. daily, Xanax 0.25 b.i.d. We will check TSH to rule out hypothyroidism and we will monitor the patient. The patient is asymptomatic at present and probably the patient is going to need permanent pacemaker, but we will check TSH and monitor in the meantime and we will continue present therapy. We will follow with you. Saravanan Willis MD
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
[2017-02-17] MEDS: Levothyroxine 50 MCG TAB PO SCH (05:18)
[2017-02-17] MEDS: Pantoprazole 40 mg EC Tab PO SCH (05:18)
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
[2017-02-17 08:32] LABS: HEMATOCRIT 35.9 % (42.0-52.0); MEAN CELL VOLUME 97.3 fl (80.0-105.0); MEAN CORPUSCULAR HEMOGLOBIN 31.4 pg (25.0-35.0); MEAN CORPUSCULAR HGB CONC 32.3 g/dl (31.0-37.0); MEAN PLATELET VOLUME 9.6 fl (7.0-11.0); RED CELL DISTRIBUTION WIDTH 13.9 % (11.5-14.5); WHITE BLOOD COUNT 6.3 10^3/ul (4.5-11.0)
[2017-02-17 09:54] LABS: BLOOD UREA NITROGEN 16 mg/dL (7-21); CALCIUM 8.7 mg/dL (8.4-10.5); CARBON DIOXIDE 26 mmol/L (21-33); CHLORIDE 106 mmol/L (98-107); GFR AFRICAN-AMERICAN > 60; GLUCOSE,RANDOM 95 mg/dL (70-110); SODIUM 139 mmol/L (132-148)
[2017-02-17 10:06] LABS: POTASSIUM 4.1 mmol/L (3.6-5.0)
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
--- NOTE | 2017-02-17 20:01 | PN ---
DATE: 02/17/2017 LOCATION: The patient is in room 377, bed 1. REASON FOR CONSULTATION: Sinus pauses. SUBJECTIVE: The patient is lying flat in bed without chest pain, shortness of breath or palpitation. Denies any dizziness. PHYSICAL EXAMINATION: VITAL SIGNS: Blood pressure 127/79, respirations 20, pulse 74, and temperature 97.8. HEENT: Head is normocephalic. Eyes; pupils are normal. Conjunctivae slightly pale. NECK: JVP is low. Carotids are equal. THORAX: AP diameter normal. LUNGS: Clear. CARDIOVASCULAR: S1 and S2. ABDOMEN: Soft nontender. No organomegaly. Bowel sounds normal. EXTREMITIES: No clubbing. No cyanosis. LABORATORY DATA: WBC 6.3, hemoglobin 11.6, hematocrit 35.9 and platelet 164. Sodium 139, potassium 4.1, BUN 16, creatinine 0.7. TSH yesterday was reported as 6.21 and today reported 3.17. DIAGNOSES: Sinus pauses, asymptomatic dementia, hypertension, arthritis, back pain, chronic obstructive pulmonary disease, unsteady gait, anxiety, depression, gastroesophageal reflux disease, chronic hepatitis C, hypothyroidism, agitated behavior at the intermediate. PLAN: The patient will need permanent pacemaker. We will arrange it. In the meantime, the patient is on Celexa 20 mg daily, Protonix 40 daily, Risperdal 1 mg b.i.d., Synthroid 50 mcg p.o. daily, Xanax 0.25 b.i.d. We will order echocardiogram to evaluate LV function. The patient had one pause today more than about 2.3 seconds asymptomatic. We will continue to monitor closely. Saravanan Willis MD
[2017-02-17] MEDS: Albuterol-Ipratrop 3 mg / 0.5 (3 ml) UD IH SCH (20:27)
--- NOTE | 2017-02-18 00:09 | PN ---
DATE: SUBJECTIVE: The patient is seen and examined on the bedside, looking little bit more comfortable, more relaxed. No nausea, vomiting, or diarrhea. Orientation is getting better, coming back on the baseline. No fever, no chills. No hematuria, no hematochezia. No swelling of the legs. No headache, no dizziness. PHYSICAL EXAMINATION VITALS: Temperature 97.8, pulse 71, respiratory rate 20, blood pressure 127/79, pulse oximetry 91. HEENT: Head normocephalic and atraumatic. Eyes, PERRLA. Extraocular muscles intact. Conjunctivae clear. Nose patent. Mucous membranes moist. NECK: Supple. No carotid bruits, JVD, or thyromegaly. CHEST: Bilaterally symmetrical. HEART: S1 and S2 positive. LUNGS: Clear to auscultation. ABDOMEN: Soft. Bowel sounds present. No organomegaly. EXTREMITIES: No edema. No cyanosis. NEUROLOGIC: The patient is awake, alert, and moving all 4 extremities. No focal deficits. MEDICATIONS: Tylenol, Xanax, Celexa, Aricept, Robitussin, Synthroid, and Protonix. LABORATORY DATA: White blood cell 6.3, hemoglobin 11.2, hematocrit 35.9, platelets 164. Sodium 139, potassium 4.1, BUN 16, creatinine 0.7, glucose 95. ASSESSMENT AND PLAN: Mr. Michael Jackson is a 76-year-old male with anemia, looks like iron deficiency, came with fever on admission, was sent from [facility] for aggressive behavior. The patient had chronic interstitial disease, on lung examination, given dose of Zosyn in ER. We will continue Rocephin as per Infectious Disease, Dr. Perea. Delgado cultures sent pending supportive care. History of chronic obstructive pulmonary disease, hypertension, substance abuse. 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 They are planning for pacemaker next week. I appreciated Dr. Perea's input. We will continue present treatment. The patient has history of ethanol abuse, depression, hepatitis C. The patient is unable to give a good review of system. According to Psychiatry, once the patient is medically cleared, can be transferred to Behavioral Health Department. We will follow up. Lora Morton MD MTDD
[2017-02-18] MEDS: Albuterol-Ipratrop 3 mg / 0.5 (3 ml) UD IH SCH ×4 (01:11→20:06)
--- NOTE | 2017-02-18 03:49 | CON ---
DATE: 02/17/2017 PULMONARY CONSULTATION REFERRING PHYSICIAN: Lora Morton MD REASON FOR CONSULTATION: Chronic obstructive lung disease, admitted with change in mental status and aggressive behavior. HISTORY OF PRESENT ILLNESS: This is a 76-years old male with multiple medical issues, dementia, chronic obstructive lung disease, lumbar radiculopathy, hypertension, history of substance abuse, and hepatitis C, brought into emergency room with aggressive behavior. He is threatening to leave the ER. Finally, with the readjustment of the medications, he felt better, presently lying in the bed, head at 45 degree, has some cough. No nausea. No vomiting. No diarrhea. No leg pain or leg swelling. PAST MEDICAL HISTORY: As per history of present illness. ALLERGIES: NONE KNOWN. SOCIAL HISTORY: He does have a history of alcohol abuse, substance abuse, and opiate abuse. Denies any smoking at the present time. FAMILY HISTORY: No significant cardiopulmonary disease reported. MEDICATIONS: He is on Aricept 5 at bedtime, Celexa 20 mg daily, milk of magnesia p.r.n. basis, Protonix 40 mg daily, Risperdal 1 mg twice a day, Robitussin p.r.n. basis, Synthroid 50 mcg daily, Tylenol p.r.n., and Xanax 0.25 mg twice a day. REVIEW OF SYSTEMS: No headaches. He has some stitches on the forehead. PHYSICAL EXAMINATION: HEENT: Crowded airway. NECK: Supple. No JVD. LUNGS: Has a scattered rhonchi. HEART: S1 and S2. ABDOMEN: Soft and nontender. No organomegaly. EXTREMITIES: There is no trace edema. NEUROLOGIC: Awake, alert, and follows simple commands. LABORATORY DATA: Shows hemoglobin 11.6, hematocrit 35.9, WBC 6.3, and platelets are 164. VBG done yesterday shows pH of 7.38, pCO2 of 48, and pO2 of 51. Sodium is 139, potassium is 4.1, chloride is 106, bicarbonate is 26, BUN is 16, creatinine is 0.7, glucose is 95, and calcium is 8.7. TSH is 3.17. Salicylate level, acetaminophen level, valproic acid, and alcohol level were negative. Influenza A and B is negative. Microbiology: Blood culture and urine culture, so far there is no growth. CT of the head was unremarkable. There were nonspecific white matter changes. There is some right frontal soft tissue swelling irregularity, this is the site of stitches. IMPRESSION AND PLAN: Dementia with aggressive behavior, chronic obstructive lung disease, electrolyte imbalance, history of hypertension, and substance abuse. Seen by Cardiology and Infectious Disease. Pulmonary point of view, he is doing well. We will keep head elevated at 45 degree. The patient may have complained of sleep apnea syndrome, but it seems like because of dementia, we will not CPAP/BIPAP on, so we will add inhaled bronchodilator, keep head at 45 degree, careful of sedation. Gastric prophylaxis, SCDs to lower extremity, fall precautions. Follow up labs in the morning. Thank you and we will follow with you. Saravanan Johnson MD
[2017-02-18] MEDS: Pantoprazole 40 mg EC Tab PO SCH (07:14)
[2017-02-18] MEDS: Levothyroxine 50 MCG TAB PO SCH (07:14)
--- NOTE | 2017-02-18 08:05 | CP.PCM.CON ---
History of Present Illness - History of Present Illness History of Present Illness: GENERAL SURGERY CONSULT NOTE FOR DR. FORD 76yo M with PMHx of dementia, COPD, low back pain, HTN, depression, chronic Hepatitis C. Patient refused to answer any questions so all information is obtained from EMR. Per EMR, patient came to ED on 02/15 from [facility] for aggressive behavior and fatigue. He has previously been evaluated by psych. He was admitted to rule out sepsis. Surgery was consulted to remove sutures from forehead. Patient did not answer as to how he obtained the sutures or when they were put it. PMHx: dementia, COPD, low back pain, HTN, depression, chronic Hepatitis C Surgeries: left leg fracture repair Allerg: none Social history: etoh abuse, substance abuse Review of Systems - Review of Systems Systems not reviewed;Unavailable: Uncooperative Past Patient History - Infectious Disease Hx of Infectious Diseases: None - Tetanus Immunizations Tetanus Immunization: Up to Date - Past Social History Smoking Status: Current Some Days Smoker - CARDIAC Hx Cardiac Disorders: Yes Hx Hypertension: Yes - PULMONARY Hx Respiratory Disorders: Yes Hx Chronic Obstructive Pulmonary Disease (COPD): Yes Hx Emphysema: Yes - NEUROLOGICAL Hx Neurological Disorder: Yes Hx Dementia: Yes - HEENT Hx HEENT Problems: No - RENAL Hx Chronic Kidney Disease: No - ENDOCRINE/METABOLIC Hx Endocrine Disorders: No - HEMATOLOGICAL/ONCOLOGICAL Hx Hepatitis C: Yes - INTEGUMENTARY Hx Dermatological Problems: No - MUSCULOSKELETAL/RHEUMATOLOGICAL Hx Musculoskeletal Disorders: Yes (FX L PATELLA) Hx Back Pain: Yes (lower) Hx Rheumatoid Arthritis: Yes Hx Unsteady Gait: Yes Other/Comment: Comminuted Fx of Patella - GASTROINTESTINAL Hx Gastrointestinal Disorders: Yes Hx Gastroesophageal Reflux: Yes (GERD) - GENITOURINARY/GYNECOLOGICAL Hx Genitourinary Disorders: No - PSYCHIATRIC Hx Anxiety: Yes Hx Depression: Yes Hx Substance Use: Yes - SURGICAL HISTORY Hx Abdominal Aortic Aneurysm Repair: No Hx Amputation: No Hx Angiogram: No Hx Angioplasty: No Hx Appendectomy: No Hx Arteriovenous Shunt: No Hx Bile Duct Stent: No Hx Breast Biopsy: No Hx Cataract Extraction: No Hx Cardiac Catheterization: No Hx Carotid Endarterectomy: No Hx Section: No Hx Cholecystectomy: No Hx Coronary Artery Bypass Graft: No Hx Coronary Stent: No Hx Dilation and Curettage: No Hx Eye Surgery: No Hx Femoral-Popliteal Bypass Graft: No Hx Gastric Bypass Surgery: No Hx Hysterectomy: No Hx Kidney Transplant: No Hx Liver Transplant: No Hx Mastectomy: No Hx Open Heart Surgery: No Hx Open Reduction Internal Fixation: No Hx Orthopedic Surgery: Yes (lt leg fx) Hx Parathyroidectomy: No Hx Penile Implant: No Hx Pulmonary Surgery: No Hx Splenectomy: No Hx Thyroidectomy: No Hx Tonsillectomy: No Hx Tubal Ligation: No Hx Valve Replacement: No Hx Vascular Surgery: No Hx Vascular Access Device: No - ANESTHESIA Hx Anesthesia Reactions: No Hx Malignant Hyperthermia: No Meds Allergies/Adverse Reactions: Allergies Allergy/AdvReac Type Severity Reaction Status Date / Time No Known Allergies Allergy Verified 02/15/17 18:29 - Medications Medications: Current Medications Acetaminophen (Tylenol 325mg Tab) 650 mg PO Q6H PRN PRN Reason: Fever >100.4 F Albuterol/Ipratropium (Duoneb 3 Mg/0.5 Mg (3 Ml) Ud) 3 ml IH [id number] [facility] Last Admin: 02/18/17 01:11 Dose: 3 ml Alprazolam (Xanax) 0.25 mg PO BID [facility] PRN Reason: Protocol Stop: 02/23/17 10:01 Last Admin: 02/17/17 17:19 Dose: 0.25 mg Citalopram Hydrobromide (Celexa) 20 mg PO DAILY [facility] Last Admin: 02/17/17 11:00 Dose: 20 mg Donepezil HCl (Aricept) 5 mg PO HS [facility] Last Admin: 02/17/17 21:23 Dose: 5 mg Guaifenesin (Robitussin) 100 mg PO Q4H PRN PRN Reason: Cough Last Admin: 02/16/17 19:05 Dose: 100 mg Levothyroxine Sodium (Synthroid) 50 mcg PO 0600 [facility] Last Admin: 02/18/17 07:14 Dose: Not Given Magnesium Hydroxide (Milk Of Magnesia) 30 ml PO DAILY PRN PRN Reason: Constipation Pantoprazole Sodium (Protonix Ec Tab) 40 mg PO 0600 [facility] Last Admin: 02/18/17 07:14 Dose: Not Given Risperidone (Risperdal Tab) 1 mg PO BID [facility] PRN Reason: Protocol Last Admin: 02/17/17 17:19 Dose: 1 mg Physical Exam - Constitutional Additional comments: pt refused - Head Exam Additional comments: 3 sutures seen on forehead Results - Vital Signs Recent Vital Signs: Last Vital Signs Temp 97.8 F 02/18/17 00:01 Pulse 76 02/18/17 06:00 Resp 20 02/18/17 00:01 BP 145/85 02/18/17 00:01 Pulse Ox 92 L 02/18/17 00:01 - Labs Result Diagrams: 02/17/17 08:00 02/17/17 08:00 Labs: Laboratory Results - last 24 hr 02/17/17 02/17/17 02/17/17 08:00 08:00 08:00 WBC 6.3 D RBC 3.69 Hgb 11.6 L Hct 35.9 L MCV 97.3 MCH 31.4 MCHC 32.3 RDW 13.9 Plt Count 164 MPV 9.6 Sodium 139 Potassium 4.1 Chloride 106 Carbon Dioxide 26 Anion Gap 11 BUN 16 Creatinine 0.7 L Est GFR ( Amer) > 60 Est GFR (Non-Af Amer) > 60 Random Glucose 95 Calcium 8.7 TSH 3rd Generation 3.17 Assessment & Plan - Assessment and Plan (Free Text) Assessment: 76yo M with PMHx of dementia, COPD, low back pain, HTN, depression, chronic Hepatitis C. Surgery was consulted for forehead suture removal - Patient refused suture removal and refused to tell us how or when he got them - Will try again later today - Will discuss plan with Dr. Jono Nascimento PGY-3
[2017-02-18] MEDS: guaiFENesin 100 mg/5 ml Syrup UD PO PRN ×2 (09:56→14:28)
--- NOTE | 2017-02-18 15:50 | PN ---
DATE: 02/18/2017 REFERRING PHYSICIAN: Lora Morton MD. SUBJECTIVE: He is lying in the bed, head at 45 degrees. No acute distress. Mild cough. No shortness of breath. No nausea. No vomiting. No diarrhea. No leg pain or leg swelling. OBJECTIVE: GENERAL: In no acute distress. VITAL SIGNS: Temperature is 98, heart rate 78, respiratory rate is 25, blood pressure is 122/73, pulse ox 92% on room air. HEENT: Moist mucous membranes. Crowded airway. NECK: Supple. No JVD. Forehead has a subcutaneous hematoma and also some stitches. LUNGS: Has a fair airflow with rhonchi. HEART: S1 and S2. ABDOMEN: Soft and nontender. No organomegaly. EXTREMITIES: No edema. NEUROLOGICAL: Awake and alert. Follows simple commands but confused. MEDICATIONS: He is on Aricept 5 mg at bedtime, Celexa 20 mg daily, DuoNeb q. 6 hours, milk of magnesia p.r.n. basis, Protonix 40 mg daily, Risperdal 1 mg twice a day, Robitussin 100 mg q. 4 hours p.r.n., Synthroid 50 mcg daily, Tylenol p.r.n., Xanax 0.25 mg twice a day. LABORATORY DATA: Shows no new labs available since yesterday. IMPRESSION AND PLAN: Dementia with aggressive behavior, chronic obstructive lung disease, electrolyte imbalance, history of hypertension, history of substance abuse in the past, has a subcutaneous hematoma in the forehead, also required a stitch. Pulmonary point of view, he is doing okay. Keep head at 45 degrees, continue bronchodilators, sleep apnea precaution, gastric prophylaxis, SCDs to lower extremity, fall precaution of course. Thank you, and we will follow with you. Saravanan Johnson MD
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
--- NOTE | 2017-02-18 20:10 | PN ---
DATE: 02/18/2017 LOCATION: The patient is in room 377, bed 1. REASON FOR CONSULTATION: Sinus pauses. SUBJECTIVE: The patient is lying flat in bed without chest pain, shortness of breath, dizziness, and no episode of palpitation. PHYSICAL EXAMINATION: VITAL SIGNS: Blood pressure 122/73, respirations 20, pulse 78, and temperature 98.5. HEENT: Head is normocephalic. Eyes; pupils normal. Conjunctivae normal. NECK: JVP low. Carotid equal. THORAX: AP diameter normal. LUNGS: Clear. CARDIOVASCULAR: S1 and S2. ABDOMEN: Soft. No organomegaly. EXTREMITIES: No clubbing. No cyanosis. LABORATORY DATA: WBC 6.3, hemoglobin 11.6, hematocrit 35.9, and platelets 164. Sodium 139, potassium 4.1, BUN 16, and creatinine 0.7. On monitor, the patient had pauses more than 3 seconds and the patient had in the residential. DIAGNOSES: Sinus pauses, asymptomatic dementia, hypertension, arthritis, back pain, chronic obstructive pulmonary disease, unsteady gait, anxiety, depression, gastroesophageal reflux disease, chronic hepatitis C, hypothyroidism, and episode of agitated behavior at residential. PLAN: The patient will keep n.p.o. to put a permanent pacemaker tomorrow. In the meantime, the patient is on Celexa 20 mg daily, Protonix 40 mg daily, Risperdal 1 mg b.i.d., Synthroid 50 mcg daily, and Xanax 0.25 b.i.d. Echocardiogram has been also ordered. We will continue to follow with you. Saravanan Willis MD
[2017-02-19] MEDS: Albuterol-Ipratrop 3 mg / 0.5 (3 ml) UD IH SCH ×3 (01:08→19:45)
--- NOTE | 2017-02-19 03:49 | PN ---
SUBJECTIVE: The patient is a 76-year-old male. The patient is seen and examined at the bedside, getting aggressive, restless, pulled out his IV line, wants to go against medical advice, has mild cough. No shortness of breath. No nausea, vomiting, or diarrhea. No hematuria or hematochezia. No swelling of the legs. PHYSICAL EXAMINATION: VITAL SIGNS: Temperature 98, heart rate 78, respiratory rate 25, blood pressure 122/76, pulse oximetry 92% on room air. HEENT: Head is normocephalic and atraumatic. Eyes: PERRLA. Extraocular muscles intact. Conjunctivae clear. Nose: Patent. NECK: Supple. No carotid bruits. No JVD or thyromegaly. CHEST: Bilaterally symmetrical. HEART: S1 and S2 positive. LUNGS: Clear to auscultation. ABDOMEN: Soft. Bowel sounds present. No organomegaly. EXTREMITIES: No edema. No cyanosis. NEUROLOGIC: Patient is awake, alert. Moving all 4 extremities. No focal deficit. MEDICATIONS: Aricept, Celexa, DuoNeb, milk of magnesia, Protonix, Risperdal, Robitussin, Synthroid, Tylenol, Xanax. LABORATORY DATA: We do not have any recent lab today, but I reviewed the old labs. ASSESSMENT AND PLAN: Mr. Michael Jackson is a 76-year-old man with dementia, aggressive behavior, chronic obstructive lung disease, electrolyte imbalance, history of hypertension, history of substance abuse in the past, has subcutaneous hematoma in the forehead, status post surgery by Dr. De La Cruz had anxiety. Gastric and deep venous thrombosis prophylaxis. Fall precautions. Psychiatry is on the case. After completing medical treatment, may be we have to transfer patient to the psych floor. We will follow up. Lora Morton MD MTDD
[2017-02-19] MEDS: Pantoprazole 40 mg EC Tab PO SCH (07:02)
--- NOTE | 2017-02-19 08:13 | CP.PCM.PN ---
Subjective - Date & Time of Evaluation Date of Evaluation: 02/19/17 Time of Evaluation: 07:15 - Subjective Subjective: [id number] PROGRESS NOTE Patient seen and evaluated at bedside this AM. NO acute events reported overnight. Patient expresses no complaints at time of interview. Patient denies headache, chest pain, shob, nausea, vomiting, fever, chills. Suture removed at bedside. Objective - Vital Signs/Intake and Output Vital Signs (last 24 hours): Temp Pulse Resp BP Pulse Ox 98.0 F 64 18 123/72 92 L 02/19/17 00:01 02/19/17 06:00 02/19/17 00:01 02/19/17 00:01 02/18/17 00:01 Intake and Output: 02/19/17 02/19/17 06:59 18:59 Intake Total 0 Output Total 450 Balance -450 - Medications Medications: Current Medications Acetaminophen (Tylenol 325mg Tab) 650 mg PO Q6H PRN PRN Reason: Fever >100.4 F Albuterol/Ipratropium (Duoneb 3 Mg/0.5 Mg (3 Ml) Ud) 3 ml IH [id number] [facility] Last Admin: 02/19/17 07:50 Dose: 3 ml Alprazolam (Xanax) 0.25 mg PO BID SANDRA PRN Reason: Protocol Stop: 02/23/17 10:01 Last Admin: 02/18/17 21:08 Dose: 0.25 mg Citalopram Hydrobromide (Celexa) 20 mg PO DAILY [facility] Last Admin: 02/18/17 09:56 Dose: 20 mg Donepezil HCl (Aricept) 5 mg PO HS [facility] Last Admin: 02/18/17 21:08 Dose: 5 mg Guaifenesin (Robitussin) 100 mg PO Q4H PRN PRN Reason: Cough Last Admin: 02/18/17 14:28 Dose: 100 mg Levothyroxine Sodium (Synthroid) 50 mcg PO 0600 [facility] Last Admin: 02/18/17 07:14 Dose: Not Given Magnesium Hydroxide (Milk Of Magnesia) 30 ml PO DAILY PRN PRN Reason: Constipation Pantoprazole Sodium (Protonix Ec Tab) 40 mg PO 0600 [facility] Last Admin: 02/19/17 07:02 Dose: Not Given Risperidone (Risperdal Tab) 1 mg PO BID [facility] PRN Reason: Protocol Last Admin: 02/18/17 17:31 Dose: 1 mg - Labs Labs: 02/17/17 08:00 02/17/17 08:00 PT 12.6 SECONDS (9.4-12.5) H 02/15/17 18:43 INR 1.15 (0.93-1.08) H 02/15/17 18:43 APTT 37.1 Seconds (25.1-36.5) H 02/15/17 18:43 - Constitutional Appears: No Acute Distress - Head Exam Head Exam: ATRAUMATIC, NORMAL INSPECTION, NORMOCEPHALIC - Eye Exam Eye Exam: EOMI, PERRL - ENT Exam ENT Exam: Mucous Membranes Moist - Respiratory Exam Respiratory Exam: Clear to Ausculation Bilateral, NORMAL BREATHING PATTERN - Cardiovascular Exam Cardiovascular Exam: REGULAR RHYTHM, +S1, +S2 - GI/Abdominal Exam GI & Abdominal Exam: Soft, Normal Bowel Sounds - Neurological Exam Neurological Exam: Alert, Awake Additional comments: baseline dementia - Psychiatric Exam Psychiatric exam: Normal Affect, Normal Mood - Skin Skin Exam: Dry, Intact Assessment and Plan - Assessment and Plan (Free Text) Assessment: 76yo M with PMHx of dementia, COPD, low back pain, HTN, depression, chronic Hepatitis C. Surgery was consulted for forehead suture removal for which patient previously denied intervention. Today patient's sutures removed. Plan: - Sutures removed - Will sign off at this time - Will discuss plan with Dr. Jono Barragan PGY-1
[2017-02-19] MEDS: Levothyroxine 50 MCG TAB PO SCH ×2 (08:27→08:36)
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
[2017-02-19] MEDS ORDERED: Lidocaine 2% Inj (20ml) ONE (10:58)
[2017-02-19] MEDS ORDERED: Phenylephrine 10 mg/ml Inj ONE (10:59)
[2017-02-19] MEDS ORDERED: Midazolam 2 MG/2 ML VIAL ONE (11:21)
--- NOTE | 2017-02-19 11:30 | CP.PCM.PN ---
Subjective - Date & Time of Evaluation Date of Evaluation: 02/19/17 Time of Evaluation: 10:00 - Subjective Subjective: 76 yr male w/ history of Head trauma, Sebaceous cyst of forehead, Smoker(current), Dementia, history of stimulant abuse, low back pain, HTN, COPD , Hepatitis C, & ETOH abuse. Admitted to [facility] for agressive behavior secondary to sepsis is having a Pacemaker insertion today for multiple pauses & sinus arrhythmia. Objective - Vital Signs/Intake and Output Vital Signs (last 24 hours): Temp Pulse Resp BP Pulse Ox 98.0 F 64 18 123/72 92 L 02/19/17 00:01 02/19/17 06:00 02/19/17 00:01 02/19/17 00:01 02/18/17 00:01 Intake and Output: 02/19/17 02/19/17 06:59 18:59 Intake Total 0 Output Total 450 Balance -450 - Medications Medications: Current Medications Acetaminophen (Tylenol 325mg Tab) 650 mg PO Q6H PRN PRN Reason: Fever >100.4 F Albuterol/Ipratropium (Duoneb 3 Mg/0.5 Mg (3 Ml) Ud) [id number] [facility] Last Admin: 02/19/17 07:50 Dose: 3 ml Alprazolam (Xanax) 0.[address] [facility] PRN Reason: Protocol Stop: 02/23/17 10:01 Last Admin: 02/18/17 21:08 Dose: 0.25 mg Citalopram Hydrobromide (Celexa) [address] [facility] Last Admin: 02/18/17 09:56 Dose: 20 mg Donepezil HCl (Aricept) [address] [facility] Last Admin: 02/18/17 21:08 Dose: 5 mg Guaifenesin (Robitussin) 100 mg PO Q4H PRN PRN Reason: Cough Last Admin: 02/18/17 14:28 Dose: 100 mg Levothyroxine Sodium (Synthroid) [address] [facility] Last Admin: 02/19/17 08:36 Dose: Not Given Magnesium Hydroxide (Milk Of Magnesia) 30 ml PO DAILY PRN PRN Reason: Constipation Pantoprazole Sodium (Protonix Ec Tab) [address] [facility] Last Admin: 02/19/17 07:02 Dose: Not Given Risperidone (Risperdal Tab) 1 mg PO BID [facility] PRN Reason: Protocol Last Admin: 02/19/17 08:28 Dose: 1 mg - Labs Labs: 02/17/17 08:00 02/17/17 08:00 PT 12.6 SECONDS (9.4-12.5) H 02/15/17 18:43 INR 1.15 (0.93-1.08) H 02/15/17 18:43 APTT 37.1 Seconds (25.1-36.5) H 02/15/17 18:43 - Eye Exam Pupil Exam: NORMAL ACCOMODATION, PERRL - Neck Exam Neck Exam: absent: Lymphadenopathy - Cardiovascular Exam Cardiovascular Exam: absent: Murmur - GI/Abdominal Exam GI & Abdominal Exam: absent: Tenderness Assessment and Plan (1) Cardiac abnormality Status: Acute (2) Sinus arrhythmia Status: Acute (3) Sepsis Status: Acute (4) Dementia with aggressive behavior Status: Acute - Assessment and Plan (Free Text) Plan: IN OR. unable to assess patient.
[2017-02-19] MEDS ORDERED: Sodium Chloride 0.9% 1,000 ML IV SCH (12:45)
--- NOTE | 2017-02-19 13:43 | RAD ---
HISTORY: S/p PPM R/o Pneumothorax COMPARISON: Chest x-ray performed 02/15/27 TECHNIQUE: Chest, one view. FINDINGS: LUNGS: Biapical pleural thickening. Left basilar atelectasis. Chronic interstitial markings may be related to chronic interstitial disease. Mild infection or edema cannot be entirely excluded. Please note that chest x-ray has limited sensitivity for the detection of pulmonary masses. PLEURA: No significant pleural effusion identified. No definite pneumothorax. CARDIOVASCULAR: Left-sided pacemaker with single lead extending to the expected location of the right ventricle. Heart size appears top normal. Atherosclerotic calcifications of the aorta. OSSEOUS STRUCTURES: Osseous demineralization. Degenerative changes of the spine and shoulders. VISUALIZED UPPER ABDOMEN: Unremarkable. OTHER FINDINGS: None. IMPRESSION: Left-sided pacemaker with single lead extending to the expected location of the right ventricle. Biapical pleural thickening. Left basilar atelectasis. Chronic interstitial markings may be related to chronic interstitial disease. Mild infection or edema cannot be entirely excluded.
--- NOTE | 2017-02-19 15:39 | CP.PCM.PCO ---
Physician Communication Note - Physician Communication Note Physician Communication Note: pt will be seen by
--- NOTE | 2017-02-19 15:54 | PN ---
DATE: 02/19/2017 Chart reviewed. Case discussed with nursing. The patient is a 76-year-old white male who had been evaluated this past Sunday where he was admitted after exhibiting aggressive behavior at the [facility] where he presently resides. The patient has a past psychiatric history of depression and alcohol abuse and dementia. He also has a history of COPD, hypertension, chronic hepatitis C. He also has a history of substance abuse. The patient is presently being fitted with a pacemaker. Nursing states that he is still agitated and aggressive towards nursing. He is being maintained on Aricept 5 mg, Celexa 20, Risperdal 1 mg b.i.d., and Xanax 0.25 mg b.i.d. I will increase the patient's dose of Xanax. Juan Brady MD/ PhD
--- NOTE | 2017-02-19 16:02 | PN ---
DATE: 02/19/2017 REASON FOR CONSULTATION AND FOLLOWUP: Cardiac evaluation, multiple pauses, sinus arrhythmia status post permanent pacemaker. SUBJECTIVE: The patient denies any chest pain, shortness of breath or any palpitations, though the patient was very nasty and cursing the bad word. He refuses pacemaker. After a lengthy discussion done with the family, ultimately the patient agreed and then again the patient reversed his decision while in the laboratory analyst not to have the pacemaker. Then, I tried to convince him, showed the pause, and the patient agreed. While the patient went into table, he started again acting up and then after a lengthy discussion, the patient agreed for pacemaker. PHYSICAL EXAMINATION: VITAL SIGNS: As follows, temperature afebrile, heart rate 64, and blood pressure 123/72. HEENT: PERRLA. Extraocular muscles intact. NECK: Supple. No carotid bruits or thyromegaly. CHEST: Clear to auscultation. HEART: S1 and S2 regular. ABDOMEN: Soft. EXTREMITIES: Clubbing and cyanosis negative. LABORATORY DATA: Blood workup as follows; WBC is 6.2, hemoglobin 11.6, hematocrit 35.9, and platelet count 164. Chemistry shows sodium 130, potassium , chloride 106, carbon dioxide 26, anion gap of 11, BUN 16, and creatinine 0.7. IMPRESSION: Sick sinus syndrome multiple pause, status post permanent pacemaker, after length of discussion three times at three settings, the patient kept on refusing, ultimately agreed. Family have been reached and spoke to the patient's sister name telephone number [phone] and got the telephone consent. The patient subsequently had a single chamber VVI pacemaker placed and no issues. History of unsteady gait, history of fall, history of anger disorder, history of arthritis, and history of dementia. RECOMMENDATIONS: I will put the left hand in sling. We will start Keflex 250 mg 3 times a day for five days, get chest x-ray stat. We will follow with you. Currently, I will resume previous medication at baseline. Family has been notified. Thank you Dr. Morton for providing us the opportunity in taking care of the patient. We will follow with you. Saravanan Chamberlain MD [facility] # [id number]
--- NOTE | 2017-02-19 16:53 | CARD ---
APPROVED REPORT HISTORY The Patient is a 76 year-old male with a history of HTN admitted from [facility] after a foight and fall, found to have SSS, Multiple pauses more than 3.5 seconds PROCEDURES Insertion Single Chamber Ventricle Pacemaker INDICATIONS SSS Sinus arrest Multiple pauses more than 3,5 seconds CONSCIOUS SEDATION AGENTS Versed Fentanyl IMPLANTED DEVICES Medtronic 5076-58 cm, Ventricular lead Active Fixation Pulse generator Medtronic ADAPTA SR OPERATIVE NOTE The patient was brought to the Cardiac Catheterization Laboratory in a fasting state and was prepped and draped in a sterile manner. The left subclavian region was infiltrated with 2% Lidocaine, subcutaneous anesthesia. A transverse incision was made in the left subclavicular area. The subcutaneous pocket was formed via blunt dissection, Percutaneous venous access was achieved and an introducer sheath was inserted into the Lt Subclavian vein. Through the introducer sheath, the ventricular lead wire was postitioned in the right ventricular apex utilizing fluoroscopic guidance. The ventricular was advanced over the wire under fluoroscopic guidance and positioned in the right ventricle. Capturing and sensing thresholds were verified. THE VENTRICULAR ELECTRODE PARAMETERS R WAVE 11.5 THRESHOLD0.5 RESISTANCE 854 The ventricular lead was then secured using Silk0. The subcutaneous pocket was irrigated with Betadine. The ventricular lead was attached to the appropriate receptacle on the pulse generator and set screws firmly tightened to insure adequate contact and stability. The lead and pulse generator were placed into the subcutaneous pocket. Sharp and sponge counts were confirmed to be correct. At this time the pocket was closed subcutaneously with a Vicryl 2.0 and the skin was closed with a Vicryl 4.0 .The operative site was dressed in sterile fashion. The patient tolerated the procedure well and was transferred to the floor in stable condition. COMPLICATIONS The patient tolerated the procedure well and there were no complications associated with the procedure. CONCLUSION Successful Implantation of Medtronic VVIR, ADAPTA SR.(pace maker) Cc; Drs. Morton/ Lazaro.
--- NOTE | 2017-02-19 18:50 | CP.PCM.PN ---
Subjective - Date & Time of Evaluation Date of Evaluation: 02/19/17 Time of Evaluation: 16:15 - Subjective Subjective: Infectious Disease Follow Up: February 19, 2017 76 yo male with initial presentation of aggressive behavior from [facility]. He apparently used his wheelchair to run over the feet of another resident and began cursing and insulting the other resident and the staff of the floor. Sent from [facility] for Sepsis evaluation and psych evaluation. Fevers up to 101.5 F initially during this hospitalization. No reported fevers at [facility]. Patient appears calm here [place] [facility] [place] Afebrile the last two days. Cultures negative to date. PPM placement today. Objective - Vital Signs/Intake and Output Vital Signs (last 24 hours): Temp Pulse Resp BP Pulse Ox 98.1 F 62 16 118/72 96 02/19/17 13:31 02/19/17 13:31 02/19/17 13:31 02/19/17 13:31 02/19/17 13:31 Intake and Output: 02/19/17 02/19/17 06:59 18:59 Intake Total 0 0 Output Total 450 600 Balance -450 -600 - Medications Medications: Current Medications Acetaminophen (Tylenol 325mg Tab) 650 mg PO Q6H PRN PRN Reason: Fever >100.4 F Albuterol/Ipratropium (Duoneb 3 Mg/0.5 Mg (3 Ml) Ud) 3 ml IH [id number] [facility] Last Admin: 02/19/17 07:50 Dose: 3 ml Alprazolam (Xanax) 0.25 mg PO QID [facility] PRN Reason: Protocol Last Admin: 02/19/17 15:35 Dose: 0.25 mg Cephalexin Monohydrate (Keflex) 250 mg PO TID [facility] PRN Reason: Protocol Stop: 02/23/17 23:59 Last Admin: 02/19/17 15:35 Dose: 250 mg Citalopram Hydrobromide (Celexa) 20 mg PO DAILY [facility] Last Admin: 02/19/17 15:34 Dose: 20 mg Donepezil HCl (Aricept) 5 mg PO HS [facility] Last Admin: 02/18/17 21:08 Dose: 5 mg Guaifenesin (Robitussin) 100 mg PO Q4H PRN PRN Reason: Cough Last Admin: 02/18/17 14:28 Dose: 100 mg Levothyroxine Sodium (Synthroid) 50 mcg PO 0600 [facility] Last Admin: 02/19/17 08:36 Dose: Not Given Magnesium Hydroxide (Milk Of Magnesia) 30 ml PO DAILY PRN PRN Reason: Constipation Pantoprazole Sodium (Protonix Ec Tab) 40 mg PO 0600 [facility] Last Admin: 02/19/17 07:02 Dose: Not Given Risperidone (Risperdal Tab) 1 mg PO BID [facility] PRN Reason: Protocol Last Admin: 02/19/17 15:29 Dose: Not Given - Labs Labs: 02/17/17 08:00 02/17/17 08:00 PT 12.6 SECONDS (9.4-12.5) H 02/15/17 18:43 INR 1.15 (0.93-1.08) H 02/15/17 18:43 APTT 37.1 Seconds (25.1-36.5) H 02/15/17 18:43 - Constitutional Appears: Non-toxic, No Acute Distress, Chronically Ill - Head Exam Head Exam: ATRAUMATIC, NORMOCEPHALIC - Eye Exam Eye Exam: EOMI, PERRL Pupil Exam: NORMAL ACCOMODATION, PERRL - ENT Exam ENT Exam: Mucous Membranes Moist, Normal External Ear Exam, TM's Normal Bilaterally - Neck Exam Neck Exam: Full ROM, Normal Inspection - Respiratory Exam Respiratory Exam: Clear to Ausculation Bilateral, NORMAL BREATHING PATTERN. absent: Rales, Rhonchi, Wheezes - Cardiovascular Exam Cardiovascular Exam: REGULAR RHYTHM, RRR, +S1, +S2 - GI/Abdominal Exam GI & Abdominal Exam: Soft, Normal Bowel Sounds. absent: Distended, Tenderness - Extremities Exam Extremities Exam: Full ROM, Normal Inspection - Neurological Exam Neurological Exam: Alert, Awake Additional comments: Unable to evaluate further - Psychiatric Exam Psychiatric exam: Normal Affect, Normal Mood - Skin Skin Exam: Intact, Normal Color Assessment and Plan - Assessment and Plan (Free Text) Assessment: 76 yo male with low grade fevers up to 101.5 F on admission. [place] [facility] [place] [facility]. The patient has chronic interstitial disease on lung examination. Urinalysis not indicative of UTI. Given a dose of Zosyn in ER. Will continue on Rocephin IV for now. Delgado cultures sent. Supportive care for now. Multiple chronic medical issues that includes COPD, HTN, and substance abuse. Noted that the patient had a serum drug screen at nursing facility... this was negative. On Rocephin IV. Cultures negative at 48 hours. No leukocytosis or further fevers in the past 48 hours. Supportive care. As far as ID concerned, cleared for transfer to psychiatry. The patient had PPM placement today by cardiology. Thank you for allowing me to participate in the care of the patient, we will follow with you.
[2017-02-20] MEDS: Albuterol-Ipratrop 3 mg / 0.5 (3 ml) UD IH SCH ×4 (01:11→13:55)
[2017-02-20] MEDS: Levothyroxine 50 MCG TAB PO SCH (05:24)
[2017-02-20] MEDS: Pantoprazole 40 mg EC Tab PO SCH (05:24)
[2017-02-20 05:51] VITALS: O2SAT 95
[2017-02-20 07:47] LABS: BASO # 0.01 K/mm3 (0.0-2.0); BASO % 0.2 % (0.0-3.0); EOS # 0.1 (0.0-0.7); EOS % 1.7 % (1.5-5.0); GRAN # 4.47 (1.4-6.5); GRAN % 73.7 % (50.0-68.0); HEMATOCRIT 34.8 % (42.0-52.0); LYMPH # 1.1 (1.2-3.4); LYMPH % 17.5 % (22.0-35.0); MEAN CORPUSCULAR HEMOGLOBIN 31.8 pg (25.0-35.0); MEAN CORPUSCULAR HGB CONC 32.5 g/dl (31.0-37.0); MEAN PLATELET VOLUME 9.3 fl (7.0-11.0); MONO # 0.4 (0.1-0.6); MONO % 6.9 % (1.0-6.0); RED CELL DISTRIBUTION WIDTH 13.6 % (11.5-14.5); WHITE BLOOD COUNT 6.1 10^3/ul (4.5-11.0)
[2017-02-20 08:21] LABS: ALB/GLOB RATIO 0.8 (1.1-1.8); ALKALINE PHOSPHATASE 81 U/L (38-126); ALT/SGPT 50 U/L (7-56); AST/SGOT 74 U/L (17-59); BILIRUBIN,TOTAL 0.4 mg/dL (0.2-1.3); BLOOD UREA NITROGEN 21 mg/dL (7-21); CALCIUM 8.5 mg/dL (8.4-10.5); CARBON DIOXIDE 31 mmol/L (21-33); CHLORIDE 104 mmol/L (98-107); GFR AFRICAN-AMERICAN > 60; GLUCOSE,RANDOM 95 mg/dL (70-110); MAGNESIUM 1.8 mg/dL (1.7-2.2); PHOSPHOROUS 3.6 mg/dL (2.5-4.5); POTASSIUM 4.1 mmol/L (3.6-5.0); SODIUM 140 mmol/L (132-148); TOTAL PROTEIN 7.1 g/dL (5.8-8.3)
[2017-02-20 12:46] VITALS: BP 126/67; PULSE 79; RESP 21; TEMP 99.3
--- NOTE | 2017-02-20 15:58 | PN ---
DATE: 02/20/2017 REASON FOR CONSULTATION: Cardiac evaluation, multiple pauses, status post permanent pacemaker. SUBJECTIVE: The patient is lying flat on the bed. Not in distress. Not very cooperative. PHYSICAL EXAMINATION: VITAL SIGNS: As follows: Temperature afebrile, heart rate 59, blood pressure 110/67. HEENT: PERRLA. Extraocular muscles intact. NECK: Supple. No carotid bruits. No thyromegaly. CHEST: Clear to auscultation. HEART: S1, S2 regular. ABDOMEN: Soft. EXTREMITIES: Clubbing and cyanosis are negative. LABORATORY DATA: Blood workup as follows: WBC 8.1, hemoglobin 11.8, hematocrit 34.8, platelet count 168. Chemistry shows sodium 140, potassium 4.0, chloride 104, carbon dioxide 31, anion gap of 9, BUN 21, creatinine 0.9. Chest x-ray, no definite pneumothorax noted, multiple pauses, status post permanent pacemaker. IMPRESSION: A very non-cooperative obnoxious patient on the floor as well as nursing staff here during the pacemaker, and this is his multiple times, history of dementia, history of hypertension. RECOMMENDATIONS: We will discontinue telemetry. The patient is cleared from cardiology point of view to be discharged. We will get another x-ray. Awaiting for x-ray. We will order another x-ray post pacemaker. The patient was requested another x-ray, but the patient keeps on refusing. We will await for another chest x-ray to be done. We will discontinue telemetry as the patient is pulling the line and pulling the bus driver/monitor. No further cardiac workup is planned. Echo was requested, but the patient keeps on refusing and upon arrival to the echo lab, the patient also refuses to have the echo done. Saravanan Chamberlain MD
--- NOTE | 2017-02-20 23:03 | CP.PCM.PN ---
Subjective - Date & Time of Evaluation Date of Evaluation: 02/20/17 Time of Evaluation: 12:30 - Subjective Subjective: Infectious Disease Follow Up: February 20, 2017 76 yo male with initial presentation of aggressive behavior from [facility] [place]. He apparently used his wheelchair to run over the feet of another resident and began cursing and insulting the other resident and the staff of the floor. Sent from [facility] for Sepsis evaluation and psych evaluation. Fevers up to 101.5 F initially during this hospitalization. No reported fevers at [facility] [place]. Patient appears calm here at [facility] [place]. Afebrile the last two days. Cultures negative to date. PPM placement yesterday. Objective - Vital Signs/Intake and Output Vital Signs (last 24 hours): Temp Pulse Resp BP Pulse Ox 99.3 F 79 21 126/67 95 02/20/17 12:00 02/20/17 12:00 02/20/17 12:00 02/20/17 12:00 02/20/17 05:50 - Labs Labs: 02/20/17 07:40 02/20/17 07:40 PT 12.6 SECONDS (9.4-12.5) H 02/15/17 18:43 INR 1.15 (0.93-1.08) H 02/15/17 18:43 APTT 37.1 Seconds (25.1-36.5) H 02/15/17 18:43 - Constitutional Appears: Non-toxic, No Acute Distress, Chronically Ill - Head Exam Head Exam: ATRAUMATIC, NORMOCEPHALIC - Eye Exam Eye Exam: EOMI, PERRL Pupil Exam: NORMAL ACCOMODATION, PERRL - ENT Exam ENT Exam: Mucous Membranes Moist, Normal External Ear Exam, TM's Normal Bilaterally - Neck Exam Neck Exam: Full ROM, Normal Inspection - Respiratory Exam Respiratory Exam: Clear to Ausculation Bilateral, NORMAL BREATHING PATTERN. absent: Rales, Rhonchi, Wheezes - Cardiovascular Exam Cardiovascular Exam: REGULAR RHYTHM, RRR, +S1, +S2 - GI/Abdominal Exam GI & Abdominal Exam: Soft, Normal Bowel Sounds. absent: Distended, Tenderness - Extremities Exam Extremities Exam: Full ROM, Normal Inspection - Neurological Exam Neurological Exam: Alert, Awake - Psychiatric Exam Psychiatric exam: Normal Affect, Normal Mood - Skin Skin Exam: Intact, Normal Color Assessment and Plan - Assessment and Plan (Free Text) Assessment: 76 yo male with low grade fevers up to 101.5 F on admission. Sent to [facility] [place] for aggressive behavior at [facility]. The patient has chronic interstitial disease on lung examination. Urinalysis not indicative of UTI. Given a dose of Zosyn in ER. Will continue on Rocephin IV for now. Delgado cultures sent. Supportive care for now. Multiple chronic medical issues that includes COPD, HTN, and substance abuse. Noted that the patient had a serum drug screen at nursing facility... this was negative. On Rocephin IV. Cultures negative at 48 hours. No leukocytosis or further fevers in the past 48 hours. Supportive care. As far as ID concerned, cleared for transfer to psychiatry. The patient had PPM placement yesterday by cardiology. For transfer back to [facility]. Thank you for allowing me to participate in the care of the patient, we will follow with you.
--- NOTE | 2017-02-21 01:52 | PN ---
DATE: 02/20/2017 REFERRING PHYSICIAN: Lora Morton MD SUBJECTIVE: He is sitting in the side of the bed having dinner, feels okay. No headache, no rhinitis, breathing is better. Mild discomfort at the AICD site. No nausea, vomiting, diarrhea, leg pain, leg swelling. OBJECTIVE: GENERAL: In no acute distress. VITAL SIGNS: Temperature 98, heart rate is 69, respiratory rate is 18, blood pressure 110/67, pulse ox 95%, 2 liters nasal cannula. HEENT: Moist mucous membranes. No ulcer or thrush noted. NECK: Supple. No JVD. LUNGS: Has fair airflow with rhonchi. HEART: S1, S2. ABDOMEN: Soft, nontender. No organomegaly. EXTREMITIES: There is no edema. NEUROLOGIC: Awake, alert, and follows simple commands. LABORATORY DATA: Shows hemoglobin 11.3, hematocrit 34.8, WBC 6.1, platelet count is 168. Sodium 140, potassium 4.1, chloride 104, bicarbonate 31, BUN 21, creatinine 0.9, glucose 95, calcium is 8.5, magnesium is 1.8, AST 74, ALT 50, alk phos is 81, albumin is 3.2. TSH 3.17. Microbiology: Blood culture and urine culture have been negative. IMPRESSION AND PLAN: Dementia with aggressive behavior, chronic obstructive lung disease, electrolyte imbalance, hypertension, history of substance abuse in the remote past, has a subcutaneous hematoma and also some stitches, cardiac arrhythmia requiring pacemaker. Pulmonary point of view, doing okay. Fall precaution. Gastric prophylaxis, sequential compression device to lower extremity. P.r.n. bronchodilator. Thank you and we will follow with you. Saravanan Johnson MD
== END 2017-02-20 18:37 | DRG 243 ==
LOC: ED 18:10 → ERH 20:31 → 3RSO 22:02
PROVIDERS: ADMIT Internal Medicine; ATTEND Internal Medicine
PROC: 02HK3JZ Insertion of Pacemaker Lead into Right Ventricle, Percutaneous Approach (ICD-10-PCS; principal; 2017-02-19)
PROC: 0JH605Z Insertion of Pacemaker, Single Chamber Rate Responsive into Chest Subcutaneous Tissue and Fascia, Open Approach (ICD-10-PCS; 2017-02-19)
PROC: 8E09XY8 Suture Removal from Head and Neck Region (ICD-10-PCS; 2017-02-19)
DX: I49.5 Sick sinus syndrome (principal); F03.91 Unspecified dementia, unspecified severity, with behavioral disturbance; I49.8 Other specified cardiac arrhythmias; E83.42 Hypomagnesemia; J43.9 Emphysema, unspecified; D50.9 Iron deficiency anemia, unspecified; F10.10 Alcohol abuse, uncomplicated; I45.5 Other specified heart block; F11.10 Opioid abuse, uncomplicated; B18.2 Chronic viral hepatitis C; M54.16 Radiculopathy, lumbar region; I10 Essential (primary) hypertension; R73.9 Hyperglycemia, unspecified; M19.90 Unspecified osteoarthritis, unspecified site; K21.9 Gastro-esophageal reflux disease without esophagitis; F41.9 Anxiety disorder, unspecified; F32.9 Major depressive disorder, single episode, unspecified; E03.9 Hypothyroidism, unspecified; R26.81 Unsteadiness on feet; F17.200 Nicotine dependence, unspecified, uncomplicated; L72.3 Sebaceous cyst; Y90.0 Blood alcohol level of less than 20 mg/100 ml

== ENCOUNTER 2017-03-05 17:07 | Observation (INO) | payer MEDICARE, OTHER ==
[2017-03-05 17:07] VITALS: BMI 21.5
--- NOTE | 2017-03-05 17:53 | ED PDOC ---
Arrival/HPI - General Chief Complaint: Trauma Time Seen by Provider: 03/05/17 17:52 Historian: Patient - History of Present Illness Narrative History of Present Illness (Text): 03/05/17 17:53 This 76 yo male with pmh dementia, interstitial lung disease, is brought to this ED by BLS for evaluation of head injury early today. Information taken form [facility] chart. Patient denies lópez, neck pain, arm pain, leg pain, hip pain or shoulder pain. Patient recall falling from his bed. Patient is alert, and oriented to place and year. Time/Duration: Other (see hpi) Context: Other ([facility]) Past Medical History - Provider Review Nursing Documentation Reviewed: Yes - Past History Past History: No Previous - Infectious Disease Hx of Infectious Diseases: None - Tetanus Immunization Tetanus Immunization: Up to Date - Cardiac Hx Cardiac Disorders: Yes Hx Hypertension: Yes Hx Pacemaker: Yes - Pulmonary Hx Respiratory Disorders: Yes Hx Chronic Obstructive Pulmonary Disease (COPD): Yes Hx Emphysema: Yes - Neurological Hx Neurological Disorder: Yes Hx Dementia: Yes - HEENT Hx HEENT Disorder: No - Renal Hx Renal Disorder: No - Endocrine/Metabolic Hx Endocrine Disorders: Yes Hx Hypothyroidism: Yes - Hematological/Oncological Hx Blood Disorders: Yes Hx Hepatitis C: Yes - Integumentary Hx Dermatological Disorder: No - Musculoskeletal/Rheumatological Hx Musculoskeletal Disorders: Yes (FX L PATELLA) Hx Back Pain: Yes (lower) Hx Rheumatoid Arthritis: Yes Hx Unsteady Gait: Yes Other/Comment: Comminuted Fx of Patella - Gastrointestinal Hx Gastrointestinal Disorders: Yes Hx Gastroesophageal Reflux: Yes (GERD) - Genitourinary/Gynecological Hx Genitourinary Disorders: No - Psychiatric Hx Psychophysiologic Disorder: Yes Hx Anxiety: Yes Hx Depression: Yes Hx Substance Use: Yes (ALCOHOL) - Past Surgical History Past Surgical History: No Previous - Surgical History Hx Abdominal Aortic Aneurysm Repair: No Hx Amputation: No Hx Angiogram: No Hx Angioplasty: No Hx Appendectomy: No Hx Arteriovenous Shunt: No Hx Bile Duct Stent: No Hx Breast Biopsy: No Hx Cataract Extraction: No Hx Cardiac Catheterization: No Hx Carotid Endarterectomy: No Hx Section: No Hx Cholecystectomy: No Hx Coronary Artery Bypass Graft: No Hx Orthopedic Surgery: Yes (lt leg fx) - Anesthesia Hx Anesthesia Reactions: No Hx Malignant Hyperthermia: No - Suicidal Assessment Feels Threatened In Home Enviroment: No Family/Social History - Physician Review Nursing Documentation Reviewed: Yes Family/Social History: Other (noncontributory) Smoking Status: Current Some Days Smoker Hx Alcohol Use: Yes (HX OF ETOH ABUSE) Hx Substance Use: Yes (ALCOHOL) Substance used: opoids Hx Substance Use Treatment: Yes Allergies/Home Meds Allergies/Adverse Reactions: Allergies No Known Allergies Allergy (Verified 03/05/17 17:14) Home Medications: Home Meds Medication Instructions Recorded Confirmed Donepezil [Aricept] 20 mg PO HS 03/05/17 03/05/17 Levothyroxine [Synthroid] 50 mcg PO 0630 03/05/17 03/05/17 Pantoprazole [Protonix EC Tab] 40 mg PO DAILY 03/05/17 03/05/17 risperiDONE [RisperDAL Tab] 1 mg PO TID 03/05/17 03/05/17 risperiDONE [RisperDAL Tab] 1 mg PO TID 03/05/17 03/05/17 Review of Systems - Review of Systems Systems not reviewed;Unavailable: Dementia (taken from chart) Physical Exam Vital Signs Temp Pulse Resp BP Pulse Ox 03/05/17 22:30 86 18 122/82 100 03/05/17 17:24 16 95 03/05/17 17:12 97.6 F 80 16 109/74 88 L Temperature: Afebrile Blood Pressure: Normal Pulse: Regular Respiratory Rate: Normal Appearance: Positive for: Well-Appearing, Non-Toxic, Comfortable Pain Distress: None - Systems Exam Head: Present: Atraumatic, Normocephalic, Ecchymosis (right forehead), Other ( No raccoon sign. No ortiz sign). No: Abrasion Pupils: Present: PERRL, Other (no hyphema) Extroacular Muscles: Present: EOMI Conjunctiva: Present: Normal. No: Injected Ears: Present: Normal, NORMAL TM, Other (no hemotympanum) Mouth: Present: Moist Mucous Membranes Pharnyx: Present: Normal. No: ERYTHEMA, EXUDATE, TONSILS ENLARGED Nose (External): Present: Atraumatic Nose (Internal): Present: Normal Inspection Neck: Present: Normal Range of Motion, Trachea Midline. No: Meningeal Signs, MIDLINE TENDERNESS, Paraspinal Tenderness Respiratory/Chest: Present: Good Air Exchange, Rhonchi (mild generalized). No: Respiratory Distress, Accessory Muscle Use, Wheezes, Rales, Retracting, Tachypneic Cardiovascular: Present: Regular Rate and Rhythm, Normal S1, S2. No: Murmurs Abdomen: Present: Normal Bowel Sounds. No: Tenderness, Distention, Peritoneal Signs Back: Present: Normal Inspection. No: CVA Tenderness Upper Extremity: Present: Normal Inspection, Normal ROM, NORMAL PULSES, Neurovascularly Intact, Capillary Refill < 2s. No: Cyanosis, Edema Lower Extremity: Present: Normal Inspection, NORMAL PULSES, Normal ROM, Neurovascularly Intact, Capillary Refill < 2 s. No: Edema, CALF TENDERNESS Neurological: Present: GCS=15, CN II-XII Intact, Speech Normal, Motor Func Grossly Intact, Normal Sensory Function, Normal Cerebellar Funct Skin: Present: Warm, Dry, Normal Color. No: Rashes Psychiatric: Present: Alert, Normal Insight, Normal Concentration Medical Decision Making ED Course and Treatment: 03/05/17 21:13 Case was signed out to Dr. Candelaria, pending to speak with Dr. Praveen RIVERA to have patient admitted. - Lab Interpretations Lab Results: 03/05/17 18:00 03/05/17 18:00 Lab Results 03/05/17 21:10: Urine Color Yellow, Urine Appearance Clear, Urine pH 6.0, Ur Specific [place] >= 1.030, Urine Protein 30 H, Urine Glucose (UA) Negative, Urine Ketones Negative, Urine Blood Moderate H, Urine Nitrate Negative, Urine Bilirubin Negative, Urine Urobilinogen 0.2, Ur Leukocyte Esterase Negative, Urine RBC 10 - 15, Urine WBC 1 - 3, Ur Epithelial Cells 0 - 2, Calcium Oxalate Crystal Few, Urine Bacteria Neg 03/05/17 20:23: Total Creatine Kinase 37 03/05/17 18:00: Sodium 141, Potassium 4.1, Chloride 104, Carbon Dioxide 28, Anion Gap 14, BUN 26 H, Creatinine 0.9, Est GFR ( Amer) > 60, Est GFR ( Non-Af Amer) > 60, Random Glucose 134 H, Calcium 8.5, Total Bilirubin 0.3, AST 57, ALT 49, Alkaline Phosphatase 93, Total Protein 7.9, Albumin 3.6, Globulin 4.3, Albumin/Globulin Ratio 0.8 L 03/05/17 18:00: WBC 9.4 D, RBC 3.76, Hgb 12.0 L, Hct 36.8 L, MCV 97.9, MCH 31.9 , MCHC 32.6, RDW 14.1, Plt Count 128, MPV 10.6, Gran % 86.3 H, Lymph % (Auto) 7.0 L, [place] % (Auto) 6.5 H, Eos % (Auto) 0.1 L, Baso % (Auto) 0.1, Gran # 8.10 H , Lymph # 0.7 L, [place] # 0.6, Eos # 0.0, Baso # 0.01 I have reviewed the lab results: Yes Interpretation: Abnormal lab values - RAD Interpretation Narrative RAD Interpretations (Text): 03/05/17 19:54 IMPRESSION: 1. There is stable soft tissue/hematoma of the right frontal scalp. Clinical correlation is recommended. 2. No acute intracranial hemorrhage or acute territorial type infarct. 3. There are periventricular foci of hypodensity, likely representing small vessel ischemic disease in a patient this age. 4. Stable atrophy. 5. Mild effusions are seen within the bilateral mastoid air cells. Dictated By: Chan Morrissey MD, MD Radiology Orders: 03/05/17 17:53 HEAD W/O CONTRAST [CT] Stat CHEST PORTABLE [RAD] Stat - Medication Orders Current Medication Orders: Discontinued Medications Acetaminophen (Tylenol 325mg Tab) 650 mg PO Q6H PRN PRN Reason: Fever >100.4 F Albuterol/Ipratropium (Duoneb 3 Mg/0.5 Mg (3 Ml) Ud) 3 ml IH [id number] [facility] Last Admin: 03/07/17 13:37 Dose: 3 ml Alprazolam (Xanax) 0.25 mg PO BID [facility] PRN Reason: Protocol Stop: 03/13/17 10:01 Last Admin: 03/07/17 12:51 Dose: 0.25 mg Behavioural Document 03/07/17 12:51 Y (Rec: 03/07/17 12:51 [id number] Maintenance Maintenance Dose Yes Re-Assess: Reassess Psych Meds Document 03/07/17 13:51 Y (Rec: 03/07/17 20:39 [id number] Reassess Psych Med Effective Amoxicillin/Clavulanate Potassium (Augmentin 500 Mg-125 Mg Tab) 1 tab PO Q8 [facility] PRN Reason: Protocol Last Admin: 03/07/17 20:40 Dose: Citalopram Hydrobromide (Celexa) 20 mg PO DAILY [facility] Last Admin: 03/07/17 12:52 Dose: 20 mg Donepezil HCl (Aricept) 20 mg PO HS [facility] Last Admin: 03/06/17 21:59 Dose: 20 mg Sodium Chloride (Sodium Chloride 0.9%) 1,000 mls @ 83 mls/hr IV .Q12H3M [facility] Last Admin: 03/07/17 00:54 Dose: 83 mls/hr eMAR Start Stop Document 03/07/17 00:54 MAD (Rec: 03/07/17 00:54 MAD [id number]) Intravenous Solution Start Date 03/07/17 Start Time 00:54 Levothyroxine Sodium (Synthroid) 50 mcg PO 0630 [facility] Last Admin: 03/07/17 06:22 Dose: 50 mcg Lorazepam (Ativan) 0.5 mg IVP ONCE ONE PRN Reason: Protocol Stop: 03/06/17 04:00 Last Admin: 03/06/17 04:05 Dose: 0.5 mg IVP Administration Document 03/06/17 04:05 [facility] (Rec: 03/06/17 04:16 [id number]) Charges for Administration # of IVP Administrations 1 Behavioural Document 03/06/17 04:05 [facility] (Rec: 03/06/17 04:16 [id number]) Nonmedicinal Nonmedicinal Interventions Redirect Behavior Behavior for Medication: Continuous crying/screaming/ yelling Dangers to self/others Re-Assess: Reassess Psych Meds Document 03/06/17 04:35 [facility] (Rec: 03/06/17 05:22 [id number]) Reassess Psych Med Effective Lorazepam (Ativan) 0.5 mg IVP Q6H PRN; Protocol PRN Reason: Anxiety Last Admin: 03/07/17 03:22 Dose: 0.5 mg IVP Administration Document 03/07/17 03:22 [facility] (Rec: 03/07/17 03:22 MAD [id number]) Charges for Administration # of IVP Administrations 1 Behavioural Document 03/07/17 03:22 [facility] (Rec: 03/07/17 03:22 [facility] [id number]) Maintenance Maintenance Dose No Nonmedicinal Nonmedicinal Interventions Therapeutic Communication Behavior Behavior for Medication: Biting/Hitting/Throwing/ Kicking Re-Assess: Reassess Psych Meds Document 03/07/17 03:52 [facility] (Rec: 03/07/17 06:22 [facility] [id number]) Reassess Psych Med Effective Magnesium Hydroxide (Milk Of Magnesia) 30 ml PO DAILY PRN PRN Reason: Constipation Pantoprazole Sodium (Protonix Ec Tab) 40 mg PO 0600 [facility] Last Admin: 03/07/17 06:23 Dose: 40 mg Risperidone (Risperdal Tab) 1 mg PO TID [facility] PRN Reason: Protocol Last Admin: 03/07/17 20:39 Dose: Disposition/Present on Arrival - Present on Arrival Any Indicators Present on Arrival: No History of DVT/PE: No History of Uncontrolled Diabetes: No Urinary Catheter: No History of Decub. Ulcer: No History Surgical Site Infection Following: None - Disposition Have Diagnosis and Disposition been Completed?: Yes Diagnosis: Altered mental state, Closed head injury Disposition: HOSPITALIZED Disposition Time: 21:45 Patient Plan: Admission Condition: GOOD
[2017-03-05 18:33] LABS: BASO # 0.01 K/mm3 (0.0-2.0); BASO % 0.1 % (0.0-3.0); EOS % 0.1 % (1.5-5.0); GRAN # 8.1 (1.4-6.5); GRAN % 86.3 % (50.0-68.0); LYMPH # 0.7 (1.2-3.4); MEAN CELL VOLUME 97.9 fl (80.0-105.0); MEAN CORPUSCULAR HEMOGLOBIN 31.9 pg (25.0-35.0); MEAN CORPUSCULAR HGB CONC 32.6 g/dl (31.0-37.0); MEAN PLATELET VOLUME 10.6 fl (7.0-11.0); MONO # 0.6 (0.1-0.6); MONO % 6.5 % (1.0-6.0); RBC 3.76 10^6/uL (3.5-6.1); RED CELL DISTRIBUTION WIDTH 14.1 % (11.5-14.5); WHITE BLOOD COUNT 9.4 10^3/ul (4.5-11.0)
--- NOTE | 2017-03-05 19:11 | CT ---
EXAM: CT Head Without Intravenous Contrast EXAM DATE/TIME: 03/05/2017 5:53 PM CLINICAL HISTORY: The patient age is 76 years old and is male; Injury or trauma; Fall; Initial encounter; Blunt trauma (contusions or hematomas); Consciousness not specified Facility exam id and description: Ct heads head w/o contrast TECHNIQUE: Axial computed tomography images of the head/brain without intravenous contrast. All CT scans at this facility use one or more dose reduction techniques, viz.: automated exposure control; ma/kV adjustment per patient size (including targeted exams where dose is matched to indication; i.e. head); or iterative reconstruction technique. COMPARISON: CT - HEAD W/O CONTRAST 2017-02-15 19:42 FINDINGS: Brain: There are periventricular foci of hypodensity, likely representing small vessel ischemic disease in a patient this age. The acuity of the white matter disease is indeterminate. The white-gunn differentiation is preserved demonstrating no acute territorial type infarct. There is prominence of the ventricles and sulci, compatible with atrophy. No acute intracranial hemorrhage is seen. Midline shift: There is no midline shift. Ventricles: See above. Bones/joints: The calvarium demonstrates no evidence for a depressed fracture. Soft tissues: There is stable soft tissue/hematoma of the right frontal scalp. Vasculature: There is atherosclerotic calcification of the cavernous internal carotid arteries and distal left vertebral artery. Sinuses: Unremarkable as visualized. No acute sinusitis. Mastoid air cells: Mild effusions are seen within the bilateral mastoid air cells. Orbits: There is a probable left intraorbital lens implant. IMPRESSION: 1. There is stable soft tissue/hematoma of the right frontal scalp. Clinical correlation is recommended. 2. No acute intracranial hemorrhage or acute territorial type infarct. 3. There are periventricular foci of hypodensity, likely representing small vessel ischemic disease in a patient this age. 4. Stable atrophy. 5. Mild effusions are seen within the bilateral mastoid air cells.
[2017-03-05 19:15] LABS: ALB/GLOB RATIO 0.8 (1.1-1.8); ALBUMIN 3.6 g/dL (3.0-4.8); ALT/SGPT 49 U/L (7-56); AST/SGOT 57 U/L (17-59); BLOOD UREA NITROGEN 26 mg/dL (7-21); CALCIUM 8.5 mg/dL (8.4-10.5); GFR AFRICAN-AMERICAN > 60; GFR NON-AFRICAN AMERICAN > 60
[2017-03-05 21:47] LABS: URINE BILIRUBIN NEGATIVE (NEGATIVE); URINE BLOOD MODERATE (NEGATIVE); URINE GLUCOSE (UA) NEGATIVE (NEGATIVE); URINE LEUKOCYTE ESTERASE NEGATIVE Leu/uL (NEGATIVE); URINE NITRATE NEGATIVE (NEGATIVE); URINE PROTEIN 30 mg/dL (<30 mg/dL); URINE UROBILINOGEN 0.2 E.U./dL (<1 E.U./dL)
[2017-03-05 21:53] LABS: URINE APPEARANCE CLEAR (CLEAR); URINE COLOR YELLOW (YELLOW)
[2017-03-05 21:55] LABS: URINE EPITHELIAL CELLS 0 - 2 /hpf (0-5)
[2017-03-05 21:56] LABS: URINE BACTERIA NEG (NEG); URINE CALCIUM OXALATE CRYSTALS FEW /hpf
[2017-03-05] MEDS ORDERED: Magnesium Hydroxide Susp 30 ml UD PO PRN (22:14)
[2017-03-05] MEDS: Sodium Chloride 0.9% 1,000 ML IV SCH (22:44)
[2017-03-06] MEDS: Pantoprazole 40 mg EC Tab PO SCH (06:00)
--- NOTE | 2017-03-06 08:39 | RAD ---
HISTORY: cough COMPARISON: No prior. FINDINGS: LUNGS: There is pulmonary hyperinflation and peribronchial thickening with increased interstitial markings. There is ill-defined airspace disease in the left mid lung. There is biapical pleural thickening. PLEURA: No significant pleural effusion identified, no pneumothorax apparent. CARDIOVASCULAR: Normal. There is stable position of left-sided unipolar permanent pacing device OSSEOUS STRUCTURES: Within normal limits for the patient's age. VISUALIZED UPPER ABDOMEN: Normal. OTHER FINDINGS: None. IMPRESSION: Question of developing left mid lung pneumonia. COPD versus interstitial lung disease.
[2017-03-06] MEDS: Levothyroxine 50 MCG TAB PO SCH (09:07)
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
[2017-03-07] MEDS: Sodium Chloride 0.9% 1,000 ML IV SCH (00:54)
[2017-03-07] MEDS: Albuterol-Ipratrop 3 mg / 0.5 (3 ml) UD IH SCH ×3 (03:12→13:37)
--- NOTE | 2017-03-07 03:49 | CON ---
DATE: HISTORY OF PRESENT ILLNESS: The patient is a 76-year-old with history of dementia, history of antisocial personality disorder and most likely the patient also has history of bipolar disorder. The patient was admitted on the medical floor today for head injury. Psychiatric consult was called for evaluation of psychotropic medications. This job specification writer is very familiar with this patient from the multiple admissions to the medical side of sales and leasing consultant as well as on the Psychiatry Inpatient Unit. The patient was seen today with advanced nurse practitioner, Kitty. Please see her notes for more detailed information. MEDICATIONS: [facility]ication list from the [facility] reviewed. The patient was on Xanax 0.25 mg twice a day for anxiety, citalopram 20 mg daily for mood disorder as well as aggressiveness, and donepezil. The patient also is on levothyroxine, pantoprazole, Risperdal 1 mg at nighttime and 3 times a day for aggressive behavior. Also the patient was on acetaminophen as needed. PHYSICAL EXAMINATION: GENERAL: This job specification writer attempted to speak to the patient, but the patient is deeply sleeping, was able to open his eyes. The patient does not remember this job specification writer, but as per report from the nurse practitioner, the patient was able to give few answers earlier today. MENTAL STATUS EXAMINATION: As described above. LABORATORY DATA: Labs reviewed. Reports reviewed. Head CT scan was done yesterday, soft-tissue hematoma on the right frontal scalp, no intracranial hemorrhage, stable atrophy, and mild diffusion in bilateral mastoid air cells. IMPRESSION: Dementia with behavioral disturbances, history of bipolar disorder, and history of antisocial personality. PLAN: Old medications reviewed and p.r.n. medications in the computer. The patient is on one-to-one right now for safety. We will follow up and write accordingly. Agree with the nurse practitioner assessment and plan. Thank you very much for letting us to participate in the care of your patient. Alta Cedeno MD
[2017-03-07 04:06] LABS: BARBITURATES, UR NEGATIVE (NEGATIVE); BENZODIAZEPINES, UR NEGATIVE (NEGATIVE); PHENCYCLIDINE, UR NEGATIVE (NEGATIVE)
[2017-03-07 04:09] LABS: OPIATES, UR POSITIVE (NEGATIVE)
--- NOTE | 2017-03-07 04:50 | CON ---
DATE: 03/06/2017 REFERRING PHYSICIAN: Dr. Morton. REASON FOR CONSULT: Cough, shortness of breath. HISTORY OF PRESENT ILLNESS: This is a 76-year-old gentleman who has known history of dementia, chronic interstitial lung disease, recurrent bronchitis, symptoms of aggressive behavior, hypertension, cardiac arrhythmia requiring pacemaker, history of hepatitis C, history of multiple falls in the past, rheumatoid arthritis, history of GERD, anxiety, depression, history of alcohol use, brought in because of the fall; has been having some cough, shortness of breath, hit his head, now admitted for further workup. He is lying in the bed, sleepy, does not want to be bothered but able to sit up requesting food and able to start eating himself. He does have a cough, unable to clear pulmonary secretion. No nausea, no vomiting, no diarrhea reported. PAST MEDICAL HISTORY: As per history of present illness. FAMILY HISTORY: No significant cardiopulmonary disease reported. SOCIAL HISTORY: He does have a history of smoking and history of alcohol use. ALLERGIES: NONE KNOWN. MEDICATIONS: He is on Aricept 20 mg nightly, Ativan 0.5 mg q. 6 hours p.r.n., for anxiety, Celexa 20 mg daily, Protonix 40 mg daily, Risperdal 1 mg 3 times a day, IV fluids normal saline 83 mL per hour, Synthroid 50 mcg daily, Tylenol p.r.n., Xanax 0.25 mg twice a day. REVIEW OF SYSTEMS: No headaches, no rhinitis. Has some scratch dodge on the forehead. No hemoptysis. He does have a cough. No nausea, no vomiting, no diarrhea. No leg pain or leg swelling. PHYSICAL EXAMINATION: GENERAL: No acute distress. VITAL SIGNS: Temperature is 98, heart rate is 74, respiratory rate is 20, blood pressure 181/70, pulse oximetry is 93% on 2 liters nasal cannula. HEENT: Moist mucous membranes. No ulcer or thrush noted. NECK: Supple. No JVD. LUNGS: Few scattered rhonchi. HEART: S1, S2. ABDOMEN: Soft, nontender. No organomegaly. EXTREMITIES: There is no edema. NEUROLOGIC: Awake, alert, and follows simple commands. LABORATORY DATA: Shows hemoglobin 12.0, hematocrit 36.8, WBC 9.4, platelets 128. Sodium 141, potassium 4.1, chloride 104, bicarbonate 28, BUN is 26, creatinine 0.9, glucose 134, calcium 8.5, total bilirubin 0.3. AST 57, ALT 49, alk phos is 93. Albumin is 3.6. Urinalysis shows wbc 1 to 3, rbc 10 to [address] Had a [address] scan of the head done in ER which shows there is a stable left tissue/hematoma on the right frontal scalp. No acute intracranial hemorrhage, acute territorial type infarct, stable atrophy, mild effusion as seen within the bilateral mastoid air cells. IMPRESSION AND PLAN: Dementia with aggressive behavior, chronic obstructive lung disease, hypertension, substance abuse in the past, has a subcutaneous hematoma of the forehead, cardiac arrhythmia requiring pacemaker, anxiety, depression, acute bronchitis. We will continue inhaled bronchodilator p.r.n., chemical restraint, fall precaution. idea to get Psychiatry consult to readjust anxiety and dementia medication. Saravanan Johnson MD
[2017-03-07] MEDS: Levothyroxine 50 MCG TAB PO SCH (06:22)
[2017-03-07] MEDS: Amoxicillin-Clav 500-125 mg Tab PO SCH ×2 (06:22→20:40)
[2017-03-07] MEDS: Pantoprazole 40 mg EC Tab PO SCH (06:23)
[2017-03-07 08:40] VITALS: BP 120/87; PULSE 88; RESP 24; TEMP 99; O2SAT 98
--- NOTE | 2017-03-07 08:57 | HP ---
CHIEF COMPLAINT: Fall and altered mental status. HISTORY OF PRESENT ILLNESS: Mr. Michael Jackson is a 76-year-old male his past medical history of dementia, with interstitial lung disease, resident of [facility]. According to the nursing staff, he was found on the floor, did not know what happened, but the patient was like with altered mental status. BLS brought the patient to [facility] Emergency Room for evaluation of head injury. The patient is not a good historian. When we saw the patient in the hospital, he was awake and alert, but getting episodes of confusion. Denies neck pain, chest pain, and bilateral shoulder pain. The patient reports falling from the bed, but do not remember more than that. PAST MEDICAL HISTORY: Dementia, interstitial lung disease, hypertension, history of pacemaker, depression, COPD, emphysema, hypothyroidism, hepatitic C, history of back pain, ataxia, GERD, dyspepsia, anxiety, and history of substance abuse. FAMILY HISTORY: Father and mother, noncontributory. HABITS: Smoking, currently, active smoker in [facility]. Alcohol, history of ethanol abuse. Substance use history of opioid abuse. ALLERGIES: THE PATIENT IS NOT ALLERGIC TO ANY MEDICATIONS. HOME MEDICATIONS: Aricept, Synthroid, Protonix, and Risperdal. REVIEW OF SYSTEMS: The patient is seen and examined on the bedside, relaxed, looking comfortable. No fever, no chills. No nausea, vomiting or diarrhea. No hematuria or hematochezia. No swelling of the legs. No chest pain, no palpitation. No headache, no dizziness. PHYSICAL EXAMINATION: VITAL SIGNS: Temperature 97.6, pulse 80, respiratory rate 16, blood pressure 109/74, and pulse oximetry 88%. HEENT: Head: Normocephalic and atraumatic. Eyes: PERRLA. Extraocular muscles intact. Conjunctivae clear. Nose: Patent. Mucous membranes moist. NECK: Supple. No carotid bruits. No JVD or thyromegaly. CHEST: Bilaterally symmetrical. HEART: S1 and S2 positive. LUNGS: Clear to auscultation. ABDOMEN: Soft. Bowel sounds positive. No organomegaly. EXTREMITIES: No edema. No cyanosis. NEUROLOGIC: The patient is awake and alert. Moving all four extremities. No focal deficits. having episodes of confusion. LABORATORY DATA: White blood cells 9.4, hemoglobin 12.0, hematocrit 36.3, and platelets 128. Sodium 141, potassium 4.1, BUN 26, creatinine 0.9, and glucose 134. ASSESSMENT AND PLAN: Ms. Michael Jackson is a 76-year-old male with anemia, dehydration, and hyperglycemia who came in with fall and altered mental status. CAT scan of the head is done, which shows there is a stable soft tissue/hematoma of the right frontal scalp, no acute intracranial hemorrhage or acute territorial-type infraction. There is periventricular foci of hypodensity likely representing a small vessel ischemic disease in the patient of this age, stable atrophy, mild effusion are seen within the bilateral mastoid air cells, rule out sinusitis. The patient was admitted last admission in the Psych, dementia with disturbance in the mood and conduct and interstitial lung disease. The patient was given Xanax, citalopram, Donepezil, and Synthroid. The patient has history of hypothyroidism, getting Synthroid and started the patient on Risperdal. Appreciated Dr. Alta Cedeno's input. Gastrointestinal and deep vein thrombosis prophylaxis. Repeat labs. We will follow up. Lora Morton MD [id number]
--- NOTE | 2017-03-07 12:52 | CP.PCM.DIS ---
<Irene Keys - Last Filed: 03/07/17 23:02> Provider - Provider Date of Admission: 03/05/17 21:29 Attending physician: Lora Morton MD Consults: Psych = Dr. Cedeno Implementation Analyst = Dr. Johnson Time Spent in preparation of Discharge (in minutes): 35 Hospital Course - Lab Results Lab Results: Most Recent Lab Values WBC 9.4 10^3/ul (4.5-11.0) D 03/05/17 18:00 RBC 3.76 10^6/uL (3.5-6.1) 03/05/17 18:00 Hgb 12.0 g/dL (14.0-18.0) L 03/05/17 18:00 Hct 36.8 % (42.0-52.0) L 03/05/17 18:00 MCV 97.9 fl (80.0-105.0) 03/05/17 18:00 MCH 31.9 pg (25.0-35.0) 03/05/17 18:00 MCHC 32.6 g/dl (31.0-37.0) 03/05/17 18:00 RDW 14.1 % (11.5-14.5) 03/05/17 18:00 Plt Count 128 10^3/uL (120.0-450.0) 03/05/17 18:00 MPV 10.6 fl (7.0-11.0) 03/05/17 18:00 Gran % 86.3 % (50.0-68.0) H 03/05/17 18:00 Lymph % (Auto) 7.0 % (22.0-35.0) L 03/05/17 18:00 [place] % (Auto) 6.5 % (1.0-6.0) H 03/05/17 18:00 Eos % (Auto) 0.1 % (1.5-5.0) L 03/05/17 18:00 Baso % (Auto) 0.1 % (0.0-3.0) 03/05/17 18:00 Gran # 8.10 (1.4-6.5) H 03/05/17 18:00 Lymph # 0.7 (1.2-3.4) L 03/05/17 18:00 [place] # 0.6 (0.1-0.6) 03/05/17 18:00 Eos # 0.0 (0.0-0.7) 03/05/17 18:00 Baso # 0.01 K/mm3 (0.0-2.0) 03/05/17 18:00 Sodium 141 mmol/L (132-148) 03/05/17 18:00 Potassium 4.1 mmol/L (3.6-5.0) 03/05/17 18:00 Chloride 104 mmol/L (98-107) 03/05/17 18:00 Carbon Dioxide 28 mmol/L (21-33) 03/05/17 18:00 Anion Gap 14 (10-20) 03/05/17 18:00 BUN 26 mg/dL (7-21) H 03/05/17 18:00 Creatinine 0.9 mg/dl (0.8-1.5) 03/05/17 18:00 Est GFR ( Amer) > 60 03/05/17 18:00 Est GFR (Non-Af Amer) > 60 03/05/17 18:00 Random Glucose 134 mg/dL (70-110) H 03/05/17 18:00 Calcium 8.5 mg/dL (8.4-10.5) 03/05/17 18:00 Total Bilirubin 0.3 mg/dL (0.2-1.3) 03/05/17 18:00 AST 57 U/L (17-59) 03/05/17 18:00 ALT 49 U/L (7-56) 03/05/17 18:00 Alkaline Phosphatase 93 U/L (38-126) 03/05/17 18:00 Total Creatine Kinase 37 U/L (35-230) 03/05/17 20:23 Total Protein 7.9 g/dL (5.8-8.3) 03/05/17 18:00 Albumin 3.6 g/dL (3.0-4.8) 03/05/17 18:00 Globulin 4.3 gm/dL 03/05/17 18:00 Albumin/Globulin Ratio 0.8 (1.1-1.8) L 03/05/17 18:00 Urine Color Yellow (YELLOW) 03/05/17 21:10 Urine Appearance Clear (CLEAR) 03/05/17 21:10 Urine pH 6.0 (4.7-8.0) 03/05/17 21:10 Ur Specific Lowgap >= 1.030 (1.005-1.035) 03/05/17 21:10 Urine Protein 30 mg/dL (<30 mg/dL) H 03/05/17 21:10 Urine Glucose (UA) Negative mg/dL (NEGATIVE) 03/05/17 21:10 Urine Ketones Negative mg/dL (NEGATIVE) 03/05/17 21:10 Urine Blood Moderate (NEGATIVE) H 03/05/17 21:10 Urine Nitrate Negative (NEGATIVE) 03/05/17 21:10 Urine Bilirubin Negative (NEGATIVE) 03/05/17 21:10 Urine Urobilinogen 0.2 E.U./dL (<1 E.U./dL) 03/05/17 21:10 Ur Leukocyte Esterase Negative Tomas/uL (NEGATIVE) 03/05/17 21:10 Urine RBC 10 - 15 /hpf (0-2) 03/05/17 21:10 Urine WBC 1 - 3 /hpf (0-6) 03/05/17 21:10 Ur Epithelial Cells 0 - 2 /hpf (0-5) 03/05/17 21:10 Calcium Oxalate Crystal Few /hpf 03/05/17 21:10 Urine Bacteria Neg (NEG) 03/05/17 21:10 Urine Opiates Screen Positive (NEGATIVE) H 03/07/17 02:20 Urine Methadone Screen Negative (NEGATIVE) 03/07/17 02:20 Ur Barbiturates Screen Negative (NEGATIVE) 03/07/17 02:20 Ur Phencyclidine Scrn Negative (NEGATIVE) 03/07/17 02:20 Ur Amphetamines Screen Negative (NEGATIVE) 03/07/17 02:20 U Benzodiazepines Scrn Negative (NEGATIVE) 03/07/17 02:20 U Oth Cocaine Metabols Negative (NEGATIVE) 03/07/17 02:20 U Cannabinoids Screen Negative (NEGATIVE) 03/07/17 02:20 - Hospital Course Hospital Course: 76yr male resident of [facility] w/ history of dementia, intersitial lung disease, HTN, AICD, depression, COPD, emphysema, hypothyroidism, Hepatitis C, back pain, ataxia, GERD, dyspepsia, anxiety, & substance abuse. Pt brought to [facility] s/p being found after a fall on the floor w. altered mental status. Psych impression Dementia w. disturbance in mood and conduct and interstitial lung disease. Pulmonary medically treated with bronchodilator. Patient is stable. - Date & Time of H&P Date of H&P: 03/07/17 Time of H&P: 11:10 Discharge Exam - Head Exam Additional comments: R frontal area hematoma w/ healing abrasions - Eye Exam Eye Exam: Normal appearance Pupil Exam: NORMAL ACCOMODATION - ENT Exam ENT Exam: Mucous Membranes Dry - Neck Exam Neck exam: Normal Inspection - Respiratory Exam Respiratory Exam: Decreased Breath Sounds, NORMAL BREATHING PATTERN - Cardiovascular Exam Cardiovascular Exam: +S1, +S2 - GI/Abdominal Exam GI & Abdominal Exam: Normal Bowel Sounds - Extremities Exam Extremities exam: normal inspection - Neurological Exam Neurological exam: Alert - Psychiatric Exam Psychiatric exam: Agitated, Normal Affect, Normal Mood - Skin Skin Exam: Abrasion, Dry, Normal Color, Warm Discharge Plan - Follow Up Plan Condition: GOOD Disposition: NURSING FACILITY MEDICAID CERT Instructions: Dementia (GEN), Fall Prevention for Older Adults (GEN), Hypertension (GEN), Altered Mental Status (GEN) Additional Instructions: Patient discharged to [facility] <Lora Morton - Last Filed: 03/08/17 09:10> Provider - Provider Date of Admission: 03/05/17 21:29 Attending physician: Lora Morton MD Hospital Course - Lab Results Lab Results: Most Recent Lab Values WBC 9.4 10^3/ul (4.5-11.0) D 03/05/17 18:00 RBC 3.76 10^6/uL (3.5-6.1) 03/05/17 18:00 Hgb 12.0 g/dL (14.0-18.0) L 03/05/17 18:00 Hct 36.8 % (42.0-52.0) L 03/05/17 18:00 MCV 97.9 fl (80.0-105.0) 03/05/17 18:00 MCH 31.9 pg (25.0-35.0) 03/05/17 18:00 MCHC 32.6 g/dl (31.0-37.0) 03/05/17 18:00 RDW 14.1 % (11.5-14.5) 03/05/17 18:00 Plt Count 128 10^3/uL (120.0-450.0) 03/05/17 18:00 MPV 10.6 fl (7.0-11.0) 03/05/17 18:00 Gran % 86.3 % (50.0-68.0) H 03/05/17 18:00 Lymph % (Auto) 7.0 % (22.0-35.0) L 03/05/17 18:00 [place] % (Auto) 6.5 % (1.0-6.0) H 03/05/17 18:00 Eos % (Auto) 0.1 % (1.5-5.0) L 03/05/17 18:00 Baso % (Auto) 0.1 % (0.0-3.0) 03/05/17 18:00 Gran # 8.10 (1.4-6.5) H 03/05/17 18:00 Lymph # 0.7 (1.2-3.4) L 03/05/17 18:00 [place] # 0.6 (0.1-0.6) 03/05/17 18:00 Eos # 0.0 (0.0-0.7) 03/05/17 18:00 Baso # 0.01 K/mm3 (0.0-2.0) 03/05/17 18:00 Sodium 141 mmol/L (132-148) 03/05/17 18:00 Potassium 4.1 mmol/L (3.6-5.0) 03/05/17 18:00 Chloride 104 mmol/L (98-107) 03/05/17 18:00 Carbon Dioxide 28 mmol/L (21-33) 03/05/17 18:00 Anion Gap 14 (10-20) 03/05/17 18:00 BUN 26 mg/dL (7-21) H 03/05/17 18:00 Creatinine 0.9 mg/dl (0.8-1.5) 03/05/17 18:00 Est GFR ( Amer) > 60 03/05/17 18:00 Est GFR (Non-Af Amer) > 60 03/05/17 18:00 Random Glucose 134 mg/dL (70-110) H 03/05/17 18:00 Calcium 8.5 mg/dL (8.4-10.5) 03/05/17 18:00 Total Bilirubin 0.3 mg/dL (0.2-1.3) 03/05/17 18:00 AST 57 U/L (17-59) 03/05/17 18:00 ALT 49 U/L (7-56) 03/05/17 18:00 Alkaline Phosphatase 93 U/L (38-126) 03/05/17 18:00 Total Creatine Kinase 37 U/L (35-230) 03/05/17 20:23 Total Protein 7.9 g/dL (5.8-8.3) 03/05/17 18:00 Albumin 3.6 g/dL (3.0-4.8) 03/05/17 18:00 Globulin 4.3 gm/dL 03/05/17 18:00 Albumin/Globulin Ratio 0.8 (1.1-1.8) L 03/05/17 18:00 Urine Color Yellow (YELLOW) 03/05/17 21:10 Urine Appearance Clear (CLEAR) 03/05/17 21:10 Urine pH 6.0 (4.7-8.0) 03/05/17 21:10 Ur Specific Lowgap >= 1.030 (1.005-1.035) 03/05/17 21:10 Urine Protein 30 mg/dL (<30 mg/dL) H 03/05/17 21:10 Urine Glucose (UA) Negative mg/dL (NEGATIVE) 03/05/17 21:10 Urine Ketones Negative mg/dL (NEGATIVE) 03/05/17 21:10 Urine Blood Moderate (NEGATIVE) H 03/05/17 21:10 Urine Nitrate Negative (NEGATIVE) 03/05/17 21:10 Urine Bilirubin Negative (NEGATIVE) 03/05/17 21:10 Urine Urobilinogen 0.2 E.U./dL (<1 E.U./dL) 03/05/17 21:10 Ur Leukocyte Esterase Negative Tomas/uL (NEGATIVE) 03/05/17 21:10 Urine RBC 10 - 15 /hpf (0-2) 03/05/17 21:10 Urine WBC 1 - 3 /hpf (0-6) 03/05/17 21:10 Ur Epithelial Cells 0 - 2 /hpf (0-5) 03/05/17 21:10 Calcium Oxalate Crystal Few /hpf 03/05/17 21:10 Urine Bacteria Neg (NEG) 03/05/17 21:10 Urine Opiates Screen Positive (NEGATIVE) H 03/07/17 02:20 Urine Methadone Screen Negative (NEGATIVE) 03/07/17 02:20 Ur Barbiturates Screen Negative (NEGATIVE) 03/07/17 02:20 Ur Phencyclidine Scrn Negative (NEGATIVE) 03/07/17 02:20 Ur Amphetamines Screen Negative (NEGATIVE) 03/07/17 02:20 U Benzodiazepines Scrn Negative (NEGATIVE) 03/07/17 02:20 U Oth Cocaine Metabols Negative (NEGATIVE) 03/07/17 02:20 U Cannabinoids Screen Negative (NEGATIVE) 03/07/17 02:20 - Hospital Course Hospital Course: pt is seen and examined at bed side . looking comfortable , agreed all above , d /d with TRAFFIC SIGNAL SUPERVISOR MAINTENANCE and hospital and nh staff . will cont. present treatment and started pt on Augmentin , will f/u there
--- NOTE | 2017-03-07 14:57 | ED PDOC ---
ED Additional Note - Physician Additional Note Physician Additional Note: i spoke with dr. jo regarding cxr findings. she states she is aware of findings of question of developing left mid lung pneumonia and sent patient back to skilled nursing on Augmentin po. CXR FINDINGS: LUNGS: There is pulmonary hyperinflation and peribronchial thickening with increased interstitial markings. There is ill-defined airspace disease in the left mid lung. There is biapical pleural thickening. PLEURA: No significant pleural effusion identified, no pneumothorax apparent. CARDIOVASCULAR: Normal. There is stable position of left-sided unipolar permanent pacing device OSSEOUS STRUCTURES: Within normal limits for the patient's age. VISUALIZED UPPER ABDOMEN: Normal. OTHER FINDINGS: None. IMPRESSION: Question of developing left mid lung pneumonia. COPD versus interstitial lung disease.
--- NOTE | 2017-03-08 08:38 | PN ---
DATE: 03/07/2017 He is being seen today in followup consultation. PRESENTATION: The patient is a 76-year-old white male, seen at bedside. He is being seen in consultation because he has been in the past had some violent outbursts at the residential, as well as he was admitted this time for evaluation of a head injury, he had fallen down out of bed at his residential. The patient continues to be pleasantly confused. He does respond to his name, but has no idea of where he is, what the name of this residential is, time, or place; however, he is not bothered by this. He is fairly docile according to the nursing staff. MEDICATIONS: His current medications are in terms of his behavior; alprazolam 0.25 mg one p.o. b.i.d.; citalopram 20 mg one p.o. daily; donepezil 20 mg one at bedtime; lorazepam 0.5 mg IV push q.6 hours p.r.n., he has not needed that recently; and Risperdal 1 mg one p.o. t.i.d., this order was changed to oral liquid medication and the patient tolerated it well with cooperative in taking it. PHYSICAL EXAMINATION VITAL SIGNS: His current vital signs include temperature of 99, pulse rate of 88, blood pressure of 120/87, and 98% pulse oximetry. The patient currently needs clearance to return to the residential. MENTAL STATUS EXAM: The patient wakes up easily, speaks superficially. He is oriented x1. He is pleasant and cooperative. He denies being suicidal or homicidal. Indicates that he is feeling well, he enjoys his food. He feels he is doing fine. He is not sure where he is or the residential that he is going to; however, this appears to be his baseline. DIAGNOSTIC IMPRESSION: Dementia with mixed emotions and conduct, interstitial lung disease, status post head injury. PLAN: The patient is psychiatrically cleared to return to the residential. He is pleasant and cooperative for the last couple of days. He has been cleared medically. We have made some changes in his medications as listed above. The recommendation is that he sees psychiatrist when he gets back to the residential within 48 to 72 hours, should continue to follow up on how he is doing on these medications. The patient is not suicidal or homicidal at this time and appears in no imminent danger for himself or others. Thank you for this consult. Telma Tang APN
--- NOTE | 2017-03-08 08:52 | CP.PCM.PCO ---
Physician Communication Note - Physician Communication Note Physician Communication Note: pt was d/c
== END 2017-03-07 14:58 ==
LOC: ED 17:07 → ERH 21:29 → 5RSO 23:14
PROVIDERS: ADMIT Internal Medicine; ATTEND Internal Medicine
DX: S00.03XA Contusion of scalp, initial encounter (principal); F03.91 Unspecified dementia, unspecified severity, with behavioral disturbance; J84.9 Interstitial pulmonary disease, unspecified; E86.0 Dehydration; K21.9 Gastro-esophageal reflux disease without esophagitis; F31.9 Bipolar disorder, unspecified; I10 Essential (primary) hypertension; J20.9 Acute bronchitis, unspecified; F41.9 Anxiety disorder, unspecified; E03.9 Hypothyroidism, unspecified; J43.9 Emphysema, unspecified; R27.0 Ataxia, unspecified; M54.9 Dorsalgia, unspecified; B19.20 Unspecified viral hepatitis C without hepatic coma; F17.210 Nicotine dependence, cigarettes, uncomplicated; M06.9 Rheumatoid arthritis, unspecified; F60.2 Antisocial personality disorder; D64.9 Anemia, unspecified; W06.XXXA Fall from bed, initial encounter; Y92.122 Bedroom in nursing home as the place of occurrence of the external cause; Z95.0 Presence of cardiac pacemaker
CPT/HCPCS: 70450; 71045; 80053; 81001; 82550; 85025; 94640; 99285; G0378; G0480; J2060; J7040